=== PATIENT | male | born 1940 | race Caucasian/White ===

== ENCOUNTER 2016-06-01 12:10 | Inpatient (IN) | payer MEDICARE ==
[~2016-06-01] VITALS: Ht 175.3 cm; Wt 70.6 kg
[~2016-06-01 12:10] MED LIST: ALBU0.08 NEB; ASPI81CH CHEW; ATEN1TAB74 PO; BRIM0.2S4 EACH EYE; CHOL4POW4 PO; GLIP5TAB8 PO; IPRA0.02 NEB; LATA.005%O EACH EYE; NITR0.6D T-DERMAL
[2016-06-01 13:51] VITALS: BP 153/70; PULSE 69; RESP 16; TEMP 97.5; O2SAT 100
--- NOTE | 2016-06-01 13:51 | PD ---
HPI Chief Complaint: GI Complaint Time Seen by Provider: 13:51 Travel History International Travel<30 days: No Contact w/Intl Traveler<30days: No Traveled to known affect area: No History of Present Illness HPI 75-year-old male presents to the emergency department by Dr. Becerril for evaluation of elevated WBC. According to family, his white count was 18.3 this morning. He reports some mild left upper quadrant pain and progressive weakness , but denies any other complaints. Family member states he ran a fever a few days ago, but denies any current fever. He also reports diarrhea 3 days ago, but states this resolved with Imodium. He denies any nausea or vomiting. He denies any syncope. Patient states that in March, he was admitted with diverticulitis. He went into renal failure. In April, she had surgery by Dr. Becerril for abscess. 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 Patient has been No history of diabetes mellitus, CKD stage 3, CAD with previous stenting. Patient also reports a trip and fall on Wednesday does report headache. PFSH Past Medical History Asthma: No Blood Disorders: No Heart Rhythm Problems: No Cancer: No Cardiac Catheterization: Yes Cardiovascular Problems: Yes ([place]) High Cholesterol: Yes Chemotherapy: No Chest Pain: No Congestive Heart Failure: No COPD: No Diabetes: Yes Diminished Hearing: No Endocrine: Yes (DIABETES) Glaucoma: No Genitourinary: Yes (ENLARGED PROSTATE) Hepatitis: No Hiatal Hernia: No Hypertension: Yes Immune Disorder: No Musculoskeletal: No Neurologic: No Psychiatric: No Reproductive: No Respiratory: No Radiation Therapy: No Sleep Apnea: No Thyroid Disease: No Past Surgical History Abdominal Surgery: Yes (HERNIA REPAIR) AICD: No Body Medical Devices: STENTS Cardiac Surgery: Yes (CARDIAC STENTS 2000) Coronary Stent: Yes Ear Surgery: No Endocrine Surgery: No Eye Surgery: No Genitourinary Surgery: No Gynecologic Surgery: No Joint Replacement: Yes Oral Surgery: No Pacemaker: No Thoracic Surgery: No Other Surgery: Yes Social History Alcohol Use: No Tobacco Use: No Substance Use: No Allergies-Medications (Allergen,Severity, Reaction): Coded Allergies: *MDRO Multi-Drug Resistant Organism (Verified Adverse Reaction, Unknown, VRE, MRSA, 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 Review of Systems Except as stated in HPI: all other systems reviewed are Neg Physical Exam Narrative GENERAL: Well-developed well-nourished elderly male patient, ambulatory. Afebrile. SKIN: Warm and dry. HEAD: Normocephalic. Atraumatic. EYES: No scleral icterus. No injection or drainage. NECK: Supple, trachea midline. No JVD or lymphadenopathy. CARDIOVASCULAR: Regular rate and rhythm without murmurs, gallops, or rubs. RESPIRATORY: Breath sounds equal bilaterally. No accessory muscle use. Lungs sounds are clear to auscultation. GASTROINTESTINAL: Abdomen soft and nondistended. Mild tenderness over left upper quadrant. MUSCULOSKELETAL: No cyanosis, or edema. BACK: Nontender without obvious deformity. No CVA tenderness. Data Data Last Documented VS Vital Signs Date Time Temp Pulse Resp B/P Pulse Ox O2 Delivery O2 Flow Rate FiO2 06/01/16 17:30 82 16 168/76 98 Room Air 06/01/16 13:51 97.5 Orders Complete Blood Count With Diff (06/01/16 13:39) Comprehensive Metabolic Panel (06/01/16 13:39) Lipase (06/01/16 13:39) Lactic Acid (06/01/16 13:39) Ct Abd/Pel W Iv Contrast(Rout) (06/01/16 13:39) Iv Access Insert/Monitor (06/01/16 13:39) Ecg Monitoring (06/01/16 13:39) Oximetry (06/01/16 13:39) Sodium Chloride 0.9% Flush (Ns Flush) (06/01/16 13:45) Oral Contrast - Adult (06/01/16 13:47) Blood Culture (06/01/16 13:50) Urinalysis - C+S If Indicated (06/01/16 13:57) Diatrizoate Liq ( Gastroview Liq) (06/01/16 14:06) Ct Brain W/O Iv Contrast(Rout) (06/01/16 ) Consult Vascular Access Team (06/01/16 ) Vascular Poc Ultrasound (06/01/16 ) Vancomycin Inj (Vancomycin Inj) (06/01/16 15:02) Piperacil-Tazo 4.5 Gm Premix (Zosyn 4.5 (06/01/16 15:02) Asp: Other Excep Documentation (Asp Crit (06/01/16 15:15) Ertapenem Inj (Invanz Inj) (06/01/16 15:04) Consult Infectious Disease (06/01/16 ) Sodium Chlor 0.9% 1000 Ml Inj (Ns 1000 M (06/01/16 16:46) Sodium Chlor 0.9% 1000 Ml Inj (Ns 1000 M (06/01/16 16:46) Sodium Chlor 0.9% 1000 Ml Inj (Ns 1000 M (06/01/16 16:46) (Hub Use Only)Inp Phy Cons/Ref (06/01/16 ) Iohexol 350 Inj (Omnipaque 350 Inj) (06/01/16 17:48) Labs Laboratory Tests Test 06/01/16 06/01/16 14:00 15:20 White Blood Count 19.7 TH/MM3 Red Blood Count 4.44 MIL/MM3 Hemoglobin 12.2 GM/DL Hematocrit 37.1 % Mean Corpuscular Volume 83.7 FL Mean Corpuscular Hemoglobin 27.6 PG Mean Corpuscular Hemoglobin 33.0 % Concent Red Cell Distribution Width 16.1 % Platelet Count 596 TH/MM3 Mean Platelet Volume 8.5 FL Neutrophils (%) (Auto) 80.7 % Lymphocytes (%) (Auto) 8.4 % Monocytes (%) (Auto) 9.5 % Eosinophils (%) (Auto) 0.4 % Basophils (%) (Auto) 1.0 % Neutrophils # (Auto) 15.9 TH/MM3 Lymphocytes # (Auto) 1.7 TH/MM3 Monocytes # (Auto) 1.9 TH/MM3 Eosinophils # (Auto) 0.1 TH/MM3 Basophils # (Auto) 0.2 TH/MM3 CBC Comment DIFF FINAL Differential Comment Sodium Level 134 MEQ/L Potassium Level 4.3 MEQ/L Chloride Level 99 MEQ/L Carbon Dioxide Level 23.5 MEQ/L Anion Gap 12 MEQ/L Blood Urea Nitrogen 18 MG/DL Creatinine 0.97 MG/DL Estimat Glomerular Filtration 75 ML/MIN Rate Random Glucose 138 MG/DL Lactic Acid Level 2.8 mmol/L Calcium Level 9.4 MG/DL Total Bilirubin 0.3 MG/DL Aspartate Amino Transf 29 U/L (AST/SGOT) Alanine Aminotransferase 14 U/L (ALT/SGPT) Alkaline Phosphatase 147 U/L Total Protein 7.7 GM/DL Albumin 2.3 GM/DL Lipase 104 U/L Urine Color YELLOW Urine Turbidity CLEAR Urine pH 6.5 Urine Specific [place] 1.017 Urine Protein TRACE mg/dL Urine Glucose (UA) NEG mg/dL Urine Ketones NEG mg/dL Urine Occult Blood NEG Urine Nitrite NEG Urine Bilirubin NEG Urine Urobilinogen LESS THAN 2.0 MG/DL Urine Leukocyte Esterase NEG Urine RBC LESS THAN 1 /hpf Urine WBC 1 /hpf Microscopic Urinalysis Comment CULT NOT INDICATED MDM Medical Decision Making Medical Screen Exam Complete: Yes Emergency Medical Condition: Yes Medical Record Reviewed: Yes Interpretation(s) CT brain - CONCLUSION: Negative for an acute process.. CT abdomen/pelvis - CONCLUSION: Large subphrenic abscess, multi-loculated on the left. This tracks along the pericolic gutter to beneath the diaphragm. Spleen appears to be surgically resected. Differential Diagnosis Diverticulitis versus bowel obstruction versus abscess versus UTI versus sepsis Narrative Course 75-year-old male presents to the emergency department sent by Dr. Becerril for evaluation of elevated white count and minor left upper quadrant abdominal pain. CBC, CMP, lipase, lactic acid, UA, blood cultures 2 are ordered and pending. CT abdomen/pelvis and CT of the brain are ordered and pending. CBC shows leukocytosis of 19.7, neutrophilia 80.7. CMP elevated alkaline phosphatase of 147, no acute abnormality. Lipase is 104. Lactic acid is 2.8. UA shows no evidence of acute infection. CT abdomen/pelvis shows large subphrenic abscess, multi-loculated on the left. This tracks along the pericolic gutter to beneath the diaphragm. Spleen appears to be surgically resected. . CT of the brain shows no acute abnormality. Patient is given INVanz 1000 mg IV. [id number] - Dr. Becerril is paged. [id number] - Dr. Becerril returned call and accepted admission. Sepsis Criteria SIRS Criteria (2 or more): WBC > 33359, < 4000 or > 10% bands Sepsis Criteria (SIRS+source): Infect source susp/known Severe Sepsis (+one): Lactate >2 Diagnosis Primary Impression: Subphrenic abscess, postoperative Qualified Code: T81.4XXA - Subphrenic abscess, postoperative, initial encounter Admitting Information Admitting Physician Requests: Admit Nicolette Garland Jun 01, 2016 13:51
[2016-06-01] MEDS ORDERED: LATA0.002 EACH EYE (13:56)
[2016-06-01] MEDS ORDERED: DIATRIZOATE MEGLUM/DIATRIZOATE SOD 9 ML CUP ONE (14:06)
[2016-06-01 14:20] LABS: AUTOMATED NEUTROPHIL # 15.9 TH/MM3 (1.8-7.7); BASOPHIL # 0.2 TH/MM3 (0-0.2); EOSINOPHIL # 0.1 TH/MM3 (0-0.4); EOSINOPHIL % 0.4 % (0.0-4.0); HEMATOCRIT 37.1 % (39.0-51.0); HEMO FLAGS DIFF FINAL; LYMPH % 8.4 % (9.0-44.0); LYMPHOCYTE # 1.7 TH/MM3 (1.0-4.8); MEAN CELL VOLUME 83.7 FL (80.0-100.0); MEAN CORPUSCULAR HEMOGLOBIN 27.6 PG (27.0-34.0); MONO % 9.5 % (0.0-8.0); NEUT % 80.7 % (16.0-70.0); PLATELET COUNT 596 TH/MM3 (150-450); RED BLOOD COUNT 4.44 MIL/MM3 (4.50-5.90); RED CELL DISTRIBUTION WIDTH 16.1 % (11.6-17.2); WHITE BLOOD COUNT 19.7 TH/MM3 (4.0-11.0)
[2016-06-01 14:43] LABS: ALKALINE PHOSPHATASE 147 U/L (45-117); ALT (GPT) 14 U/L (12-78); ANION GAP 12 MEQ/L (5-15); AST (GOT) 29 U/L (15-37); BICARBONATE 23.5 MEQ/L (21.0-32.0); BLOOD UREA NITROGEN 18 MG/DL (7-18); CHLORIDE 99 MEQ/L (98-107); GLOMERULAR FILTRATION RATE 75 ML/MIN (>89); POTASSIUM 4.3 MEQ/L (3.5-5.1); SODIUM (NA) 134 MEQ/L (136-145); TOTAL BILIRUBIN ADULT 0.3 MG/DL (0.2-1.0)
[2016-06-01] MEDS ORDERED: VANCOMYCIN INJ 1,000 MG in SODIUM CHLOR 0.9% 250 ML INJ 250 ML IV STA (15:02)
[2016-06-01] MEDS ORDERED: PIPERACIL-TAZO 4.5 GM PREMIX 100 ML IV STA (15:02)
[2016-06-01] MEDS ORDERED: ERTAPENEM INJ 1,000 MG in SODIUM CHLORIDE 0.9% INJ 100 ML IV STA (15:04)
[2016-06-01] MEDS ORDERED: ASP: Other exception documentation: ( ) XX PRN (15:15)
[2016-06-01 15:56] LABS: BLOOD, URINE NEG (NEG); COMMENT (UR) CULT NOT INDICATED; CULTURE IF INDICATED CULT NOT INDICATED; GLUCOSE,URINE NEG (NEG); KETONE, URINE NEG (NEG); NITRITE,URINE NEG (NEG); PH, URINE 6.5 (5.0-8.5); URINE COLOR YELLOW (YELLW/STRAW)
--- NOTE | 2016-06-01 16:43 | RADRPT ---
EXAM DATE/TIME: 06/01/2016 16:14 [facility] COMPARISON: No previous studies available for comparison. INDICATIONS : Trauma; confusion, fall two weeks ago. RADIATION DOSE: 56.35 CTDIvol (mGy) MEDICAL HISTORY : Hypertension. Cardiovascular disease SURGICAL HISTORY : Bowel resection ENCOUNTER: Initial ACUITY: 2 weeks PAIN SCALE: 3/10 LOCATION: cranial TECHNIQUE: Multiple contiguous axial images were obtained of the head. Using automated exposure control and adj ustment of the mA and/or kV according to patient size, radiation dose was kept as low as reasonably a chievable to obtain optimal diagnostic quality images. FINDINGS: CEREBRUM: The ventricles are normal for age. No evidence of midline shift, mass lesion, hemorrhage or acute in farction. No extra-axial fluid collections are seen. POSTERIOR FOSSA: The cerebellum and brainstem are intact. The 4th ventricle is midline. The cerebellopontine angle i s unremarkable. EXTRACRANIAL: The visualized portion of the orbits is intact. SKULL: The calvaria is intact. No evidence of skull fracture. CONCLUSION: Negative for an acute process.. Dominik Parekh MD FACR on June 01, 2016 at 16:41 Board Certified Radiologist. This report was verified electronically.
[2016-06-01] MEDS ORDERED: SODIUM CHLOR 0.9% 1000 ML INJ 100 ML IV ONE (16:46)
[2016-06-01] MEDS ORDERED: SODIUM CHLOR 0.9% 1000 ML INJ 1,000 ML IV ONE ×2 (16:46)
--- NOTE | 2016-06-01 16:52 | RADRPT ---
EXAM DATE/TIME: 06/01/2016 16:17 [facility] COMPARISON: CT THORAX W/O CONTRAST, March 04, 2016, 16:12. CT ABDOMEN & PELVIS W CONTRAST, September 07, 2014, 13:0 7. INDICATIONS: Left abdominal pain 8 weeks post operative bowel resection. IV CONTRAST: 100 cc Omnipaque 350 (iohexol) IV ORAL CONTRAST: Prescribed oral contrast ingested. RADIATION DOSE: 9.96 CTDIvol (mGy) MEDICAL HISTORY: Diverticulitis. Cardiovascular disease SURGICAL HISTORY: Splenectomy. Appendectomy. Bowel resection. ENCOUNTER: Initial ACUITY: 1 week PAIN SCALE: 3/10 LOCATION: Left abdomen TECHNIQUE: Volumetric scanning of the abdomen and pelvis was performed. Using automated exposure control and ad justment of the mA and/or kV according to patient size, radiation dose was kept as low as reasonably achievable to obtain optimal diagnostic quality images. FINDINGS: There are consolidative changes present in the right base. Very minimal parenchymal changes are seen in the lingula on the left. There is no pericardial effusion. The liver is free of focal defects. There is a subphrenic abscess on the left containing air and debris. This does involve the tail of t he pancreas. This is in intima association with the splenic bed. There is no free air. Large right renal cyst is evident measuring 10 cm. Smaller cysts are seen in the left kidney. Pelvis appears unremarkable though partially obscured by artifact from bilateral total hips. CONCLUSION: Large subphrenic abscess, multi-loculated on the left. This tracks along the pericolic gutter to jason eath the diaphragm. Spleen appears to be surgically resected. Dominik Parekh MD FACR on June 01, 2016 at 16:42 Board Certified Radiologist. This report was verified electronically.
--- NOTE | 2016-06-01 17:01 | PD ---
Data Data Last Documented VS Vital Signs Date Time Temp Pulse Resp B/P Pulse Ox O2 Delivery O2 Flow Rate FiO2 06/01/16 13:51 16 06/01/16 13:51 97.5 69 153/70 100 Room Air Orders Complete Blood Count With Diff (06/01/16 13:39) Comprehensive Metabolic Panel (06/01/16 13:39) Lipase (06/01/16 13:39) Lactic Acid (06/01/16 13:39) Ct Abd/Pel W Iv Contrast(Rout) (06/01/16 13:39) Iv Access Insert/Monitor (06/01/16 13:39) Ecg Monitoring (06/01/16 13:39) Oximetry (06/01/16 13:39) Sodium Chloride 0.9% Flush (Ns Flush) (06/01/16 13:45) Oral Contrast - Adult (06/01/16 13:47) Blood Culture (06/01/16 13:50) Urinalysis - C+S If Indicated (06/01/16 13:57) Diatrizoate Liq ( Gastroview Liq) (06/01/16 14:06) Ct Brain W/O Iv Contrast(Rout) (06/01/16 ) Consult Vascular Access Team (06/01/16 ) Vascular Poc Ultrasound (06/01/16 ) Vancomycin Inj (Vancomycin Inj) (06/01/16 15:02) Piperacil-Tazo 4.5 Gm Premix (Zosyn 4.5 (06/01/16 15:02) Asp: Other Excep Documentation (Asp Crit (06/01/16 15:15) Ertapenem Inj (Invanz Inj) (06/01/16 15:04) Consult Infectious Disease (06/01/16 ) Sodium Chlor 0.9% 1000 Ml Inj (Ns 1000 M (06/01/16 16:46) Sodium Chlor 0.9% 1000 Ml Inj (Ns 1000 M (06/01/16 16:46) Sodium Chlor 0.9% 1000 Ml Inj (Ns 1000 M (06/01/16 16:46) Labs Laboratory Tests Test 06/01/16 06/01/16 14:00 15:20 White Blood Count 19.7 TH/MM3 Red Blood Count 4.44 MIL/MM3 Hemoglobin 12.2 GM/DL Hematocrit 37.1 % Mean Corpuscular Volume 83.7 FL Mean Corpuscular Hemoglobin 27.6 PG Mean Corpuscular Hemoglobin 33.0 % Concent Red Cell Distribution Width 16.1 % Platelet Count 596 TH/MM3 Mean Platelet Volume 8.5 FL Neutrophils (%) (Auto) 80.7 % Lymphocytes (%) (Auto) 8.4 % Monocytes (%) (Auto) 9.5 % Eosinophils (%) (Auto) 0.4 % Basophils (%) (Auto) 1.0 % Neutrophils # (Auto) 15.9 TH/MM3 Lymphocytes # (Auto) 1.7 TH/MM3 Monocytes # (Auto) 1.9 TH/MM3 Eosinophils # (Auto) 0.1 TH/MM3 Basophils # (Auto) 0.2 TH/MM3 CBC Comment DIFF FINAL Differential Comment Sodium Level 134 MEQ/L Potassium Level 4.3 MEQ/L Chloride Level 99 MEQ/L Carbon Dioxide Level 23.5 MEQ/L Anion Gap 12 MEQ/L Blood Urea Nitrogen 18 MG/DL Creatinine 0.97 MG/DL Estimat Glomerular Filtration 75 ML/MIN Rate Random Glucose 138 MG/DL Lactic Acid Level 2.8 mmol/L Calcium Level 9.4 MG/DL Total Bilirubin 0.3 MG/DL Aspartate Amino Transf 29 U/L (AST/SGOT) Alanine Aminotransferase 14 U/L (ALT/SGPT) Alkaline Phosphatase 147 U/L Total Protein 7.7 GM/DL Albumin 2.3 GM/DL Lipase 104 U/L Urine Color YELLOW Urine Turbidity CLEAR Urine pH 6.5 Urine Specific [place] 1.017 Urine Protein TRACE mg/dL Urine Glucose (UA) NEG mg/dL Urine Ketones NEG mg/dL Urine Occult Blood NEG Urine Nitrite NEG Urine Bilirubin NEG Urine Urobilinogen LESS THAN 2.0 MG/DL Urine Leukocyte Esterase NEG Urine RBC LESS THAN 1 /hpf Urine WBC 1 /hpf Microscopic Urinalysis Comment CULT NOT INDICATED MDM Supervised Visit with [place]: Yes Narrative Course I, Dr. Dubose, have reviewed the advance practice practioner's documentation and am in agreement, met with the patient face to face, made the diagnosis, and the medical decision making was done by me. *My assessment and Findings: 75-year-old male status post partial colectomy, splenectomy and appendectomy approximate one month ago here with complaint of elevated white blood cell count, generalized fatigue and a slight amount of left upper quadrant abdominal tenderness. Overall has a benign abdominal examination. Afebrile here. Differential includes abscess, gastritis, pancreatitis, hepatobiliary pathology, bowel obstruction, less likely dehiscence , UTI or pyelonephritis. Patient's laboratory workup notable for white count 19.7, lactate 2.8. He has a history of VRE Enterococcus faecalis and therefore was covered with ertapenem IV, infectious disease was consulted for further recommendations. Patient was covered with 31 g/kg normal saline bolus. Unfortunately CT of the abdomen and pelvis shows a subphrenic abscess in the head of his previous splenectomy. Patient's colorectal surgeon, Dr. Becerril, will be consulted for admission and further management. Critical Care Narrative Aggregate critical care time was 55 minutes. Time to perform other separately billable procedures was not included in the critical care time. My time did not include minutes spent treating any other patients simultaneously or on activities that did not directly contribute to the patient's treatment. The services I provided to this patient were to treat and/or prevent clinically significant deterioration that could result in: Cardiopulmonary decompensation, , disability I provided critical care services requiring my management, as noted below: Chart data review, documentation time, medication orders and management, vital sign assessments/reviewing monitor data, ordering and reviewing lab tests, ordering and interpreting/reviewing x-rays and diagnostic studies, care of the patient and discussion of the patient with the admitting physicians. Sepsis Criteria SIRS Criteria (2 or more): WBC > 93731, < 4000 or > 10% bands Severe Sepsis (+one): Lactate >2 Criteria Outcome: Meets SIRS criteria, Meets sepsis criteria, Meets severe sepsis criteria Diagnosis Primary Impression: Subphrenic abscess, postoperative Qualified Code: T81.4XXA - Subphrenic abscess, postoperative, initial encounter Additional Impression: Severe sepsis Adelaida Dubose MD Jun 01, 2016 17:01
[2016-06-01 17:30] VITALS: BP 168/76; PULSE 82; RESP 16; O2SAT 98
[2016-06-01] MEDS ORDERED: IOHEXOL 350 MG/ML 10 ML VIAL (for RAD DIAG) IV ONE (17:48)
[2016-06-01 19:34] VITALS: BP 165/78; PULSE 85; RESP 16; O2SAT 99
[2016-06-01] MEDS: SODIUM CHLOR 0.9% 1000 ML INJ 1,000 ML IV SCH (21:56)
[2016-06-01] MEDS: PANTOPRAZOLE SODIUM 40 MG VIAL IV PUSH SCH (21:56)
[2016-06-01 22:00] VITALS: BP 178/79; PULSE 75; RESP 20; TEMP 95.6; O2SAT 97
[2016-06-01] MEDS: LATANOPROST 0.005% OPHT SOLN 2.5 ML BTL EACH EYE SCH (23:57)
[2016-06-02] VITALS (9 sets, daily range): BP systolic 147–184; BP diastolic 66–85; PULSE 69–84; RESP 16–20; TEMP 95.3–97.8; O2SAT 93–100
[2016-06-02 05:50] LABS: AUTOMATED NEUTROPHIL # 11.3 TH/MM3 (1.8-7.7); BASOPHIL # 0.1 TH/MM3 (0-0.2); BASOPHIL % 0.7 % (0.0-2.0); EOSINOPHIL # 0.1 TH/MM3 (0-0.4); EOSINOPHIL % 0.5 % (0.0-4.0); HEMATOCRIT 34.1 % (39.0-51.0); HEMO FLAGS DIFF FINAL; LYMPHOCYTE # 2.3 TH/MM3 (1.0-4.8); MEAN CELL VOLUME 82.5 FL (80.0-100.0); MEAN CORPUSCULAR HEMOGLOBIN 26.7 PG (27.0-34.0); MEAN CORPUSCULAR HGB CONC 32.4 % (32.0-36.0); MONO % 9.2 % (0.0-8.0); NEUT % 74.6 % (16.0-70.0); PLATELET COUNT 561 TH/MM3 (150-450); RED BLOOD COUNT 4.13 MIL/MM3 (4.50-5.90); RED CELL DISTRIBUTION WIDTH 15.9 % (11.6-17.2); WHITE BLOOD COUNT 15.2 TH/MM3 (4.0-11.0)
[2016-06-02] MEDS ORDERED: ERTAPENEM SODIUM 1000 MG VIAL IM SCH (09:00)
[2016-06-02] MEDS ORDERED: LIDOCAINE 1%/EPINEPHrine 1:100,000 SOLN 20 ML VIAL ONE (09:49)
[2016-06-02] MEDS ORDERED: fentaNYL CITRATE 250 MCG/5 ML AMP ONE (09:52)
[2016-06-02] MEDS ORDERED: MIDAZOLAM HCL 5 MG/5 ML VIAL ONE (09:52)
[2016-06-02] MEDS: SODIUM CHLORIDE 0.9% 10 ML VIAL IV FLUSH SCH ×2 (12:00→22:43)
--- NOTE | 2016-06-02 13:22 | RADRPT ---
EXAM DATE/TIME: 06/02/2016 10:18 [facility] COMPARISON: No previous studies available for comparison. INDICATIONS : Left side abdominal abscess. SEDATION TIME: 30 minutes MEDICATION(S): 1.) 3 mg midazolam (Versed) IV 2.) 150 mcg fentanyl (Sublimaze) IV DEVICE(S): 1.) 10 Fr Skater FLUID: Total volume of 8 cc of elizabeth fluid was removed. Fluid was sent for laboratory ordered studies. MEDICAL HISTORY : Hernia, hiatal. Diverticulitis. SURGICAL HISTORY : Splenectomy. Hernia repair ENCOUNTER: Initial ACUITY: 1 day PAIN SCORE: 0/10 LOCATION: Left upper quadrant PROCEDURE: 1.) Conscious sedation with continuous EKG and oximetry monitoring. PROCEDURE : 1. CT guided drainage of the left upper abdominal abscess 2. Conscious sedation with continuous EKG and oximetry monitoring. The risks, benefits and alternatives to the procedure were explained and verbal and written consent w as obtained. The site was prepped in sterile fashion. Full sterile technique was used, including ca p, mask, sterile gloves and gown and a large sterile sheet. Hand hygiene and 2% chlorhexidine and/or betadine/alcohol prep was utilized per protocol for cutaneous antisepsis. The skin and subcutaneous tissues were infiltrated with local anesthetic solution. Using CT guidance the prescribed site was localized. Drainage was performed using the prescribed cat heter. A sample of the fluid was sent for laboratory evaluation. The patient tolerated the procedure well and there were no complications. Conscious sedation was per formed with the prescribed dosages and duration as above. The patient tolerated the procedure well an d there were no complications. EKG and oximetry remained stable throughout the procedure. The patient was sent to post anesthesia recovery in stable condition. CONCLUSION: Uncomplicated CT guided drainage. Gavin Barboza MD on June 02, 2016 at 13:20 Board Certified Radiologist. This report was verified electronically.
[2016-06-02] MEDS ORDERED: GLUCAGON 1 MG/ML VIAL OTHER PRN (14:45)
[2016-06-02] MEDS ORDERED: DEXTROSE 50% IN WATER 50 ML VIAL(D50) IV PUSH PRN (14:45)
[2016-06-02] MEDS: ERTAPENEM 1,000 MG/NS 100 ML IV SCH ×2 (15:31)
[2016-06-02] MEDS: SODIUM CHLOR 0.9% 1000 ML INJ 1,000 ML IV SCH (15:33)
[2016-06-02] MEDS: LOW DOSE INSULIN NOVOLIN REGULAR SUPPLEMENTAL SCALE SQ SCH ×2 (16:00→21:00)
--- NOTE | 2016-06-02 17:22 | HHI.PR ---
Subjective Remarks C/R Surg afebrile, VSS UO good no appetite mild abd discomfort Objective - Vital Signs Date Time Temp Pulse Resp B/P Pulse Ox O2 Delivery O2 Flow Rate FiO2 06/02/16 16:00 97.2 77 16 147/69 97 06/01/16 19:34 Room Air Result Diagram: 06/02/16 0512 06/01/16 1400 Objective Remarks PE alert Abd - soft, min tympany, non-tender A/P Assessment and Plan Imp: CT - LUQ fluid - try CT drainage PO as fam IVF ab's Raleigh Becerril MD Jun 02, 2016 17:22
[2016-06-02 17:41] LABS: AMYLASE 25 U/L (25-115)
--- NOTE | 2016-06-02 21:05 | MH ---
cc: ORLANDO TAFOYA MD DATE OF ADMISSION 06/01/2016 ADMISSION DIAGNOSIS Fever, possible abdominal abscess. HISTORY OF PRESENT ILLNESS Mr. 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 He also had a splenectomy at that time. He has been having a slow postop recovery, although recently gain some strength and seemed to get back to some more normal daily activities. He called the morning of admission with two or three day history of low grade fevers, general malaise, lethargy and some abdominal discomfort. Denies any nausea or vomiting, but his appetite has been pretty poor. He has had a little loose stool and has taken Imodium with good results. He was evaluated in the emergency room and was found to have a fluid collection in the left upper quadrant consistent with either postop seroma or possibly postop abscess. He was therefore admitted for antibiotics and probable CT-guided abscess drainage. PAST MEDICAL/SURGICAL HISTORY Well-documented in the chart. PHYSICAL EXAMINATION GENERAL: A very pleasant older male in no acute distress. HEENT: Remarkable for dry but pink membranes, nonicteric sclerae. NECK: Supple without gross adenopathy CHEST: Relatively clear may be diminished in the bases. HEART: Regular rhythm. ABDOMEN: Very soft and flat, very little tympany, tender in the left upper quadrant. No rebound or guarding or masses noted. EXTREMITIES: No cyanosis or clubbing and 1+ pedal edema. LABORATORY FINDINGS All reviewed and noted in the chart. IMPRESSION A 75-year-old male status post diverticular surgery and splenectomy found to have a fluid collection in the left upper quadrant. His white count has risen slightly, although he does not appear very toxic. We will start him on broad-spectrum antibiotics and arrange for CT-guided abscess aspiration and possible catheter drainage first thing in the morning. Risks, benefits, alternatives were discussed and we will keep him on some oral nutrition if he can tolerate it. In the meantime n.p.o. after midnight. MD CHRISTY Melchor/ /8:42 PM /8:51 PM
[2016-06-02] MEDS: PANTOPRAZOLE SODIUM 40 MG VIAL IV PUSH SCH (22:33)
[2016-06-02] MEDS: BRIMONIDINE TARTRATE 0.2% OPHT SOLN 5 ML BTL EACH EYE SCH (22:33)
[2016-06-02] MEDS: LATANOPROST 0.005% OPHT SOLN 2.5 ML BTL EACH EYE SCH (22:33)
[2016-06-03] VITALS (8 sets, daily range): BP systolic 148–187; BP diastolic 65–85; PULSE 58–82; RESP 17–20; TEMP 95.3–98; O2SAT 94–98
[2016-06-03] MEDS: SODIUM CHLOR 0.9% 1000 ML INJ 1,000 ML IV SCH ×2 (01:46→15:23)
[2016-06-03] MEDS: LOW DOSE INSULIN NOVOLIN REGULAR SUPPLEMENTAL SCALE SQ SCH ×4 (07:00→21:00)
[2016-06-03] MEDS: SODIUM CHLORIDE 0.9% FLUSH 5 ML FLUSH IVF PRN (10:13)
[2016-06-03] MEDS: ATENOLOL 25 MG TAB PO SCH (10:13)
[2016-06-03] MEDS: BRIMONIDINE TARTRATE 0.2% OPHT SOLN 5 ML BTL EACH EYE SCH ×2 (10:13→20:19)
[2016-06-03] MEDS: SODIUM CHLORIDE 0.9% 10 ML VIAL IV FLUSH SCH ×2 (12:00→23:24)
[2016-06-03] MEDS: ERTAPENEM 1,000 MG/NS 100 ML IV SCH ×2 (15:29)
[2016-06-03] MEDS: PANTOPRAZOLE SODIUM 40 MG VIAL IV PUSH SCH (20:14)
[2016-06-03] MEDS: LATANOPROST 0.005% OPHT SOLN 2.5 ML BTL EACH EYE SCH (20:19)
--- NOTE | 2016-06-03 22:21 | HHI.PR ---
Subjective Remarks C/R Surg afebrile, VSS UO good Appetite better more strenght Objective - Vital Signs Date Time Temp Pulse Resp B/P Pulse Ox O2 Delivery O2 Flow Rate FiO2 06/03/16 20:21 96.0 58 17 162/80 98 06/01/16 19:34 Room Air Result Diagram: 06/02/16 0512 06/01/16 1400 Objective Remarks PE alert Abd - soft, min tympany, non-tender, drain - min A/P Assessment and Plan Imp: CT - LUQ fluid - culture pending PO as fam IVF ab's Raleigh Becerril MD Jun 03, 2016 22:21
[2016-06-04] MEDS: LOW DOSE INSULIN NOVOLIN REGULAR SUPPLEMENTAL SCALE SQ SCH ×4 (06:40→20:39)
[2016-06-04 08:00] VITALS: BP 165/83; PULSE 62; RESP 19; TEMP 97.6; O2SAT 96
[2016-06-04] MEDS: ATENOLOL 25 MG TAB PO SCH ×2 (09:25→13:04)
[2016-06-04] MEDS: BRIMONIDINE TARTRATE 0.2% OPHT SOLN 5 ML BTL EACH EYE SCH ×2 (09:26→20:39)
[2016-06-04] MEDS ORDERED: IOHEXOL 350 MG/ML 10 ML VIAL (for RAD DIAG) IV ONE (09:47)
--- NOTE | 2016-06-04 11:16 | RADRPT ---
EXAM DATE/TIME: 06/04/2016 09:44 [facility] COMPARISON: CT ABDOMEN & PELVIS W CONTRAST, September 07, 2014, 13:07. CT ABDOMEN & PELVIS W CONTRAST, June 01, 16:17. INDICATIONS : Follow up abscess. IV CONTRAST: 96 cc Omnipaque 350 (iohexol) IV ORAL CONTRAST: No oral contrast ingested. RADIATION DOSE: 9.3 CTDIvol (mGy) MEDICAL HISTORY : Diverticulitis. Cardiovascular disease Hypertension.Diabetes SURGICAL HISTORY : Splenectomy. Appendectomy.Bowel resection. ENCOUNTER: Subsequent ACUITY: 2 weeks PAIN SCALE: 0/10 LOCATION: abdomen TECHNIQUE: Volumetric scanning of the abdomen was performed. Using automated exposure control and adjustment of the mA and/or kV according to patient size, radiation dose was kept as low as reasonably achievable to obtain optimal diagnostic quality images. FINDINGS: LOWER LUNGS: Interstitial opacity / emphysematous findings of the right lung base again seen. LIVER: Subcentimeter hypodensities in the left lobe of the liver unchanged, likely representing cysts. SPLEEN: Absent. PANCREAS: Within normal limits. KIDNEYS: Multiple bilateral renal cysts. 2.1 cm mass in the lower pole of the left kidney with intermediate de nsity is unchanged from 09/07/2014 and likely represents a complex cyst. Kidneys unchanged. No evidence of hydronephrosis. ADRENAL GLANDS: Within normal limits. AORTA/RETROPERITONEAL: There is no aneurysm or lymphadenopathy. BOWEL/MESENTERY: No evidence of bowel dilatation. Left upper quadrant extraluminal elongated peripherally enhancing ga s and fluid collection is again seen. Pigtail drainage catheter is identified at the lateral margin o f the collection. The portion of the collection immediately adjacent to the catheter has decreased in size, now measuring 4.4 x 2.9 cm on image #36 compared to 5.5 x 4.4 cm on the prior study of 06/01/19 17. More superiorly this connects with a crescentic gas and fluid collection immediately lateral to t he stomach that measures 5.9 x 2.9 cm compared to 6.6 x 3.4 cm on the prior study. There is a 4.5 x 2 .4 cm adjacent peripheral enhancing fluid collection abutting the pancreatic tail. This finding is un changed. ABDOMINAL WALL: Within normal limits. MUSCULOSKELETAL: Within normal limits for patient age. CONCLUSION: 1. Extraluminal gas and fluid collection again seen in the left upper quadrant. This finding has decr eased in size. Pigtail drainage catheter is in place. 2. There is a second adjacent peripherally enhancing fluid collection abutting the pancreatic tail ma ss is unchanged. Eddie Wu MD on June 04, 2016 at 10:59 Board Certified Radiologist. This report was verified electronically.
[2016-06-04] MEDS: SODIUM CHLORIDE 0.9% 10 ML VIAL IV FLUSH SCH ×2 (11:33→22:40)
[2016-06-04 12:00] VITALS: BP 170/75; PULSE 58; RESP 20; TEMP 98.2; O2SAT 99
[2016-06-04 16:00] VITALS: BP 151/73; PULSE 69; RESP 20; TEMP 97.5; O2SAT 98
[2016-06-04] MEDS: SODIUM CHLOR 0.9% 1000 ML INJ 1,000 ML IV SCH (16:37)
[2016-06-04] MEDS: ERTAPENEM 1,000 MG/NS 100 ML IV SCH ×2 (17:05)
[2016-06-04 20:00] VITALS: BP 173/82; PULSE 60; RESP 17; TEMP 98; O2SAT 97
[2016-06-04] MEDS: SODIUM CHLORIDE 0.9% FLUSH 5 ML FLUSH IVF PRN (20:35)
[2016-06-04] MEDS: PANTOPRAZOLE SODIUM 40 MG VIAL IV PUSH SCH (20:35)
[2016-06-04] MEDS: LATANOPROST 0.005% OPHT SOLN 2.5 ML BTL EACH EYE SCH (20:39)
--- NOTE | 2016-06-04 22:17 | HHI.PR ---
Subjective Remarks C/R Surg afebrile, VSS UO good Appetite better more strenght little from drain Objective - Vital Signs Date Time Temp Pulse Resp B/P Pulse Ox O2 Delivery O2 Flow Rate FiO2 06/04/16 20:00 98.0 60 17 173/82 97 06/01/16 19:34 Room Air Result Diagram: 06/02/16 0512 06/01/16 1400 Objective Remarks PE alert Abd - soft, min tympany, non-tender, drain - min A/P Assessment and Plan Imp: CT - LUQ fluid - culture pending - mult bacteria PO as fam IVF ab's Raleigh Becerril MD Jun 04, 2016 22:17
[2016-06-05] VITALS: BP 188/81; PULSE 54; RESP 17; TEMP 96; O2SAT 95
[2016-06-05 04:00] VITALS: BP 164/75; PULSE 52; RESP 17; TEMP 95.5; O2SAT 95
[2016-06-05 05:17] LABS: BICARBONATE 22.2 MEQ/L (21.0-32.0)
[2016-06-05 05:21] LABS: POTASSIUM 4.5 MEQ/L (3.5-5.1)
[2016-06-05] MEDS: LOW DOSE INSULIN NOVOLIN REGULAR SUPPLEMENTAL SCALE SQ SCH ×4 (06:21→21:21)
[2016-06-05 07:33] LABS: AUTOMATED NEUTROPHIL # 9.5 TH/MM3 (1.8-7.7); BASOPHIL # 0.1 TH/MM3 (0-0.2); BASOPHIL % 0.9 % (0.0-2.0); EOSINOPHIL # 0.1 TH/MM3 (0-0.4); EOSINOPHIL % 0.8 % (0.0-4.0); HEMATOCRIT 39.2 % (39.0-51.0); HEMO FLAGS DIFF FINAL; LYMPH % 18.1 % (9.0-44.0); LYMPHOCYTE # 2.3 TH/MM3 (1.0-4.8); MEAN CELL VOLUME 82.7 FL (80.0-100.0); MEAN CORPUSCULAR HEMOGLOBIN 26.8 PG (27.0-34.0); MEAN CORPUSCULAR HGB CONC 32.4 % (32.0-36.0); MONO % 6.4 % (0.0-8.0); NEUT % 73.8 % (16.0-70.0); PLATELET COUNT 583 TH/MM3 (150-450); RED BLOOD COUNT 4.74 MIL/MM3 (4.50-5.90); RED CELL DISTRIBUTION WIDTH 16.4 % (11.6-17.2); WHITE BLOOD COUNT 12.9 TH/MM3 (4.0-11.0)
[2016-06-05 08:07] VITALS: BP 132/66; PULSE 55; RESP 18; TEMP 97.4; O2SAT 99
[2016-06-05] MEDS: ATENOLOL 25 MG TAB PO SCH (08:38)
[2016-06-05] MEDS: BRIMONIDINE TARTRATE 0.2% OPHT SOLN 5 ML BTL EACH EYE SCH ×2 (08:38→21:14)
[2016-06-05] MEDS: SODIUM CHLORIDE 0.9% 10 ML VIAL IV FLUSH SCH (11:01)
[2016-06-05] MEDS: SODIUM CHLOR 0.9% 1000 ML INJ 1,000 ML IV SCH (11:01)
[2016-06-05] MEDS ORDERED: fentaNYL CITRATE 250 MCG/5 ML AMP ONE (11:29)
[2016-06-05] MEDS ORDERED: LORazepam 2 MG/ML VIAL ONE (11:30)
[2016-06-05 11:45] VITALS: BP 117/62; PULSE 71; RESP 18; TEMP 97.9; O2SAT 95
[2016-06-05] MEDS ORDERED: IOHEXOL 350 MG/ML 50 ML BTL (for RAD DIAG) ONE (12:29)
--- NOTE | 2016-06-05 13:05 | RADRPT ---
EXAM DATE/TIME: 06/05/2016 11:39 [facility] COMPARISON: No previous studies available for comparison. INDICATIONS : Patient with exsiting drainage tube,left upper quadrant. Needs upsizing. MEDICAL HISTORY : 1. Left abscess S/P proctosigmoidectomy . 2.Diverticular inflammation SURGICAL HISTORY : 1. Splenectomy 2. Proctosigmoidectomy 3. Abscess drainage tube x2 ENCOUNTER: Initial ACUITY: 4 - 6 days PAIN SCORE: 0/10 FLUORO TIME: 4.8 minutes CONTRAST: 10 cc Omnipaque (iohexol) 350 MEDICATION(S): 1.) 1 mg lorazepam (Ativan) IV 2.) 100 mcg fentanyl (Sublimaze) IV DEVICE: 1.) 16 [place] locking pigtail PROCEDURE : 1. Fluoroscopically guided tube exchange. 2. Conscious sedation with continuous EKG and oximetry monitoring. The risks, benefits and alternatives to the procedure were explained and verbal and written consent w as obtained. The site was prepped in sterile fashion. Full sterile technique was used, including ca p, mask, sterile gloves and gown and a large sterile sheet. Hand hygiene and 2% chlorhexidine and/or betadine/alcohol prep was utilized per protocol for cutaneous antisepsis. With fluoroscopic guidance the previously placed tube was exchanged for the prescribed catheter. The new catheter was advanced over a guidewire into the left subdiaphragmatic region. Post procedure fortino ge demonstrates satisfactory position of the tube. The catheter was sutured in place and a Percu-Sta y was applied. Conscious sedation was performed with the prescribed dosages and duration as above. The patient tole rated the procedure well and there were no complications. EKG and oximetry remained stable throughou t the procedure. The patient was sent to post anesthesia recovery in stable condition. CONCLUSION: Uncomplicated tube exchange as above. Leonardo Vaca MD on June 05, 2016 at 13:03 Board Certified Radiologist. This report was verified electronically.
[2016-06-05] MEDS: MORPHINE SULFATE 4 MG/ML INJ IV PUSH PRN ×2 (15:24→21:22)
[2016-06-05] MEDS: SODIUM CHLORIDE 0.9% 10 ML VIAL SCH (15:29)
[2016-06-05 16:00] VITALS: BP 144/74; PULSE 61; RESP 19; TEMP 97.9; O2SAT 100
[2016-06-05] MEDS: ERTAPENEM 1,000 MG/NS 100 ML IV SCH ×2 (16:26)
[2016-06-05 20:00] VITALS: BP 183/79; PULSE 65; RESP 17; TEMP 96; O2SAT 97
[2016-06-05] MEDS: LATANOPROST 0.005% OPHT SOLN 2.5 ML BTL EACH EYE SCH (21:14)
[2016-06-05] MEDS: PANTOPRAZOLE SODIUM 40 MG VIAL IV PUSH SCH (21:21)
--- NOTE | 2016-06-05 23:03 | HHI.PR ---
Subjective Remarks C/R Surg afebrile, VSS UO good Appetite better more strength little from drain -re-positioned Objective - Vital Signs Date Time Temp Pulse Resp B/P Pulse Ox O2 Delivery O2 Flow Rate FiO2 06/05/16 20:00 96.0 65 17 183/79 97 06/01/16 19:34 Room Air Result Diagram: 06/05/16 0720 06/05/16 0409 Objective Remarks PE alert Abd - soft, min tympany, non-tender, drain - min A/P Assessment and Plan Imp: CT - LUQ fluid - culture pending - mult bacteria PO as fam IVF ab's dc plans Raleigh Becerril MD Jun 05, 2016 23:03
[2016-06-06] VITALS: BP 161/70; PULSE 69; RESP 17; TEMP 95.5; O2SAT 95
[2016-06-06] MEDS: MORPHINE SULFATE 4 MG/ML INJ IV PUSH PRN (04:15)
[2016-06-06] MEDS: LOW DOSE INSULIN NOVOLIN REGULAR SUPPLEMENTAL SCALE SQ SCH ×4 (06:22→21:00)
[2016-06-06 08:00] VITALS: BP 138/65; PULSE 68; RESP 18; TEMP 96.9; O2SAT 95
[2016-06-06] MEDS: SODIUM CHLORIDE 0.9% 10 ML VIAL SCH (09:00)
[2016-06-06] MEDS: SODIUM CHLOR 0.9% 1000 ML INJ 1,000 ML IV SCH (09:10)
[2016-06-06] MEDS ORDERED: oxyCODONE/ACETAMINOPHEN 10 MG/325 MG TAB PO PRN (10:00)
--- NOTE | 2016-06-06 10:01 | HHI.PR ---
Subjective Remarks C/O of severe pain at insertion site of drainage cath. Not related to breathing. Worse when moving around. Objective Vital Signs Date Time Temp Pulse Resp B/P Pulse Ox O2 Delivery O2 Flow Rate FiO2 06/06/16 08:00 96.9 68 18 138/65 95 06/06/16 00:00 95.5 69 17 161/70 95 06/05/16 20:00 96.0 65 17 183/79 97 06/05/16 16:00 97.9 61 19 144/74 100 06/05/16 15:29 22 06/05/16 11:45 97.9 71 18 117/62 95 I/O 06/05/16 06/05/16 06/05/16 06/06/16 06/06/16 06/06/16 07:00 15:00 23:00 07:00 15:00 23:00 Intake Total 240 ml 1350 ml 240 ml 240 ml Output Total 20 ml 880 ml 20 ml Balance 220 ml 470 ml 240 ml 220 ml Intake Oral 240 ml 960 ml 240 ml 240 ml IV Total 390 ml 0 ml Output Urine Total 800 ml Drainage Total 20 ml 80 ml 20 ml # Voids 6 1 3 # Bowel Movements 0 Result Diagram: 06/05/16 0720 06/05/16 0409 Objective Remarks Afebrile Pain near insertion site. O/W WNL Assessment and Plan Assessment and Plan Stable-subphrenic abscess drained Change to PO Ampicillin tomorrow PO pain meds for better control. Zion Horvath MD Jun 06, 2016 10:01
[2016-06-06] MEDS: ATENOLOL 25 MG TAB PO SCH (10:03)
[2016-06-06] MEDS: oxyCODONE/ACETAMINOPHEN 7.5 MG/325 MG TAB PO PRN ×2 (10:04→16:01)
[2016-06-06] MEDS: BRIMONIDINE TARTRATE 0.2% OPHT SOLN 5 ML BTL EACH EYE SCH ×2 (10:06→21:52)
[2016-06-06] MEDS: SODIUM CHLORIDE 0.9% 10 ML VIAL IV FLUSH SCH ×2 (10:07)
[2016-06-06 12:00] VITALS: BP 119/59; PULSE 68; RESP 18; TEMP 96.7; O2SAT 98
[2016-06-06 16:00] VITALS: BP 150/68; PULSE 68; RESP 18; TEMP 96.7; O2SAT 97
[2016-06-06] MEDS: ERTAPENEM 1,000 MG/NS 100 ML IV SCH ×2 (16:03)
[2016-06-06 20:00] VITALS: BP 142/60; PULSE 60; RESP 20; TEMP 97.6; O2SAT 95
[2016-06-06] MEDS: SODIUM CHLORIDE 0.9% FLUSH 5 ML FLUSH IVF PRN (21:51)
[2016-06-06] MEDS: PANTOPRAZOLE SODIUM 40 MG VIAL IV PUSH SCH (21:51)
[2016-06-06] MEDS: LATANOPROST 0.005% OPHT SOLN 2.5 ML BTL EACH EYE SCH (21:52)
[2016-06-07] VITALS: BP 142/62; PULSE 62; RESP 20; TEMP 97.8; O2SAT 93
[2016-06-07] MEDS: oxyCODONE/ACETAMINOPHEN 7.5 MG/325 MG TAB PO PRN ×3 (02:39→12:23)
[2016-06-07] MEDS: SODIUM CHLOR 0.9% 1000 ML INJ 1,000 ML IV SCH (05:10)
[2016-06-07] MEDS: LOW DOSE INSULIN NOVOLIN REGULAR SUPPLEMENTAL SCALE SQ SCH ×2 (06:45→11:00)
[2016-06-07 07:25] LABS: AUTOMATED NEUTROPHIL # 8.3 TH/MM3 (1.8-7.7); BASOPHIL # 0.1 TH/MM3 (0-0.2); EOSINOPHIL # 0.4 TH/MM3 (0-0.4); EOSINOPHIL % 3.5 % (0.0-4.0); HEMATOCRIT 33.7 % (39.0-51.0); HEMO FLAGS DIFF FINAL; LYMPH % 21.6 % (9.0-44.0); LYMPHOCYTE # 2.7 TH/MM3 (1.0-4.8); MEAN CELL VOLUME 82.8 FL (80.0-100.0); MEAN CORPUSCULAR HEMOGLOBIN 27.5 PG (27.0-34.0); MEAN CORPUSCULAR HGB CONC 33.2 % (32.0-36.0); MONO % 8.8 % (0.0-8.0); NEUT % 65.1 % (16.0-70.0); PLATELET COUNT 650 TH/MM3 (150-450); RED BLOOD COUNT 4.07 MIL/MM3 (4.50-5.90); RED CELL DISTRIBUTION WIDTH 16.4 % (11.6-17.2); WHITE BLOOD COUNT 12.7 TH/MM3 (4.0-11.0)
[2016-06-07 08:00] VITALS: BP 138/63; PULSE 59; RESP 18; TEMP 96; O2SAT 96
--- NOTE | 2016-06-07 08:48 | HHI.DCPOC ---
Discharge Care Plan Diagnosis: (1) Subphrenic abscess, postoperative Your Health Problems Are: Incision/Drains Appetite Changes Irregular Bowel Function Exercise Tolerance Chronic Pain Goals to Promote Your Health * To prevent worsening of your condition and complications * To maintain your health at the optimal level Directions to Meet Your Goals Take your medications as prescribed Follow your dietary instruction Follow activity as directed Keep your appointments as scheduled Take your immunizations and boosters as scheduled If your symptoms worsen call your PCP, if no PCP go to Urgent Care Center or Emergency Room Smoking is Dangerous to Your Health. Avoid second hand smoke Call the 24-hour hour crisis hotline for domestic abuse at Zion Flor MD Jun 07, 2016 08:48
--- NOTE | 2016-06-07 08:54 | HHI.PR ---
Subjective . Wants to go home Objective . VS-S D/C with drain Assessment/Plan . Stable D/C with drain. F/U DR Becerril 2 days. D/C on Ampicillin Zion Flor MD Jun 07, 2016 08:54
[2016-06-07] MEDS: SODIUM CHLORIDE 0.9% 10 ML VIAL SCH (09:00)
[2016-06-07] MEDS ORDERED: AMPI500C8 PO (09:17)
[2016-06-07] MEDS ORDERED: HYDR-3516 PO (09:17)
[2016-06-07] MEDS: BRIMONIDINE TARTRATE 0.2% OPHT SOLN 5 ML BTL EACH EYE SCH (09:36)
[2016-06-07] MEDS: ATENOLOL 25 MG TAB PO SCH (09:37)
[2016-06-07] MEDS: SODIUM CHLORIDE 0.9% 10 ML VIAL IV FLUSH SCH ×2 (11:29)
[2016-06-07 12:00] VITALS: BP 115/59; PULSE 56; RESP 18; TEMP 96; O2SAT 95
--- NOTE | 2016-07-18 18:15 | MD ---
cc: ORLANDO TAFOYA MD, MD, MARIO ADMISSION DATE: 06/01/2016 DISCHARGE DATE: 06/07/2016 ADMISSION DIAGNOSIS Fever, possible abdominal abscess. PROCEDURE CT-guided drainage of left subphrenic abscess. DISCHARGE DIAGNOSES 1. Left subphrenic abscess. 2. History of diverticulitis HISTORY OF PRESENT ILLNESS Mr. Daugherty is a 75-year-old male underwent a proctosigmoidectomy six weeks prior to admission for chronic diverticular inflammation. The patient also had a splenectomy done at the same operation. He is having a slow postop recovery, although recently gained some strength and seemed to get back to some more daily activities. The patient called the morning of admission went two or three day history of low grade fevers, general malaise, lethargy and some abdominal discomfort. Denies any nausea or vomiting, but said his appetite had decreased. A little loose stool. He has taken Imodium with good results. He was evaluated in the emergency room and was found to have fluid collection in the left upper quadrant with either a postop seroma or possibly a postop abscess. He was therefore admitted for antibiotics and possible CT-guided abscess drainage. Please see his other history and physical for more complete past medical and surgical history. PERTINENT PHYSICAL EXAMINATION GENERAL: A very pleasant older male in no acute distress. ABDOMEN: Abdomen was very soft and flat, not very tympanic, slightly tender in the left upper quadrant but no masses. No hernias. No rebound or guarding. Previous incision was well-healed. RECTAL: Revealed benign tissues. No sign of any induration or thickening. No blood on the finger. HOSPITAL COURSE After admission, the patient did have CT-guided drainage of a fluid collection in the left upper quadrant. The drain was placed by the interventional radiologist. The patient actually did feel better after the fluid was drained. He was continued on broad-spectrum antibiotics. Drainage from the catheter was fairly minimal. He did have one blood culture which grew viridans Streptococcus. This patient continued to improve with catheter drainage. Follow up CT scan showed very little remaining fluid. He was switched to oral antibiotics and was considered for discharge home with the catheter on June 07, 2016. DISCHARGE INSTRUCTIONS The patient was discharged eating a regular diet. He is encouraged to ambulate daily avoiding any heavy lifting or straining. All preop medications were to be continued. The patient will be seen in the office in less than a weeks' time after a CT scan followup to see if the catheter could be discontinued. He did have a catheter change prior to discharge, which revealed very little additional fluid. The patient was instructed to call if any further fever or increased abdominal pain or drainage from the abscess cavity. MD CHRISTY Melchor/ /7:50 PM /4:48 PM
== END 2016-06-07 12:33 | disposition home or self-care (01) | DRG 862 ==
LOC: NEPA 12:10 → NEDA 18:06 → N07B 22:00
PROVIDERS: ADMIT Colon & Rectal Surgery; ATTEND Colon & Rectal Surgery
PROC: 0W9F30Z Drainage of Abdominal Wall with Drainage Device, Percutaneous Approach (ICD-10-PCS; principal; 2016-06-02)
PROC: 0W2FX0Z Change Drainage Device in Abdominal Wall, External Approach (ICD-10-PCS; 2016-06-05)
DX: T81.4XXA Infection following a procedure, initial encounter (principal); K65.1 Peritoneal abscess; E11.22 Type 2 diabetes mellitus with diabetic chronic kidney disease; I12.9 Hypertensive chronic kidney disease with stage 1 through stage 4 chronic kidney disease, or unspecified chronic kidney disease; N18.2 Chronic kidney disease, stage 2 (mild); I25.10 Atherosclerotic heart disease of native coronary artery without angina pectoris; N40.0 Benign prostatic hyperplasia without lower urinary tract symptoms; Z90.81 Acquired absence of spleen; Z90.49 Acquired absence of other specified parts of digestive tract; Z95.5 Presence of coronary angioplasty implant and graft
CPT/HCPCS: 49423; 49424; 70450; 74160; 74177; 75898; 75984; 75989; 76937; 80048; 80053; 81001; 82150; 82948; 83605; 83690; 85025; 87015; 87040; 87070; 87102; 87116; 87186; 87205; 87206; 96365; C1729; C1769; C1887; C9113; J1335; J2060; J2250; J2270; J3010; J7030; Q9963; Q9967

== ENCOUNTER 2016-07-01 15:45 | Inpatient (IN) | payer MEDICARE ==
[~2016-07-01] VITALS: Ht 175.3 cm; Wt 67.3 kg
[~2016-07-01 15:45] MED LIST changes: -ALBU0.08 NEB; +AMPI500C8 PO; -ASPI81CH CHEW; -ATEN1TAB74 PO; -BRIM0.2S4 EACH EYE; -CHOL4POW4 PO; -GLIP5TAB8 PO; +HYDR-3516 PO; -IPRA0.02 NEB; -LATA.005%O EACH EYE; +LATA0.002 EACH EYE; -NITR0.6D T-DERMAL
[2016-07-01 15:46] VITALS: BP 125/65; PULSE 91; RESP 20; TEMP 97.4; O2SAT 97
--- NOTE | 2016-07-01 17:58 | PD ---
HPI Chief Complaint: Abdominal Pain Time Seen by Provider: 17:58 Travel History International Travel<30 days: No Contact w/Intl Traveler<30days: No Traveled to known affect area: No History of Present Illness HPI 75-year-old male with history of CAD, hypertension, CKD, diverticulitis and colon resection followed by Dr. Becerril presents to the emergency department for evaluation of worsening weakness. Patient was hospitalized June 01 through June 07 of this year. At that time he was treated for a subphrenic abscess. He states that last week he began feeling more weak. He has had a decreased appetite since he left. He is uncertain of fever and chills. No nausea or vomiting. No diarrhea. Intermittent abdominal pain that travels across his abdomen he cannot think of any specific exacerbating or alleviating factors of this. Per the patient He was advised to come to the emergency department for evaluation by Dr. Becerril. FORMERLY [facility] Past Medical History Asthma: No Blood Disorders: No Heart Rhythm Problems: No Cancer: No Cardiac Catheterization: Yes Cardiovascular Problems: Yes High Cholesterol: Yes Chemotherapy: No Chest Pain: No Congestive Heart Failure: No COPD: No Diabetes: Yes Diminished Hearing: No Endocrine: Yes (DIABETES) Gastrointestinal Disorders: Yes (DIVERTICULITIS) Glaucoma: No Genitourinary: Yes (ENLARGED PROSTATE) Hepatitis: No Hiatal Hernia: Yes (YEARS AGO) Hypertension: Yes Immune Disorder: No Implanted Vascular Access Dvce: Yes Musculoskeletal: No Neurologic: No Psychiatric: No Reproductive: No Respiratory: No Radiation Therapy: No Sleep Apnea: No Thyroid Disease: No Past Surgical History Abdominal Surgery: Yes (HERNIA REPAIR,COLON SURGERY) AICD: No Body Medical Devices: STENTS Cardiac Surgery: Yes (CARDIAC STENTS 2000) Coronary Stent: Yes Ear Surgery: No Endocrine Surgery: No Eye Surgery: No Genitourinary Surgery: No Gynecologic Surgery: No Joint Replacement: Yes Oral Surgery: No Pacemaker: No Thoracic Surgery: No Other Surgery: Yes Social History Alcohol Use: No Tobacco Use: No Substance Use: No Allergies-Medications (Allergen,Severity, Reaction): Coded Allergies: *MDRO Multi-Drug Resistant Organism (Verified Adverse Reaction, Unknown, VRE, MRSA, 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 Review of Systems Except as stated in HPI: all other systems reviewed are Neg Physical Exam Narrative GENERAL: Well-nourished elderly male patient, ambulatory and in no acute distress SKIN: Warm and dry. HEAD: Atraumatic. Normocephalic. EYES: Pupils equal and round. No scleral icterus. No injection or drainage. ENT: No nasal bleeding or discharge. Mucous membranes pink and moist. NECK: Trachea midline. No JVD. CARDIOVASCULAR: Elevated rate and rhythm. No murmur appreciated. RESPIRATORY: No accessory muscle use. Clear to auscultation. Breath sounds equal bilaterally. GASTROINTESTINAL: Abdomen soft, non-tender, nondistended. No guarding. No rebound tenderness. MUSCULOSKELETAL: No obvious deformities. No clubbing. No cyanosis. No edema. NEUROLOGICAL: Awake and alert. No obvious cranial nerve deficits. Motor grossly within normal limits. Normal speech. PSYCHIATRIC: Appropriate mood and affect; insight and judgment normal. Data Data Last Documented VS Vital Signs Date Time Temp Pulse Resp B/P Pulse Ox O2 Delivery O2 Flow Rate FiO2 07/01/16 19:16 20 07/01/16 15:46 97.4 91 125/65 97 Room Air Orders Electrocardiogram (07/01/16 17:57) Complete Blood Count With Diff (07/01/16 17:57) Comprehensive Metabolic Panel (07/01/16 17:57) Prothrombin Time / Inr (Pt) (07/01/16 17:57) Act Partial Throm Time (Ptt) (07/01/16 17:57) Lactic Acid Sepsis Protocol (07/01/16 17:57) Lipase (07/01/16 17:57) Ckmb (Isoenzyme) Profile (07/01/16 17:57) Troponin I (07/01/16 17:57) Urinalysis - C+S If Indicated (07/01/16 17:57) Blood Culture (07/01/16 17:57) Chest, Single Ap (07/01/16 17:57) Abdomen, Flat & Upright (07/01/16 ) Labs Laboratory Tests Test 07/01/16 18:30 Urine Color YELLOW Urine Turbidity CLEAR Urine pH 5.5 Urine Specific [place] 1.019 Urine Protein TRACE mg/dL Urine Glucose (UA) TRACE mg/dL Urine Ketones NEG mg/dL Urine Occult Blood NEG Urine Nitrite NEG Urine Bilirubin NEG Urine Urobilinogen LESS THAN 2.0 MG/DL Urine Leukocyte Esterase TRACE Urine WBC 1 /hpf Microscopic Urinalysis Comment CATH-CULT NOT IND MDM Medical Decision Making Medical Screen Exam Complete: Yes Emergency Medical Condition: Yes Medical Record Reviewed: Yes Differential Diagnosis Sepsis versus abscess versus musculoskeletal pain versus diverticulitis versus ACS versus CHF Narrative Course 75-year-old male presents to emergency department for evaluation of worsening weakness. Workup is initiated in triage. Once a medical bed becomes available , patient will be transferred and care assumed by that provider. Condition: Stable Kalani Nassar Jul 01, 2016 17:58
[2016-07-01 18:55] LABS: BLOOD, URINE NEG (NEG); GLUCOSE,URINE TRACE mg/dL (NEG); KETONE, URINE NEG (NEG); NITRITE,URINE NEG (NEG); PH, URINE 5.5 (5.0-8.5); URINE COLOR YELLOW (YELLW/STRAW)
[2016-07-01 19:09] LABS: COMMENT (UR) CATH-CULT NOT IND; CULTURE IF INDICATED CATH CULTURE NOT IND
[2016-07-01 19:19] VITALS: BP 171/75; PULSE 76; RESP 18; O2SAT 94
--- NOTE | 2016-07-01 19:19 | RADRPT ---
EXAM DATE/TIME: 07/01/2016 18:37 [facility] COMPARISON: CT THORAX W/O CONTRAST, March 04, 2016, 16:12. CHANGE OF DRAINAGE CATH - LEFT, June 05, 2016, 11:39. CT ABDOMEN W CONTRAST, June 04, 2016, 9:44. CHEST SINGLE AP, April 12, 2016, 11:30. INDICATIONS : Weakness, pain. MEDICAL HISTORY : Diverticulitis. Cardiovascular disease. Hypertension. Diabetes. SURGICAL HISTORY : Appendectomy. Bowel resection. Splenectomy. ENCOUNTER: Initial ACUITY: 2 days PAIN SCORE: 4/10 LOCATION: Chest/Abdomen. FINDINGS: A 4 to 5 cm masslike density has developed in the right perihilar region. Lungs are hyperinflated. There is mild airspace disease identified in the right base. Heart is normal in size. CONCLUSION: Large masslike density in the right perihilar region characteristic of malignancy until proven otherw ise. This may represent a pseudotumor with fluid within the minor fissure. COPD Mild right basilar airspace disease. Leonardo Vaca MD on July 01, 2016 at 19:14 Board Certified Radiologist. This report was verified electronically.
--- NOTE | 2016-07-01 19:27 | RADRPT ---
EXAM DATE/TIME: 07/01/2016 18:43 [facility] COMPARISON: ABDOMEN FLAT & UPRIGHT, February 27, 2016, 15:03. INDICATIONS : Abdominal pain. MEDICAL HISTORY : Diverticulitis. Cardiovascular disease. Hypertension. Diabetes. SURGICAL HISTORY : Splenectomy. Appendectomy. Bowel resection. ENCOUNTER: Initial ACUITY: 2 days PAIN SCORE: 6/10 LOCATION: Abdomen. FINDINGS: Gas pattern is unremarkable without evidence of significant ileus or free air. Drainage catheter prev iously placed in the left upper quadrant is no longer present. There is no evidence of significant mass effect or abnormal gas collections. Right perihilar mass density is identified in the lower lungs. CONCLUSION: Unremarkable gas pattern. No evidence of ileus or abnormal gas collections. Right parahilar mass density. Leonardo Vaca MD on July 01, 2016 at 19:24 Board Certified Radiologist. This report was verified electronically.
[2016-07-01 19:45] LABS: AUTOMATED NEUTROPHIL # 10.1 TH/MM3 (1.8-7.7); BASOPHIL # 0.1 TH/MM3 (0-0.2); BASOPHIL % 0.5 % (0.0-2.0); EOSINOPHIL # 0.1 TH/MM3 (0-0.4); EOSINOPHIL % 0.6 % (0.0-4.0); HEMATOCRIT 36.8 % (39.0-51.0); HEMO FLAGS DIFF FINAL; LYMPH % 12.7 % (9.0-44.0); LYMPHOCYTE # 1.7 TH/MM3 (1.0-4.8); MEAN CELL VOLUME 80.3 FL (80.0-100.0); MEAN CORPUSCULAR HEMOGLOBIN 26.2 PG (27.0-34.0); MEAN CORPUSCULAR HGB CONC 32.7 % (32.0-36.0); MONO % 10.3 % (0.0-8.0); NEUT % 75.9 % (16.0-70.0); PLATELET COUNT 539 TH/MM3 (150-450); RED BLOOD COUNT 4.58 MIL/MM3 (4.50-5.90); RED CELL DISTRIBUTION WIDTH 17.4 % (11.6-17.2); WHITE BLOOD COUNT 13.3 TH/MM3 (4.0-11.0)
--- NOTE | 2016-07-01 19:51 | PD ---
HPI Chief Complaint: Abdominal Pain Time Seen by Provider: 19:34 Travel History International Travel<30 days: No Contact w/Intl Traveler<30days: No Traveled to known affect area: No History of Present Illness HPI For full history and physical examination please see previous provider's note. I assumed care of this patient when he was transferred to a medical bed. Patient reports that he's had dull ache in his abdomen for several weeks, he reports increased weakness and fatigue, as well as decreased appetite. Patient went to his primary care doctor Dr. Chandler yesterday, per the family's report they state that he wanted to do a PET scan and get an ID consult. The family then spoke with Dr. Becerril who advised them to bring patient to the emergency department have a CT scan of his abdomen and pelvis. 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 June 01, 2016 patient was admitted to left upper quadrant pain and a noted fluid collection, possible abscess on the CT scan. Patient underwent CT-guided biopsy with drainage for subphrenic abscess. Today patient denies any nausea, vomiting, change in bowel habits, chest pain, shortness of breath. He does state that he has again a decreased appetite, increased in his weakness, he is not sleeping well at night getting approximately 4 hours. This alone could be contributing to the weakness and feeling of fatigue. Patient's brother recently a week ago, his primary doctor put him on Lexapro 2 days ago. Labs and imaging ordered and pending IV access obtained, patient placed on telemetry monitoring, continuous pulse oximetry. Family at bedside. Patient appears well, nontoxic appearing, his vital signs are stable. PFSH Past Medical History Asthma: No Blood Disorders: No Heart Rhythm Problems: No Cancer: No Cardiac Catheterization: Yes Cardiovascular Problems: Yes High Cholesterol: Yes Chemotherapy: No Chest Pain: No Congestive Heart Failure: No COPD: No Diabetes: Yes Patient Takes Glucophage: Yes Diminished Hearing: No Endocrine: Yes (DIABETES) Gastrointestinal Disorders: Yes (DIVERTICULITIS) Glaucoma: No Genitourinary: Yes (ENLARGED PROSTATE) Hepatitis: No Hiatal Hernia: Yes Hypertension: Yes Immune Disorder: No Implanted Vascular Access Dvce: Yes Medical other: Yes (ARTHRITIS) Musculoskeletal: No Neurologic: No Psychiatric: No Reproductive: No Respiratory: No Radiation Therapy: No Sleep Apnea: No Thyroid Disease: No Tetanus Vaccination: < 5 Years Influenza Vaccination: Yes Past Surgical History Abdominal Surgery: Yes (HERNIA REPAIR,COLON SURGERY) AICD: No Body Medical Devices: STENTS Cardiac Surgery: Yes (CARDIAC STENTS 2000) Coronary Stent: Yes Ear Surgery: No Endocrine Surgery: No Eye Surgery: No Genitourinary Surgery: No Gynecologic Surgery: No Joint Replacement: Yes Oral Surgery: No Pacemaker: No Thoracic Surgery: No Other Surgery: Yes Social History Alcohol Use: No Tobacco Use: No Substance Use: No Allergies-Medications (Allergen,Severity, Reaction): Coded Allergies: *MDRO Multi-Drug Resistant Organism (Verified Adverse Reaction, Unknown, VRE, MRSA, 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 Review of Systems Except as stated in HPI: all other systems reviewed are Neg General / Constitutional: Positive: Chills, Other (fatigue, decreased energy), No: Fever HENT: No: Headaches, Lightheadedness Cardiovascular: No: Chest Pain or Discomfort Respiratory: Positive: Cough, No: Shortness of Breath, Wheezing Gastrointestinal: Positive: Abdominal Pain, Loss of Appetite, No: Nausea, Vomiting, Diarrhea Genitourinary: No: Dysuria Musculoskeletal: No: Myalgias Neurologic: Positive: Weakness, No: Dizziness, Syncope, Change in Mentation Psychiatric: Positive: Depression Physical Exam Narrative GENERAL: Well-developed, well-nourished, alert male. Resting comfortably in no acute distress. SKIN: Warm and dry. HEAD: Atraumatic. Normocephalic. EYES: Pupils equal and round. No scleral icterus. No injection or drainage. ENT: No nasal bleeding or discharge. Mucous membranes pink and moist. NECK: Trachea midline. No JVD. CARDIOVASCULAR: Regular rate and rhythm. No murmur appreciated. RESPIRATORY: No accessory muscle use. Clear to auscultation. Breath sounds equal bilaterally. No wheezes, rhonchi, or rales noted. GASTROINTESTINAL: Abdomen soft, non-tender, nondistended. Hepatic and splenic margins not palpable. The bowel sounds, no rebound, no guarding. MUSCULOSKELETAL: No obvious deformities. No clubbing. No cyanosis. No edema. NEUROLOGICAL: Awake and alert. No obvious cranial nerve deficits. Motor grossly within normal limits. Normal speech. PSYCHIATRIC: Appropriate mood and affect; insight and judgment normal. Data Data Last Documented VS Vital Signs Date Time Temp Pulse Resp B/P Pulse Ox O2 Delivery O2 Flow Rate FiO2 07/01/16 21:47 18 98 Room Air 07/01/16 19:19 76 171/75 07/01/16 15:46 97.4 Orders Complete Blood Count With Diff (07/01/16 17:57) Comprehensive Metabolic Panel (07/01/16 17:57) Prothrombin Time / Inr (Pt) (07/01/16 17:57) Act Partial Throm Time (Ptt) (07/01/16 17:57) Lactic Acid Sepsis Protocol (07/01/16 17:57) Lipase (07/01/16 17:57) Ckmb (Isoenzyme) Profile (07/01/16 17:57) Troponin I (07/01/16 17:57) Urinalysis - C+S If Indicated (07/01/16 17:57) Blood Culture (07/01/16 17:57) Chest, Single Ap (07/01/16 17:57) Abdomen, Flat & Upright (07/01/16 ) Ct Abd/Pel W Iv Contrast(Rout) (07/01/16 ) Iv Access Insert/Monitor (07/01/16 19:23) Oximetry (07/01/16 19:23) Ct Thorax/ Chest W Iv Contrast (07/01/16 ) Iohexol 350 Inj (Omnipaque 350 Inj) (07/01/16 20:53) Thyroid Stimulating Hormone (07/01/16 20:56) Admit Order (Ed Use Only) (07/01/16 22:10) Consult Colorectal Surgery (07/01/16 ) Labs Laboratory Tests Test 07/01/16 07/01/16 18:30 19:30 Urine Color YELLOW Urine Turbidity CLEAR Urine pH 5.5 Urine Specific [place] 1.019 Urine Protein TRACE mg/dL Urine Glucose (UA) TRACE mg/dL Urine Ketones NEG mg/dL Urine Occult Blood NEG Urine Nitrite NEG Urine Bilirubin NEG Urine Urobilinogen LESS THAN 2.0 MG/DL Urine Leukocyte Esterase TRACE Urine WBC 1 /hpf Microscopic Urinalysis Comment CATH-CULT NOT IND White Blood Count 13.3 TH/MM3 Red Blood Count 4.58 MIL/MM3 Hemoglobin 12.0 GM/DL Hematocrit 36.8 % Mean Corpuscular Volume 80.3 FL Mean Corpuscular Hemoglobin 26.2 PG Mean Corpuscular Hemoglobin 32.7 % Concent Red Cell Distribution Width 17.4 % Platelet Count 539 TH/MM3 Mean Platelet Volume 7.7 FL Neutrophils (%) (Auto) 75.9 % Lymphocytes (%) (Auto) 12.7 % Monocytes (%) (Auto) 10.3 % Eosinophils (%) (Auto) 0.6 % Basophils (%) (Auto) 0.5 % Neutrophils # (Auto) 10.1 TH/MM3 Lymphocytes # (Auto) 1.7 TH/MM3 Monocytes # (Auto) 1.4 TH/MM3 Eosinophils # (Auto) 0.1 TH/MM3 Basophils # (Auto) 0.1 TH/MM3 CBC Comment DIFF FINAL Differential Comment Prothrombin Time 10.8 SEC Prothromb Time International 1.0 RATIO Ratio Activated Partial 31.1 SEC Thromboplast Time Sodium Level 133 MEQ/L Potassium Level 5.1 MEQ/L Chloride Level 102 MEQ/L Carbon Dioxide Level 22.7 MEQ/L Anion Gap 8 MEQ/L Blood Urea Nitrogen 20 MG/DL Creatinine 1.01 MG/DL Estimat Glomerular Filtration 72 ML/MIN Rate Random Glucose 111 MG/DL Lactic Acid Level 1.4 mmol/L Calcium Level 9.3 MG/DL Total Bilirubin 0.3 MG/DL Aspartate Amino Transf 18 U/L (AST/SGOT) Alanine Aminotransferase 12 U/L (ALT/SGPT) Alkaline Phosphatase 102 U/L Total Creatine Kinase 27 U/L Troponin I LESS THAN 0.02 NG/ML Total Protein 7.5 GM/DL Albumin 2.6 GM/DL Lipase 116 U/L MDM Medical Decision Making Medical Screen Exam Complete: Yes Emergency Medical Condition: Yes Medical Record Reviewed: Yes Interpretation(s) Vital Signs Date Time Temp Pulse Resp B/P Pulse Ox O2 Delivery O2 Flow Rate FiO2 07/01/16 19:19 76 18 171/75 94 Room Air 07/01/16 19:16 20 3/1/17 15:46 97.4 91 20 125/65 97 Room Air Differential Diagnosis Acute abdomen versus failure to thrive versus depression versus malignancy versus other Narrative Course Patient is a 75-year-old male brought in by his family for evaluation of generalized weakness on the advice of his primary doctor as well as his colorectal surgeon. Labs and imaging ordered and pending. Workup was started in triage. Patient's states for the last 6 months he's had decreased motivation, significant weight loss of approximately 60 pounds, decreased appetite. More recently she is reported noticing some coughing in the morning, however patient denied any cough. Abdomen x-ray was unremarkable Chest x-ray showed a large masslike density in the right perihilar region characteristic to malignancy until proven otherwise, he could represent a pseudotumor with fluid within the minor fissure. Also shows COPD, mild right basilar airspace disease. As prompted a CT scan of the chest with IV contrast. CBC shows a mildly elevated white count at 13.3 with left shift Chemistry is unremarkable, troponin is less than 0.02, lactic acid is 1.4 Coag reviewed and are unremarkable Urinalysis is not negative of urinary tract infection. CT of the chest shows a 9 cm right mid lung mass which appears to have its epicenter in the superior segment of the right lower lobe, there is mediastinal extension with emeterio involvement. Discussed findings of labs and imaging with patient and his family. Unasyn 3 g IV 1 dose ordered. Patient is resting comfortably with family at bedside. He is agreeable with plan of care. Patient was admitted to Dr. He. He requested a pulmonology consult, patient is known to Dr. Davis. Dr. Becerril was also advised on labs and imaging. Consult was placed. Patient will be placed on antibiotics empirically. Physician Communication Physician Communication Dr. Ritter Dr. Beatriz Chandler Diagnosis Primary Impression: Mass of right lung Additional Impressions: Abscess of abdominal cavity Leukocytosis Qualified Code: D72.829 - Leukocytosis, unspecified type Weakness generalized Admitting Information Admitting Physician Requests: Admit Condition: Stable Nhi Gonzalez MATTHEW Jul 01, 2016 19:51
[2016-07-01 19:59] LABS: ANION GAP 8 MEQ/L (5-15); AST (GOT) 18 U/L (15-37); BICARBONATE 22.7 MEQ/L (21.0-32.0); BLOOD UREA NITROGEN 20 MG/DL (7-18); CHLORIDE 102 MEQ/L (98-107); GLOMERULAR FILTRATION RATE 72 ML/MIN (>89); POTASSIUM 5.1 MEQ/L (3.5-5.1); SODIUM (NA) 133 MEQ/L (136-145)
[2016-07-01 20:04] LABS: ALKALINE PHOSPHATASE 102 U/L (45-117); ALT (GPT) 12 U/L (12-78); TOTAL BILIRUBIN ADULT 0.3 MG/DL (0.2-1.0)
[2016-07-01 20:06] LABS: APTT (PATIENT) 31.1 SEC (24.3-30.1); PROTHROMBIN TIME - PATIENT 10.8 SEC (9.8-11.6)
[2016-07-01 20:14] LABS: CREATINE KINASE 27 U/L (39-308)
[2016-07-01] MEDS ORDERED: IOHEXOL 350 MG/ML 10 ML VIAL (for RAD DIAG) IV ONE (20:53)
[2016-07-01] MEDS ORDERED: LEXA10TA PO (21:02)
[2016-07-01] MEDS ORDERED: LACTCAP8 PO (21:02)
--- NOTE | 2016-07-01 21:17 | RADRPT ---
EXAM DATE/TIME: 07/01/2016 20:48 [facility] COMPARISON: No previous studies available for comparison. INDICATIONS : Abnormal chest x-ray today; evaluate for mass. IV CONTRAST: 97 cc Omnipaque 350 (iohexol) IV ; Cumulative dose for multiple exams. RADIATION DOSE: 10.96 CTDIvol (mGy) ; Combined studies - Thorax/Abdomen/Pelvis MEDICAL HISTORY : Cardiovascular disease. Hypertension. Diabetes mellitus type 2.Hiatal hernia. SURGICAL HISTORY : None. ENCOUNTER: Initial ACUITY: 1 day PAIN SCALE: 5/10 LOCATION: chest TECHNIQUE: Volumetric scanning of the chest was performed. Using automated exposure control and adjustment of t he mA and/or kV according to patient size, radiation dose was kept as low as reasonably achievable to obtain optimal diagnostic quality images. FINDINGS: LUNGS: A large irregularly marginated hypodense mass is identified in the superior segment of the right lowe r lobe. The mass measures 8.9 x 8.4 cm in diameter. The mass extends into the mediastinum. Significan t encasement of the bronchi is noted. Peripheral space disease is identified in the right lower lobe. Changes of chronic obstructive pulmonary disease are noted. Left lung is clear. PLEURA: There is no pleural thickening or pleural effusion. MEDIASTINUM: Large prevascular and paratracheal lymphadenopathy is noted. The prevascular node measures 2.8 cm. Th e paratracheal node measures 2.9 cm. Large emeterio masses also noted in the subcarinal region measuring 3.9 cm. AXILLAE: Within normal limits. No lymphadenopathy. SKELETAL: Within normal limits for patient age. MISCELLANEOUS: The visualized upper abdominal organs demonstrate no acute abnormality. CONCLUSION: 9 cm right midlung mass which appears to have its epicenter in the superior segment of the right lowe r lobe. There is mediastinal extension and emeterio involvement. COPD. Leonardo Vaca MD on July 01, 2016 at 21:10 Board Certified Radiologist. This report was verified electronically.
[2016-07-01 21:47] VITALS: RESP 18; O2SAT 98
--- NOTE | 2016-07-01 21:52 | RADRPT ---
EXAM DATE/TIME: 07/01/2016 20:48 [facility] COMPARISON: CT ABDOMEN & PELVIS W CONTRAST, June 01, 2016, 16:17. INDICATIONS : Mass-like density seen on chest x-ray today with generalized abdominal pain; evaluate for mass. IV CONTRAST: 97 cc Omnipaque 350 (iohexol) IV ; Cumulative dose for multiple exams. ORAL CONTRAST: No oral contrast ingested. RADIATION DOSE: 10.96 CTDIvol (mGy) ; Combined studies - Thorax/Abdomen/Pelvis MEDICAL HISTORY : Cardiovascular disease. Hypertension. Diabetes mellitus type 2.Hiatal hernia. SURGICAL HISTORY : None. ENCOUNTER: Initial ACUITY: 1 day PAIN SCALE: 6/10 LOCATION: Abdomen/pelvis TECHNIQUE: Volumetric scanning of the abdomen and pelvis was performed. Using automated exposure control and ad justment of the mA and/or kV according to patient size, radiation dose was kept as low as reasonably achievable to obtain optimal diagnostic quality images. FINDINGS: Large hypodense mass is identified in the right lower lobe. There is mediastinal involvement as descr ibed on CT scan of the thorax. At least 3 persistent fluid collections are identified in the left upper quadrant and mid abdomen. Th renst measure 3.6, 4.0 and 3.1 cm in size. An abscess was previously drained in this area. The liver, adrenal glands and kidneys are stable. Subcentimeter cyst is again noted off the anterior cortex of the right kidney. The pancreas is atrophic. The most medial fluid collection described above is adjacent to the undersu rface of the tail of the pancreas. The intestinal tract is otherwise unremarkable without significant ileus. There is no evidence of teja e air. Pelvic structures are unremarkable. Bilateral hip replacements are noted. CONCLUSION: Persistent extraintestinal fluid collections in the left upper quadrant and left midabdomen character istic of residual small abscesses. Status post splenectomy. Large right lung mass. Otherwise stable normal pelvic structures. Leonardo Vaca MD on July 01, 2016 at 21:34 Board Certified Radiologist. This report was verified electronically.
[2016-07-01] MEDS ORDERED: AMPICILLIN-SULBACTAM INJ 3 GM in SODIUM CHLORIDE 0.9% INJ 100 ML IV ONE (22:30)
[2016-07-01 22:38] VITALS: BP 163/68; PULSE 85; RESP 16; O2SAT 96
[2016-07-01] MEDS ORDERED: SODIUM CHLOR 0.9% 1000 ML INJ 1,000 ML IV SCH (23:30)
[2016-07-01] MEDS ORDERED: oxyCODONE/ACETAMINOPHEN 5 MG/325 MG TAB PO PRN (23:30)
[2016-07-01] MEDS ORDERED: ONDANSETRON HCL 4 MG/2 ML VIAL IV PUSH PRN (23:30)
[2016-07-01 23:45] LABS: BLOOD GAS BASE EXCESS -4.2 mmol/L (-2-2); BLOOD GAS CARBOXYHEMOGLOBIN 2.1 % (0-4); BLOOD GAS HCO3 19 mmol/L (22-26); BLOOD GAS METHEMOGLOBIN 1.7 % (0-2); BLOOD GAS O2 HGB SATURATION 94 % (90-100); BLOOD GAS OXYGEN CONTENT 15.8 Vol % (12.0-20.0); BLOOD GAS PCO2 25 mmHg (38-42); BLOOD GAS PO2 81 mmHG (61-120); BLOOD GAS TOTAL HGB 11.9 G/DL (12.0-16.0); CRITICAL VALUE NO; DRAW SITE RT RADIAL; FIO2 21 %; NUMBER OF ARTERIAL PUNCTURES 1; OXYGEN DEVICE ROOM AIR; STAT YES; TEMP CORR TO 98.6; ULNAR PULSE PRESENT
--- NOTE | 2016-07-01 23:51 | HHI.HP ---
HPI Service [facility] Hospitalists Primary Care Physician Rahul Chandler MD Admission Diagnosis lung mass, abdominal abscess Chief Complaint: increasing weakness loss appetite snet for evaluation Travel History International Travel<30 Days: No Contact w/Intl Traveler <30 Da: No Traveled to Known Affected Are: No History of Present Illness 75-year-old male with history of CAD, hypertension, CKD, diverticulitis and colon resection followed by Dr. Becerril presents to the emergency department for evaluation of worsening weakness. Patient was hospitalized June 01 through June 07 of this year. At that time he was treated for a subphrenic abscess. He states that last week he began feeling more weak. He has had a decreased appetite since he left. He is uncertain of fever and chills. No nausea or vomiting. No diarrhea. Intermittent abdominal pain that travels across his abdomen he cannot think of any specific exacerbating or alleviating factors of this. Per the patient He was advised to come to the emergency department for evaluation by Dr. Becerril. Patient has a history of severe diverticular disease , patient underwent a colon resection with appendectomy and splenectomy in April 2016. June 01, 2016 patient was admitted to left upper quadrant pain and a noted fluid collection, possible abscess on the CT scan. Patient underwent CT-guided biopsy with drainage for subphrenic abscess. Today patient denies any nausea, vomiting, change in bowel habits, chest pain, shortness of breath. He does state that he has again a decreased appetite, increased in his weakness, he is not sleeping well at night getting approximately 4 hours. In er was found to have large mass rt lung which is new as compared to xrays from april ,and still has some remaining fluid in abdomen from recent drainage. Will be admitted for further work up . 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 SKIN: No rashes, ecchymoses or lesions. Cool and dry. HEAD: Atraumatic. Normocephalic. No temporal or scalp tenderness. EYES: Pupils equal round and reactive. Extraocular motions intact. No scleral icterus. No injection or drainage. ENT: Nose without bleeding, purulent drainage or septal hematoma. Throat without erythema, tonsillar hypertrophy or exudate. Uvula midline. Airway patent. NECK: Trachea midline. No JVD or lymphadenopathy. Supple, nontender, no meningeal signs. CARDIOVASCULAR: Regular rate and rhythm without murmurs, gallops, or rubs. RESPIRATORY: Decreased breath sounds rt lower and mid lung with rhonchi GASTROINTESTINAL: Abdomen soft, non-tender, nondistended. No hepato-splenomegaly , or palpable masses. No guarding. MUSCULOSKELETAL: Extremities without clubbing, cyanosis, or edema. No joint tenderness, effusion, or edema noted. No calf tenderness. Negative Homans sign bilaterally. NEUROLOGICAL: Awake and alert. Cranial nerves II through XII intact. Motor and sensory grossly within normal limits. Five out of 5 muscle strength in all muscle groups. Normal speech. Laboratory Laboratory Tests Test 07/01/16 07/01/16 18:30 19:30 Urine Color YELLOW Urine Turbidity CLEAR Urine pH 5.5 Urine Specific [place] 1.019 Urine Protein TRACE Urine Glucose (UA) TRACE Urine Ketones NEG Urine Occult Blood NEG Urine Nitrite NEG Urine Bilirubin NEG Urine Urobilinogen LESS THAN 2.0 Urine Leukocyte Esterase TRACE Urine WBC 1 Microscopic Urinalysis Comment CATH-CULT NOT IND White Blood Count 13.3 Red Blood Count 4.58 Hemoglobin 12.0 Hematocrit 36.8 Mean Corpuscular Volume 80.3 Mean Corpuscular Hemoglobin 26.2 Mean Corpuscular Hemoglobin 32.7 Concent Red Cell Distribution Width 17.4 Platelet Count 539 Mean Platelet Volume 7.7 Neutrophils (%) (Auto) 75.9 Lymphocytes (%) (Auto) 12.7 Monocytes (%) (Auto) 10.3 Eosinophils (%) (Auto) 0.6 Basophils (%) (Auto) 0.5 Neutrophils # (Auto) 10.1 Lymphocytes # (Auto) 1.7 Monocytes # (Auto) 1.4 Eosinophils # (Auto) 0.1 Basophils # (Auto) 0.1 CBC Comment DIFF FINAL Differential Comment Prothrombin Time 10.8 Prothromb Time International 1.0 Ratio Activated Partial 31.1 Thromboplast Time Sodium Level 133 Potassium Level 5.1 Chloride Level 102 Carbon Dioxide Level 22.7 Anion Gap 8 Blood Urea Nitrogen 20 Creatinine 1.01 Estimat Glomerular Filtration 72 Rate Random Glucose 111 Lactic Acid Level 1.4 Calcium Level 9.3 Total Bilirubin 0.3 Aspartate Amino Transf 18 (AST/SGOT) Alanine Aminotransferase 12 (ALT/SGPT) Alkaline Phosphatase 102 Total Creatine Kinase 27 Troponin I LESS THAN 0.02 Total Protein 7.5 Albumin 2.6 Lipase 116 Thyroid Stimulating Hormone 1.070 3rd Gen Date/Time Procedure Status Source Growth 07/01/16 19:30 Aerobic Blood Culture Received Blood Peripheral Pending 07/01/16 19:30 Anaerobic Blood Culture Received Blood Peripheral Pending Result Diagram: 07/01/16 19307/01/16 1930 Imaging Last 24 hours Impressions Chest X-Ray 07/01/16 3587 Signed Impressions: Service Date/Time: Friday, July 01, 2016 18:37 - CONCLUSION: Large masslike density in the right perihilar region characteristic of malignancy until proven otherwise. This may represent a pseudotumor with fluid within the minor fissure. COPD Mild right basilar airspace disease. Leonardo Vaca MD Chest CT 07/01/16 0000 Signed Impressions: Service Date/Time: Friday, July 01, 2016 20:48 - CONCLUSION: 9 cm right midlung mass which appears to have its epicenter in the superior segment of the right lower lobe. There is mediastinal extension and emeterio involvement. COPD. Leonardo Vaca MD Abdomen/Pelvis CT 07/01/16 0000 Signed Impressions: Service Date/Time: Friday, July 01, 2016 20:48 - CONCLUSION: Persistent extraintestinal fluid collections in the left upper quadrant and left midabdomen characteristic of residual small abscesses. Status post splenectomy. Large right lung mass. Otherwise stable normal pelvic structures. Leonardo Vaca MD Abdomen X-Ray 07/01/16 0000 Signed Impressions: Service Date/Time: Wednesday, July 01, 2016 18:43 - CONCLUSION: Unremarkable gas pattern. No evidence of ileus or abnormal gas collections. Right parahilar mass density. Leonardo Vaca MD Course in er started on unsyn antibiotic Assessment and Plan Problem List: (1) Mass of right lung Status: Acute Plan: new mass as compared to xrays from april Dr. Becerril has consulted oncology will also ask pulmonary to see and will get ID evaluation as well , will kept patient NPO for now and give some IV fluid (2) Abscess of abdominal cavity Status: Chronic Plan: CT abdomen shows some residual fulid better then previous will start antibiotics and obtain ID consult (3) Leukocytosis Status: Acute Plan: may be related to abnormal CT abd and chest will get ID evaluation (4) Weakness generalized Status: Chronic Plan: generalized related to history as above Assessment and Plan further plan as case develops Code Status full Discussed Condition With patient and family Physician Certification 2 Midnight Certification Type: Admission for Inpatient Services Order for Inpatient Services The services are ordered in accordance with Medicare regulations or non- Medicare payer requirements, as applicable. In the case of services not specified as inpatient-only, they are appropriately provided as inpatient services in accordance with the 2-midnight benchmark. Estimated LOS (days): 5 5 days is the estimated time the patient will need to remain in the hospital, assuming treatment plan goals are met and no additional complications. Post-Hospital Plan: Not yet determined Problem Qualifiers (1) Leukocytosis: Qualified Code: D72.829 - Leukocytosis, unspecified type Rahul Chandler MD Jul 01, 2016 23:51
[2016-07-02] VITALS (10 sets, daily range): BP systolic 110–171; BP diastolic 50–71; PULSE 72–89; RESP 16–20; TEMP 96.5–98.2; O2SAT 93–97
[2016-07-02] MEDS ORDERED: NALOXONE HCL 0.4 MG/ML AMP IV PRN
[2016-07-02] MEDS ORDERED: SODIUM CHLORIDE 0.9% FLUSH 5 ML FLUSH FLUSH PRN
[2016-07-02] MEDS ORDERED: ONDANSETRON HCL 4 MG/2 ML VIAL IVP PRN
[2016-07-02] MEDS: PANTOPRAZOLE SODIUM 40 MG VIAL IV PUSH SCH ×2 (00:57→22:28)
[2016-07-02] MEDS: TEMAZEPAM 15 MG CAP PO PRN ×2 (01:21→21:31)
[2016-07-02] MEDS: SODIUM CHLOR 0.45% 1000 ML INJ 1,000 ML IV SCH ×2 (01:23→12:15)
[2016-07-02] MEDS: AMPICILLIN-SULBACTAM INJ 1,500 MG in SODIUM CHLORIDE 0.9% INJ 100 ML IV SCH ×4 (05:26→22:27)
[2016-07-02 07:46] LABS: AUTOMATED NEUTROPHIL # 8.4 TH/MM3 (1.8-7.7); BASOPHIL # 0.1 TH/MM3 (0-0.2); BASOPHIL % 0.8 % (0.0-2.0); EOSINOPHIL # 0.2 TH/MM3 (0-0.4); EOSINOPHIL % 1.3 % (0.0-4.0); HEMATOCRIT 33.7 % (39.0-51.0); HEMO FLAGS DIFF FINAL; LYMPH % 15.6 % (9.0-44.0); LYMPHOCYTE # 1.8 TH/MM3 (1.0-4.8); MEAN CELL VOLUME 79.7 FL (80.0-100.0); MEAN CORPUSCULAR HEMOGLOBIN 26.4 PG (27.0-34.0); MEAN CORPUSCULAR HGB CONC 33.1 % (32.0-36.0); MONO % 10.6 % (0.0-8.0); NEUT % 71.7 % (16.0-70.0); PLATELET COUNT 466 TH/MM3 (150-450); RED BLOOD COUNT 4.23 MIL/MM3 (4.50-5.90); RED CELL DISTRIBUTION WIDTH 17.4 % (11.6-17.2); WHITE BLOOD COUNT 11.7 TH/MM3 (4.0-11.0)
[2016-07-02 08:21] LABS: ALKALINE PHOSPHATASE 90 U/L (45-117); ALT (GPT) 9 U/L (12-78); ANION GAP 13 MEQ/L (5-15); AST (GOT) 16 U/L (15-37); BLOOD UREA NITROGEN 17 MG/DL (7-18); CHLORIDE 102 MEQ/L (98-107); GLOMERULAR FILTRATION RATE 84 ML/MIN (>89); POTASSIUM 4.1 MEQ/L (3.5-5.1); SODIUM (NA) 135 MEQ/L (136-145); TOTAL BILIRUBIN ADULT 0.4 MG/DL (0.2-1.0)
[2016-07-02] MEDS: SODIUM CHLORIDE 0.9% FLUSH 5 ML FLUSH FLUSH SCH ×2 (09:17→21:31)
[2016-07-02] MEDS: ESCITALOPRAM OXALATE 10 MG TAB PO SCH (09:17)
[2016-07-02] MEDS: LACTOBACILLUS ACIDOPHILUS TAB PO SCH (09:17)
--- NOTE | 2016-07-02 10:30 | MB ---
cc: RENEE GONZALEZ M.D. DATE OF CONSULTATION 07/02/[address] Chandler REASON FOR CONSULTATION Oncology consult to render opinion regarding patient with newly discovered right lung mass and mediastinal adenopathy. HISTORY OF PRESENT ILLNESS The patient is very pleasant 75-year-old male who presented to the hospital with increased weakness. He was first admitted to the hospital in April with diverticulitis. He underwent resection of the colon, splenectomy and appendectomy at that time. In May, he was admitted with abdominal pain and found to have right-sided a subphrenic abscess which was drained. He was discharged home the first week of June. Since then, he has not been feeling well. He has decreased appetite and increased weakness. He has lost 55 pounds since April. He denies significant abdominal pain. He only have occasional abdominal discomfort. Denies any nausea, vomiting, or diarrhea. He has no fever, but he feels cold all the time. He denies any chest pain. He denies significant shortness of breath or cough. He denies any dysuria or hematuria. Alvarez any bone pain. Denies any headache, focal numbness or weakness. PAST MEDICAL HISTORY 1. Recent diverticulitis 2. Degenerative joint disease 3. Coronary artery disease 4. Chronic kidney disease 5. Recent abdominal abscess. 6. Hyperlipidemia PAST SURGICAL HISTORY 1. Resection of colon 2. Splenectomy and appendectomy in April 3. Hernia repair 4. Coronary stent placement FAMILY HISTORY One brother recently of cancer. He has five children all healthy. SOCIAL HISTORY He smoked one to two packs a day for about 35 years, quit 20-25 years ago. Denies any alcohol use. He worked for the [employer]. He denies any chemical exposure. ALLERGIES HMG-CoA reductase inhibitors MEDICATIONS Current medications: 1. Xalatan eye drops 2. Lexapro 3. Lactinex 4. Ampicillin 5. Sulbactam 6. Protonix REVIEW OF SYSTEMS CONSTITUTIONAL: Has a 55 pounds weight loss, increased weakness, has chill without night sweat. EYES: Denies any blurry vision or double vision. ENT: No mouth sores or voice changes. CARDIOVASCULAR: Denies chest pressure or palpitation. RESPIRATORY: Denies any shortness of breath or cough. GI: As above. : No dysuria or hematuria. MUSCULOSKELETAL: Denies significant pain. HEMATOLOGY: Negative. DERMATOLOGY: Negative. ENDOCRINE: Negative. PSYCHIATRIC: A little depressed. NEUROLOGIC: Negative. PHYSICAL EXAMINATION VITAL SIGNS: Temperature 98.2, blood pressure 130/63, O2 saturation 94% room air. GENERAL: He is alert and oriented x3 in no acute distress. HEENT: Atraumatic, normocephalic. Pupils equal, round and reactive to light. Extraocular muscle intact. No scleral icteruc. Oropharynx, dry mucosa, no lesion. NECK: No thyromegaly. No palpable mass. LYMPHATICS: No palpable cervical, clavicular, axillary or inguinal lymph nodes. CARDIOVASCULAR: Regular S1-S2 normal. LUNGS: Decreased breath sound in the right lung. Diffuse rhonchi. No significant wheezes noted. ABDOMEN: Soft, slightly tender in the mid abdomen. No rebound. No rigidity. Positive bowel sounds. EXTREMITIES: No cyanosis, no clubbing, no significant edema. BACK: No paravertebral tenderness. SKIN: No rash or petechiae. NEUROLOGIC: Exam is nonfocal. LABORATORY DATA Reviewed ASSESSMENT 1. Right lung mass with mediastinal adenopathy. CT of the chest showed an 8.9 x 8.4 cm mass arising from the superior segment of the right lower lobe extending into the mediastinum. There was encasement of the bronchi noted. Right lower lobe airspace disease also noted. There were COPD changes noted. There were enlarged lymph nodes in the mediastinum. There was a 2.8 cm prevascular lymph node, 2.98 cm paratracheal lymph node, and a 3.9 cm subcarinal lymph node. I personally reviewed his CT of the chest, as well as his CT of the abdomen and pelvis from May. This mass was not noted in April. It is rather unusual to have a tumor growing this fast, although it is not impossible. Given his recent right subphrenic abscess, we will also need to rule out infectious etiology. Clinically, he has weight loss and chills, but no fever. He also has no significant pulmonary symptom. Pulmonology and infectious disease have been consulted. I recommend a biopsy of the right lung mass. We will also send a sample for culture, as well as routine pathology. I explained the findings to the patient and he agrees with plan. 2. Recent right subphrenic abscess status post drainage. CT of the abdomen and pelvis showed persistent small amount of fluid in the left upper quadrant and left mid abdomen. He only had mild abdominal discomfort. Dr. Becerril is following. 3. History of diverticulitis status post colon resection, splenectomy, and appendectomy. 4. Leukocytosis due to a leukemoid reaction. He also had mild thrombocytosis consistent with leukemoid reaction. 5. Mild anemia due to recent surgery and infection. 6. Coronary artery disease. He has no symptoms. 7. Chronic kidney disease. 8. Hyperlipidemia 9. Osteoarthritis RECOMMENDATIONS 1. I reviewed the scan and had a discussion with the patient as above. 2. Consult radiology for biopsy of a right lung mass and will also send a sample for culture. 3. Agree with empiric antibiotic and await evaluation by infectious disease. Thank you, Dr. Chandler, for asking me to see this patient. MD ALBANIA Alford/CHERISE /8:07 AM /10:01 AM BERTIN
[2016-07-02] MEDS ORDERED: LIDOCAINE 1%/EPINEPHrine 1:100,000 SOLN 20 ML VIAL ONE (12:56)
[2016-07-02] MEDS ORDERED: MIDAZOLAM HCL 5 MG/5 ML VIAL ONE (13:24)
[2016-07-02] MEDS ORDERED: fentaNYL CITRATE 250 MCG/5 ML AMP ONE (13:24)
--- NOTE | 2016-07-02 14:48 | RADRPT ---
EXAM DATE/TIME: 07/02/2016 14:26 [facility] COMPARISON: CHEST SINGLE AP, July 01, 2016, 18:37. INDICATIONS : Post lung biopsy MEDICAL HISTORY : Diverticulitis. Cardiovascular disease. Hypertension. Diabetes. SURGICAL HISTORY : Appendectomy. Bowel resection. Splenectomy. ENCOUNTER: Subsequent ACUITY: 3 days PAIN SCORE: 0/10 LOCATION: Bilateral chest FINDINGS: A single frontal expiratory view of the chest was performed. Right lower lobe mass. No evidence of p neumothorax. Left hilar adenopathy. The cardio-mediastinal contours and bronchopulmonary markings are unremarkable for an expiratory exam . Osseous structures are intact. CONCLUSION: Right lower lobe mass. No pneumothorax. Bennie Morris MD on July 02, 2016 at 14:43 Board Certified Radiologist. This report was verified electronically.
--- NOTE | 2016-07-02 15:54 | HHI.PR ---
Subjective Remarks No new complaints Pt ambulating in the room without difficulty Afebrile. Objective Vitals Vital Signs Date Time Temp Pulse Resp B/P Pulse Ox O2 Delivery O2 Flow Rate FiO2 07/02/16 15:20 72 16 110/58 94 07/02/16 14:50 79 16 113/54 94 07/02/16 14:35 84 18 115/50 96 07/02/16 14:20 97.6 83 16 123/60 95 07/02/16 11:50 97.9 75 20 131/58 93 07/02/16 07:50 97.9 80 20 150/69 93 07/02/16 04:00 98.2 80 16 138/63 94 07/02/16 01:15 97.8 89 18 171/63 97 07/01/16 22:38 85 16 163/68 96 Room Air 07/01/16 21:47 18 98 Room Air 07/01/16 19:19 76 18 171/75 94 Room Air 07/01/16 19:16 20 07/01/16 15:46 97.4 91 20 125/65 97 Room Air Result Diagram: 07/02/16 0623 07/02/16 0623 Other Results Laboratory Tests Test 07/01/16 07/01/16 07/01/16 07/02/16 18:30 19:30 23:38 06:23 Urine Color YELLOW Urine Turbidity CLEAR Urine pH 5.5 Urine Specific [place] 1.019 Urine Protein TRACE mg/dL Urine Glucose (UA) TRACE mg/dL Urine Ketones NEG mg/dL Urine Occult Blood NEG Urine Nitrite NEG Urine Bilirubin NEG Urine Urobilinogen LESS THAN 2.0 MG/DL Urine Leukocyte Esterase TRACE Urine WBC 1 /hpf Microscopic Urinalysis Comment CATH-CULT NOT IND White Blood Count 13.3 TH/MM3 11.7 TH/MM3 Red Blood Count 4.58 MIL/MM3 4.23 MIL/MM3 Hemoglobin 12.0 GM/DL 11.2 GM/DL Hematocrit 36.8 % 33.7 % Mean Corpuscular Volume 80.3 FL 79.7 FL Mean Corpuscular Hemoglobin 26.2 PG 26.4 PG Mean Corpuscular Hemoglobin 32.7 % 33.1 % Concent Red Cell Distribution Width 17.4 % 17.4 % Platelet Count 539 TH/MM3 466 TH/MM3 Mean Platelet Volume 7.7 FL 8.7 FL Neutrophils (%) (Auto) 75.9 % 71.7 % Lymphocytes (%) (Auto) 12.7 % 15.6 % Monocytes (%) (Auto) 10.3 % 10.6 % Eosinophils (%) (Auto) 0.6 % 1.3 % Basophils (%) (Auto) 0.5 % 0.8 % Neutrophils # (Auto) 10.1 TH/MM3 8.4 TH/MM3 Lymphocytes # (Auto) 1.7 TH/MM3 1.8 TH/MM3 Monocytes # (Auto) 1.4 TH/MM3 1.2 TH/MM3 Eosinophils # (Auto) 0.1 TH/MM3 0.2 TH/MM3 Basophils # (Auto) 0.1 TH/MM3 0.1 TH/MM3 CBC Comment DIFF FINAL DIFF FINAL Differential Comment Prothrombin Time 10.8 SEC Prothromb Time International 1.0 RATIO Ratio Activated Partial 31.1 SEC Thromboplast Time Sodium Level 133 MEQ/L 135 MEQ/L Potassium Level 5.1 MEQ/L 4.1 MEQ/L Chloride Level 102 MEQ/L 102 MEQ/L Carbon Dioxide Level 22.7 MEQ/L 20.0 MEQ/L Anion Gap 8 MEQ/L 13 MEQ/L Blood Urea Nitrogen 20 MG/DL 17 MG/DL Creatinine 1.01 MG/DL 0.88 MG/DL Estimat Glomerular Filtration 72 ML/MIN 84 ML/MIN Rate Random Glucose 111 MG/DL 106 MG/DL Lactic Acid Level 1.4 mmol/L Calcium Level 9.3 MG/DL 9.2 MG/DL Total Bilirubin 0.3 MG/DL 0.4 MG/DL Aspartate Amino Transf 18 U/L 16 U/L (AST/SGOT) Alanine Aminotransferase 12 U/L 9 U/L (ALT/SGPT) Alkaline Phosphatase 102 U/L 90 U/L Total Creatine Kinase 27 U/L Troponin I LESS THAN 0.02 NG/ML Total Protein 7.5 GM/DL 6.8 GM/DL Albumin 2.6 GM/DL 2.3 GM/DL Lipase 116 U/L Thyroid Stimulating Hormone 1.070 uIU/ML 3rd Gen Blood Gas Puncture Site RT RADIAL Blood Gas Patient Temperature 98.6 Blood Gas HCO3 19 mmol/L Blood Gas Base Excess -4.2 mmol/L Blood Gas Oxygen Saturation 94 % Arterial Blood pH 7.48 Arterial Blood Partial 25 mmHg Pressure CO2 Arterial Blood Partial 81 mmHG Pressure O2 Arterial Blood Oxygen Content 15.8 Vol % Arterial Blood 2.1 % Carboxyhemoglobin Arterial Blood Methemoglobin 1.7 % Blood Gas Hemoglobin 11.9 G/DL Oxygen Delivery Device ROOM AIR Blood Gas Inspired Oxygen 21 % Imaging Last 24 hours Impressions Chest X-Ray 07/01/16 1757 Signed Impressions: Service Date/Time: Friday, July 01, 2016 18:37 - CONCLUSION: Large masslike density in the right perihilar region characteristic of malignancy until proven otherwise. This may represent a pseudotumor with fluid within the minor fissure. COPD Mild right basilar airspace disease. Leonardo Vaca MD Chest CT 07/01/16 0000 Signed Impressions: Service Date/Time: Friday, July 01, 2016 20:48 - CONCLUSION: 9 cm right midlung mass which appears to have its epicenter in the superior segment of the right lower lobe. There is mediastinal extension and emeterio involvement. COPD. Leonardo Vaca MD Abdomen/Pelvis CT 07/01/16 0000 Signed Impressions: Service Date/Time: Friday, July 01, 2016 20:48 - CONCLUSION: Persistent extraintestinal fluid collections in the left upper quadrant and left midabdomen characteristic of residual small abscesses. Status post splenectomy. Large right lung mass. Otherwise stable normal pelvic structures. Leonardo Vaca MD Abdomen X-Ray 07/01/16 0000 Signed Impressions: Service Date/Time: Friday, July 01, 2016 18:43 - CONCLUSION: Unremarkable gas pattern. No evidence of ileus or abnormal gas collections. Right parahilar mass density. Leonardo Vaca MD Objective Remarks General: NAD, AAOx3 Chest: Diminished breath sounds at the right base Cardiac: Regular Abd: +BS, soft ND/NT Ext: No edema A/P Problem List: (1) Mass of right lung Status: Acute Plan: - Pt presented to the ED on 07/01/16 for worsening generalized weakness and weight loss. - He was found to have a new right lung mass with mediastinal adenopathy. - CT of the chest showed an 8.9 x 8.4cm mass arising from the superior segment of the right lower lobe extending into the mediastinum with encasement of the bronchi noted. There were enlarged lymph nodes in the mediastinum, a 2.8 cm prevascular lymph node, 2.98 cm paratracheal lymph node and a 3.9 cm subcarinal lymph node. - Oncology was consulted as well as Pulmonology and ID - Given his recent right subphrenic abscess, we will also need to rule out infectious etiology. - Pt underwent CT guided lung biopsy and culture on 07/02/16 with IR. - Pt is on Ampicillin - IVF - Pain control PRN - DVT prophylaxis with SCDs (2) Abscess of abdominal cavity Status: Chronic Plan: - Pt had a recent right subphrenic abscess s/p drainage. - CT of the abd/pelvis (07/01) --> persistent small amount of fluid in the left upper quadrant and left mid abdomen. - Dr. Becerril is following. (3) Leukocytosis Status: Acute Plan: - Blood cultures (07/01) with NGTD - Pt is on Ampicillin - Cultures from the biopsy of the lung mass are pending. - ID is consulted (4) Hx of diverticulitis of colon Status: Resolved Plan: - Pt has history of diverticulitis s/p exploratory laparotomy with proctosigmoidectomy, splenectomy, and appendectomy on 04/08/[address] Becerril. (5) Weakness generalized Status: Chronic Plan: - See above. - PT evaluation (6) COPD (chronic obstructive pulmonary disease) Status: Chronic Plan: - Duonebs PRN (7) Hypertension Status: Chronic Plan: - Pt is off all previous BP meds - BP is low/normal - Monitor Assessment and Plan Patient examined. Assessment and plan formulated with Judy Hernández PA-C. I agree with the above. Problem Qualifiers (1) Leukocytosis: Qualified Code: D72.829 - Leukocytosis, unspecified type Judy Hernández Jul 02, 2016 15:54 Song Camarena DO Jul 03, 2016 16:17
[2016-07-02] MEDS ORDERED: RESP: ALBUTEROL 2.5 MG/IPRATROPIUM 0.5 MG NEB (PRN) NEB (16:00)
--- NOTE | 2016-07-02 16:29 | RADRPT ---
EXAM DATE/TIME: 07/02/2016 13:28 [facility] COMPARISON: No previous studies available for comparison. INDICATIONS : Right lung mass. SEDATION TIME: 30 minutes BIOPSY SITE: Right lung MEDICATION(S): 1.) 1.5 mg midazolam (Versed) IV 2.) 75 mcg fentanyl (Sublimaze) IV DEVICE(S): 1.) 18 gauge [place] blunt needle 2.) 20 gauge Temno core biopsy needle MEDICAL HISTORY : Myocardial infarction. Hypertension. Hernia, hiatal. Diabetes. Renal disease. SURGICAL HISTORY : Coronary stent. Cardiac stent. ENCOUNTER: Initial ACUITY: 1 day PAIN SCORE: 0/10 LOCATION: Right chest A total of three core specimen(s) were obtained and sent to the laboratory for pathologic evaluation. PROCEDURE: 1. CT guided lung biopsy. 2. Conscious sedation with continuous EKG and oximetry monitoring. 3. EKG and oximetry remained stable throughout the procedure. Prior to the procedure informed consent was obtained. Any appropriate prior imaging studies were rev iewed. Using automated exposure control and adjustment of the mA and/or kV according to patient size, radiation dose was kept as low as reasonably achievable to obtain optimal diagnostic quality images. The site was prepped in a sterile fashion. Full sterile technique was used, including cap, mask, mikael rile gloves and gown and a large sterile sheet. Hand hygiene and 2% chlorhexidine and/or betadine/al cohol prep was utilized per protocol for cutaneous antisepsis. The skin and subcutaneous tissues wer e infiltrated with local anesthetic solution. With CT guidance the previously identified target was localized. Biopsy was performed using the presc ribed needle as above. Adequate hemostasis was obtained with compression at the puncture site. Follow-up CT scan reveals tiny pneumothorax. Conscious sedation was performed with the prescribed dosages and duration as above in the presence of an independent trained radiology nurse to assist in the monitoring of the patient. EKG and oximetry remained stable throughout the procedure. The patient tolerated the procedure well and there were no complications. The patient was sent to Radiology Outpatient Unit in stable condition. CONCLUSION: Uncomplicated CT guided biopsy right lung Mass. Tiny pneumothorax will be followed with serial chest x-rays. Bennie Morris MD on July 02, 2016 at 16:26 Board Certified Radiologist. This report was verified electronically.
--- NOTE | 2016-07-02 16:32 | RADRPT ---
EXAM DATE/TIME: 07/02/2016 16:18 [facility] COMPARISON: CHEST EXPIRATION ONLY, July 02, 2016, 14:26. INDICATIONS : Post lung biopsy. MEDICAL HISTORY : None. SURGICAL HISTORY : None. ENCOUNTER: Subsequent ACUITY: 1 day PAIN SCORE: 0/10 LOCATION: Right chest. FINDINGS: A single frontal expiratory view of the chest was performed. Right lung mass. Left hilar adenopathy. No evidence of pneumothorax. Mediastinal structures are in the midline. The cardio-mediastinal contours and bronchopulmonary markings are unremarkable for an expiratory exam . Osseous structures are intact. CONCLUSION: No pneumothorax. Bennie Morris MD on July 02, 2016 at 16:28 Board Certified Radiologist. This report was verified electronically.
[2016-07-02] MEDS ORDERED: LOPERAMIDE HCL 2 MG CAP PO PRN (17:00)
--- NOTE | 2016-07-02 18:52 | MB ---
cc: RA LOPEZ,ORLANDO Romero M.D. DATE OF CONSULTATION: 07/02/[address] Becerril. REASON FOR CONSULTATION Evaluate for lung mass. HISTORY OF PRESENT ILLNESS Mr. Bowers is a pleasant 75-year-old male who is known to me from the office. He was recently evaluated for a preop evaluation and at that time he had a CT scan of the chest done on 03/04/16 which showed that he had chronic interstitial changes. The patient in the meantime had diverticulitis and he underwent colon resection, splenectomy and appendectomy, then he developed a subphrenic abscess which was drained. Now the patient comes with a complaint of loss of appetite, not feeling well, he has lost about 55 pounds of weight. Denied any fever or chills. No night sweats but feeling extremely weak. He had a workup done and he had a repeat CAT scan done which shows now he had a large 8.9 x 8.4 cm mass in the superior segment of the right lower lobe. He also has prevascular and paratracheal mediastinal lymphadenopathy. The patient underwent CT-guided biopsy today. He had a small pneumothorax which has resolved. He feels weak and tired, appetite is poor, no difficulty swallowing. PAST MEDICAL HISTORY Significant for - 1. History of interstitial lung disease. 2. Diverticulitis with a recent colon resection. 3. Splenectomy. 4. Appendectomy. 5. Recent subphrenic abscess which was drained. 6. History of coronary artery status post stent placement. MEDICATIONS He is currently taking - 1. Glaucoma drops. 2. Albuterol/Atrovent nebulizer treatment. 3. Lexapro 10 mg a day. 4. Unasyn 15 mg q.6 hours. 5. Temazepam 15 mg at nighttime. 6. Protonix 40 mg a day. 7. Oxycodone for pain. ALLERGIES HMG-CoA REDUCTASE INHIBITORS. SOCIAL HISTORY He smoked about 35 years or so which he quit 20 years ago. Drinks socially. FAMILY HISTORY He used to work for an [employer] on the [employer]. FAMILY HISTORY He is . He has five children. REVIEW OF SYSTEMS He has lost 50 pounds of weight, feels very weak. No headache or dizziness. No seizure, stroke or epilepsy. No DVT or pulmonary embolism. PHYSICAL EXAMINATION GENERAL: A pleasant elderly male, mild short of breath, not in acute distress. VITAL SIGNS: Blood pressure 135/71, heart rate 81, respirations 16, temperature 97.6. HEENT: Pupils are equal and react to light. He has a right eye cataract surgery done. Oral mucosa and nasal mucosa normal. NECK: JVP not raised. CHEST: Air entry equal bilaterally. He has inspiratory rales. CARDIOVASCULAR: S1, S2 normal. ABDOMEN: Benign. EXTREMITIES: No edema. IMPRESSION 1. A large right lower lobe mass-like density which has developed over the last three months. 2. Weight loss. 3. Diverticulitis status post resection. 4. Recent splenectomy, appendectomy and subphrenic abscess drainage. 5. Interstitial lung disease. PLAN I discussed with the patient and his family. He had a CT-guided biopsy done. We will review the biopsy result and based on that further treatment will be recommended. Continue his present antibiotic, aerosol treatment, supplement oxygen as needed. Further treatment will depend on the course in the hospital. Thank Dr. Becerril for this consult. MD ABHIJEET Cerda/ARVIN /5:30 PM /6:00 PM BERTIN
--- NOTE | 2016-07-02 20:01 | PD.ID.CON ---
History of Present Illness Service ID Consult Requested By Dr Leo Reason for Consult leukocytosis Primary Care Physician Rahul Chandler MD Diagnoses: History of Present Illness 75-year-old male with history of CAD, hypertension, CKD, diverticulitis and colon resection a subphrenic abscess f presented with weakness x 1 week and intermittent abdominal pain He has had a decreased appetite since he left. Denies fever and chills. No nausea or vomiting. No diarrhea. 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 CT chest showed new 9 cm right midlung mass which appears to have its epicenter in the superior segment of the right lower lobe with mediastinal extension and emeterio involvement and on CT abd /pel pt has persistent extraintestinal fluid collections in the left upper quadrant and left midabdomen characteristic of residual small abscesses. 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 Active Ordered Medications Medications where reviewed in EMR Antibiotics Include: Unasyn Family History Non-Contributory. Social History former smoker - quit over 20 years ago no alcohol, no drugs Physical Exam Vital Signs Vital Signs Date Time Temp Pulse Resp B/P Pulse Ox O2 Delivery O2 Flow Rate FiO2 07/02/16 15:50 81 16 135/71 94 07/02/16 15:20 72 16 110/58 94 07/02/16 14:50 79 16 113/54 94 07/02/16 14:35 84 18 115/50 96 07/02/16 14:20 97.6 83 16 123/60 95 07/02/16 11:50 97.9 75 20 131/58 93 07/02/16 07:50 97.9 80 20 150/69 93 07/02/16 04:00 98.2 80 16 138/63 94 07/02/16 01:15 97.8 89 18 171/63 97 07/01/16 22:38 85 16 163/68 96 Room Air 07/01/16 21:47 18 98 Room Air Physical Exam CONSTITUTIONAL/GENERAL: This is an adequately nourished patient, in no apparent distress. TUBES/LINES/DRAINS: SKIN: No jaundice, rashes, or lesions. Ecchymoses on upper extremities. No wounds seen anteriorly. Skin temperature appropriate. Not diaphoretic. HEAD: Atraumatic. Normocephalic. Alopecia EYES: Pupils equal and round and reactive. Extraocular motions intact. No scleral icterus. No injection or drainage. Fundi not examined. ENT: Hearing grossly normal. Nose without bleeding or purulent drainage. Throat without visible erythema, exudates, masses, or lesions. NECK: Trachea midline. Supple, nontender. No palpable thyroid enlargement or nodularity. CARDIOVASCULAR: Regular rate and rhythm without murmurs, gallops, or rubs. No JVD. Peripheral pulses symmetric. RESPIRATORY/CHEST: Symmetric, unlabored respirations. Clear to auscultation. Breath sounds equal bilaterally. No wheezes, rales, or rhonchi. GASTROINTESTINAL: Abdomen soft, non-tender, nondistended. No hepato-splenomegaly , or palpable masses. No guarding. Bowel sounds present. GENITOURINARY: Without palpable bladder distension. MUSCULOSKELETAL: Extremities without clubbing, cyanosis, or edema. No joint tenderness or effusion noted. No calf tenderness. No mottling or clubbing. LYMPHATICS: No palpable cervical or supraclavicular adenopathy. NEUROLOGICAL: Awake and alert. Motor and sensory grossly within normal limits. Follows commands. Cognitively sharp. Moves all extremities. PSYCHIATRIC: No obvious anxiety/depression. no apparent hallucinations or other psychotic thought process. Laboratory Laboratory Tests Test 07/01/16 07/02/16 23:38 06:23 Blood Gas Puncture Site RT RADIAL Blood Gas Patient Temperature 98.6 Blood Gas HCO3 19 Blood Gas Base Excess -4.2 Blood Gas Oxygen Saturation 94 Arterial Blood pH 7.48 Arterial Blood Partial 25 Pressure CO2 Arterial Blood Partial 81 Pressure O2 Arterial Blood Oxygen Content 15.8 Arterial Blood 2.1 Carboxyhemoglobin Arterial Blood Methemoglobin 1.7 Blood Gas Hemoglobin 11.9 Oxygen Delivery Device ROOM AIR Blood Gas Inspired Oxygen 21 White Blood Count 11.7 Red Blood Count 4.23 Hemoglobin 11.2 Hematocrit 33.7 Mean Corpuscular Volume 79.7 Mean Corpuscular Hemoglobin 26.4 Mean Corpuscular Hemoglobin 33.1 Concent Red Cell Distribution Width 17.4 Platelet Count 466 Mean Platelet Volume 8.7 Neutrophils (%) (Auto) 71.7 Lymphocytes (%) (Auto) 15.6 Monocytes (%) (Auto) 10.6 Eosinophils (%) (Auto) 1.3 Basophils (%) (Auto) 0.8 Neutrophils # (Auto) 8.4 Lymphocytes # (Auto) 1.8 Monocytes # (Auto) 1.2 Eosinophils # (Auto) 0.2 Basophils # (Auto) 0.1 CBC Comment DIFF FINAL Differential Comment Sodium Level 135 Potassium Level 4.1 Chloride Level 102 Carbon Dioxide Level 20.0 Anion Gap 13 Blood Urea Nitrogen 17 Creatinine 0.88 Estimat Glomerular Filtration 84 Rate Random Glucose 106 Calcium Level 9.2 Total Bilirubin 0.4 Aspartate Amino Transf 16 (AST/SGOT) Alanine Aminotransferase 9 (ALT/SGPT) Alkaline Phosphatase 90 Total Protein 6.8 Albumin 2.3 Date/Time Procedure Status Source Growth 07/02/16 13:50 Gram Stain Received Fluid Other Pending 07/02/16 13:50 Body Fluid Culture Received Fluid Other Pending 07/02/16 13:50 Fungal Smear Received Fluid Other Pending 07/02/16 13:50 Fungal Culture Received Fluid Other Pending 07/02/16 13:50 Acid Fast Stain Received Fluid Other Pending 07/02/16 13:50 Mycobacterial Culture Received Fluid Other Pending 07/02/16 06:23 Aerobic Blood Culture Received Blood Peripheral Pending 07/02/16 06:23 Anaerobic Blood Culture Received Blood Peripheral Pending 07/01/16 19:30 Aerobic Blood Culture - Preliminary Resulted Blood Peripheral NO GROWTH IN 1 DAY 07/01/16 19:30 Anaerobic Blood Culture - Preliminary Resulted Blood Peripheral NO GROWTH IN 1 DAY Result Diagram: 07/02/16 0623 07/02/16 0623 Imaging Last Impressions Chest X-Ray 07/02/16 1630 Signed Impressions: Service Date/Time: July 16:18 - CONCLUSION: No pneumothorax. Bennie Morris MD Lung Biopsy CT 07/02/16 0000 Signed Impressions: Service Date/Time: July 13:28 - CONCLUSION: Uncomplicated CT guided biopsy right lung Mass. Tiny pneumothorax will be followed with serial chest x-rays. Bennie Morris MD Chest CT 07/01/16 Signed Impressions: Service Date/Time: Friday, July 01, 2016 20:48 - CONCLUSION: 9 cm right midlung mass which appears to have its epicenter in the superior segment of the right lower lobe. There is mediastinal extension and emeterio involvement. COPD. Leonardo Vaca MD Abdomen/Pelvis CT 07/01/16 Signed Impressions: Service Date/Time: Friday, July 01, 2016 20:48 - CONCLUSION: Persistent extraintestinal fluid collections in the left upper quadrant and left midabdomen characteristic of residual small abscesses. Status post splenectomy. Large right lung mass. Otherwise stable normal pelvic structures. Leonardo Vaca MD Abdomen X-Ray 07/01/16 Signed Impressions: Service Date/Time: Friday, July 01, 2016 18:43 - CONCLUSION: Unremarkable gas pattern. No evidence of ileus or abnormal gas collections. Right parahilar mass density. Leonardo Vaca MD Assessment and Plan Assessment and Plan Pulmonary mass , clx , path P H/o subphrenic abscess h/o severe diverticulitis Leukocytosis -cont current abx - will follow up clx, path Jenn Chan MD Jul 02, 2016 20:01
[2016-07-02] MEDS: LATANOPROST 0.005% OPHT SOLN 2.5 ML BTL EACH EYE SCH (21:29)
[2016-07-02] MEDS: BRIMONIDINE TARTRATE 0.2% OPHT SOLN 5 ML BTL EACH EYE SCH (21:31)
--- NOTE | 2016-07-02 23:49 | EKG ---
Date Performed: 07/01/2016 Time Performed: 21:34:49 PTAGE: 75 years EKG: Sinus rhythm MARKED LEFT AXIS DEVIATION ABNORMAL ECG PREVIOUS TRACING : 04/01/2016 08.44 Compared to the previous tracing, sinus bradycardia is no longer present DOCTOR: Raheem Urias Interpretating Date/Time 07/02/2016 23:47:37
[2016-07-03] VITALS: BP 138/62; PULSE 85; RESP 18; TEMP 96.7; O2SAT 95
[2016-07-03 05:00] VITALS: BP 148/65; PULSE 81; RESP 17; TEMP 97.1; O2SAT 94
[2016-07-03] MEDS: SODIUM CHLOR 0.45% 1000 ML INJ 1,000 ML IV SCH (05:11)
[2016-07-03] MEDS: AMPICILLIN-SULBACTAM INJ 1,500 MG in SODIUM CHLORIDE 0.9% INJ 100 ML IV SCH ×4 (05:11→23:20)
[2016-07-03 07:19] LABS: AUTOMATED NEUTROPHIL # 8.3 TH/MM3 (1.8-7.7); BASOPHIL # 0.1 TH/MM3 (0-0.2); BASOPHIL % 0.8 % (0.0-2.0); EOSINOPHIL # 0.2 TH/MM3 (0-0.4); EOSINOPHIL % 1.3 % (0.0-4.0); HEMATOCRIT 32.4 % (39.0-51.0); HEMO FLAGS DIFF FINAL; LYMPH % 13.5 % (9.0-44.0); LYMPHOCYTE # 1.6 TH/MM3 (1.0-4.8); MEAN CELL VOLUME 80.5 FL (80.0-100.0); MEAN CORPUSCULAR HGB CONC 32.3 % (32.0-36.0); MONO % 12.5 % (0.0-8.0); NEUT % 71.9 % (16.0-70.0); PLATELET COUNT 443 TH/MM3 (150-450); RED BLOOD COUNT 4.03 MIL/MM3 (4.50-5.90); RED CELL DISTRIBUTION WIDTH 17.4 % (11.6-17.2); WHITE BLOOD COUNT 11.6 TH/MM3 (4.0-11.0)
[2016-07-03 07:43] LABS: BICARBONATE 21.5 MEQ/L (21.0-32.0); POTASSIUM 3.8 MEQ/L (3.5-5.1)
[2016-07-03 08:00] VITALS: BP 148/67; PULSE 76; RESP 18; TEMP 98.9; O2SAT 96
[2016-07-03] MEDS: ESCITALOPRAM OXALATE 10 MG TAB PO SCH (09:06)
[2016-07-03] MEDS: BRIMONIDINE TARTRATE 0.2% OPHT SOLN 5 ML BTL EACH EYE SCH ×2 (09:06→20:28)
[2016-07-03] MEDS: SODIUM CHLORIDE 0.9% FLUSH 5 ML FLUSH FLUSH SCH ×2 (09:06→20:35)
[2016-07-03] MEDS: LACTOBACILLUS ACIDOPHILUS TAB PO SCH (09:06)
[2016-07-03 12:00] VITALS: BP 146/69; PULSE 73; RESP 18; TEMP 97.6; O2SAT 95
--- NOTE | 2016-07-03 12:25 | PD.ONC.PN ---
Subjective Subjective Remarks Afebrile overnight. Patient resting comfortably without complaint. Objective Data Date Time Temp Pulse Resp B/P Pulse Ox O2 Delivery O2 Flow Rate FiO2 07/03/16 08:00 98.9 76 18 148/67 96 07/03/16 05:00 97.1 81 17 148/65 94 07/03/16 00:00 96.7 85 18 138/62 95 07/02/16 20:00 96.5 86 18 141/62 94 07/02/16 15:50 81 16 135/71 94 07/02/16 15:20 72 16 110/58 94 07/02/16 14:50 79 16 113/54 94 07/02/16 14:35 84 18 115/50 96 07/02/16 14:20 97.6 83 16 123/60 95 07/03/16 07/03/16 07/03/16 07:00 15:00 23:00 Intake Total 700 ml 1367 ml Balance 700 ml 1367 ml Result Diagram: 07/03/16 0636 07/03/16 0636 Laboratory Results Laboratory Tests Test 07/03/16 06:36 White Blood Count 11.6 TH/MM3 Red Blood Count 4.03 MIL/MM3 Hemoglobin 10.5 GM/DL Hematocrit 32.4 % Mean Corpuscular Volume 80.5 FL Mean Corpuscular Hemoglobin 26.0 PG Mean Corpuscular Hemoglobin 32.3 % Concent Red Cell Distribution Width 17.4 % Platelet Count 443 TH/MM3 Mean Platelet Volume 7.9 FL Neutrophils (%) (Auto) 71.9 % Lymphocytes (%) (Auto) 13.5 % Monocytes (%) (Auto) 12.5 % Eosinophils (%) (Auto) 1.3 % Basophils (%) (Auto) 0.8 % Neutrophils # (Auto) 8.3 TH/MM3 Lymphocytes # (Auto) 1.6 TH/MM3 Monocytes # (Auto) 1.4 TH/MM3 Eosinophils # (Auto) 0.2 TH/MM3 Basophils # (Auto) 0.1 TH/MM3 CBC Comment DIFF FINAL Differential Comment Sodium Level 137 MEQ/L Potassium Level 3.8 MEQ/L Chloride Level 106 MEQ/L Carbon Dioxide Level 21.5 MEQ/L Anion Gap 10 MEQ/L Blood Urea Nitrogen 16 MG/DL Creatinine 0.93 MG/DL Estimat Glomerular Filtration 79 ML/MIN Rate Random Glucose 106 MG/DL Calcium Level 8.8 MG/DL Magnesium Level 2.0 MG/DL Culture Results Microbiology Date/Time Procedure Status Source Growth 07/01/16 19:30 Aerobic Blood Culture - Preliminary Resulted Blood Peripheral NO GROWTH IN 2 DAYS 07/01/16 19:30 Anaerobic Blood Culture - Preliminary Resulted Blood Peripheral NO GROWTH IN 2 DAYS 07/02/16 06:23 Aerobic Blood Culture - Preliminary Resulted Blood Peripheral NO GROWTH IN 1 DAY 07/02/16 06:23 Anaerobic Blood Culture - Preliminary Resulted Blood Peripheral NO GROWTH IN 1 DAY 07/02/16 13:50 Gram Stain - Final Resulted Fluid Other 07/02/16 13:50 Body Fluid Culture Resulted Fluid Other Pending 07/02/16 13:50 Acid Fast Stain Received Fluid Other Pending 07/02/16 13:50 Mycobacterial Culture Received Fluid Other Pending 07/02/16 13:50 Fungal Smear - Final Resulted Fluid Other NO FUNGAL ELEMENTS SEEN. 07/02/16 13:50 Fungal Culture Resulted Fluid Other Pending Imaging Studies Last 24 hours Impressions Chest X-Ray 07/02/16 1630 Signed Impressions: Service Date/Time: July 16:18 - CONCLUSION: No pneumothorax. Bennie Morris MD Administered Medications Medications (Trade) Dose Ordered Sig/Ronaldo Route PRN Reason Start Time Stop Time Status Last Admin Dose Admin Pantoprazole Sodium (Protonix Inj) 40 mg Q24H IV PUSH 07/01/16 23:30 07/02/16 22:28 Escitalopram Oxalate (Lexapro) 10 mg DAILY PO 07/02/16 09:00 07/03/16 09:06 Lactobacillus Acidophilus (Lactinex) 1 tab DAILY PO 07/02/16 09:00 07/03/16 09:06 Latanoprost 1 drop 1 drop HS EACH EYE 07/02/16 21:00 07/02/16 21:29 Ampicillin Sodium/ Sulbactam Sodium/ Sodium Chloride (Unasyn Inj/NS Inj) 100 ml @ 200 mls/hr Q6H IV 07/02/16 05:00 07/03/16 11:20 Temazepam 15 mg 15 mg HS PRN PO SLEEP 07/02/16 00:00 07/02/16 21:31 Sodium Chloride (1/2 NS 1000 ml Inj) 1,000 ml @ 75 mls/hr [id number] IV 07/01/16 23:54 07/03/16 05:11 IV Flush (NS Flush) 2 ml BID FLUSH 07/02/16 09:00 07/03/16 09:06 Loperamide HCl (Imodium) 2 mg Q4H PRN PO diarrhea 07/02/16 17:00 07/02/16 21:31 Brimonidine Tartrate (Alphagan 0.2% Opth Soln) 1 drop BID EACH EYE 07/02/16 21:00 07/03/16 09:06 Objective Remarks GENERAL: Elderly male, sitting up in room, surrounded by family. Jovial atmosphere in room. SKIN: Warm and dry. HEAD: Normocephalic. EYES: No injection or drainage. NECK: Supple, trachea midline. CARDIOVASCULAR: Regular rate and rhythm RESPIRATORY: diminished at right base, anterior herman clear. GASTROINTESTINAL: Abdomen soft, non-tender, nondistended. EXTREMITIES: No cyanosis NEUROLOGICAL: awake and alert, normal speech. moving all extremities. Assessment/Plan Problem List: (1) Mass of right lung Status: Acute Plan: --Right lung mass with mediastinal adenopathy. --CT chest showed an 8.9x 8.4 cm mass arising from the superior segment of the right lower lobe extending into the mediastinum. +encasement of the bronchi noted. +Right lower lobe airspace disease also noted. +enlarged lymph nodes in the mediastinum. --mass not seen in 2015 CT-- unusual to have a tumor growing this fast, but not impossible. --need to r/u infectious etiology --s/p biopsy in invasive radiology, pathology and cultures pending. --first admitted to the hospital in April with diverticulitis. underwent resection of the colon, splenectomy and appendectomy at that time. --May, admitted with abdominal pain and found to have right-sided a subphrenic abscess which was drained. discharged home the first week of June. --55 pound weight loss since April. (2) Subphrenic abscess, postoperative Status: Acute Plan: --Recent right subphrenic abscess status post drainage. --CT ab/pelvis showed persistent small amount of fluid in the LUQ and left mid abdomen. --Ritter following. (3) Leukocytosis Status: Acute Plan: --Leukocytosis due to a leukemoid reaction. --also had mild thrombocytosis consistent with leukemoid reaction. Assessment 75y/o with right lung mass and mediastinal adenopathy. h/o Recent diverticulitis Degenerative joint disease Coronary artery disease Chronic kidney disease Recent abdominal abscess. Hyperlipidemia resection of colon Splenectomy and appendectomy in April Hernia repair Coronary stent placement Plan 1. continue empiric antibiotics 2. await pathology from lung mass biopsy 3. await cultures from lung biopsy Attending Statement The exam, history, and the medical decision-making described in the above note were completed with the assistance of the mid-level provider. I reviewed and agree with the findings presented. I attest that I had a [id number] encounter with the patient on the same day, and personally performed and documented my assessment and findings in the medical record. Feeling better. No CP/SOB. 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 The tumor possibly is a poorly diff SCCA. Will need outpt PET. If confined in the lung, likely stage IIIA, can treat with concurrent chemo/XRT. Can be d/c and f/u oncology clinic next week once stable. Discussed with . Problem Qualifiers (1) Leukocytosis: Qualified Code: D72.829 - Leukocytosis, unspecified type Piedad Alexander Jul 03, 2016 12:25 Chandrakant Osorio MD Jul 03, 2016 15:41
--- NOTE | 2016-07-03 15:17 | HHI.PR ---
Subjective Remarks Discussed the case with Pathologist, Dr. Langston, today and preliminary findings of the lung biopsy are indicating malignancy and not infection. These findings were discussed with the pt and his family at the bedside today. Objective Vitals Vital Signs Date Time Temp Pulse Resp B/P Pulse Ox O2 Delivery O2 Flow Rate FiO2 07/03/16 12:00 97.6 73 18 146/69 95 07/03/16 08:00 98.9 76 18 148/67 96 07/03/16 05:00 97.1 81 17 148/65 94 07/03/16 00:00 96.7 85 18 138/62 95 07/02/16 20:00 96.5 86 18 141/62 94 07/02/16 15:50 81 16 135/71 94 07/02/16 15:20 72 16 110/58 94 07/02/16 07/02/16 07/03/16 15:00 23:00 07:00 Intake Total 550 ml 840 ml 700 ml Balance 550 ml 840 ml 700 ml Intake Oral 0 ml 240 ml 120 ml IV Total 550 ml 600 ml 580 ml # Voids 7 1 1 # Bowel Movements 2 1 0 Result Diagram: 07/03/16 0636 07/03/16 0636 Other Results Laboratory Tests Test 07/01/16 07/01/16 07/01/16 07/02/16 18:30 19:30 23:38 06:23 Urine Color YELLOW Urine Turbidity CLEAR Urine pH 5.5 Urine Specific [place] 1.019 Urine Protein TRACE mg/dL Urine Glucose (UA) TRACE mg/dL Urine Ketones NEG mg/dL Urine Occult Blood NEG Urine Nitrite NEG Urine Bilirubin NEG Urine Urobilinogen LESS THAN 2.0 MG/DL Urine Leukocyte Esterase TRACE Urine WBC 1 /hpf Microscopic Urinalysis Comment CATH-CULT NOT IND White Blood Count 13.3 TH/MM3 11.7 TH/MM3 Red Blood Count 4.58 MIL/MM3 4.23 MIL/MM3 Hemoglobin 12.0 GM/DL 11.2 GM/DL Hematocrit 36.8 % 33.7 % Mean Corpuscular Volume 80.3 FL 79.7 FL Mean Corpuscular Hemoglobin 26.2 PG 26.4 PG Mean Corpuscular Hemoglobin 32.7 % 33.1 % Concent Red Cell Distribution Width 17.4 % 17.4 % Platelet Count 539 TH/MM3 466 TH/MM3 Mean Platelet Volume 7.7 FL 8.7 FL Neutrophils (%) (Auto) 75.9 % 71.7 % Lymphocytes (%) (Auto) 12.7 % 15.6 % Monocytes (%) (Auto) 10.3 % 10.6 % Eosinophils (%) (Auto) 0.6 % 1.3 % Basophils (%) (Auto) 0.5 % 0.8 % Neutrophils # (Auto) 10.1 TH/MM3 8.4 TH/MM3 Lymphocytes # (Auto) 1.7 TH/MM3 1.8 TH/MM3 Monocytes # (Auto) 1.4 TH/MM3 1.2 TH/MM3 Eosinophils # (Auto) 0.1 TH/MM3 0.2 TH/MM3 Basophils # (Auto) 0.1 TH/MM3 0.1 TH/MM3 CBC Comment DIFF FINAL DIFF FINAL Differential Comment Prothrombin Time 10.8 SEC Prothromb Time International 1.0 RATIO Ratio Activated Partial 31.1 SEC Thromboplast Time Sodium Level 133 MEQ/L 135 MEQ/L Potassium Level 5.1 MEQ/L 4.1 MEQ/L Chloride Level 102 MEQ/L 102 MEQ/L Carbon Dioxide Level 22.7 MEQ/L 20.0 MEQ/L Anion Gap 8 MEQ/L 13 MEQ/L Blood Urea Nitrogen 20 MG/DL 17 MG/DL Creatinine 1.01 MG/DL 0.88 MG/DL Estimat Glomerular Filtration 72 ML/MIN 84 ML/MIN Rate Random Glucose 111 MG/DL 106 MG/DL Lactic Acid Level 1.4 mmol/L Calcium Level 9.3 MG/DL 9.2 MG/DL Total Bilirubin 0.3 MG/DL 0.4 MG/DL Aspartate Amino Transf 18 U/L 16 U/L (AST/SGOT) Alanine Aminotransferase 12 U/L 9 U/L (ALT/SGPT) Alkaline Phosphatase 102 U/L 90 U/L Total Creatine Kinase 27 U/L Troponin I LESS THAN 0.02 NG/ML Total Protein 7.5 GM/DL 6.8 GM/DL Albumin 2.6 GM/DL 2.3 GM/DL Lipase 116 U/L Thyroid Stimulating Hormone 1.070 uIU/ML 3rd Gen Blood Gas Puncture Site RT RADIAL Blood Gas Patient Temperature 98.6 Blood Gas HCO3 19 mmol/L Blood Gas Base Excess -4.2 mmol/L Blood Gas Oxygen Saturation 94 % Arterial Blood pH 7.48 Arterial Blood Partial 25 mmHg Pressure CO2 Arterial Blood Partial 81 mmHG Pressure O2 Arterial Blood Oxygen Content 15.8 Vol % Arterial Blood 2.1 % Carboxyhemoglobin Arterial Blood Methemoglobin 1.7 % Blood Gas Hemoglobin 11.9 G/DL Oxygen Delivery Device ROOM AIR Blood Gas Inspired Oxygen 21 % Test 07/03/16 06:36 White Blood Count 11.6 TH/MM3 Red Blood Count 4.03 MIL/MM3 Hemoglobin 10.5 GM/DL Hematocrit 32.4 % Mean Corpuscular Volume 80.5 FL Mean Corpuscular Hemoglobin 26.0 PG Mean Corpuscular Hemoglobin 32.3 % Concent Red Cell Distribution Width 17.4 % Platelet Count 443 TH/MM3 Mean Platelet Volume 7.9 FL Neutrophils (%) (Auto) 71.9 % Lymphocytes (%) (Auto) 13.5 % Monocytes (%) (Auto) 12.5 % Eosinophils (%) (Auto) 1.3 % Basophils (%) (Auto) 0.8 % Neutrophils # (Auto) 8.3 TH/MM3 Lymphocytes # (Auto) 1.6 TH/MM3 Monocytes # (Auto) 1.4 TH/MM3 Eosinophils # (Auto) 0.2 TH/MM3 Basophils # (Auto) 0.1 TH/MM3 CBC Comment DIFF FINAL Differential Comment Sodium Level 137 MEQ/L Potassium Level 3.8 MEQ/L Chloride Level 106 MEQ/L Carbon Dioxide Level 21.5 MEQ/L Anion Gap 10 MEQ/L Blood Urea Nitrogen 16 MG/DL Creatinine 0.93 MG/DL Estimat Glomerular Filtration 79 ML/MIN Rate Random Glucose 106 MG/DL Calcium Level 8.8 MG/DL Magnesium Level 2.0 MG/DL Imaging Last 24 hours Impressions Chest X-Ray 07/01/16 1757 Signed Impressions: Service Date/Time: Friday, July 01, 2016 18:37 - CONCLUSION: Large masslike density in the right perihilar region characteristic of malignancy until proven otherwise. This may represent a pseudotumor with fluid within the minor fissure. COPD Mild right basilar airspace disease. Leonardo Vaca MD Chest CT 07/01/16 0000 Signed Impressions: Service Date/Time: Friday, July 01, 2016 20:48 - CONCLUSION: 9 cm right midlung mass which appears to have its epicenter in the superior segment of the right lower lobe. There is mediastinal extension and emeterio involvement. COPD. Leonardo Vaca MD Abdomen/Pelvis CT 07/01/16 0000 Signed Impressions: Service Date/Time: Friday, July 01, 2016 20:48 - CONCLUSION: Persistent extraintestinal fluid collections in the left upper quadrant and left midabdomen characteristic of residual small abscesses. Status post splenectomy. Large right lung mass. Otherwise stable normal pelvic structures. Leonardo Vaca MD Abdomen X-Ray 07/01/16 0000 Signed Impressions: Service Date/Time: Friday, July 01, 2016 18:43 - CONCLUSION: Unremarkable gas pattern. No evidence of ileus or abnormal gas collections. Right parahilar mass density. Leonardo Vaca MD Objective Remarks General: NAD, AAOx3 Chest: Diminished breath sounds at the right base Cardiac: Regular Abd: +BS, soft ND/NT Ext: No edema A/P Problem List: (1) Mass of right lung Status: Acute Plan: - Pt presented to the ED on 07/01/16 for worsening generalized weakness and weight loss. - He was found to have a new right lung mass with mediastinal adenopathy. - CT of the chest showed an 8.9 x 8.4cm mass arising from the superior segment of the right lower lobe extending into the mediastinum with encasement of the bronchi noted. There were enlarged lymph nodes in the mediastinum, a 2.8 cm prevascular lymph node, 2.98 cm paratracheal lymph node and a 3.9 cm subcarinal lymph node. - Oncology was consulted as well as Pulmonology and ID - Given his recent right subphrenic abscess, we will also need to rule out infectious etiology. - Pt underwent CT guided lung biopsy and culture on 07/02/16 with IR. - Pt is on Ampicillin - Per discussion with pathologist, the preliminary pathology findings from the lung biopsy is indicating malignancy - Cultures are pending. - These results were discussed with the pt and his family. - He will need to followup with Dr. Osorio next week. (2) Abscess of abdominal cavity Status: Chronic Plan: - Pt had a recent right subphrenic abscess s/p drainage. - CT of the abd/pelvis (07/01) --> persistent small amount of fluid in the left upper quadrant and left mid abdomen. - Dr. Becerril is following. (3) Leukocytosis Status: Acute Plan: - Blood cultures (07/01) with NGTD - Pt is on Ampicillin - Cultures from the biopsy of the lung mass are pending. - ID is following (4) Hx of diverticulitis of colon Status: Resolved Plan: - Pt has history of diverticulitis s/p exploratory laparotomy with proctosigmoidectomy, splenectomy, and appendectomy on 04/08/[address] Becerril. (5) Weakness generalized Status: Chronic Plan: - See above. - Pt did well with PT (6) COPD (chronic obstructive pulmonary disease) Status: Chronic Plan: - Duonebs PRN (7) Hypertension Status: Chronic Plan: - Pt is off all previous BP meds - BP is fairly stable. - Monitor Assessment and Plan Patient examined. Assessment and plan formulated with Judy Hernández PA-C. I agree with the above. Case d/w Dr. Langston, pathology (07/03/16). Pt has large cell neuroendocrine tumor Case d/w Dr. Osorio (07/03/16). Will need to obtain outpt PET CT and mutation studies to properly stage. Pt will likely need chemotherapy and radiation therapy. Case d/w Dr. Chan (07/03/16) - CT abd (07/01/16) persistent abdominal abscesses - continue antibiotic therapy - Dr. Chan to d/w radiology Problem Qualifiers (1) Leukocytosis: Qualified Code: D72.829 - Leukocytosis, unspecified type Judy Hernández Jul 03, 2016 15:17 Song Camarena DO Jul 03, 2016 16:21
--- NOTE | 2016-07-03 15:43 | HHI.PR ---
Addendum to Inpatient Note Additional Information dw pathologist: path cw malignacy Clx negative at 24 hrs - cont abx for now Jenn Cahn MD Jul 03, 2016 15:43
--- NOTE | 2016-07-03 19:07 | HHI.PR ---
Subjective Remarks 75 YOWM with RLL mass CT guided bx showes Non small cell ca No fever Anxious to have PET scan Objective Vital Signs Vital Signs Date Time Temp Pulse Resp B/P Pulse Ox O2 Delivery O2 Flow Rate FiO2 07/03/16 12:00 97.6 73 18 146/69 95 07/03/16 08:00 98.9 76 18 148/67 96 07/03/16 05:00 97.1 81 17 148/65 94 07/03/16 00:00 96.7 85 18 138/62 95 07/02/16 20:00 96.5 86 18 141/62 94 I/O 07/02/16 07/02/16 07/02/16 07/03/16 07/03/16 07/03/16 07:00 15:00 23:00 07:00 15:00 23:00 Intake Total 550 ml 840 ml 700 ml 1367 ml Balance 550 ml 840 ml 700 ml 1367 ml Intake Oral 0 ml 240 ml 120 ml IV Total 550 ml 600 ml 580 ml 1367 ml # Voids 1 7 1 1 # Bowel Movements 2 1 0 Result Diagram: 07/03/16 0636 07/03/16 0636 Objective Remarks GENERAL: MBMN WM, weak, no distress SKIN: Warm and dry. HEAD: Normocephalic. EYES: No scleral icterus. No injection or drainage. NECK: Supple, trachea midline. No JVD or lymphadenopathy. CARDIOVASCULAR: Regular rate and rhythm without murmurs, gallops, or rubs. RESPIRATORY: Breath sounds equal bilaterally. No accessory muscle use. GASTROINTESTINAL: Abdomen soft, non-tender, nondistended. MUSCULOSKELETAL: No cyanosis, or edema. BACK: Nontender without obvious deformity. No CVA tenderness. A/P Assessment and Plan RLL mass, NSCLC Int lung disease recent splenctomy, PLAN DW Pt and Family Abx per ID PET scan as out pt Dr Osorio following Marshall Davis MD Jul 03, 2016 19:06
[2016-07-03 20:00] VITALS: BP 155/80; PULSE 80; RESP 18; TEMP 96.8; O2SAT 94
[2016-07-03] MEDS: LATANOPROST 0.005% OPHT SOLN 2.5 ML BTL EACH EYE SCH (20:28)
[2016-07-03] MEDS: TEMAZEPAM 15 MG CAP PO PRN (20:29)
--- NOTE | 2016-07-03 22:00 | HHI.PR ---
Subjective Remarks C/R Surg afebrile, VSS no co abd pain No SOB Objective - Vital Signs Date Time Temp Pulse Resp B/P Pulse Ox O2 Delivery O2 Flow Rate FiO2 07/03/16 20:00 96.8 80 18 155/80 94 07/01/16 22:38 Room Air Result Diagram: 07/03/1636 07/03/16 0636 Objective Remarks PE alert Abd - soft, non-tender Path -reviewed, Cancer identified - final path pending stains A/P Discharge Planning Imp: stable OOB cont PO hep lock IVF cultures all neg - pt wants to get Outpt PET scan on Wednesday Raleigh Becerril MD Jul 03, 2016 22:00
--- NOTE | 2016-07-03 22:31 | HHI.IDPN ---
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 Vital Signs Date Time Temp Pulse Resp B/P Pulse Ox O2 Delivery O2 Flow Rate FiO2 07/03/16 20:00 96.8 80 18 155/80 94 07/03/16 12:00 97.6 73 18 146/69 95 07/03/16 08:00 98.9 76 18 148/67 96 07/03/16 05:00 97.1 81 17 148/65 94 07/03/16 00:00 96.7 85 18 138/62 95 07/02/16 07/02/16 07/03/16 15:00 23:00 07:00 Intake Total 550 ml 840 ml 700 ml Balance 550 ml 840 ml 700 ml Intake Oral 0 ml 240 ml 120 ml IV Total 550 ml 600 ml 580 ml # Voids 7 1 1 # Bowel Movements 2 1 0 . Laboratory Tests Test 07/02/16 07/03/16 06:23 06:36 White Blood Count 11.7 TH/MM3 11.6 TH/MM3 Red Blood Count 4.23 MIL/MM3 4.03 MIL/MM3 Hemoglobin 11.2 GM/DL 10.5 GM/DL Hematocrit 33.7 % 32.4 % Mean Corpuscular Volume 79.7 FL 80.5 FL Mean Corpuscular Hemoglobin 26.4 PG 26.0 PG Mean Corpuscular Hemoglobin 33.1 % 32.3 % Concent Red Cell Distribution Width 17.4 % 17.4 % Platelet Count 466 TH/MM3 443 TH/MM3 Mean Platelet Volume 8.7 FL 7.9 FL Neutrophils (%) (Auto) 71.7 % 71.9 % Lymphocytes (%) (Auto) 15.6 % 13.5 % Monocytes (%) (Auto) 10.6 % 12.5 % Eosinophils (%) (Auto) 1.3 % 1.3 % Basophils (%) (Auto) 0.8 % 0.8 % Neutrophils # (Auto) 8.4 TH/MM3 8.3 TH/MM3 Lymphocytes # (Auto) 1.8 TH/MM3 1.6 TH/MM3 Monocytes # (Auto) 1.2 TH/MM3 1.4 TH/MM3 Eosinophils # (Auto) 0.2 TH/MM3 0.2 TH/MM3 Basophils # (Auto) 0.1 TH/MM3 0.1 TH/MM3 CBC Comment DIFF FINAL DIFF FINAL Differential Comment Laboratory Tests Test 07/02/16 07/03/16 06:23 06:36 Sodium Level 135 MEQ/L 137 MEQ/L Potassium Level 4.1 MEQ/L 3.8 MEQ/L Chloride Level 102 MEQ/L 106 MEQ/L Carbon Dioxide Level 20.0 MEQ/L 21.5 MEQ/L Anion Gap 13 MEQ/L 10 MEQ/L Blood Urea Nitrogen 17 MG/DL 16 MG/DL Creatinine 0.88 MG/DL 0.93 MG/DL Estimat Glomerular Filtration 84 ML/MIN 79 ML/MIN Rate Random Glucose 106 MG/DL 106 MG/DL Calcium Level 9.2 MG/DL 8.8 MG/DL Total Bilirubin 0.4 MG/DL Aspartate Amino Transf 16 U/L (AST/SGOT) Alanine Aminotransferase 9 U/L (ALT/SGPT) Alkaline Phosphatase 90 U/L Total Protein 6.8 GM/DL Albumin 2.3 GM/DL Magnesium Level 2.0 MG/DL Microbiology Date/Time Procedure Status Source Growth 07/01/16 19:30 Aerobic Blood Culture - Preliminary Resulted Blood Peripheral NO GROWTH IN 2 DAYS 07/01/16 19:30 Anaerobic Blood Culture - Preliminary Resulted Blood Peripheral NO GROWTH IN 2 DAYS 07/02/16 06:23 Aerobic Blood Culture - Preliminary Resulted Blood Peripheral NO GROWTH IN 1 DAY 07/02/16 06:23 Anaerobic Blood Culture - Preliminary Resulted Blood Peripheral NO GROWTH IN 1 DAY 07/02/16 13:50 Gram Stain - Final Resulted Fluid Other 07/02/16 13:50 Body Fluid Culture - Preliminary Resulted Fluid Other NO GROWTH IN 24 HOURS. 07/02/16 13:50 Acid Fast Stain - Final Resulted Fluid Other NO ACID FAST BACILLI SEEN 07/02/16 13:50 Mycobacterial Culture Resulted Fluid Other Pending 07/02/16 13:50 Fungal Smear - Final Resulted Fluid Other NO FUNGAL ELEMENTS SEEN. 07/02/16 13:50 Fungal Culture Resulted Fluid Other Pending Imaging Last Impressions Chest X-Ray 07/02/16 1630 Signed Impressions: Service Date/Time: July 16:18 - CONCLUSION: No pneumothorax. Bennie Morris MD Lung Biopsy CT 07/02/16 0000 Signed Impressions: Service Date/Time: July 13:28 - CONCLUSION: Uncomplicated CT guided biopsy right lung Mass. Tiny pneumothorax will be followed with serial chest x-rays. Bennie Morris MD Chest CT 07/01/16 0000 Signed Impressions: Service Date/Time: Friday, July 01, 2016 20:48 - CONCLUSION: 9 cm right midlung mass which appears to have its epicenter in the superior segment of the right lower lobe. There is mediastinal extension and emeterio involvement. COPD. Leonardo Vaca MD Abdomen/Pelvis CT 07/01/16 0000 Signed Impressions: Service Date/Time: Friday, July 01, 2016 20:48 - CONCLUSION: Persistent extraintestinal fluid collections in the left upper quadrant and left midabdomen characteristic of residual small abscesses. Status post splenectomy. Large right lung mass. Otherwise stable normal pelvic structures. Leonardo Vaca MD Abdomen X-Ray 07/01/16 0000 Signed Impressions: Service Date/Time: Friday, July 01, 2016 18:43 - CONCLUSION: Unremarkable gas pattern. No evidence of ileus or abnormal gas collections. Right parahilar mass density. Leonardo Vaca MD Physical Exam CONSTITUTIONAL/GENERAL: This is an adequately nourished patient, in no apparent distress. TUBES/LINES/DRAINS: SKIN: No jaundice, rashes, or lesions. Ecchymoses on upper extremities. No wounds seen anteriorly. Skin temperature appropriate. Not diaphoretic. CARDIOVASCULAR: Regular rate and rhythm without murmurs, gallops, or rubs. No JVD. Peripheral pulses symmetric. RESPIRATORY/CHEST: Symmetric, unlabored respirations. Clear to auscultation. Breath sounds equal bilaterally. No wheezes, rales, or rhonchi. GASTROINTESTINAL: Abdomen soft, non-tender, nondistended. No hepato-splenomegaly , or palpable masses. No guarding. Bowel sounds present. GENITOURINARY: Without palpable bladder distension. MUSCULOSKELETAL: Extremities without clubbing, cyanosis, or edema. No joint tenderness or effusion noted. No calf tenderness. No mottling or clubbing. LYMPHATICS: No palpable cervical or supraclavicular adenopathy. NEUROLOGICAL: Awake and alert. Motor and sensory grossly within normal limits. Follows commands. Cognitively sharp. Moves all extremities. Assessment & Plan Remarks Pulmonary mass , non small lung CA H/o subphrenic abscess - improving abscewsse, but still residual abscesses present -ho VRE h/o severe diverticulitis -cont current abx - consider sampling of abscesses if still present on fu CT (can be done as o/ p) dw Erwin Davis, Migue Chan,Jenn Trujillo MD Jul 03, 2016 22:31
[2016-07-03] MEDS: PANTOPRAZOLE SODIUM 40 MG VIAL IV PUSH SCH (23:18)
[2016-07-04] VITALS: BP 154/64; PULSE 87; RESP 17; TEMP 97.5; O2SAT 93
[2016-07-04 04:00] VITALS: BP 134/55; PULSE 90; RESP 18; TEMP 96.9; O2SAT 93
[2016-07-04] MEDS: AMPICILLIN-SULBACTAM INJ 1,500 MG in SODIUM CHLORIDE 0.9% INJ 100 ML IV SCH ×2 (05:00→11:16)
[2016-07-04 09:30] VITALS: BP 121/60; PULSE 72; RESP 16; TEMP 96.4; O2SAT 97
[2016-07-04] MEDS: BRIMONIDINE TARTRATE 0.2% OPHT SOLN 5 ML BTL EACH EYE SCH (09:38)
[2016-07-04] MEDS: SODIUM CHLORIDE 0.9% FLUSH 5 ML FLUSH FLUSH SCH (09:38)
[2016-07-04] MEDS: LACTOBACILLUS ACIDOPHILUS TAB PO SCH (09:38)
[2016-07-04] MEDS: ESCITALOPRAM OXALATE 10 MG TAB PO SCH (09:38)
[2016-07-04 12:00] VITALS: BP 128/69; PULSE 70; RESP 16; TEMP 96.1; O2SAT 97
--- NOTE | 2016-07-04 14:46 | HHI.DS ---
Discharge Summary Admission Date Jul 01, 2016 at 22:13 Discharge Date: Jul 04, 2016 Admitting Diagnosis lung mass, abdominal abscess (1) Non-small cell cancer of right lung Diagnosis: Principal (2) Mass of right lung Diagnosis: Principal (3) Abscess of abdominal cavity Diagnosis: Principal (4) Leukocytosis Diagnosis: Principal (5) Hx of diverticulitis of colon Diagnosis: Secondary (6) Weakness generalized Diagnosis: Secondary (7) COPD (chronic obstructive pulmonary disease) Diagnosis: Secondary (8) Hypertension Diagnosis: Secondary Consultants Dr. Chandrakant Osorio, Oncology Dr. Marshall Davis, Pulmonary Dr. Jenn Chan, Infectious Disease Dr. Raleigh Becerril, Surgery Brief History 75-year-old male with history of CAD, hypertension, CKD, diverticulitis and colon resection followed by Dr. Becerril presents to the emergency department for evaluation of worsening weakness. Patient was hospitalized June 01 through June 07 of this year. At that time he was treated for a subphrenic abscess. He states that last week he began feeling more weak. He has had a decreased appetite since he left. He is uncertain of fever and chills. No nausea or vomiting. No diarrhea. Intermittent abdominal pain that travels across his abdomen he cannot think of any specific exacerbating or alleviating factors of this. Per the patient He was advised to come to the emergency department for evaluation by Dr. Becerril. Patient has a history of severe diverticular disease , patient underwent a colon resection with appendectomy and splenectomy in April 2016. June 01, 2016 patient was admitted to left upper quadrant pain and a noted fluid collection, possible abscess on the CT scan. Patient underwent CT-guided biopsy with drainage for subphrenic abscess. Today patient denies any nausea, vomiting, change in bowel habits, chest pain, shortness of breath. He does state that he has again a decreased appetite, increased in his weakness, he is not sleeping well at night getting approximately 4 hours. In er was found to have large mass rt lung which is new as compared to xrays from april ,and still has some remaining fluid in abdomen from recent drainage. Will be admitted for further work up . CBC/BMP: 07/03/16 0636 07/03/16 0636 Significant Findings Laboratory Tests Test 07/01/16 07/01/16 07/01/16 07/02/16 18:30 19:30 23:38 06:23 Urine Leukocyte Esterase TRACE (NEG) White Blood Count 13.3 TH/MM3 11.7 TH/MM3 (4.0-11.0) (4.0-11.0) Hemoglobin 12.0 GM/DL 11.2 GM/DL (13.0-17.0) (13.0-17.0) Hematocrit 36.8 % 33.7 % (39.0-51.0) (39.0-51.0) Mean Corpuscular Hemoglobin 26.2 PG 26.4 PG (27.0-34.0) (27.0-34.0) Red Cell Distribution Width 17.4 % 17.4 % (11.6-17.2) (11.6-17.2) Platelet Count 539 TH/MM3 466 TH/MM3 (150-450) (150-450) Neutrophils (%) (Auto) 75.9 % 71.7 % (16.0-70.0) (16.0-70.0) Monocytes (%) (Auto) 10.3 % 10.6 % (0.0-8.0) (0.0-8.0) Neutrophils # (Auto) 10.1 TH/MM3 8.4 TH/MM3 (1.8-7.7) (1.8-7.7) Monocytes # (Auto) 1.4 TH/MM3 1.2 TH/MM3 (0-0.9) (0-0.9) Activated Partial 31.1 SEC Thromboplast Time (24.3-30.1) Sodium Level 133 MEQ/L 135 MEQ/L (136-145) (136-145) Blood Urea Nitrogen 20 MG/DL (7-18) Estimat Glomerular Filtration 72 ML/MIN (>89) 84 ML/MIN (>89) Rate Random Glucose 111 MG/DL (74-106) Total Creatine Kinase 27 U/L (39-308) Troponin I LESS THAN 0.02 NG/ML (0.02-0.05) Albumin 2.6 GM/DL 2.3 GM/DL (3.4-5.0) (3.4-5.0) Blood Gas HCO3 19 mmol/L (22-26) Blood Gas Base Excess -4.2 mmol/L (-2-2) Arterial Blood pH 7.48 (7.380-7.420) Arterial Blood Partial 25 mmHg (38-42) Pressure CO2 Blood Gas Hemoglobin 11.9 G/DL (12.0-16.0) Red Blood Count 4.23 MIL/MM3 (4.50-5.90) Mean Corpuscular Volume 79.7 FL (80.0-100.0) Carbon Dioxide Level 20.0 MEQ/L (21.0-32.0) Alanine Aminotransferase 9 U/L (12-78) (ALT/SGPT) Test 07/03/16 06:36 White Blood Count 11.6 TH/MM3 (4.0-11.0) Red Blood Count 4.03 MIL/MM3 (4.50-5.90) Hemoglobin 10.5 GM/DL (13.0-17.0) Hematocrit 32.4 % (39.0-51.0) Mean Corpuscular Hemoglobin 26.0 PG (27.0-34.0) Red Cell Distribution Width 17.4 % (11.6-17.2) Neutrophils (%) (Auto) 71.9 % (16.0-70.0) Monocytes (%) (Auto) 12.5 % (0.0-8.0) Neutrophils # (Auto) 8.3 TH/MM3 (1.8-7.7) Monocytes # (Auto) 1.4 TH/MM3 (0-0.9) Estimat Glomerular Filtration 79 ML/MIN (>89) Rate Imaging Last Impressions Chest X-Ray 07/02/16 1630 Signed Impressions: Service Date/Time: July 16:18 - CONCLUSION: No pneumothorax. Bennie Morris MD Lung Biopsy CT 07/02/16 0000 Signed Impressions: Service Date/Time: July 13:28 - CONCLUSION: Uncomplicated CT guided biopsy right lung Mass. Tiny pneumothorax will be followed with serial chest x-rays. Bennie Morris MD Chest CT 07/01/16 0000 Signed Impressions: Service Date/Time: Friday, July 01, 2016 20:48 - CONCLUSION: 9 cm right midlung mass which appears to have its epicenter in the superior segment of the right lower lobe. There is mediastinal extension and emeterio involvement. COPD. Leonardo Vaca MD Abdomen/Pelvis CT 07/01/16 0000 Signed Impressions: Service Date/Time: Friday, July 01, 2016 20:48 - CONCLUSION: Persistent extraintestinal fluid collections in the left upper quadrant and left midabdomen characteristic of residual small abscesses. Status post splenectomy. Large right lung mass. Otherwise stable normal pelvic structures. Leonardo Vaca MD Abdomen X-Ray 07/01/16 0000 Signed Impressions: Service Date/Time: Friday, July 01, 2016 18:43 - CONCLUSION: Unremarkable gas pattern. No evidence of ileus or abnormal gas collections. Right parahilar mass density. Leonardo Vaca MD PE at Discharge General: NAD, AAOx3 Chest: Diminished breath sounds at the right base Cardiac: Regular Abd: +BS, soft ND/NT Ext: No edema Hospital Course 1) Mass of right lung Status: Acute Plan: - Pt presented to the ED on 07/01/16 for worsening generalized weakness and weight loss. - He was found to have a new right lung mass with mediastinal adenopathy. - CT of the chest showed an 8.9 x 8.4cm mass arising from the superior segment of the right lower lobe extending into the mediastinum with encasement of the bronchi noted. There were enlarged lymph nodes in the mediastinum, a 2.8 cm prevascular lymph node, 2.98 cm paratracheal lymph node and a 3.9 cm subcarinal lymph node. - Oncology was consulted as well as Pulmonology and ID - Pt underwent CT guided lung biopsy and culture on 07/02/16 with IR. 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 Chan (07/04/16) - Case d/w pt's Surgeon, Dr. Raleigh Becerril. Dr. Becerril feels that abdominal findings represent residual fluid NOT abscesses. Do NOT require drainage and do NOT require further antibiotic treatment. - Case d/w covering Oncologist, Dr. Kc. - Pt will undergo PET CT 07/06/16 - Dr. Kc will convey above discussion to Dr. Osorio. (2) Abscess of abdominal cavity Status: Chronic Plan: - Pt had a recent right subphrenic abscess s/p drainage. - CT of the abd/pelvis (07/01) --> persistent small amount of fluid in the left upper quadrant and left mid abdomen. - Dr. Becerril is following. - see above discussion (3) Leukocytosis Status: Acute Plan: - Blood cultures (07/01) with NGTD - Pt is on Ampicillin - Cultures from the biopsy of the lung mass --> NO growth - see above (4) Hx of diverticulitis of colon Status: Resolved Plan: - Pt has history of diverticulitis s/p exploratory laparotomy with proctosigmoidectomy, splenectomy, and appendectomy on 04/08/[address] Becerril. (5) Weakness generalized Status: Chronic Plan: - See above. - Pt did well with PT (6) COPD (chronic obstructive pulmonary disease) Status: Chronic Plan: - Duonebs PRN (7) Hypertension Status: Chronic Plan: - Pt is off all previous BP meds - BP is fairly stable. - Monitor Pt Condition on Discharge: Stable Discharge Instructions Follow up Referrals: Oncology - 2-[address] Chandrakant Osorio PCP Follow-up New Medications: Ondansetron (Zofran) 4 Mg Tab 4 MG PO Q6HR PRN NAUSEA OR VOMITING #15 Ref 0 TAB Oxycodone-Acetaminophen (Oxycodone-Acetaminophen) 5-325 mg Tab 1 TAB PO Q6H PRN PAIN #15 Ref 0 TAB Temazepam (Restoril) 15 Mg Cap 15 MG PO HS PRN SLEEP #30 Ref 0 CAP ([Brimonidine 0.2% Opth Soln]) 100 DROP/5 ML SOLN 1 DROP EACH EYE BID glaucoma Days 30 BOTTLE Continued Medications: Escitalopram (Lexapro) 10 Mg Tab 10 MG PO DAILY #30 Ref 0 TAB Latanoprost Opth Drops (Latanoprost Opth Drops) 0.005% Drops 1 DROP EACH EYE HS Refrigerate until opened. Glaucoma #2.5 Ref 0 ML Discontinued Medications: Lactobacillus Acidophilus (Probiotic) 1 Cap Cap 1 CAP PO DAILY Nutritional Supplement #90 Ref 0 CAP Song Camarena DO Jul 04, 2016 14:46
[2016-07-04] MEDS ORDERED: OXYC1TAB63 PO (14:54)
[2016-07-04] MEDS ORDERED: ZOFR4TAB PO (14:54)
[2016-07-04] MEDS ORDERED: REST15CA PO (14:54)
[2016-07-04] MEDS ORDERED: Brimonidine 0.2% Opth Soln EACH EYE (14:54)
== END 2016-07-04 17:09 | disposition home or self-care (01) | DRG 181 ==
LOC: NETRI 15:45 → NEDA 22:13 → HOCB 07-02 01:07
PROVIDERS: ADMIT Hospitalist; ATTEND Hospitalist
PROC: 0BBF3ZX Excision of Right Lower Lung Lobe, Percutaneous Approach, Diagnostic (ICD-10-PCS; principal; 2016-07-02)
DX: C34.91 Malignant neoplasm of unspecified part of right bronchus or lung (principal); J95.811 Postprocedural pneumothorax; E11.22 Type 2 diabetes mellitus with diabetic chronic kidney disease; J44.9 Chronic obstructive pulmonary disease, unspecified; I12.9 Hypertensive chronic kidney disease with stage 1 through stage 4 chronic kidney disease, or unspecified chronic kidney disease; N18.9 Chronic kidney disease, unspecified; I25.10 Atherosclerotic heart disease of native coronary artery without angina pectoris; Z95.5 Presence of coronary angioplasty implant and graft; M19.90 Unspecified osteoarthritis, unspecified site; E78.5 Hyperlipidemia, unspecified; Z87.891 Personal history of nicotine dependence; H40.9 Unspecified glaucoma; R63.4 Abnormal weight loss; R59.0 Localized enlarged lymph nodes
CPT/HCPCS: 32405; 36600; 71010; 71260; 74020; 74177; 77012; 80048; 80053; 81001; 82550; 82805; 83605; 83690; 83735; 84443; 84484; 85025; 85610; 85730; 87015; 87040; 87070; 87102; 87116; 87176; 87205; 87206; 88305; 88341; 88342; 93005; C9113; J0295; J2250; J3010; Q9967

== ENCOUNTER 2016-07-15 06:06 | Day surgery (SDC) | payer MEDICARE ==
[~2016-07-15] VITALS: Ht 175.3 cm; Wt 68.2 kg
[~2016-07-15 06:06] MED LIST changes: -AMPI500C8 PO; +Brimonidine 0.2% Opth Soln EACH EYE; -HYDR-3516 PO; +LEXA10TA PO; +OXYC1TAB63 PO; +REST15CA PO; +ZOFR4TAB PO
[2016-07-15 06:49] VITALS: BP 145/69; PULSE 95; RESP 20; TEMP 98.2; O2SAT 92
[2016-07-15] MEDS ORDERED: CHLORHEXIDINE GLUCONATE 2 % 1 PACK (2 CLOTHS) TOPICAL SCH (07:00)
[2016-07-15] MEDS ORDERED: ceFAZolin 2 GM PREMIX 50 ML - implanted port/tunneled catheter insertion IV SCH (07:00)
[2016-07-15] MEDS ORDERED: POVIDONE IODINE 5% (ANTISEPSIS KIT) 4 APPLICATIONS EACH NARE SCH (07:00)
[2016-07-15] MEDS ORDERED: SODIUM CHLORIDE 0.9% 1000 ML IV SCH (07:00)
[2016-07-15] MEDS ORDERED: VANCOMYCIN 1000 MG/NS 250 ML - implanted port/tunneled catheter IV SCH ×2 (07:00)
[2016-07-15] MEDS ORDERED: LIDOCAINE 1%/EPINEPHrine 1:100,000 SOLN 20 ML VIAL ONE (07:49)
[2016-07-15] MEDS ORDERED: MIDAZOLAM HCL 2 MG/2 ML VIAL ONE (08:03)
[2016-07-15 09:15] VITALS: BP_SYST 146; BP_SYST 16; BP_DIAS 84; PULSE 88; RESP 16; RESP 20; TEMP 97.5; O2SAT 91; O2SAT 96
[2016-07-15 09:30] VITALS: BP 142/76; PULSE 76; RESP 16; O2SAT 96
[2016-07-15 10:00] VITALS: BP 136/82; PULSE 76; RESP 16; O2SAT 96
[2016-07-15 10:30] VITALS: BP 132/76; PULSE 72; RESP 16; O2SAT 96
[2016-07-15] MEDS ORDERED: SODIUM CHLORIDE 0.9% FLUSH 5 ML FLUSH IVF PRN (10:30)
--- NOTE | 2016-07-15 10:32 | PD.RAD ---
Post Procedure Progress Note Pre Procedure Diagnosis: (1) Non-small cell cancer of right lung Post Procedure Diagnosis: (1) Non-small cell cancer of right lung Procedure Date: Jul 15, 2016 Supervising Radiologist: Luis Gonzalez JR Proceduralist/Assist: Jeanna Delgadillo, RT(R)(), Shireen Dean RT(R)() Anesthesia: Conscious Sedation Plan of Activity Patient to Unit: ROPU Patient Condition: Good See PACS Report for procedural detail/treatment Central Venous Access Device Procedure 1 Left Infusaport Placement single lumen Uzbek: 8 Findings: In good position. Functions well. OK to use. Was left accessed for oncology appointment today Plan F/U in 10-14 days Jr. Carlos,Luis Gamble MD Jul 15, 2016 10:32
[2016-07-15 11:00] VITALS: BP 128/69; PULSE 69; RESP 16; O2SAT 96
--- NOTE | 2016-07-15 13:57 | RADRPT ---
EXAM DATE/TIME: 07/15/2016 07:59 [facility] COMPARISON: No previous studies available for comparison. INDICATIONS : Patient is in need of placement of an Infusaport due to right lung cancer. MEDICAL HISTORY : History of right perihilar mass, migraines, HTN, DM, COPD, CKD, COPD, diverticulitis, hyperlipidemia, subphrenic abscess. SURGICAL HISTORY : History of colon resection, hernia repair, splenectomy, appendectomy, bilateral hip replacement, card iac stents. ENCOUNTER: Initial ACUITY: 3 weeks PAIN SCORE: 0/10 FLUORO TIME: 0.9 minutes IMAGE SERIES: 1 SEDATION TIME: 30 minutes ACCESS: Left internal jugular vein 1.) 2 mg midazolam (Versed) IV 2.) 100 mcg fentanyl (Sublimaze) IV Prophylactic antibiotics were administered with appropriate pre-procedure timing. Vancomycin within 2 hours of procedure, Ancef (or alternative) within 1 hour of procedure. DEVICE: 1. 8 Icelandic Bard Power Port PROCEDURE : 1. Continuous pulse oximetry and EKG monitoring. 2. Intravenous conscious sedation. 3. Ultrasound guidance for venous access. 4. Fluoroscopic guided implantable central venous port placement. The patient was placed supine. The neck was prepped in sterile fashion. Full sterile technique was u sed, including cap, mask, sterile gloves and gown, and a large sterile sheet. Hand hygiene and 2% ch lorhexidine Betadine was utilized per protocol for cutaneous antisepsis with appropriate dry time for site. The skin and subcutaneous tissues were infiltrated with local anesthetic solution. Under direct ultrasound guidance, central venous access was accomplished in the targeted vessel. The ultrasound images depicting access guidance were stored and saved to PACS for permanent record. A s ubcutaneous pocket was created using blunt dissection. The port was introduced to the pocket. The c atheter tubing was fed through a subcutaneous tunnel to the venotomy site. The catheter tubing was c ut to a suitable length and then was introduced through a valved Peel-Away sheath and positioned with catheter tubing tip at the cavo-atrial junction level. The pocket incision was closed with subcutic ular Vicryl suture. Steri-Strips were applied. The port was flushed and locked with heparin solutio n per protocol. Sterile dressing was applied to the site. The patient tolerated the procedure well. Conscious sedation was performed with the prescribed dosages and duration as above in the presence of an independent trained radiology nurse to assist in the monitoring of the patient. EKG and oximetry remained stable throughout the procedure. The patient tolerated the procedure well and there were no complications. The patient was sent to post anesthesia recovery in stable condition. CONCLUSION: Uncomplicated ultrasound and fluoroscopic guided implanted central venous port catheter placement as described in detail above. An 8 Icelandic Power port was placed. Luis Gonzalez Jr., MD on July 15, 2016 at 13:48 Board Certified Radiologist. This report was verified electronically.
== END 2016-07-15 11:30 | disposition home or self-care (01) ==
LOC: HROP 06:06 → HRIP 06:19 → HROP 11:30
PROVIDERS: ATTEND Internal Medicine Hematology & Oncology
DX: Z45.2 Encounter for adjustment and management of vascular access device (principal); C34.91 Malignant neoplasm of unspecified part of right bronchus or lung; J44.9 Chronic obstructive pulmonary disease, unspecified; I12.9 Hypertensive chronic kidney disease with stage 1 through stage 4 chronic kidney disease, or unspecified chronic kidney disease; N18.9 Chronic kidney disease, unspecified; E11.22 Type 2 diabetes mellitus with diabetic chronic kidney disease; E78.5 Hyperlipidemia, unspecified; Z95.5 Presence of coronary angioplasty implant and graft
CPT/HCPCS: 36561; 76937; 77001; C1788; J0690; J1642; J2250; J3010; J3370; J7030; J7050

== ENCOUNTER 2016-09-02 12:38 | Inpatient (IN) | payer MEDICARE ==
[~2016-09-02] VITALS: Ht 177.8 cm; Wt 64.7 kg
[2016-09-02] VITALS (7 sets, daily range): BP systolic 88–134; BP diastolic 56–62; PULSE 66–110; RESP 17–24; TEMP 98.6; O2SAT 96–100
--- NOTE | 2016-09-02 12:44 | PD ---
Physical Exam Time Seen by Provider: 12:40 Narrative 75 y/o male presents for evaluation of a syncope event 2 hours ago. Currently receiving chemotherapy treatments for lung cancer. Endorses sob, slightly worse today. Denies chest pain. Vital signs reviewed. Seen at triage desk. Awaiting bed placement. Data Data Last Documented VS Vital Signs Date Time Temp Pulse Resp B/P Pulse Ox O2 Delivery O2 Flow Rate FiO2 09/02/16 12:40 110 24 115/59 96 MDM Medical Record Reviewed: Yes Supervised Visit with [place]: No Anival Cabrales September 02, 2016 12:44
[2016-09-02] MEDS ORDERED: LIDOCAINE 1%/EPINEPHrine 1:100,000 SOLN 20 ML VIAL INFIL ONE (13:15)
[2016-09-02 13:38] LABS: HEMATOCRIT 28.7 % (39.0-51.0); MEAN CELL VOLUME 81.9 FL (80.0-100.0); MEAN CORPUSCULAR HEMOGLOBIN 26.2 PG (27.0-34.0); PLATELET COUNT 144 TH/MM3 (150-450); WHITE BLOOD COUNT 0.7 TH/MM3 (4.0-11.0)
[2016-09-02 13:43] LABS: HEMO FLAGS AUTO DIFF
--- NOTE | 2016-09-02 13:44 | PD ---
HPI Chief Complaint: Syncope/Near-Syncope Time Seen by Provider: 13:39 Travel History International Travel<30 days: No Contact w/Intl Traveler<30days: No Traveled to known affect area: No History of Present Illness HPI 75-year-old male that presents to the ED for evaluation of syncopal episode. Patient states that this morning will try not to the bathroom he passed out. Per patient he doesn't remember what happened. Per patient he woke up on the floor. Patient apparently hit the back of his head on a bathtub. Patient usually uses a walker. He has a history of lung cancer with chemotherapy therapy. Last treatment per patient was on . He denies taking any blood thinners. Per family his been acting more weak and short of breath than usual but other than this he is being his normal mentally. No chest pain. He denies any arm or leg pain. He does have a laceration to the occipital part of his head. He denies any neck pain or back pain. Fall was not witnessed by any of the family members. Patient has no abdominal pain. No bleeding of any kind. He denies any pain other than the laceration on the back of his head which is 3 out of 10 with touch. He does not know what happened before he passed out. Per family he was complaining of weakness when he first woke up and he had to stop a couple times this morning before he went all the way to the bathroom. PFSH Past Medical History Arthritis: Yes Asthma: No Blood Disorders: No Heart Rhythm Problems: No Cancer: No Cardiac Catheterization: Yes Cardiovascular Problems: Yes High Cholesterol: Yes Chemotherapy: No Chest Pain: No Congestive Heart Failure: No COPD: No Diabetes: Yes Patient Takes Glucophage: Yes Diminished Hearing: No Endocrine: Yes (DIABETES) Gastrointestinal Disorders: Yes (DIVERTICULITIS, colon resection) Glaucoma: No Genitourinary: Yes (ENLARGED PROSTATE) Hepatitis: No Hiatal Hernia: Yes Hypertension: Yes Immune Disorder: No Implanted Vascular Access Dvce: Yes Medical other: Yes (ARTHRITIS) Musculoskeletal: Yes Neurologic: Yes (years and years ago) Psychiatric: No Reproductive: No Respiratory: No Migraines: Yes Radiation Therapy: No Renal Failure: Yes Sleep Apnea: No Thyroid Disease: No Past Surgical History Abdominal Surgery: Yes (HERNIA REPAIR,COLON SURGERY) AICD: No Body Medical Devices: STENTS Cardiac Surgery: Yes (CARDIAC STENTS 2000) Coronary Stent: Yes Ear Surgery: No Endocrine Surgery: No Eye Surgery: No Genitourinary Surgery: No Gynecologic Surgery: No Joint Replacement: Yes Oral Surgery: No Pacemaker: No Thoracic Surgery: No Other Surgery: Yes Social History Alcohol Use: No Tobacco Use: No Substance Use: No Allergies-Medications (Allergen,Severity, Reaction): Coded Allergies: *MDRO Multi-Drug Resistant Organism (Verified Adverse Reaction, Unknown, VRE, MRSA, 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 Review of Systems Except as stated in HPI: all other systems reviewed are Neg Physical Exam Narrative GENERAL: SKIN: Warm and dry. HEAD: Atraumatic. Normocephalic. Patient has a superficial 4 cm laceration on the right occipital head. Some bleeding noted. Very well approximated. Minimal bleeding. Slightly tender to touch. EYES: Pupils equal and round 4 mm reactive to light and accommodation. No scleral icterus. No injection or drainage. ENT: No nasal bleeding or discharge. Mucous membranes pink and moist. Tongue is midline. No uvula deviation. NECK: Trachea midline. No JVD. CARDIOVASCULAR: Regular rate and rhythm. No murmurs, S3, S4. RESPIRATORY: No accessory muscle use. Clear to auscultation. Breath sounds equal bilaterally. GASTROINTESTINAL: Abdomen soft, non-tender, nondistended. Hepatic and splenic margins not palpable. MUSCULOSKELETAL: Extremities without clubbing, cyanosis, or edema. No obvious deformities. Full range of motion of the upper and lower extremities bilaterally. 2+ pulses bilaterally. No cervical, thoracic, lumbar spine tenderness to palpation. NEUROLOGICAL: Awake and alert. No obvious cranial nerve deficits. Motor grossly within normal limits. Five out of 5 muscle strength in the arms and legs. Normal speech. PSYCHIATRIC: Appropriate mood and affect; insight and judgment normal. Data Data Last Documented VS Vital Signs Date Time Temp Pulse Resp B/P Pulse Ox O2 Delivery O2 Flow Rate FiO2 09/02/16 13:14 86 18 118/58 93 18 88/56 103 20 123/58 09/02/16 13:06 97 Nasal Cannula 2 Orders Electrocardiogram (09/02/16 ) Complete Blood Count With Diff (09/02/16 13:02) Comprehensive Metabolic Panel (09/02/16 13:02) Ckmb (Isoenzyme) Profile (09/02/16 13:02) Troponin I (09/02/16 13:02) Prothrombin Time / Inr (Pt) (09/02/16 13:02) Act Partial Throm Time (Ptt) (09/02/16 13:02) Urinalysis - C+S If Indicated (09/02/16 13:02) Magnesium (Mg) (09/02/16 13:02) Thyroid Stimulating Hormone (09/02/16 13:02) Chest, Single Ap (09/02/16 13:02) Ct Brain W/O Iv Contrast(Rout) (09/02/16 13:02) Iv Access Insert/Monitor (09/02/16 13:02) Ecg Monitoring (09/02/16 13:02) Oximetry (09/02/16 13:02) Wound Care (09/02/16 13:02) Lidocai-Epi 1%-1:100,000 Inj (Xylocaine- (09/02/16 13:15) Orthostatic Vital Signs (09/02/16 13:03) Isolation 08,20 (09/02/16 14:23) Admit Order (Ed Use Only) (09/02/16 14:44) Sodium Chlor 0.9% 1000 Ml Inj (Ns 1000 M (09/02/16 14:46) Labs Laboratory Tests Test 09/02/16 13:15 White Blood Count 0.7 TH/MM3 Red Blood Count 3.50 MIL/MM3 Hemoglobin 9.2 GM/DL Hematocrit 28.7 % Mean Corpuscular Volume 81.9 FL Mean Corpuscular Hemoglobin 26.2 PG Mean Corpuscular Hemoglobin 32.0 % Concent Red Cell Distribution Width 22.0 % Platelet Count 144 TH/MM3 Mean Platelet Volume 7.9 FL Neutrophils (%) (Auto) % Lymphocytes (%) (Auto) % Monocytes (%) (Auto) % Eosinophils (%) (Auto) % Basophils (%) (Auto) % Neutrophils # (Auto) TH/MM3 Lymphocytes # (Auto) TH/MM3 Monocytes # (Auto) TH/MM3 Eosinophils # (Auto) TH/MM3 Basophils # (Auto) TH/MM3 CBC Comment AUTO DIFF Differential Total Cells 50 Counted Neutrophils % (Manual) 6 % Band Neutrophils % 2 % Lymphocytes % 88 % Monocytes % 4 % Neutrophils # (Manual) 0.1 TH/MM3 Differential Comment FINAL DIFF MANUAL Toxic Granulation 1+ Dohle Bodies PRESENT Platelet Estimate LOW Platelet Morphology Comment NORMAL Edgar-[place] Bodies PRESENT Acanthocytes OCC Keratocytes OCC Prothrombin Time 11.6 SEC Prothromb Time International 1.0 RATIO Ratio Activated Partial 29.8 SEC Thromboplast Time Sodium Level 136 MEQ/L Potassium Level 5.8 MEQ/L Chloride Level 107 MEQ/L Carbon Dioxide Level 15.5 MEQ/L Anion Gap 14 MEQ/L Blood Urea Nitrogen 62 MG/DL Creatinine 1.44 MG/DL Estimat Glomerular Filtration 48 ML/MIN Rate Random Glucose 276 MG/DL Calcium Level 9.1 MG/DL Magnesium Level 2.3 MG/DL Total Bilirubin 1.2 MG/DL Aspartate Amino Transf 11 U/L (AST/SGOT) Alanine Aminotransferase 12 U/L (ALT/SGPT) Alkaline Phosphatase 84 U/L Total Creatine Kinase 15 U/L Troponin I LESS THAN 0.02 NG/ML Total Protein 6.6 GM/DL Albumin 2.4 GM/DL Thyroid Stimulating Hormone 0.543 uIU/ML [address] [place] [address] Medical Decision Making Medical Screen Exam Complete: Yes Emergency Medical Condition: Yes Medical Record Reviewed: Yes Interpretation(s) CBC & BMP Diagram 09/02/16 13:[address] 09/02/16 1302 Signed Impressions: Service Date/Time: Friday, September 02, 2016 13:27 - CONCLUSION: 1. Mild periventricular and subcortical white matter small vessel ischemic changes bilaterally. 2. Mild cerebral atrophy. 3. No acute infarct, acute hemorrhage, mass effect or extra axial fluid collections. Italo Sanchez MD Chest X-Ray 09/02/16 1302 Signed Impressions: Service Date/Time: Friday, September 02, 2016 13:05 - CONCLUSION: 1. Almost complete resolution of the previously noted mass-like density within the right mid lung field with minimal residual scarring identified. 2. No acute focal pulmonary infiltrate or pulmonary vascular congestion. Italo Sanchez MD EKG shows sinus rhythm with no sign of acute ischemia or arrhythmia. Troponin and CK-MB within normal limits. LFTs within normal limits. Differential Diagnosis Laceration versus head injury versus syncope versus CHF versus acute on chronic kidney failure versus vasovagal injury versus orthostatic hypotension versus bleeding Narrative Course 75-year-old male that presents to the ED for evaluation of syncopal episode with fall. Patient was properly examined and was found to have signs and symptoms consistent appears to be laceration with syncope. Labs and imaging ordered. Patient and family agree with plan. Labs and imaging show hyperkalemia as well as what appears to be acute kidney injury. Likely from the hydration. Patient is also neutropenic. She does not appear to have any signs of infection at this time. I spoke with Dr. Osorio over the phone who agrees to admission to medicine for the weakness and the syncope. He does not want anything to be done for the neutrophenia at this time. I spoke with my attending Dr Washington who was made aware of all findings and agrees with admission plan. I spoke with the mid-level provider for Dr. Cross who agrees to admission to the [facility]. This was discussed with the family and patient were both in agreement with plan. Diagnosis Primary Impression: Syncope Qualified Code: R55 - Syncope, unspecified syncope type Additional Impressions: Laceration of head Qualified Code: S01.81XA - Laceration of other part of head without foreign body, initial encounter Hyperkalemia Acute on chronic kidney failure Admitting Information Admitting Physician Requests: Observation Shelton Martinez September 02, 2016 13:44 Shelton Martinez September 02, 2016 13:44
--- NOTE | 2016-09-02 13:44 | RADRPT ---
EXAM DATE/TIME: 09/02/2016 13:27 [facility] COMPARISON: CT BRAIN W/O CONTRAST, June 01, 2016, 16:14. INDICATIONS : Cephalgia from trauma. RADIATION DOSE: 56.35 CTDIvol (mGy) MEDICAL HISTORY : Hypertension. Hernia, hiatal. Renal failure, chronic.Diabetes 2, Cardiac, enlarged prostate. SURGICAL HISTORY : Colon resection. ENCOUNTER: Subsequent ACUITY: 1 day PAIN SCALE: 6/10 LOCATION: Bilateral cranial TECHNIQUE: Multiple contiguous axial images were obtained of the head. Using automated exposure control and adj ustment of the mA and/or kV according to patient size, radiation dose was kept as low as reasonably a chievable to obtain optimal diagnostic quality images. FINDINGS: CEREBRUM: Mild cerebral atrophy is noted. No evidence of midline shift, mass lesion, hemorrhage or acute infarc tion. No extra-axial fluid collections are seen. Mild periventricular and subcortical white matter s mall vessel ischemic changes are noted bilaterally. POSTERIOR FOSSA: The cerebellum and brainstem are intact. The 4th ventricle is midline. The cerebellopontine angle i s unremarkable. EXTRACRANIAL: The visualized portion of the orbits is intact. SKULL: The calvaria is intact. No evidence of skull fracture. CONCLUSION: 1. Mild periventricular and subcortical white matter small vessel ischemic changes bilaterally. 2. Mild cerebral atrophy. 3. No acute infarct, acute hemorrhage, mass effect or extra axial fluid collections. Italo Sanchez MD on September 02, 2016 at 13:38 Board Certified Radiologist. This report was verified electronically.
[2016-09-02 13:46] LABS: APTT (PATIENT) 29.8 SEC (24.3-30.1); PROTHROMBIN TIME - PATIENT 11.6 SEC (9.8-11.6)
[2016-09-02 13:48] LABS: ANION GAP 14 MEQ/L (5-15); AST (GOT) 11 U/L (15-37); BICARBONATE 15.5 MEQ/L (21.0-32.0); BLOOD UREA NITROGEN 62 MG/DL (7-18); CHLORIDE 107 MEQ/L (98-107); GLOMERULAR FILTRATION RATE 48 ML/MIN (>89); MAGNESIUM 2.3 MG/DL (1.5-2.5); POTASSIUM 5.8 MEQ/L (3.5-5.1); SODIUM (NA) 136 MEQ/L (136-145)
[2016-09-02 13:58] LABS: ALKALINE PHOSPHATASE 84 U/L (45-117); ALT (GPT) 12 U/L (12-78); TOTAL BILIRUBIN ADULT 1.2 MG/DL (0.2-1.0)
--- NOTE | 2016-09-02 13:59 | RADRPT ---
EXAM DATE/TIME: 09/02/2016 13:05 [facility] COMPARISON: CHEST EXPIRATION ONLY, July 02, 2016, 16:18. CHEST SINGLE AP, July 01, 2016, 18:37. INDICATIONS : Evaluate lung status. Patient fell today. MEDICAL HISTORY : Myocardial infarction. Hypertension. Hernia, hiatal. Diabetes. Renal disease. SURGICAL HISTORY : Coronary stent. Cardiac stent. ENCOUNTER: Initial ACUITY: 1 day PAIN SCORE: 0/10 LOCATION: Bilateral chest FINDINGS: There has been interval almost complete resolution of the mass-like density within the right mid lung field. Underlying minimal residual density is identified on today's examination. A left internal j ugular [id number] has its tip in the superior vena cava. Stable bibasilar streakiness is noted. CONCLUSION: 1. Almost complete resolution of the previously noted mass-like density within the right mid lung fi eld with minimal residual scarring identified. 2. No acute focal pulmonary infiltrate or pulmonary vascular congestion. Italo Sanchez MD on September 02, 2016 at 13:49 Board Certified Radiologist. This report was verified electronically.
[2016-09-02 14:01] LABS: CREATINE KINASE 15 U/L (39-308)
[2016-09-02 14:12] LABS: BANDS 2 % (0-6); POLYS (SEG NEUTROPHILS) 6 % (16-70); WBC DIFF SAMPLE 50
[2016-09-02 14:13] LABS: DOHLE BODIES PRESENT (NONE SEEN)
[2016-09-02 14:14] LABS: HOWELL-JOLLY BODIES PRESENT (NONE SEEN); TOXIC GRANULATION 1+ (NORMAL)
[2016-09-02 14:15] LABS: KERATOCYTES OCC (NORMAL); PLATELET ESTIMATE SMEAR LOW (NORMAL); PLATELET MORPHOLOGY NORMAL (NORMAL); SCAN/DIFF FINAL DIFF MANUAL
[2016-09-02 14:17] LABS: ACANTHOCYTES OCC (NORMAL); NEUTROPHIL # MANUAL DIFF 0.1 TH/MM3 (1.8-7.7)
[2016-09-02] MEDS ORDERED: SODIUM CHLOR 0.9% 1000 ML INJ 1,000 ML IV SCH (14:46)
[2016-09-02] MEDS ORDERED: BRIM0.2S4 EACH EYE (15:00)
--- NOTE | 2016-09-02 15:57 | HHI.HP ---
HPI Service [facility] Hospitalists Primary Care Physician Rahul Chandler MD Admission Diagnosis syconpe, neutrophenic, hyperkalemic, acute kidney injury Chief Complaint: Syncope, weakness, NIXON Travel History International Travel<30 Days: No Contact w/Intl Traveler <30 Da: No Traveled to Known Affected Are: No History of Present Illness Mr. 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 Pt reports that he has completed 3 rounds of chemo with the last round being around 5 days ago. Pt was brought to the ED on 09/02/16 after he had passed out on the way to the bathroom this morning which was unwitnessed but the pt woke up in the bathtub with bleeding from his head noted. The pt states that he had just gotten out of bed. He does not recall any symptoms of dizziness prior to this syncope but his family reports that he has been having a lot of dizziness and weakness at home that occurs with position changes. No reported fevers. He has poor appetite and has lost 60lbs over the last 6 months. Pt is on Megace but does not seem to help with his appetite. Pts last chemo treatment was last week on 08/27 and he also received Neulasta. His labs at admission noted evidence of dehydration and hyperkalemia. Pt is not eating or drinking well at home according to the pts family. Pt reportedly did not tolerate Marinol previously for an appetite stimulant. 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 Becerril. Cataract Hip surgery [facility] in 1997 and 2002 Reported Medications Restoril (Temazepam) 15 Mg Cap 15 Mg PO HS PRN Brimonidine Opth Drops (Brimonidine Tartrate) 0.2% Soln 1 Drop EACH EYE BID Lexapro (Escitalopram Oxalate) 10 Mg Tab 10 Mg PO DAILY Latanoprost Opth Drops (Latanoprost) 0.005% Drops 1 Drop EACH EYE HS Refrigerate until opened. 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 HEENT: Atraumatic. Normocephalic. Scalp laceration s/p staple repair, left pupil noted to be 2mm larger than right pupil, bother are reactive. No injection or drainage. Airway patent. NECK: Trachea midline, supple, nontender. CARDIO: Regular. RESP: CTA bilaterally. No wheezes, rales, or rhonchi. ABD: +BS, soft, non-tender, nondistended. EXT: Extremities without clubbing, cyanosis, or edema. NEURO: Awake and alert. Motor and sensory grossly within normal limits. Normal speech. Laboratory Laboratory Tests Test 09/02/16 13:15 White Blood Count 0.7 Red Blood Count 3.50 Hemoglobin 9.2 Hematocrit 28.7 Mean Corpuscular Volume 81.9 Mean Corpuscular Hemoglobin 26.2 Mean Corpuscular Hemoglobin 32.0 Concent Red Cell Distribution Width 22.0 Platelet Count 144 Mean Platelet Volume 7.9 Neutrophils (%) (Auto) Lymphocytes (%) (Auto) Monocytes (%) (Auto) Eosinophils (%) (Auto) Basophils (%) (Auto) Neutrophils # (Auto) Lymphocytes # (Auto) Monocytes # (Auto) Eosinophils # (Auto) Basophils # (Auto) CBC Comment AUTO DIFF Differential Total Cells 50 Counted Neutrophils % (Manual) 6 Band Neutrophils % 2 Lymphocytes % 88 Monocytes % 4 Neutrophils # (Manual) 0.1 Differential Comment FINAL DIFF MANUAL Toxic Granulation 1+ Dohle Bodies PRESENT Platelet Estimate LOW Platelet Morphology Comment NORMAL Edgar-[place] Bodies PRESENT Acanthocytes OCC Keratocytes OCC Prothrombin Time 11.6 Prothromb Time International 1.0 Ratio Activated Partial 29.8 Thromboplast Time Sodium Level 136 Potassium Level 5.8 Chloride Level 107 Carbon Dioxide Level 15.5 Anion Gap 14 Blood Urea Nitrogen 62 Creatinine 1.44 Estimat Glomerular Filtration 48 Rate Random Glucose 276 Calcium Level 9.1 Magnesium Level 2.3 Total Bilirubin 1.2 Aspartate Amino Transf 11 (AST/SGOT) Alanine Aminotransferase 12 (ALT/SGPT) Alkaline Phosphatase 84 Total Creatine Kinase 15 Troponin I LESS THAN 0.02 Total Protein 6.6 Albumin 2.4 Thyroid Stimulating Hormone 0.543 3rd Gen Result Diagram: 09/02/16 1315 09/02/16 1315 Imaging Last Impressions Head CT 09/02/16 1302 Signed Impressions: Service Date/Time: Friday, September 02, 2016 13:27 - CONCLUSION: 1. Mild periventricular and subcortical white matter small vessel ischemic changes bilaterally. 2. Mild cerebral atrophy. 3. No acute infarct, acute hemorrhage, mass effect or extra axial fluid collections. Italo Sanchez MD Chest X-Ray 09/02/16 1302 Signed Impressions: Service Date/Time: Friday, September 02, 2016 13:05 - CONCLUSION: 1. Almost complete resolution of the previously noted mass-like density within the right mid lung field with minimal residual scarring identified. 2. No acute focal pulmonary infiltrate or pulmonary vascular congestion. Italo Sanchez MD Septic Shock Reassessment Heart: Regular rate and rhythm Lungs: Clear Skin: Warm Assessment and Plan Problem List: (1) Syncope Status: Acute Plan: - Pt had a syncopal episode at home this morning after getting up to walk to the bathroom. He has reportedly been getting weaker over the last several months since starting chemotherapy and has been eating less. He has been having some positional dizziness as well. - Pt has notable electrolyte abnormalities at admission likely secondary to dehydration, with acute on chronic kidney disease, hyperkalemia, which is likely contributing to his above symptoms. - IVF resuscitation - Monitor labs closely - Head CT (09/02) --> Mild periventricular and subcortical white matter small vessel ischemic changes bilaterally. Mild cerebral atrophy. No acute infarct, acute hemorrhage, mass effect or extra axial fluid collections. - Pt was noted to have some unequal size pupils in the ED which is reportedly a new finding so we will obtain an MRI Brain to further assess this. - Pt requesting condom cath - 2D echo to reassess status of CHF but pt has not had any SOB or LE edema - PT evaluation in AM - Orthostatic vital signs in AM - Encourage oral intake and nutritional supplements - DVT prophylaxis (2) Laceration of head Status: Acute Plan: - Stapled applied in the ED - Monitor (3) Acute on chronic kidney failure Status: Acute Plan: - Renal function worse than baseline likely secondary to dehydration - IVF - Monitor labs (4) Hyperkalemia Status: Acute Plan: - IVF - Recheck labs in AM (5) Non-small cell cancer of right lung Status: Chronic Plan: - Pt diagnosed in 07/2016 with 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 Osorio - Dr. Osorio aware of pts admission. (6) Neutropenia Status: Acute Plan: - LIkely secondary to chemo - Neutropenic precautions - Pt was given Neulasta at last chemo (7) Weakness generalized Status: Chronic (8) COPD (chronic obstructive pulmonary disease) Status: Chronic (9) CHF (congestive heart failure) Status: Acute Assessment and Plan Patient examined. Assessment and plan formulated with Judy TREJO I agree with the above. lung ca s/p last chemo 08/26. etopaside/carpoplatin. neulasta. very weak. dehydrated with nixon. neutropenia w/out fever. tele/echo. mri brain pending. updated family. Problem Qualifiers (1) Syncope: Qualified Code: R55 - Syncope, unspecified syncope type (2) Laceration of head: Qualified Code: S01.81XA - Laceration of other part of head without foreign body, initial encounter Judy Hernández September 02, 2016 15:57 Stanislaw Samuel MD September 02, 2016 17:41
[2016-09-02] MEDS ORDERED: ONDANSETRON HCL 4 MG/2 ML VIAL IV PRN (16:00)
[2016-09-02] MEDS: SODIUM CHLOR 0.9% 1000 ML INJ 1,000 ML IV SCH (16:40)
[2016-09-02] MEDS ORDERED: TEMAZEPAM 15 MG CAP PO PRN (16:45)
[2016-09-02 18:48] LABS: BLOOD, URINE NEG (NEG); COMMENT (UR) CULT NOT INDICATED; CULTURE IF INDICATED CULT NOT INDICATED; GLUCOSE,URINE 70 mg/dL (NEG); HYALINE CAST, URINE 4 /lpf (RARE); KETONE, URINE NEG (NEG); MUCUS URINE FEW /lpf (OCC); NITRITE,URINE NEG (NEG); URINE COLOR YELLOW (YELLW/STRAW)
[2016-09-02] MEDS ORDERED: GADODIAMIDE PF 287 MG/ML 5 ML VIAL (for RAD MRI) IV ONE (20:22)
--- NOTE | 2016-09-02 20:58 | RADRPT ---
EXAM DATE/TIME: 09/02/2016 20:13 [facility] COMPARISON: CT BRAIN W/O CONTRAST, September 02, 2016, 13:27. INDICATIONS : Syncopal episode. Patient with lung cancer. Evaluate for metastatic disease.>> CONTRAST: 13 cc Omniscan (gadodiamide) IV MEDICAL HISTORY : Carcinoma, lung. Hypertension. Diabetes mellitus type 2. SURGICAL HISTORY : Umbilical hernia repair. Colon resection. Bilateral hip replacement. ENCOUNTER: Subsequent ACUITY: 1 day PAIN SCORE: 0/10 LOCATION: head. TECHNIQUE: Multiplanar, multisequence MRI of the brain was performed both prior to and following the administrat ion of paramagnetic contrast. FINDINGS: CEREBRUM: The ventricles are normal for age. No evidence of midline shift, mass lesion, hemorrhage or acute in farction. No extraaxial fluid collections are seen. The pituitary gland and suprasellar cistern are normal in configuration. WHITE MATTER: On the flair weighted images there are multiple scattered punctate areas of increased signal in the w hieu matter. POSTERIOR FOSSA: The cerebellum and brainstem are intact. The 4th ventricle is midline. The cerebellopontine angle is unremarkable. The cerebellar tonsils are normal in position. DIFFUSION IMAGING: No focal areas of restricted diffusion are seen. No evidence of acute infarction. EXTRACRANIAL: The visualized portions of the orbits and paranasal sinuses are unremarkable. POST-CONTRAST: No abnormal areas of parenchymal or dural enhancement. No evidence of blood-brain barrier breakdown. CONCLUSION: 1. No acute hemorrhage, mass or infarction. 2. Atrophy and chronic small vessel ischemic change 3. No evidence of metastatic disease. Jermaine Palacio MD on September 02, 2016 at 20:51 Board Certified Radiologist. This report was verified electronically.
[2016-09-02] MEDS: BRIMONIDINE TARTRATE 0.2% OPHT SOLN 5 ML BTL EACH EYE SCH (22:12)
[2016-09-02] MEDS: LATANOPROST 0.005% OPHT SOLN 2.5 ML BTL EACH EYE SCH (22:12)
[2016-09-03] VITALS (7 sets, daily range): BP systolic 106–156; BP diastolic 56–67; PULSE 66–109; RESP 17–20; TEMP 96.2–99.7; O2SAT 96–100
[2016-09-03] MEDS: SODIUM CHLOR 0.9% 1000 ML INJ 1,000 ML IV SCH ×2 (04:02→17:00)
[2016-09-03 05:42] LABS: HEMATOCRIT 26.1 % (39.0-51.0); MEAN CELL VOLUME 82.2 FL (80.0-100.0); MEAN CORPUSCULAR HEMOGLOBIN 26.2 PG (27.0-34.0); MEAN CORPUSCULAR HGB CONC 31.9 % (32.0-36.0); PLATELET COUNT 98 TH/MM3 (150-450); RED BLOOD COUNT 3.17 MIL/MM3 (4.50-5.90); RED CELL DISTRIBUTION WIDTH 20.4 % (11.6-17.2)
[2016-09-03 05:55] LABS: BICARBONATE 16.6 MEQ/L (21.0-32.0); MAGNESIUM 2.2 MG/DL (1.5-2.5); POTASSIUM 5.5 MEQ/L (3.5-5.1)
[2016-09-03 06:48] LABS: HEMO FLAGS AUTO DIFF
[2016-09-03 06:55] LABS: BANDS 3 % (0-6); HOWELL-JOLLY BODIES PRESENT (NONE SEEN); PLATELET ESTIMATE SMEAR LOW (NORMAL); POLYS (SEG NEUTROPHILS) 1 % (16-70); WBC DIFF SAMPLE 100
[2016-09-03 06:56] LABS: ACANTHOCYTES OCC (NORMAL); KERATOCYTES OCC (NORMAL); PLATELET MORPHOLOGY NORMAL (NORMAL); SCAN/DIFF FINAL DIFF MANUAL
--- NOTE | 2016-09-03 08:30 | MB ---
cc: RENEE GONZALEZ M.D. DATE OF CONSULTATION: 09/03/[address] Samuel. REASON FOR CONSULTATION Oncology consulted to render opinion regarding patient with lung cancer, receiving chemotherapy, presented with syncope. 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 He is receiving carboplatin and etoposide. He just completed a third cycle on August 27. He stated that he has not been eating well or drinking much fluid. He has had episodes of dizziness and increased weakness, yesterday on the way to the bathroom, he apparently had a syncopal episode. He could not recall the event and it was not witnessed. He stated he woke up in the bathtub and noted bleeding from his head. He was brought to the emergency room. He was found to have acute on chronic renal failure. He also has significant neutropenia. He was admitted for further evaluation. He denies any fever, chills, night sweats. He just stated that he is very weak. He denies any headache, denies visual changes. Denies focal numbness or weakness. He has no chest pressure or palpitation. He still has mild shortness of breath. Denies significant cough. He has no nausea, vomiting, abdominal pain. Denies any diarrhea or constipation. Denies any dysuria, hematuria, but the urine color is dark-yellowish. PAST MEDICAL HISTORY 1. 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 2. Coronary disease with chronic angina. 3. Osteoarthritis. 4. Chronic obstructive pulmonary disease. 5. Degenerative joint disease. 6. Diverticulitis. 7. Glaucoma. 8. History of myocardial infarction. 9. Hemorrhoid. 10. Hyperlipidemia. 11. Chronic kidney disease. PAST SURGICAL HISTORY 1. Appendectomy. 2. Coronary stent placement. 3. Hernia repair. 4. Bilateral hip surgery. 5. Exploratory laparotomy. 6. Rectal sigmoidectomy and low anterior anastomosis. 7. Splenectomy. 8. Colonoscopy. 9. PTCA. ALLERGIES NO KNOWN DRUG ALLERGIES. FAMILY HISTORY Noncontributory. SOCIAL HISTORY Smoked 1-2 pack a day for about 35 years, quit about 25 years ago. Denies any alcohol use. MEDICATIONS 1. Lexapro. 2. Alphagan eyedrops. 3. Xalatan eyedrops. REVIEW OF SYSTEMS CONSTITUTIONAL: He has increased weakness. Denies any fever, chills. Has weight loss. EYES: Denies any blurry vision, double vision. ENT: No mouth sores or voice changes. CARDIOVASCULAR: Denies chest pressure, palpitation. RESPIRATORY: He has baseline shortness of breath. Denies significant cough. GI: Denies nausea, vomiting, diarrhea, abdominal pain. : No dysuria, hematuria. Urine color is dark-yellowish. MUSCULOSKELETAL: As above. HEMATOLOGY: As above. ENDOCRINE: Negative. DERMATOLOGY: Negative. PSYCHIATRIC: Negative. NEUROLOGIC: Negative. PHYSICAL EXAMINATION VITAL SIGNS: Temperature 98.9, pulse 109, blood pressure 106/56, O2 saturation 100% on 2 liters nasal cannula. GENERAL: He is alert, oriented x3. Looks weak. HEENT: Alopecia. The dressing on the back of his scalp is dry. Pupils are equal, round, reactive to light. Extraocular muscles are intact. No scleral icterus. Oropharynx dry mucosa. No lesion. NECK: No thyromegaly. No palpable masses. LYMPHATIC: No palpable cervical, clavicular, axillary, inguinal lymph node. CARDIOVASCULAR: Regular S1-S2. No murmur. LUNGS: Clear to auscultation bilaterally. No wheezing or rhonchi. ABDOMEN: Soft, scaphoid. I could not palpate liver or spleen. EXTREMITIES: No cyanosis, no clubbing. No edema. BACK: No paravertebral tenderness. SKIN: No rash or petechiae. NEUROLOGIC: Exam nonfocal. LABORATORY DATA Laboratory data reviewed. ASSESSMENT 1. Syncope likely due to orthostatic hypotension from dehydration. He has not been drinking much fluid or able to eat since his last chemotherapy a week ago. He presented with acute on chronic renal insufficiency. He appears dehydrated. He feels better this morning with the hydration and further workup is ongoing. A CT of the head and MRI of the brain did not show any metastatic disease. There is no hemorrhage or acute changes. 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 He just completed third cycle of carboplatin, etoposide, last dose was August 27. He received Neulasta injection after that. His CT scan after two cycles of chemotherapy showed dramatic improvement. The right lung mass has significantly decreased in size, the mediastinal adenopathy also had significantly decrease in size. On admission chest x-ray showed almost complete resolution of the right lung soft tissue density when compared to prior chest x-ray, there is no other acute changes noted. 3. Pancytopenia due to chemotherapy. He has severe neutropenia with ANC of 0.1. He had Neulasta injection last week, he does not need Neupogen at this time. I anticipate his blood count to gradually improve. He is afebrile. His hemoglobin is 9.2. He does not need transfusion at this time. Continue to monitor the CBC while he is in the hospital. Will start antibiotic per neutropenic fever protocol, if he has febrile episode. 4. Anorexia. Continue Megace. 5. Dehydration. Continue IV fluid. 6. Coronary disease. He has no symptom at this time. 7. History of diverticulitis status post colon resection. 8. Osteoarthritis. PLAN 1. Continue hydration and workup for syncope is ongoing. 2. No need for Neupogen because the patient has received Neulasta. 3. Monitor CBC and will give him transfusion if his hemoglobin trends below 8 or if he becomes more symptomatic. Thank you Dr. Samuel for asking me to see this patient. I will follow with you. MD ALBANIA Alford/SRUTHI /7:37 AM /7:58 AM MTDLatasha
[2016-09-03] MEDS: ESCITALOPRAM OXALATE 10 MG TAB PO SCH (08:48)
[2016-09-03] MEDS: BRIMONIDINE TARTRATE 0.2% OPHT SOLN 5 ML BTL EACH EYE SCH ×2 (08:49→20:46)
[2016-09-03] MEDS: MEGESTROL ACETATE SUSP 400 MG/10 ML CUP PO SCH (08:52)
--- NOTE | 2016-09-03 09:56 | HHI.PR ---
Subjective Remarks still weak but less dizzy. Objective Vitals heart reg lung cta abd s/nt ext no edema Vital Signs Date Time Temp Pulse Resp B/P Pulse Ox O2 Delivery O2 Flow Rate FiO2 09/03/16 04:00 98.9 109 18 106/56 100 09/03/16 00:00 98.2 66 17 119/67 98 09/02/16 21:05 75 09/02/16 21:00 98.6 66 17 126/60 99 09/02/16 18:00 74 18 134/62 100 Room Air 09/02/16 15:06 74 18 124/59 100 Room Air 09/02/16 13:14 86 18 118/58 93 18 88/56 103 20 123/58 09/02/16 13:06 97 Nasal Cannula 2 09/02/16 12:40 110 24 115/59 96 09/02/16 09/02/16 09/03/16 15:00 23:00 07:00 Intake Total 1090 ml Output Total 400 ml Balance 690 ml Intake Oral 240 ml IV Total 850 ml Output Urine Total 400 ml # Voids 1 1 # Bowel Movements 1 Result Diagram: 09/03/16 0405 09/03/16 0405 Imaging Last Impressions Head CT 09/02/16 1302 Signed Impressions: Service Date/Time: Friday, September 02, 2016 13:27 - CONCLUSION: 1. Mild periventricular and subcortical white matter small vessel ischemic changes bilaterally. 2. Mild cerebral atrophy. 3. No acute infarct, acute hemorrhage, mass effect or extra axial fluid collections. Italo Sanchez MD Chest X-Ray 09/02/16 1302 Signed Impressions: Service Date/Time: Friday, September 02, 2016 13:05 - CONCLUSION: 1. Almost complete resolution of the previously noted mass-like density within the right mid lung field with minimal residual scarring identified. 2. No acute focal pulmonary infiltrate or pulmonary vascular congestion. Italo Sanchez MD A/P Problem List: (1) Syncope Status: Acute Plan: - Pt had a syncopal episode at home after getting up to walk to the bathroom. He has reportedly been getting weaker over the last several months since starting chemotherapy and has been eating less. He has been having some positional dizziness as well. - Pt has notable electrolyte abnormalities at admission likely secondary to dehydration, with acute on chronic kidney disease, hyperkalemia, which is likely contributing to his above symptoms. - Head CT (09/02) --> Mild periventricular and subcortical white matter small vessel ischemic changes bilaterally. Mild cerebral atrophy. No acute infarct, acute hemorrhage, mass effect or extra axial fluid collections. - MRI brain 09/02. no metastatic dz or cva. -pancytopenia and neutropenia related to chemo. no fever. cont ivf hydration for dehydration/leonid..improving. He is less dizzy with standing PT eval. If hgb drops then prbc discussed restarted alpha johnathon for bph and nocturia..will wait until pt more stable to try no fever. abx if he does. Onc following. telemetry. dvt prophylaxis. (2) Laceration of head Status: Acute Plan: - Stapled applied in the ED - Monitor (3) Acute on chronic kidney failure Status: Acute Plan: dehydration related see above (4) Hyperkalemia Status: Acute Plan: - IVF - Recheck labs in AM (5) Non-small cell cancer of right lung Status: Chronic Plan: - Pt diagnosed in 07/2016 with 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 Osorio - Dr. Osorio aware of pts admission. (6) Neutropenia Status: Acute Plan: - LIkely secondary to chemo - Neutropenic precautions - Pt was given Neulasta at last chemo (7) Weakness generalized Status: Chronic (8) COPD (chronic obstructive pulmonary disease) Status: Chronic (9) CHF (congestive heart failure) Status: Chronic Problem Qualifiers (1) Syncope: Qualified Code: R55 - Syncope, unspecified syncope type (2) Laceration of head: Qualified Code: S01.81XA - Laceration of other part of head without foreign body, initial encounter Stanislaw Samuel MD September 03, 2016 09:56
--- NOTE | 2016-09-03 12:09 | EC ---
Study Study Date:09/03/2016 STUDY CONCLUSIONS SUMMARY - Left ventricle: The cavity size was normal. Wall thickness was increased in a pattern of mild LVH. Systolic function was normal. The estimated ejection fraction was in the range of 55% to 60%. Doppler parameters are consistent with abnormal left ventricular relaxation (grade 1 diastolic dysfunction). - Pulmonary arteries: PA peak pressure: 39mm Hg (S). If LV function is below 40, please consider prescribing an ACEI or ARB or document rationale for non-use. PROCEDURE DATA STUDY STATUS: Elective. Procedure: Transthoracic echocardiography. Image quality was suboptimal. Scanning was performed from the parasternal, apical, and subcostal acoustic windows. Study completion: The patient tolerated the procedure well. Transthoracic echocardiography. M-mode, complete 2D, complete spectral Doppler, and color Doppler. Patient status: Inpatient. CARDIAC ANATOMY LEFT VENTRICLE: The cavity size was normal. Wall thickness was increased in a pattern of mild LVH. Systolic function was normal. The estimated ejection fraction was in the range of 55% to 60%. Images were inadequate for LV wall motion assessment. Doppler parameters are consistent with abnormal left ventricular relaxation (grade 1 diastolic dysfunction). AORTIC VALVE: Trileaflet; normal thickness leaflets. Doppler: Transvalvular velocity was within the normal range. There was no stenosis. No regurgitation. AORTA: Aortic root: The aortic root was normal in size. MITRAL VALVE: Structurally normal valve. Doppler: Transvalvular velocity was within the normal range. There was no evidence for stenosis. Trace regurgitation. LEFT ATRIUM: The atrium was normal in size. RIGHT VENTRICLE: The cavity size was normal. Wall thickness was normal. PULMONIC VALVE: Doppler: Transvalvular velocity was within the normal range. There was no evidence for stenosis. No regurgitation. TRICUSPID VALVE: Structurally normal valve. Doppler: Transvalvular velocity was within the normal range. Trace regurgitation. PULMONARY ARTERY: Systolic pressure was at the upper limits of normal. RIGHT ATRIUM: The atrium was normal in size. PERICARDIUM: There was no pericardial effusion. SYSTEMIC VEINS: Inferior vena cava: The vessel was normal in size. BASIC MEASUREMENTS ADULT Normal Left ventricle LV internal dimension, ED, chordal level, *40.3 mm 43-52 PLAX LV internal dimension, ES, chordal level, 32 mm 23-38 PLAX Fractional shortening, chordal level, PLAX *21 % >29 LV posterior wall thickness, ED 11.8 mm IVS/LVPW ratio, ED 1.01 <1.3 Ventricular septum Septal thickness, ED 11.9 mm Aortic valve Leaflet separation 26 mm 15-26 Right ventricle RV internal dimension, ED, PLAX 29.8 mm 19-38 BASIC MEASUREMENTS ADULT Normal Aortic valve Leaflet separation 26 mm 15-26 Aorta Root diameter, ED *40 mm 20-37 Left atrium Anterior-posterior dimension, ES 34 mm 19-40 LA/aortic root ratio 0.85 DOPPLER MEASUREMENTS ADULT Normal Main pulmonary artery Pressure, S *39 mm Hg =30 Tricuspid valve Regurgitant peak velocity 269 cm/s Peak RV-RA gradient, S 29 mm Hg Maximal regurgitant velocity 269 cm/s Systemic veins Estimated CVP 10 mm Hg Right ventricle RV pressure, S *39 mm Hg <30 LEGEND: Mean values are shown as u=mean value. Asterisk (*) elias values outside specified normal range. Prepared and signed by Wild Mejia [id number]
--- NOTE | 2016-09-03 18:27 | EKG ---
Date Performed: 09/02/2016 Time Performed: 13:06:05 PTAGE: 75 years EKG: Sinus rhythm MARKED LEFT AXIS DEVIATION ABNORMAL ECG Compared to prior tracing no significant change PREVIOUS TRACING : 07/01/2016 21.34 DOCTOR: Deondre Barajas Interpretating Date/Time 09/03/2016 18:24:38
[2016-09-03] MEDS: LOPERAMIDE HCL 2 MG CAP PO PRN (20:44)
[2016-09-03] MEDS: CEFEPIME INJ 2,000 MG in SODIUM CHLORIDE 0.9% INJ 100 ML IV SCH (20:45)
[2016-09-03] MEDS: LATANOPROST 0.005% OPHT SOLN 2.5 ML BTL EACH EYE SCH (20:46)
[2016-09-04] VITALS (14 sets, daily range): BP systolic 118–169; BP diastolic 56–88; PULSE 71–106; RESP 16–22; TEMP 96–98.5; O2SAT 95–99
[2016-09-04] MEDS: CEFEPIME INJ 2,000 MG in SODIUM CHLORIDE 0.9% INJ 100 ML IV SCH ×3 (01:35→17:44)
[2016-09-04] MEDS: LOPERAMIDE HCL 2 MG CAP PO PRN ×2 (02:50→17:55)
[2016-09-04] MEDS: SODIUM CHLOR 0.9% 1000 ML INJ 1,000 ML IV SCH ×2 (05:30→17:49)
[2016-09-04 06:23] LABS: MEAN CELL VOLUME 81.9 FL (80.0-100.0); MEAN CORPUSCULAR HEMOGLOBIN 26.3 PG (27.0-34.0); MEAN CORPUSCULAR HGB CONC 32.1 % (32.0-36.0); PLATELET COUNT 46 TH/MM3 (150-450); RED BLOOD COUNT 2.56 MIL/MM3 (4.50-5.90); RED CELL DISTRIBUTION WIDTH 21.2 % (11.6-17.2); WHITE BLOOD COUNT 0.9 TH/MM3 (4.0-11.0)
[2016-09-04 06:25] LABS: HEMO FLAGS AUTO DIFF
[2016-09-04 06:27] LABS: HEMATOCRIT 20.9 % (39.0-51.0)
[2016-09-04 07:21] LABS: BICARBONATE 18.7 MEQ/L (21.0-32.0); POTASSIUM 5.1 MEQ/L (3.5-5.1)
[2016-09-04] MEDS ORDERED: ACETAMINOPHEN 325 MG TAB PO ONE (07:30)
[2016-09-04 07:44] LABS: BANDS 10 % (0-6); NEUTROPHIL # MANUAL DIFF 0.1 TH/MM3 (1.8-7.7); PLATELET ESTIMATE SMEAR LOW (NORMAL); TOXIC GRANULATION 3+ (NORMAL); WBC DIFF SAMPLE 50
[2016-09-04 07:45] LABS: ACANTHOCYTES OCC (NORMAL); PLATELET MORPHOLOGY NORMAL (NORMAL); SCAN/DIFF FINAL DIFF MANUAL
[2016-09-04] MEDS: ESCITALOPRAM OXALATE 10 MG TAB PO SCH (08:07)
[2016-09-04] MEDS: MEGESTROL ACETATE SUSP 400 MG/10 ML CUP PO SCH (08:07)
[2016-09-04] MEDS: BRIMONIDINE TARTRATE 0.2% OPHT SOLN 5 ML BTL EACH EYE SCH ×2 (08:17→19:32)
--- NOTE | 2016-09-04 08:22 | PD.ONC.PN ---
Subjective Subjective Remarks Feels weak. No CP/ SOB the same. No MCKEON/dizziness. Objective Data Date Time Temp Pulse Resp B/P Pulse Ox O2 Delivery O2 Flow Rate FiO2 09/04/16 04:00 97.5 95 18 127/64 95 09/04/16 00:00 96.3 106 20 164/69 99 09/03/16 21:00 87 09/03/16 20:00 97.7 89 18 131/62 96 09/03/16 16:46 99.7 95 18 143/63 96 09/03/16 11:50 98.1 89 20 156/67 100 09/04/16 09/04/16 09/04/16 07:00 15:00 23:00 Intake Total 1634 ml Balance 1634 ml Result Diagram: 09/04/16 0501 09/04/16 0501 Laboratory Results Laboratory Tests Test 09/04/16 05:01 White Blood Count 0.9 TH/MM3 Red Blood Count 2.56 MIL/MM3 Hemoglobin 6.7 GM/DL Hematocrit 20.9 % Mean Corpuscular Volume 81.9 FL Mean Corpuscular Hemoglobin 26.3 PG Mean Corpuscular Hemoglobin 32.1 % Concent Red Cell Distribution Width 21.2 % Platelet Count 46 TH/MM3 Mean Platelet Volume 8.0 FL Neutrophils (%) (Auto) % Lymphocytes (%) (Auto) % Monocytes (%) (Auto) % Eosinophils (%) (Auto) % Basophils (%) (Auto) % Neutrophils # (Auto) TH/MM3 Lymphocytes # (Auto) TH/MM3 Monocytes # (Auto) TH/MM3 Eosinophils # (Auto) TH/MM3 Basophils # (Auto) TH/MM3 CBC Comment AUTO DIFF Differential Total Cells 50 Counted Band Neutrophils % 10 % Lymphocytes % 86 % Monocytes % 4 % Neutrophils # (Manual) 0.1 TH/MM3 Differential Comment FINAL DIFF MANUAL Toxic Granulation 3+ Platelet Estimate LOW Platelet Morphology Comment NORMAL Acanthocytes OCC Sodium Level 141 MEQ/L Potassium Level 5.1 MEQ/L Chloride Level 113 MEQ/L Carbon Dioxide Level 18.7 MEQ/L Anion Gap 9 MEQ/L Blood Urea Nitrogen 29 MG/DL Creatinine 0.70 MG/DL Estimat Glomerular Filtration 110 ML/MIN Rate Random Glucose 116 MG/DL Calcium Level 8.7 MG/DL Culture Results Microbiology Date/Time Procedure Status Source Growth 09/03/16 19:40 Aerobic Blood Culture Received Blood Other Pending 09/03/16 19:40 Anaerobic Blood Culture Received Blood Other Pending 09/03/16 19:56 Aerobic Blood Culture Received Blood Other Pending 09/03/16 19:56 Anaerobic Blood Culture Received Blood Other Pending Administered Medications Medications (Trade) Dose Ordered Sig/Ronadlo Route PRN Reason Start Time Stop Time Status Last Admin Dose Admin Sodium Chloride (NS 1000 ml Inj) 1,000 ml @ 80 mls/hr [id number] IV 09/02/16 16:00 09/03/16 17:00 Brimonidine Tartrate (Alphagan 0.2% Opth Soln) 1 drop BID EACH EYE 09/02/16 21:00 09/04/16 08:17 Escitalopram Oxalate (Lexapro) 10 mg DAILY PO 09/03/16 09:00 09/04/16 08:07 Latanoprost (Xalatan 0.005% Opth Soln) 1 drop HS EACH EYE 09/02/16 21:00 09/03/16 20:46 Megestrol Acetate 400 mg 400 mg DAILY PO 09/03/16 09:00 09/04/16 08:07 Cefepime HCl/ Sodium Chloride (Maxipime Inj/NS Inj) 100 ml @ 200 mls/hr Q8H IV 09/03/16 18:00 09/04/16 01:35 Loperamide HCl (Imodium) 2 mg Q6H PRN PO DIARRHEA 09/03/16 20:00 09/03/16 20:44 Objective Remarks GENERAL: Well-nourished, well-developed patient. Weak. Pale. SKIN: Warm and dry. HEAD: Normocephalic. EYES: No scleral icterus. No injection or drainage. NECK: Supple, trachea midline. No JVD or lymphadenopathy. LYMPHATIC: No adenopathy. CARDIOVASCULAR: Regular rate and rhythm without murmurs. RESPIRATORY: Breath sounds equal bilaterally. No accessory muscle use. GASTROINTESTINAL: Abdomen soft, non-tender, nondistended. EXTREMITIES: No cyanosis, or edema. MUSCULOSKELETAL: Adequate muscle tone. NEUROLOGICAL: No obvious focal deficit. Awake, alert, and oriented x3. PSYCHIATRIC: Appropriate mood and affect; insight and judgment normal. Assessment/Plan Assessment 1. Syncope likely due to orthostatic hypotension from dehydration. He has not been drinking much fluid or able to eat since his last chemotherapy a week ago. He presented with acute on chronic renal insufficiency. He appears dehydrated. A CT of the head and MRI of the brain did not show any metastatic disease. There is no hemorrhage or acute changes. 5/ No more dizziness. 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 He just completed third cycle of carboplatin, etoposide, last dose was August 27. He received Neulasta injection after that. His CT scan after two cycles of chemotherapy showed dramatic improvement. The right lung mass has significantly decreased in size, the mediastinal adenopathy also had significantly decrease in size. On admission chest x-ray showed almost complete resolution of the right lung soft tissue density when compared to prior chest x-ray, there is no other acute changes noted. 3. Pancytopenia due to chemotherapy. He has severe neutropenia with ANC of 0.1. He had Neulasta injection last week, he does not need Neupogen at this time. I anticipate his blood count to gradually improve. He is afebrile. His hemoglobin is 9.2. He does not need transfusion at this time. Continue to monitor the CBC while he is in the hospital. Will start antibiotic per neutropenic fever protocol, if he has febrile episode. 09/04 Started cefepime for low grade temp. Still neutropenic. BCX pending. Hgb and platelet trended lower. Will transfuse 2U PRBC today. 4. Anorexia. Continue Megace. 5. Dehydration. Continue IV fluid. Plan PLAN 1. Continue hydration and workup for syncope is ongoing. 2. No need for Neupogen because the patient has received Neulasta. 3. Continue abx pending blood culture. 4. Transfuse 2U PRBC. Chandrakant Osorio MD September 04, 2016 08:22
--- NOTE | 2016-09-04 08:47 | HHI.PR ---
Subjective Remarks still weak. very orthostatic yesterday. says he has chronic intermittent diarrhea Objective Vitals heart reg lung cta abd snt ext no edema Vital Signs Date Time Temp Pulse Resp B/P Pulse Ox O2 Delivery O2 Flow Rate FiO2 09/04/16 04:00 97.5 95 18 127/64 95 09/04/16 00:00 96.3 106 20 164/69 99 09/03/16 21:00 87 09/03/16 20:00 97.7 89 18 131/62 96 09/03/16 16:46 99.7 95 18 143/63 96 09/03/16 11:50 98.1 89 20 156/67 100 09/03/16 09/03/16 09/04/16 15:00 23:00 07:00 Intake Total 597 ml 240 ml 1634 ml Output Total 150 ml Balance 447 ml 240 ml 1634 ml Intake Oral 597 ml 240 ml 240 ml IV Total 1394 ml Output Urine Total 150 ml # Voids 1 2 4 # Bowel Movements 1 2 Result Diagram: 09/04/16 0501 09/04/16 0501 Imaging Last Impressions Head CT 09/02/16 1302 Signed Impressions: Service Date/Time: Friday, September 02, 2016 13:27 - CONCLUSION: 1. Mild periventricular and subcortical white matter small vessel ischemic changes bilaterally. 2. Mild cerebral atrophy. 3. No acute infarct, acute hemorrhage, mass effect or extra axial fluid collections. Italo Sanchez MD Chest X-Ray 09/02/16 1302 Signed Impressions: Service Date/Time: Friday, September 02, 2016 13:05 - CONCLUSION: 1. Almost complete resolution of the previously noted mass-like density within the right mid lung field with minimal residual scarring identified. 2. No acute focal pulmonary infiltrate or pulmonary vascular congestion. Italo Sanchez MD A/P Problem List: (1) Syncope Status: Acute Plan: - Pt had a syncopal episode at home after getting up to walk to the bathroom. He has reportedly been getting weaker over the last several months since starting chemotherapy and has been eating less. He has been having some positional dizziness as well. - Pt has notable electrolyte abnormalities at admission likely secondary to dehydration, with acute on chronic kidney disease, hyperkalemia, which is likely contributing to his above symptoms. - Head CT (09/02) --> Mild periventricular and subcortical white matter small vessel ischemic changes bilaterally. Mild cerebral atrophy. No acute infarct, acute hemorrhage, mass effect or extra axial fluid collections. - MRI brain 09/02. no metastatic dz or cva. -pancytopenia and neutropenia related to chemo. -minimal fever 09/03 -continue to be orthostatic with sbp 80s upon standing blood cx's and abx initiated ivf blood transfusion PT Onc following. telemetry. dvt prophylaxis. (2) Laceration of head Status: Acute Plan: - Stapled applied in the ED - Monitor (3) Acute on chronic kidney failure Status: Acute Plan: dehydration related see above (4) Hyperkalemia Status: Acute Plan: - IVF - Recheck labs in AM (5) Non-small cell cancer of right lung Status: Chronic Plan: - Pt diagnosed in 07/2016 with 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 Osorio - Dr. Osorio aware of pts admission. (6) Neutropenia Status: Acute Plan: - LIkely secondary to chemo - Neutropenic precautions - Pt was given Neulasta at last chemo (7) Weakness generalized Status: Chronic (8) COPD (chronic obstructive pulmonary disease) Status: Chronic (9) CHF (congestive heart failure) Status: Chronic Problem Qualifiers (1) Syncope: Qualified Code: R55 - Syncope, unspecified syncope type (2) Laceration of head: Qualified Code: S01.81XA - Laceration of other part of head without foreign body, initial encounter Stanislaw Samuel MD September 04, 2016 08:47 (1) Syncope: Qualified Code: R55 - Syncope, unspecified syncope type (2) Laceration of head: Qualified Code: S01.81XA - Laceration of other part of head without foreign body, initial encounter Stanislaw Samuel MD September 04, 2016 08:47
[2016-09-04] MEDS: diphenhydrAMINE HCL 25 MG CAP PO PRN ×2 (10:03→14:19)
[2016-09-04] MEDS: ACETAMINOPHEN 325 MG TAB PO PRN (14:19)
[2016-09-04] MEDS: LATANOPROST 0.005% OPHT SOLN 2.5 ML BTL EACH EYE SCH (19:32)
[2016-09-05] VITALS (10 sets, daily range): BP systolic 141–172; BP diastolic 65–86; PULSE 69–83; RESP 16–28; TEMP 96.4–98; O2SAT 95–98
[2016-09-05] MEDS: LOPERAMIDE HCL 2 MG CAP PO PRN ×3 (00:38→20:18)
[2016-09-05] MEDS: CEFEPIME INJ 2,000 MG in SODIUM CHLORIDE 0.9% INJ 100 ML IV SCH ×3 (01:51→16:59)
[2016-09-05] MEDS: SODIUM CHLOR 0.9% 1000 ML INJ 1,000 ML IV SCH (05:50)
[2016-09-05 06:33] LABS: HEMATOCRIT 27.3 % (39.0-51.0); MEAN CELL VOLUME 81.4 FL (80.0-100.0); MEAN CORPUSCULAR HEMOGLOBIN 27.5 PG (27.0-34.0); MEAN CORPUSCULAR HGB CONC 33.8 % (32.0-36.0); PLATELET COUNT 22 TH/MM3 (150-450); RED BLOOD COUNT 3.35 MIL/MM3 (4.50-5.90); RED CELL DISTRIBUTION WIDTH 19.5 % (11.6-17.2); WHITE BLOOD COUNT 2.2 TH/MM3 (4.0-11.0)
[2016-09-05 06:51] LABS: BICARBONATE 16.9 MEQ/L (21.0-32.0); POTASSIUM 4.5 MEQ/L (3.5-5.1)
[2016-09-05 07:04] LABS: HEMO FLAGS AUTO DIFF
[2016-09-05] MEDS ORDERED: SODIUM CHLOR 0.9% 250 ML INJ 250 ML IV ONE (09:45)
[2016-09-05] MEDS: MEGESTROL ACETATE SUSP 400 MG/10 ML CUP PO SCH (09:47)
[2016-09-05] MEDS: ESCITALOPRAM OXALATE 10 MG TAB PO SCH (09:47)
[2016-09-05] MEDS: BRIMONIDINE TARTRATE 0.2% OPHT SOLN 5 ML BTL EACH EYE SCH ×2 (09:48→20:21)
[2016-09-05 09:53] LABS: BANDS 36 % (0-6); DOHLE BODIES PRESENT (NONE SEEN); METAMYELOCYTES 3 % (0-1); MYELOCYTES 2 % (0-0); PLATELET ESTIMATE SMEAR LOW (NORMAL); PLATELET MORPHOLOGY NORMAL (NORMAL); POLYS (SEG NEUTROPHILS) 4 % (16-70); PROMYELOCYTES 1 % (0-0); SCAN/DIFF FINAL DIFF MANUAL; TOXIC GRANULATION 2+ (NORMAL); WBC DIFF SAMPLE 100
[2016-09-05 09:54] LABS: ACANTHOCYTES OCC (NORMAL); HOWELL-JOLLY BODIES PRESENT (NONE SEEN)
--- NOTE | 2016-09-05 10:14 | PD.ONC.PN ---
Subjective Subjective Remarks Afebrile overnight. Pt resting in bed in no distress. Daughter at bedside. He states he has less SOB, feels stronger. Objective Data Date Time Temp Pulse Resp B/P Pulse Ox O2 Delivery O2 Flow Rate FiO2 09/05/16 08:06 97.7 73 16 164/86 98 159/80 154/79 09/05/16 04:00 96.4 75 20 165/72 98 09/05/16 00:00 97.7 83 21 171/79 97 09/04/16 21:00 71 09/04/16 19:15 169/79 137/69 135/56 09/04/16 17:37 96.7 88 22 142/88 99 09/04/16 17:36 88 09/04/16 16:10 96.2 71 16 165/68 97 09/04/16 14:40 98.0 82 18 148/70 99 09/04/16 14:38 78 09/04/16 14:30 98.5 82 18 152/79 99 09/04/16 12:00 97.1 75 20 136/65 99 09/04/16 11:10 98.3 78 18 133/82 98 09/04/16 10:50 97.5 78 18 137/65 99 09/05/16 09/05/16 09/05/16 07:00 15:00 23:00 Intake Total 1239 ml Output Total 280 ml Balance 959 ml Result Diagram: 09/05/16 0505 09/05/16 0505 Laboratory Results Laboratory Tests Test 09/05/16 09/05/16 05:05 09:41 White Blood Count 2.2 TH/MM3 Red Blood Count 3.35 MIL/MM3 Hemoglobin 9.2 GM/DL Hematocrit 27.3 % Mean Corpuscular Volume 81.4 FL Mean Corpuscular Hemoglobin 27.5 PG Mean Corpuscular Hemoglobin 33.8 % Concent Red Cell Distribution Width 19.5 % Platelet Count 22 TH/MM3 Mean Platelet Volume 9.0 FL Neutrophils (%) (Auto) % Lymphocytes (%) (Auto) % Monocytes (%) (Auto) % Eosinophils (%) (Auto) % Basophils (%) (Auto) % Neutrophils # (Auto) TH/MM3 Lymphocytes # (Auto) TH/MM3 Monocytes # (Auto) TH/MM3 Eosinophils # (Auto) TH/MM3 Basophils # (Auto) TH/MM3 CBC Comment AUTO DIFF Differential Total Cells 100 Counted Neutrophils % (Manual) 4 % Band Neutrophils % 36 % Lymphocytes % 45 % Monocytes % 9 % Neutrophils # (Manual) 1.0 TH/MM3 Metamyelocytes 3 % Myelocytes 2 % Promyelocytes 1 % Differential Comment FINAL DIFF MANUAL Toxic Granulation 2+ Dohle Bodies PRESENT Platelet Estimate LOW Platelet Morphology Comment NORMAL Edgar-Rapids Bodies PRESENT Acanthocytes OCC Sodium Level 139 MEQ/L Potassium Level 4.5 MEQ/L Chloride Level 112 MEQ/L Carbon Dioxide Level 16.9 MEQ/L Anion Gap 10 MEQ/L Blood Urea Nitrogen 24 MG/DL Creatinine 0.60 MG/DL Estimat Glomerular Filtration 131 ML/MIN Rate Random Glucose 112 MG/DL Calcium Level 8.8 MG/DL Blood Bank Comment Culture Results Microbiology Date/Time Procedure Status Source Growth 09/03/16 19:40 Aerobic Blood Culture - Preliminary Resulted Blood Other NO GROWTH IN 1 DAY 09/03/16 19:40 Anaerobic Blood Culture - Preliminary Resulted Blood Other NO GROWTH IN 1 DAY 09/03/16 19:56 Aerobic Blood Culture - Preliminary Resulted Blood Other NO GROWTH IN 1 DAY 09/03/16 19:56 Anaerobic Blood Culture - Final Resulted Blood Other QNS - SEE AEROBE REPORT Administered Medications Medications (Trade) Dose Ordered Sig/Ronaldo Route PRN Reason Start Time Stop Time Status Last Admin Dose Admin Sodium Chloride (NS 1000 ml Inj) 1,000 ml @ 80 mls/hr [id number] IV 09/02/16 16:00 09/05/16 05:50 Acetaminophen (Tylenol) 650 mg Q4H PRN PO fever or pain 09/02/16 16:00 09/04/16 14:19 Brimonidine Tartrate (Alphagan 0.2% Opth Soln) 1 drop BID EACH EYE 09/02/16 21:00 09/05/16 09:48 Escitalopram Oxalate (Lexapro) 10 mg DAILY PO 09/03/16 09:00 09/05/16 09:47 Latanoprost (Xalatan 0.005% Opth Soln) 1 drop HS EACH EYE 09/02/16 21:00 09/04/16 19:32 Megestrol Acetate 400 mg 400 mg DAILY PO 09/03/16 09:00 09/05/16 09:47 Cefepime HCl/ Sodium Chloride (Maxipime Inj/NS Inj) 100 ml @ 200 mls/hr Q8H IV 09/03/16 18:00 09/05/16 09:48 Loperamide HCl (Imodium) 2 mg Q6H PRN PO DIARRHEA 09/03/16 20:00 09/04/16 02:50 Diphenhydramine HCl (Benadryl) 25 mg Q4H PRN PO ITCHING 09/04/16 07:30 09/04/16 14:19 Objective Remarks GENERAL: Older male resting in bed in no acute distress. SKIN: Warm and dry. HEAD: Normocephalic. EYES: No injection or drainage. NECK: Supple, trachea midline. CARDIOVASCULAR: Regular rate and rhythm without murmurs. RESPIRATORY: Decreased lung sounds bilaterally. GASTROINTESTINAL: Abdomen soft, non-tender, nondistended. EXTREMITIES: No edema. Mild fungal rash to feet. MUSCULOSKELETAL: Generalized weakness. NEUROLOGICAL: No obvious focal deficit. Awake, alert, and oriented x3. Assessment/Plan Assessment 1. Syncope likely due to orthostatic hypotension from dehydration. He has not been drinking much fluid or able to eat since his last chemotherapy a week ago. He presented with acute on chronic renal insufficiency. He appears dehydrated. A CT of the head and MRI of the brain did not show any metastatic disease. There is no hemorrhage or acute changes. 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 He just completed third cycle of carboplatin, etoposide, last dose was August 27. He received Neulasta injection after that. His CT scan after two cycles of chemotherapy showed dramatic improvement. The right lung mass has significantly decreased in size, the mediastinal adenopathy also had significantly decrease in size. On admission chest x-ray showed almost complete resolution of the right lung soft tissue density when compared to prior chest x-ray, there is no other acute changes noted. 3. Pancytopenia due to chemotherapy. He has severe neutropenia with ANC of 0.1. He had Neulasta injection last week, he does not need Neupogen at this time. I anticipate his blood count to gradually improve. He is afebrile. His hemoglobin is 9.2. He does not need transfusion at this time. Continue to monitor the CBC while he is in the hospital. Will start antibiotic per neutropenic fever protocol, if he has febrile episode. 4. Anorexia. Continue Megace. 5. Dehydration. Continue IV fluid. Plan 1. Responded to PRBC transfusion yesterday. 2. Platelets 22K today; will transfuse 1 unit d/t trend. 3. Continue Abx, monitor for fever 4. CBC in am. Attending Statement The exam, history, and the medical decision-making described in the above note were completed with the assistance of the mid-level provider. I reviewed and agree with the findings presented. I attest that I had a [id number] encounter with the patient on the same day, and personally performed and documented my assessment and findings in the medical record. Feeling stronger after PRBC transfusion. Working with PT. No bleeding. Transfuse platelet today. Ecchymosis bilateral feet but no rash. Discussed with pt and his family. Marie Godfrey September 05, 2016 10:14 Chandrakant Osorio MD September 05, 2016 11:57
--- NOTE | 2016-09-05 10:25 | HHI.PR ---
Subjective Remarks feels better. Objective Vitals heart reg lungcta abd s/nt ext no edema Vital Signs Date Time Temp Pulse Resp B/P Pulse Ox O2 Delivery O2 Flow Rate FiO2 09/05/16 08:06 97.7 73 16 164/86 98 159/80 154/79 09/05/16 04:00 96.4 75 20 165/72 98 09/05/16 00:00 97.7 83 21 171/79 97 09/04/16 21:00 71 09/04/16 19:15 169/79 137/69 135/56 09/04/16 17:37 96.7 88 22 142/88 99 09/04/16 17:36 88 09/04/16 16:10 96.2 71 16 165/68 97 09/04/16 14:40 98.0 82 18 148/70 99 09/04/16 14:38 78 09/04/16 14:30 98.5 82 18 152/79 99 09/04/16 12:00 97.1 75 20 136/65 99 09/04/16 11:10 98.3 78 18 133/82 98 09/04/16 10:50 97.5 78 18 137/65 99 09/04/16 09/04/16 09/05/16 15:00 23:00 07:00 Intake Total 960 ml 240 ml 1239 ml Output Total 280 ml Balance 960 ml 240 ml 959 ml Intake Oral 960 ml 240 ml 240 ml IV Total 999 ml Output Urine Total 280 ml # Voids 4 3 3 # Bowel Movements 1 3 Result Diagram: 09/05/16 0505 09/05/16 0505 Imaging Last Impressions Head CT 09/02/16 1302 Signed Impressions: Service Date/Time: Friday, September 02, 2016 13:27 - CONCLUSION: 1. Mild periventricular and subcortical white matter small vessel ischemic changes bilaterally. 2. Mild cerebral atrophy. 3. No acute infarct, acute hemorrhage, mass effect or extra axial fluid collections. Italo Sanchez MD Chest X-Ray 09/02/16 1302 Signed Impressions: Service Date/Time: Friday, September 02, 2016 13:05 - CONCLUSION: 1. Almost complete resolution of the previously noted mass-like density within the right mid lung field with minimal residual scarring identified. 2. No acute focal pulmonary infiltrate or pulmonary vascular congestion. Italo Sanchez MD A/P Problem List: (1) Syncope Status: Acute Plan: - Pt had a syncopal episode at home after getting up to walk to the bathroom. He has reportedly been getting weaker over the last several months since starting chemotherapy and has been eating less. He has been having some positional dizziness as well. - Pt has notable electrolyte abnormalities at admission likely secondary to dehydration, with acute on chronic kidney disease, hyperkalemia, which is likely contributing to his above symptoms. - Head CT (09/02) --> Mild periventricular and subcortical white matter small vessel ischemic changes bilaterally. Mild cerebral atrophy. No acute infarct, acute hemorrhage, mass effect or extra axial fluid collections. - MRI brain 09/02. no metastatic dz or cva. -pancytopenia and neutropenia related to chemo. -minimal fever 09/03 -continued to be orthostatic with sbp 80s upon standing today pt orthostasis better. hgb and wbc trending up. plt trending down but no bleed. no fever. blood cx neg. convert emperic abx soon to po plt's per hem/onc dc ivf prn bp control. ?scheduled if needed. get oob/ambulate PT telemetry. dvt prophylaxis. will need staple removal at appropriate time (2) Laceration of head Status: Acute Plan: - Stapled applied in the ED - Monitor (3) Acute on chronic kidney failure Status: Acute Plan: dehydration related see above (4) Hyperkalemia Status: Acute Plan: - IVF - Recheck labs in AM (5) Non-small cell cancer of right lung Status: Chronic Plan: - Pt diagnosed in 07/2016 with 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 Osorio - Dr. Osorio aware of pts admission. (6) Neutropenia Status: Acute Plan: - LIkely secondary to chemo - Neutropenic precautions - Pt was given Neulasta at last chemo (7) Weakness generalized Status: Chronic (8) COPD (chronic obstructive pulmonary disease) Status: Chronic (9) CHF (congestive heart failure) Status: Chronic Problem Qualifiers (1) Syncope: Qualified Code: R55 - Syncope, unspecified syncope type (2) Laceration of head: Qualified Code: S01.81XA - Laceration of other part of head without foreign body, initial encounter Stanislaw Samuel MD September 05, 2016 10:25
[2016-09-05] MEDS: diphenhydrAMINE HCL 25 MG CAP PO PRN (10:50)
[2016-09-05] MEDS: ACETAMINOPHEN 325 MG TAB PO PRN (16:58)
[2016-09-05] MEDS ORDERED: ACETAMINOPHEN/HYDROcodone 325 MG/7.5 MG TAB PO PRN (17:30)
[2016-09-05] MEDS: cloNIDine HCL 0.1 MG TAB PO PRN (20:21)
[2016-09-05] MEDS: LATANOPROST 0.005% OPHT SOLN 2.5 ML BTL EACH EYE SCH (20:21)
[2016-09-06] VITALS (8 sets, daily range): BP systolic 104–172; BP diastolic 55–84; PULSE 68–115; RESP 17–24; TEMP 96–96.8; O2SAT 94–97
[2016-09-06] MEDS: CEFEPIME INJ 2,000 MG in SODIUM CHLORIDE 0.9% INJ 100 ML IV SCH (01:28)
[2016-09-06 05:55] LABS: HEMATOCRIT 26.9 % (39.0-51.0); MEAN CELL VOLUME 81.6 FL (80.0-100.0); MEAN CORPUSCULAR HEMOGLOBIN 27.7 PG (27.0-34.0); MEAN CORPUSCULAR HGB CONC 33.9 % (32.0-36.0); PLATELET COUNT 40 TH/MM3 (150-450); RED CELL DISTRIBUTION WIDTH 19.9 % (11.6-17.2); WHITE BLOOD COUNT 9.4 TH/MM3 (4.0-11.0)
[2016-09-06 06:20] LABS: BICARBONATE 18.4 MEQ/L (21.0-32.0); POTASSIUM 4.4 MEQ/L (3.5-5.1)
[2016-09-06 06:28] LABS: HEMO FLAGS AUTO DIFF
[2016-09-06] MEDS: cloNIDine HCL 0.1 MG TAB PO PRN (06:58)
[2016-09-06] MEDS: MEGESTROL ACETATE SUSP 400 MG/10 ML CUP PO SCH (08:54)
[2016-09-06] MEDS: BRIMONIDINE TARTRATE 0.2% OPHT SOLN 5 ML BTL EACH EYE SCH ×2 (08:54→21:04)
[2016-09-06] MEDS: ESCITALOPRAM OXALATE 10 MG TAB PO SCH (08:54)
[2016-09-06 09:09] LABS: BANDS 55 % (0-6); METAMYELOCYTES 4 % (0-1); MYELOCYTES 5 % (0-0); NEUTROPHIL # MANUAL DIFF 7.4 TH/MM3 (1.8-7.7); POLYS (SEG NEUTROPHILS) 15 % (16-70); WBC DIFF SAMPLE 100
[2016-09-06 09:10] LABS: DOHLE BODIES PRESENT (NONE SEEN)
[2016-09-06 09:11] LABS: TOXIC GRANULATION 1+ (NORMAL)
[2016-09-06 09:12] LABS: ACANTHOCYTES OCC (NORMAL); PLATELET ESTIMATE SMEAR LOW (NORMAL); PLATELET MORPHOLOGY NORMAL (NORMAL)
[2016-09-06 09:13] LABS: HOWELL-JOLLY BODIES PRESENT (NONE SEEN); SCAN/DIFF FINAL DIFF MANUAL
--- NOTE | 2016-09-06 10:29 | PD.ONC.PN ---
Subjective Subjective Remarks Afebrile overnight. Patient sitting up in chair at bedside with multiple family members present. His SOB is improved. Objective Data Date Time Temp Pulse Resp B/P Pulse Ox O2 Delivery O2 Flow Rate FiO2 09/06/16 08:00 115 24 104/57 94 127/60 167/74 09/06/16 04:00 96.5 77 18 172/84 97 09/06/16 00:00 96.0 80 17 156/73 94 149/78 137/69 09/05/16 21:00 76 09/05/16 20:00 96.5 78 17 172/83 95 09/05/16 16:04 97.8 82 17 172/79 96 09/05/16 12:10 98.0 76 16 145/68 98 09/05/16 11:01 98.0 72 28 141/65 97 09/06/16 09/06/16 09/06/16 07:00 15:00 23:00 Intake Total 733 ml Output Total 300 ml Balance 433 ml Result Diagram: 09/06/16 0408 09/06/16 0408 Laboratory Results Laboratory Tests Test 09/06/16 04:08 White Blood Count 9.4 TH/MM3 Red Blood Count 3.30 MIL/MM3 Hemoglobin 9.1 GM/DL Hematocrit 26.9 % Mean Corpuscular Volume 81.6 FL Mean Corpuscular Hemoglobin 27.7 PG Mean Corpuscular Hemoglobin 33.9 % Concent Red Cell Distribution Width 19.9 % Platelet Count 40 TH/MM3 Mean Platelet Volume 8.1 FL Neutrophils (%) (Auto) % Lymphocytes (%) (Auto) % Monocytes (%) (Auto) % Eosinophils (%) (Auto) % Basophils (%) (Auto) % Neutrophils # (Auto) TH/MM3 Lymphocytes # (Auto) TH/MM3 Monocytes # (Auto) TH/MM3 Eosinophils # (Auto) TH/MM3 Basophils # (Auto) TH/MM3 CBC Comment AUTO DIFF Differential Total Cells 100 Counted Neutrophils % (Manual) 15 % Band Neutrophils % 55 % Lymphocytes % 13 % Monocytes % 8 % Neutrophils # (Manual) 7.4 TH/MM3 Metamyelocytes 4 % Myelocytes 5 % Differential Comment FINAL DIFF MANUAL Toxic Granulation 1+ Dohle Bodies PRESENT Platelet Estimate LOW Platelet Morphology Comment NORMAL Edgar-Ko Olina Bodies PRESENT Acanthocytes OCC Sodium Level 137 MEQ/L Potassium Level 4.4 MEQ/L Chloride Level 109 MEQ/L Carbon Dioxide Level 18.4 MEQ/L Anion Gap 10 MEQ/L Blood Urea Nitrogen 20 MG/DL Creatinine 0.60 MG/DL Estimat Glomerular Filtration 131 ML/MIN Rate Random Glucose 104 MG/DL Calcium Level 8.5 MG/DL Culture Results Microbiology Date/Time Procedure Status Source Growth 09/03/16 19:40 Aerobic Blood Culture - Preliminary Resulted Blood Other NO GROWTH IN 2 DAYS 09/03/16 19:40 Anaerobic Blood Culture - Preliminary Resulted Blood Other NO GROWTH IN 2 DAYS 09/03/16 19:56 Aerobic Blood Culture - Preliminary Resulted Blood Other NO GROWTH IN 2 DAYS 09/03/16 19:56 Anaerobic Blood Culture - Final Resulted Blood Other QNS - SEE AEROBE REPORT Administered Medications Medications (Trade) Dose Ordered Sig/Ronaldo Route PRN Reason Start Time Stop Time Status Last Admin Dose Admin Acetaminophen (Tylenol) 650 mg Q4H PRN PO fever 09/02/16 16:00 09/05/16 16:58 Brimonidine Tartrate (Alphagan 0.2% Opt Soln) 1 drop BID EACH EYE 09/02/16 21:00 09/06/16 08:54 Escitalopram Oxalate (Lexapro) 10 mg DAILY PO 09/03/16 09:00 09/06/16 08:54 Latanoprost (Xalatan 0.005% Opth Soln) 1 drop HS EACH EYE 09/02/16 21:00 09/05/16 20:21 Megestrol Acetate (Megace Liq) 400 mg DAILY PO 09/03/16 09:00 09/06/16 08:54 Loperamide HCl (Imodium) 2 mg Q6H PRN PO DIARRHEA 09/03/16 20:00 09/05/16 20:18 Diphenhydramine HCl (Benadryl) 25 mg Q4H PRN PO ITCHING 09/04/16 07:30 09/05/16 10:50 Clonidine (Catapres) 0.1 mg Q4H PRN PO sbp > 170 09/05/16 10:30 09/06/16 06:58 Acetaminophen/ Hydrocodone Bitart ([place] 7.5-325 Mg) 1 tab Q4H PRN PO pain 4 or greater. 09/05/16 17:30 09/05/16 18:13 Objective Remarks GENERAL: Older male sitting up in bed in no distress. SKIN: Warm and dry. HEAD: Normocephalic. EYES: No injection or drainage. NECK: Supple, trachea midline. CARDIOVASCULAR: Regular rate and rhythm without murmurs. RESPIRATORY: Decreased lung sounds bilaterally. Mild rhonchi to the R. GASTROINTESTINAL: Abdomen soft, non-tender, nondistended. EXTREMITIES: No edema. BLE warm and well perfused. MUSCULOSKELETAL: Generalized weakness. NEUROLOGICAL: No obvious focal deficit. Awake, alert, and oriented x3. Assessment/Plan Assessment 1. Syncope likely due to orthostatic hypotension from dehydration. He has not been drinking much fluid or able to eat since his last chemotherapy a week ago. He presented with acute on chronic renal insufficiency. He appears dehydrated. A CT of the head and MRI of the brain did not show any metastatic disease. There is no hemorrhage or acute changes. 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 He just completed third cycle of carboplatin, etoposide, last dose was August 27. He received Neulasta injection after that. His CT scan after two cycles of chemotherapy showed dramatic improvement. The right lung mass has significantly decreased in size, the mediastinal adenopathy also had significantly decrease in size. On admission chest x-ray showed almost complete resolution of the right lung soft tissue density when compared to prior chest x-ray, there is no other acute changes noted. 3. Pancytopenia due to chemotherapy. He had Neulasta injection last week, he does not need Neupogen at this time. I anticipate his blood count to gradually improve. He is afebrile. His hemoglobin is 9.2. He does not need transfusion at this time. Continue to monitor the CBC while he is in the hospital. 4. Anorexia. Continue Megace. 5. Dehydration. Continue IV fluid. Plan 1. Blood counts improved today; pt no longer neutropenic. 2. Pt started on po Levaquin 3. Continue Abx, monitor for fever 4. CBC in am with diff. If counts trending up, he will be cleared for D/C from oncology standpoint. Attending Statement The exam, history, and the medical decision-making described in the above note were completed with the assistance of the mid-level provider. I reviewed and agree with the findings presented. I attest that I had a [id number]-htak encounter with the patient on the same day, and personally performed and documented my assessment and findings in the medical record. Feeling better. Able to ambulate to the hallway. Neutropenia resolved. Platelet trended up with transfusion. Had 1 episode of back pain but has not recur. Monitor CBC. Hopefully can be d/c tomorrow if he continue to improve. Discussed with pt and his family. Marie Godfrey September 06, 2016 10:29 Chandrakant Osorio MD September 06, 2016 11:22
[2016-09-06] MEDS: LEVOFLOXACIN 500 MG TAB PO SCH (11:59)
--- NOTE | 2016-09-06 12:05 | HHI.PR ---
Subjective Remarks eager for d/c. no f/c Objective Vitals heart reg lung cta abd s/nt ext no edema Vital Signs Date Time Temp Pulse Resp B/P Pulse Ox O2 Delivery O2 Flow Rate FiO2 09/06/16 10:20 68 09/06/16 08:00 115 24 104/57 94 127/60 167/74 09/06/16 04:00 96.5 77 18 172/84 97 09/06/16 00:00 96.0 80 17 156/73 94 149/78 137/69 09/05/16 21:00 76 09/05/16 20:00 96.5 78 17 172/83 95 09/05/16 16:04 97.8 82 17 172/79 96 09/05/16 12:10 98.0 76 16 145/68 98 09/05/16 09/05/16 09/06/16 15:00 23:00 07:00 Intake Total 1579 ml 932 ml 733 ml Output Total 720 ml 300 ml Balance 859 ml 932 ml 433 ml Intake Oral 840 ml 240 ml 120 ml IV Total 739 ml 692 ml 613 ml Output Urine Total 720 ml 300 ml # Voids 5 1 # Bowel Movements 1 1 Result Diagram: 09/06/16 0408 09/06/16 0408 Imaging Last Impressions Head CT 09/02/16 1302 Signed Impressions: Service Date/Time: Friday, September 02, 2016 13:27 - CONCLUSION: 1. Mild periventricular and subcortical white matter small vessel ischemic changes bilaterally. 2. Mild cerebral atrophy. 3. No acute infarct, acute hemorrhage, mass effect or extra axial fluid collections. Italo Sanchez MD Chest X-Ray 09/02/16 1302 Signed Impressions: Service Date/Time: Friday, September 02, 2016 13:05 - CONCLUSION: 1. Almost complete resolution of the previously noted mass-like density within the right mid lung field with minimal residual scarring identified. 2. No acute focal pulmonary infiltrate or pulmonary vascular congestion. Italo Sanchez MD A/P Problem List: (1) Syncope Status: Acute Plan: - Pt had a syncopal episode at home after getting up to walk to the bathroom. He has reportedly been getting weaker over the last several months since starting chemotherapy and has been eating less. He has been having some positional dizziness as well. - Pt has notable electrolyte abnormalities at admission likely secondary to dehydration, with acute on chronic kidney disease, hyperkalemia, which is likely contributing to his above symptoms. - Head CT (09/02) --> Mild periventricular and subcortical white matter small vessel ischemic changes bilaterally. Mild cerebral atrophy. No acute infarct, acute hemorrhage, mass effect or extra axial fluid collections. - MRI brain 09/02. no metastatic dz or cva. -pancytopenia and neutropenia related to chemo. -minimal fever 09/03 -continued to be orthostatic but sx's better - plt transfusion on 09/05 -blood transfusion x 2 units on admission. -wbc recovering. wbc 9 today convert iv to po abx and complete 5 days dc ivf monitor plt discussed with dr Osorio. plan for d/c home tomorrow try geena hose. slow position change. don't treat supine htn at present given drop upon standing. will need staple removal at appropriate time. placed on 09/02 post scalp (2) Laceration of head Status: Acute Plan: - Stapled applied in the ED - Monitor (3) Acute on chronic kidney failure Status: Acute Plan: dehydration related see above (4) Hyperkalemia Status: Acute Plan: - IVF - Recheck labs in AM (5) Non-small cell cancer of right lung Status: Chronic Plan: - Pt diagnosed in 07/2016 with 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 Osorio - Dr. Osorio aware of pts admission. (6) Neutropenia Status: Acute Plan: - LIkely secondary to chemo - Neutropenic precautions - Pt was given Neulasta at last chemo (7) Weakness generalized Status: Chronic (8) COPD (chronic obstructive pulmonary disease) Status: Chronic (9) CHF (congestive heart failure) Status: Chronic Problem Qualifiers (1) Syncope: Qualified Code: R55 - Syncope, unspecified syncope type (2) Laceration of head: Qualified Code: S01.81XA - Laceration of other part of head without foreign body, initial encounter Stanislaw Samuel MD September 06, 2016 12:05
[2016-09-06] MEDS: LOPERAMIDE HCL 2 MG CAP PO PRN ×2 (18:27→23:07)
[2016-09-06] MEDS: LATANOPROST 0.005% OPHT SOLN 2.5 ML BTL EACH EYE SCH (21:09)
[2016-09-07] VITALS: BP 128/60; PULSE 75; RESP 18; TEMP 96.3; O2SAT 93
[2016-09-07] MEDS: SODIUM CHLORIDE 0.9% FLUSH 10 ML FLUSH IV FLUSH PRN ×2 (03:30→09:49)
[2016-09-07 04:00] VITALS: BP 176/84; PULSE 77; RESP 18; TEMP 97.2; O2SAT 93
[2016-09-07 04:40] LABS: AUTOMATED NEUTROPHIL # 22.1 TH/MM3 (1.8-7.7); BASOPHIL # 0.1 TH/MM3 (0-0.2); BASOPHIL % 0.3 % (0.0-2.0); EOSINOPHIL % 0.1 % (0.0-4.0); HEMATOCRIT 27.7 % (39.0-51.0); LYMPH % 6.8 % (9.0-44.0); LYMPHOCYTE # 1.7 TH/MM3 (1.0-4.8); MEAN CELL VOLUME 81.6 FL (80.0-100.0); MEAN CORPUSCULAR HEMOGLOBIN 26.7 PG (27.0-34.0); MEAN CORPUSCULAR HGB CONC 32.7 % (32.0-36.0); MONO % 3.7 % (0.0-8.0); NEUT % 89.1 % (16.0-70.0); PLATELET COUNT 24 TH/MM3 (150-450); RED CELL DISTRIBUTION WIDTH 20.3 % (11.6-17.2); WHITE BLOOD COUNT 24.8 TH/MM3 (4.0-11.0)
[2016-09-07 04:47] LABS: HEMO FLAGS AUTO DIFF
[2016-09-07 07:57] LABS: BANDS 54 % (0-6); CORRECTED NUCLEATED RBC 3 /100 WBC (0-0); METAMYELOCYTES 9 % (0-1); POLYS (SEG NEUTROPHILS) 12 % (16-70); WBC DIFF SAMPLE 100
[2016-09-07 08:00] VITALS: BP_SYST 106; BP_SYST 108; BP_SYST 173; BP_DIAS 65; BP_DIAS 69; BP_DIAS 79; PULSE 83; PULSE 86; PULSE 95; RESP 22; TEMP 96.7; O2SAT 96
[2016-09-07 08:02] LABS: MYELOCYTES 3 % (0-0); NEUTROPHIL # MANUAL DIFF 19.6 TH/MM3 (1.8-7.7); PROMYELOCYTES 1 % (0-0)
[2016-09-07 08:04] LABS: HOWELL-JOLLY BODIES PRESENT (NONE SEEN); TOXIC GRANULATION 1+ (NORMAL)
[2016-09-07 08:05] LABS: ACANTHOCYTES OCC (NORMAL)
[2016-09-07 08:09] LABS: SCAN/DIFF FINAL DIFF MANUAL
--- NOTE | 2016-09-07 08:13 | PD.ONC.PN ---
Subjective Subjective Remarks Feeling stronger, wants to go home, No bleeding. Objective Data Date Time Temp Pulse Resp B/P Pulse Ox O2 Delivery O2 Flow Rate FiO2 09/07/16 08:00 96.7 83 22 173/79 96 09/07/16 08:00 86 108/65 09/07/16 08:00 95 106/69 09/07/16 04:00 97.2 77 18 176/84 93 09/07/16 00:00 96.3 75 18 128/60 93 09/06/16 20:38 75 09/06/16 20:00 96.4 81 19 157/69 94 106/55 105/55 09/06/16 16:00 96.8 102 18 126/67 96 09/06/16 12:00 96.8 76 18 134/64 95 09/06/16 10:20 68 09/07/16 09/07/16 09/07/16 07:00 15:00 23:00 Intake Total 240 ml Output Total 150 ml Balance 90 ml Result Diagram: 09/07/16 0330 09/06/16 0408 Laboratory Results Laboratory Tests Test 09/07/16 03:30 White Blood Count 24.8 TH/MM3 Red Blood Count 3.40 MIL/MM3 Hemoglobin 9.1 GM/DL Hematocrit 27.7 % Mean Corpuscular Volume 81.6 FL Mean Corpuscular Hemoglobin 26.7 PG Mean Corpuscular Hemoglobin 32.7 % Concent Red Cell Distribution Width 20.3 % Platelet Count 24 TH/MM3 Mean Platelet Volume 8.4 FL Neutrophils (%) (Auto) 89.1 % Lymphocytes (%) (Auto) 6.8 % Monocytes (%) (Auto) 3.7 % Eosinophils (%) (Auto) 0.1 % Basophils (%) (Auto) 0.3 % Neutrophils # (Auto) 22.1 TH/MM3 Lymphocytes # (Auto) 1.7 TH/MM3 Monocytes # (Auto) 0.9 TH/MM3 Eosinophils # (Auto) 0.0 TH/MM3 Basophils # (Auto) 0.1 TH/MM3 CBC Comment AUTO DIFF Differential Total Cells 100 Counted Neutrophils % (Manual) 12 % Band Neutrophils % 54 % Lymphocytes % 17 % Monocytes % 4 % Neutrophils # (Manual) 19.6 TH/MM3 Metamyelocytes 9 % Myelocytes 3 % Promyelocytes 1 % Nucleated Red Blood Cells 3 /100 WBC Differential Comment FINAL DIFF MANUAL Atypical Lymphocytes % Toxic Granulation 1+ [place] Bodies PRESENT Acanthocytes OCC Administered Medications Medications (Trade) Dose Ordered Sig/Ronaldo Route PRN Reason Start Time Stop Time Status Last Admin Dose Admin Acetaminophen (Tylenol) 650 mg Q4H PRN PO fever 09/02/16 16:00 09/05/16 16:58 Brimonidine Tartrate (Alphagan 0.2% Opth Soln) 1 drop BID EACH EYE 09/02/16 21:00 09/06/16 21:04 Escitalopram Oxalate (Lexapro) 10 mg DAILY PO 09/03/16 09:00 09/06/16 08:54 Latanoprost (Xalatan 0.005% Opth Soln) 1 drop HS EACH EYE 09/02/16 21:00 09/06/16 21:09 Megestrol Acetate (Megace Liq) 400 mg DAILY PO 09/03/16 09:00 09/06/16 08:54 Loperamide HCl (Imodium) 2 mg Q6H PRN PO DIARRHEA 09/03/16 20:00 09/06/16 23:07 Diphenhydramine HCl (Benadryl) 25 mg Q4H PRN PO ITCHING 09/04/16 07:30 09/05/16 10:50 Acetaminophen/ Hydrocodone Bitart ([place] 7.5-325 Mg) 1 tab Q4H PRN PO pain 4 or greater. 09/05/16 17:30 09/05/16 18:13 Levofloxacin (Levaquin) 500 mg DAILY@11 PO 09/06/16 11:00 09/06/16 11:59 Heparin Sodium (Porcine) (Heparin Central Flush) 250 units UNSCH PRN IV FLUSH SEE PROTOCOL TABLE 09/07/16 03:45 09/07/16 03:30 Sodium Chloride (NS Flush) 5 ml UNSCH PRN IV FLUSH FLUSH PORT 09/07/16 03:45 09/07/16 03:30 Objective Remarks GENERAL: Well-nourished, well-developed patient. Stronger. SKIN: Warm and dry. HEAD: Normocephalic. Alopecia EYES: No scleral icterus. No injection or drainage. NECK: Supple, trachea midline. No JVD or lymphadenopathy. LYMPHATIC: No adenopathy. CARDIOVASCULAR: Regular rate and rhythm without murmurs. RESPIRATORY: Breath sounds equal bilaterally. No accessory muscle use. GASTROINTESTINAL: Abdomen soft, non-tender, nondistended. EXTREMITIES: No cyanosis, or edema. MUSCULOSKELETAL: Adequate muscle tone. NEUROLOGICAL: No obvious focal deficit. Awake, alert, and oriented x3. PSYCHIATRIC: Appropriate mood and affect; insight and judgment normal. Assessment/Plan Assessment 1. Syncope likely due to orthostatic hypotension from dehydration. He has not been drinking much fluid or able to eat since his last chemotherapy a week ago. He presented with acute on chronic renal insufficiency. He appears dehydrated. A CT of the head and MRI of the brain did not show any metastatic disease. There is no hemorrhage or acute changes. No recurring episode. 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 He just completed third cycle of carboplatin, etoposide, last dose was August 27. He received Neulasta injection after that. His CT scan after two cycles of chemotherapy showed dramatic improvement. The right lung mass has significantly decreased in size, the mediastinal adenopathy also had significantly decrease in size. On admission chest x-ray showed almost complete resolution of the right lung soft tissue density when compared to prior chest x-ray, there is no other acute changes noted. 3. Pancytopenia due to chemotherapy. He had Neulasta injection last week, he does not need Neupogen at this time. I anticipate his blood count to gradually improve. He is afebrile. His hemoglobin is 9.2. He does not need transfusion at this time. Continue to monitor the CBC while he is in the hospital. 5/8 Plt down to 24K, transfuse 1 unit 4. Anorexia. Continue Megace. 5. Dehydration. Improved. Plan 1. Transfuse 1U platelet. 2. Can be d/c home after transfusion if stable. 3. F/u Oncology clinic. TOld pt to go get labs 09/09. He has a standing order. Chandrakant Osorio MD September 07, 2016 08:13
[2016-09-07] MEDS ORDERED: SODIUM CHLOR 0.9% 250 ML INJ 250 ML IV ONE (08:30)
[2016-09-07] MEDS: MEGESTROL ACETATE SUSP 400 MG/10 ML CUP PO SCH (09:00)
[2016-09-07] MEDS: BRIMONIDINE TARTRATE 0.2% OPHT SOLN 5 ML BTL EACH EYE SCH (09:48)
[2016-09-07] MEDS: ESCITALOPRAM OXALATE 10 MG TAB PO SCH (09:48)
[2016-09-07] MEDS: LEVOFLOXACIN 500 MG TAB PO SCH (11:35)
[2016-09-07] MEDS: ACETAMINOPHEN 325 MG TAB PO PRN (11:35)
[2016-09-07] MEDS: diphenhydrAMINE HCL 25 MG CAP PO PRN (11:35)
[2016-09-07] MEDS: LOPERAMIDE HCL 2 MG CAP PO PRN (11:37)
[2016-09-07 12:00] VITALS: BP 136/67; PULSE 78; RESP 22; TEMP 98.1; O2SAT 97
[2016-09-07] MEDS ORDERED: MEGE40SU PO (12:56)
[2016-09-07] MEDS ORDERED: MISC-163 (12:58)
[2016-09-07] MEDS ORDERED: WHEEMIS3 (12:58)
--- NOTE | 2016-09-07 13:15 | HHI.DS ---
Discharge Summary Admission Date September 02, 2016 at 15:52 Discharge Date: September 07, 2016 Admitting Diagnosis syconpe, neutrophenic, hyperkalemic, acute kidney injury (1) Syncope Diagnosis: Principal (2) Laceration of head Diagnosis: Principal (3) Acute on chronic kidney failure Diagnosis: Principal (4) Hyperkalemia Diagnosis: Principal (5) Non-small cell cancer of right lung Diagnosis: Secondary (6) Neutropenia Diagnosis: Secondary (7) Weakness generalized Diagnosis: Secondary (8) COPD (chronic obstructive pulmonary disease) Diagnosis: Secondary (9) CHF (congestive heart failure) Diagnosis: Secondary Consultants Dr. Chandrakant Osorio, Oncology Brief History Mr. 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 Pt reports that he has completed 3 rounds of chemo with the last round being around 5 days ago. Pt was brought to the ED on 09/02/16 after he had passed out on the way to the bathroom this morning which was unwitnessed but the pt woke up in the bathtub with bleeding from his head noted. The pt states that he had just gotten out of bed. He does not recall any symptoms of dizziness prior to this syncope but his family reports that he has been having a lot of dizziness and weakness at home that occurs with position changes. No reported fevers. He has poor appetite and has lost 60lbs over the last 6 months. Pt is on Megace but does not seem to help with his appetite. Pts last chemo treatment was last week on 08/27 and he also received Neulasta. His labs at admission noted evidence of dehydration and hyperkalemia. Pt is not eating or drinking well at home according to the pts family. Pt reportedly did not tolerate Marinol previously for an appetite stimulant. CBC/BMP: 09/07/16 0330 09/06/16 0408 Significant Findings Laboratory Tests Test 09/05/16 09/06/16 09/07/16 05:05 04:08 03:30 White Blood Count 2.2 TH/MM3 24.8 TH/MM3 (4.0-11.0) (4.0-11.0) Red Blood Count 3.35 MIL/MM3 3.30 MIL/MM3 3.40 MIL/MM3 (4.50-5.90) (4.50-5.90) (4.50-5.90) Hemoglobin 9.2 GM/DL 9.1 GM/DL 9.1 GM/DL (13.0-17.0) (13.0-17.0) (13.0-17.0) Hematocrit 27.3 % 26.9 % 27.7 % (39.0-51.0) (39.0-51.0) (39.0-51.0) Red Cell Distribution Width 19.5 % 19.9 % 20.3 % (11.6-17.2) (11.6-17.2) (11.6-17.2) Platelet Count 22 TH/MM3 40 TH/MM3 24 TH/MM3 (150-450) (150-450) (150-450) Neutrophils % (Manual) 4 % (16-70) 15 % (16-70) 12 % (16-70) Band Neutrophils % 36 % (0-6) 55 % (0-6) 54 % (0-6) Lymphocytes % 45 % (9-44) Monocytes % 9 % (0-8) Neutrophils # (Manual) 1.0 TH/MM3 19.6 TH/MM3 (1.8-7.7) (1.8-7.7) Metamyelocytes 3 % (0-1) 4 % (0-1) 9 % (0-1) Myelocytes 2 % (0-0) 5 % (0-0) 3 % (0-0) Promyelocytes 1 % (0-0) 1 % (0-0) Toxic Granulation 2+ (NORMAL) 1+ (NORMAL) 1+ (NORMAL) [place] Bodies PRESENT (NONE PRESENT (NONE SEEN) SEEN) Platelet Estimate LOW (NORMAL) LOW (NORMAL) Chloride Level 112 MEQ/L 109 MEQ/L (98-107) (98-107) Carbon Dioxide Level 16.9 MEQ/L 18.4 MEQ/L (21.0-32.0) (21.0-32.0) Blood Urea Nitrogen 24 MG/DL (7-18) 20 MG/DL (7-18) Random Glucose 112 MG/DL (74-106) Mean Corpuscular Hemoglobin 26.7 PG (27.0-34.0) Neutrophils (%) (Auto) 89.1 % (16.0-70.0) Lymphocytes (%) (Auto) 6.8 % (9.0-44.0) Neutrophils # (Auto) 22.1 TH/MM3 (1.8-7.7) Nucleated Red Blood Cells 3 /100 WBC (0-0) Imaging Last Impressions Head CT 09/02/16 1302 Signed Impressions: Service Date/Time: Friday, September 02, 2016 13:27 - CONCLUSION: 1. Mild periventricular and subcortical white matter small vessel ischemic changes bilaterally. 2. Mild cerebral atrophy. 3. No acute infarct, acute hemorrhage, mass effect or extra axial fluid collections. Italo Sanchez MD Chest X-Ray 09/02/16 1302 Signed Impressions: Service Date/Time: Friday, September 02, 2016 13:05 - CONCLUSION: 1. Almost complete resolution of the previously noted mass-like density within the right mid lung field with minimal residual scarring identified. 2. No acute focal pulmonary infiltrate or pulmonary vascular congestion. Italo Sanchez MD Brain MRI 09/02/16 0000 Signed Impressions: Service Date/Time: Friday, September 02, 2016 20:13 - CONCLUSION: 1. No acute hemorrhage, mass or infarction. 2. Atrophy and chronic small vessel ischemic change 3. No evidence of metastatic disease. Jermaine Palacio MD Hospital Course (1) Syncope Status: Acute Plan: - Pt had a syncopal episode at home after getting up to walk to the bathroom. He has reportedly been getting weaker over the last several months since starting chemotherapy and has been eating less. He has been having some positional dizziness as well. - Pt has notable electrolyte abnormalities at admission likely secondary to dehydration, with acute on chronic kidney disease, hyperkalemia, which is likely contributing to his above symptoms. - Head CT (09/02) --> Mild periventricular and subcortical white matter small vessel ischemic changes bilaterally. Mild cerebral atrophy. No acute infarct, acute hemorrhage, mass effect or extra axial fluid collections. - MRI brain 09/02. no metastatic dz or cva. -pancytopenia and neutropenia related to chemo. -minimal fever 09/03 -continued to be orthostatic but sx's better - plt transfusion on 09/05 -blood transfusion x 2 units on admission. -wbc recovering. wbc 9 (09/06/16) - WBC 24.8 (09/07/16) - D/w Oncology, Dr. Stallings. Rise in pt's WBC likely d/t receiving neulasta. - No clinical evidence of new infection. - Cefipime give for 5d, and then converted to PO levaquin x 2d, no further antibiotics upon discharge. - Pt to receive platelet transfusion prior for discharge - f/u with Dr. Osorio on 09/10/16 - f/u with Dr. Chandler 09/11/16, re: staple removal - Case d/w pt, son, and daughter at bedside at length. All questions addressed. try geena hose. slow position change. don't treat supine htn at present given drop upon standing. (2) Laceration of head Status: Acute Plan: - Stapled applied in the ED - see above (3) Acute on chronic kidney failure Status: Acute Plan: dehydration related - resolved (4) Hyperkalemia Status: Acute Plan: - IVF given - resolved (5) Non-small cell cancer of right lung Status: Chronic Plan: - Pt diagnosed in 07/2016 with non-small cell carcinoma with neuroendocrine features stage IIIA currently undergoing treatment with chemotherapy (Carboplatin, Etoposide) - see above (6) Neutropenia Status: Acute Plan: - LIkely secondary to chemo - Neutropenic precautions - Pt was given Neulasta at last chemo (7) Weakness generalized Status: Chronic (8) COPD (chronic obstructive pulmonary disease) Status: Chronic (9) CHF (congestive heart failure) Status: Chronic Pt Condition on Discharge: Stable Discharge Disposition: Discharge Home Discharge Instructions DIET: Follow Instructions for: Heart Healthy Diet Activities you can perform: Regular-No Restrictions Follow up Referrals: Oncology - 2-[address] Chandrakant Osorio PCP Follow-up - 3-[address] Rahul Chandler New Medications: 3-in-1 Bedside Toilet (3-in-1 Bedside Toilet) 1 Mis Mis 1 EA .ROUTE DIRECTED #1 EA Wheelchair (Wheelchair) 1 Mis Mis 1 EA .ROUTE DIRECTED #1 Ref 0 EA Megestrol Liq (Megestrol Liq) 40 Mg/Ml Susp 400 MG PO BID anorexia #60 Ref 0 ML Continued Medications: Brimonidine Opth Drops (Brimonidine Opth Drops) 0.2% Soln 1 DROP EACH EYE BID Glaucoma #1 Ref 0 BOTTLE Escitalopram (Lexapro) 10 Mg Tab 10 MG PO DAILY #30 Ref 0 TAB Latanoprost Opth Drops (Latanoprost Opth Drops) 0.005% Drops 1 DROP EACH EYE HS Refrigerate until opened. Glaucoma #2.5 Ref 0 ML Temazepam (Restoril) 15 Mg Cap 15 MG PO HS PRN SLEEP #30 Ref 0 CAP Song Camarena DO September 07, 2016 13:15
== END 2016-09-07 16:03 | disposition home or self-care (01) | DRG 682 ==
LOC: NEPE 12:38 → NEDA 14:46 → OBSVTOIN 15:52 → HOCA 20:50
PROVIDERS: ADMIT Hospitalist; ATTEND Hospitalist
PROC: 30243N1 Transfusion of Nonautologous Red Blood Cells into Central Vein, Percutaneous Approach (ICD-10-PCS; 2016-09-04)
PROC: 30243R1 Transfusion of Nonautologous Platelets into Central Vein, Percutaneous Approach (ICD-10-PCS; principal; 2016-09-05)
DX: N17.9 Acute kidney failure, unspecified (principal); D61.810 Antineoplastic chemotherapy induced pancytopenia; E11.21 Type 2 diabetes mellitus with diabetic nephropathy; C34.91 Malignant neoplasm of unspecified part of right bronchus or lung; J44.9 Chronic obstructive pulmonary disease, unspecified; I50.9 Heart failure, unspecified; E87.5 Hyperkalemia; I13.0 Hypertensive heart and chronic kidney disease with heart failure and stage 1 through stage 4 chronic kidney disease, or unspecified chronic kidney disease; R63.0 Anorexia; E86.0 Dehydration; I95.1 Orthostatic hypotension; S01.01XA Laceration without foreign body of scalp, initial encounter; N18.3 Chronic kidney disease, stage 3 (moderate); E11.22 Type 2 diabetes mellitus with diabetic chronic kidney disease; I25.2 Old myocardial infarction; H35.30 Unspecified macular degeneration; H40.9 Unspecified glaucoma; I25.119 Atherosclerotic heart disease of native coronary artery with unspecified angina pectoris; E78.5 Hyperlipidemia, unspecified; N40.0 Benign prostatic hyperplasia without lower urinary tract symptoms; M19.90 Unspecified osteoarthritis, unspecified site; R63.4 Abnormal weight loss; T45.1X5A Adverse effect of antineoplastic and immunosuppressive drugs, initial encounter; Z68.20 Body mass index [BMI] 20.0-20.9, adult; Z86.14 Personal history of Methicillin resistant Staphylococcus aureus infection; Z87.891 Personal history of nicotine dependence; Z90.49 Acquired absence of other specified parts of digestive tract; Z95.5 Presence of coronary angioplasty implant and graft; Z90.81 Acquired absence of spleen
CPT/HCPCS: 12002; 36430; 36591; 70450; 70553; 71010; 80048; 80053; 81001; 82550; 82948; 83735; 84132; 84443; 84484; 85007; 85027; 85610; 85730; 86850; 86900; 86901; 86920; 86965; 87040; 87641; 93005; 93306; A9579; J0692; J1642; J7030; J7050; P9016; P9035

== ENCOUNTER 2017-04-05 10:43 | Inpatient (IN) | payer MEDICARE ==
[~2017-04-05] VITALS: Ht 177.8 cm; Wt 81.2 kg
[2017-04-05] VITALS (10 sets, daily range): BP systolic 132–154; BP diastolic 54–72; PULSE 92–114; RESP 18–22; TEMP 97.5–98; O2SAT 92–96
[~2017-04-05 10:43] MED LIST changes: +BRIM0.2S4 EACH EYE; -Brimonidine 0.2% Opth Soln EACH EYE; +MEGE40SU PO; +MISC-163; -OXYC1TAB63 PO; +WHEEMIS3; -ZOFR4TAB PO
[2017-04-05] MEDS ORDERED: SODIUM CHLORIDE 0.9% FLUSH 10 ML FLUSH IVF PRN (11:30)
[2017-04-05 11:43] LABS: AUTOMATED NEUTROPHIL # 10.1 TH/MM3 (1.8-7.7); BASOPHIL # 0.1 TH/MM3 (0-0.2); BASOPHIL % 0.8 % (0.0-2.0); EOSINOPHIL # 0.2 TH/MM3 (0-0.4); EOSINOPHIL % 1.3 % (0.0-4.0); HEMATOCRIT 32.4 % (39.0-51.0); LYMPH % 7.4 % (9.0-44.0); LYMPHOCYTE # 0.9 TH/MM3 (1.0-4.8); MEAN CELL VOLUME 104.4 FL (80.0-100.0); MEAN CORPUSCULAR HEMOGLOBIN 34.6 PG (27.0-34.0); MEAN CORPUSCULAR HGB CONC 33.1 % (32.0-36.0); MONO % 7.2 % (0.0-8.0); NEUT % 83.3 % (16.0-70.0); PLATELET COUNT 210 TH/MM3 (150-450); RED BLOOD COUNT 3.11 MIL/MM3 (4.50-5.90); RED CELL DISTRIBUTION WIDTH 18.1 % (11.6-17.2); WHITE BLOOD COUNT 12.2 TH/MM3 (4.0-11.0)
[2017-04-05 11:46] LABS: HEMO FLAGS AUTO DIFF
--- NOTE | 2017-04-05 11:51 | PD ---
HPI Chief Complaint: Respiratory Symptoms Time Seen by Provider: 11:08 Travel History International Travel<30 days: No Contact w/Intl Traveler<30days: No Traveled to known affect area: No History of Present Illness HPI 76-year-old male presenting to the emergency department for evaluation of weakness, dizziness, shortness of breath, hemoptysis and epistaxis. Patient reports that the symptoms started 4-5 days ago, shortness of breath is worse with exertion. Epistaxis occurs when he blows his nose, and has been occurring one to 2 times a day. Patient is currently on Pradaxa and reports compliance. He denies any dark or tarry-like stools. Patient further denies any fever, chills, nausea, vomiting, headache or abdominal pain. 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 He states that he was just told that he was in remission. He is followed by Dr. Osorio and Dr. Davis. [facility] Past Medical History Hx Anticoagulant Therapy: Yes (pradaxa) Arthritis: Yes Asthma: No Blood Disorders: No Anxiety: No Depression: No Heart Rhythm Problems: No Cancer: Yes (non-small cell lung CA, large cell neuroendocrine carcinoma) Cardiac Catheterization: Yes Cardiovascular Problems: Yes High Cholesterol: Yes Chemotherapy: No Chest Pain: No Congestive Heart Failure: No COPD: Yes (on O2) Coronary Artery Disease: Yes Diabetes: Yes Patient Takes Glucophage: Yes Diminished Hearing: No Gastrointestinal Disorders: Yes (DIVERTICULITIS) Glaucoma: No Genitourinary: Yes (ENLARGED PROSTATE) Hepatitis: No Hiatal Hernia: Yes Hypertension: Yes Immune Disorder: No Implanted Vascular Access Dvce: Yes Psychiatric: No Reproductive: No Respiratory: No Migraines: Yes Radiation Therapy: No Renal Failure: Yes Sleep Apnea: No Thyroid Disease: No ?: Not Past Surgical History Abdominal Surgery: Yes (HERNIA REPAIR,COLON resection 04/2016) AICD: No Coronary Stent: Yes Ear Surgery: No Endocrine Surgery: No Eye Surgery: No Genitourinary Surgery: No Gynecologic Surgery: No Joint Replacement: Yes Neurologic Surgery: No Oral Surgery: No Pacemaker: No Thoracic Surgery: No Other Surgery: Yes Social History Alcohol Use: No Tobacco Use: No Substance Use: No Allergies-Medications (Allergen,Severity, Reaction): Coded Allergies: *MDRO Multi-Drug Resistant Organism (Verified Adverse Reaction, Unknown, VRE, MRSA, 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 amlodipine (Unverified Adverse Reaction, Unknown, MUSCLE PAIN, 12/15/16) atorvastatin (Unverified Adverse Reaction, Unknown, MUSCLE PAIN, 12/15/16) pravastatin (Unverified Adverse Reaction, Unknown, MUSCLE PAIN, 12/15/16) simvastatin (Unverified Adverse Reaction, Unknown, MUSCLE PAIN, 12/15/16) Reported Meds & Prescriptions Reported Meds & Active Scripts Active Wheelchair (Device) 1 Mis Mis 1 Ea .ROUTE DIRECTED 3-in-1 Bedside Toilet (Device) 1 Mis Mis 1 Ea .ROUTE DIRECTED Megestrol Liq (Megestrol Acetate) 40 Mg/Ml Susp 400 Mg PO BID Restoril (Temazepam) 15 Mg Cap 15 Mg PO HS PRN Reported Brimonidine Opth Drops (Brimonidine Tartrate) 0.2% Soln 1 Drop EACH EYE BID Lexapro (Escitalopram Oxalate) 10 Mg Tab 10 Mg PO DAILY Latanoprost Opth Drops (Latanoprost) 0.005% Drops 1 Drop EACH EYE HS Refrigerate until opened. Review of Systems Except as stated in HPI: all other systems reviewed are Neg General / Constitutional: No: Fever, Chills HENT: Positive: Nosebleed, No: Headaches Cardiovascular: Positive: Dyspnea on exertion, No: Chest Pain or Discomfort, Edema Respiratory: Positive: Cough, Shortness of Breath, Orthopnea, Hemoptysis, No: Wheezing Gastrointestinal: No: Nausea, Vomiting, Abdominal Pain Genitourinary: No: Dysuria, Hematuria Musculoskeletal: Positive: Weakness, No: Myalgias Neurologic: Positive: Weakness, Dizziness, No: Focal Abnormalities, Change in Mentation, Sensory Disturbance Physical Exam Narrative GENERAL: Overweight, well-developed, alert elderly gentleman. Resting comfortably in no acute distress. SKIN: Warm and dry. HEAD: Atraumatic. Normocephalic. EYES: Pupils equal and round. No scleral icterus. No injection or drainage. ENT: No nasal bleeding or discharge. Mucous membranes pink and moist. NECK: Trachea midline. No JVD. CARDIOVASCULAR: Tachycardic RESPIRATORY: No accessory muscle use. Clear, diminished in bases. Tachypneic GASTROINTESTINAL: Abdomen soft, non-tender, nondistended. Hepatic and splenic margins not palpable. Positive bowel sounds, no rebound, no guarding. MUSCULOSKELETAL: Extremities without clubbing, cyanosis, or edema. No obvious deformities. NEUROLOGICAL: Awake and alert. No obvious cranial nerve deficits. Motor grossly within normal limits. Five out of 5 muscle strength in the arms and legs. Normal speech. PSYCHIATRIC: Appropriate mood and affect; insight and judgment normal. Data Data Last Documented VS Vital Signs Date Time Temp Pulse Resp B/P (MAP) Pulse Ox O2 Delivery O2 Flow Rate FiO2 04/05/17 13:37 94 Nasal Cannula 3.00 04/05/17 11:10 04/05/17 10:57 98.0 110 18 Orders Orders Complete Blood Count With Diff (04/05/17 11:19) Comprehensive Metabolic Panel (04/05/17 11:19) B-Type Natriuretic Peptide (04/05/17 11:19) Act Partial Throm Time (Ptt) (04/05/17 11:19) Prothrombin Time / Inr (Pt) (04/05/17 11:19) Magnesium (Mg) (04/05/17 11:19) Ckmb (Isoenzyme) Profile (04/05/17 11:19) Troponin I (04/05/17 11:19) Urinalysis - C+S If Indicated (04/05/17 11:19) Iv Access Insert/Monitor (04/05/17 11:19) Electrocardiogram (04/05/17 11:19) Ecg Monitoring (04/05/17 11:19) Oximetry (04/05/17 11:19) Oxygen Administration (04/05/17 11:19) Chest, Single Ap (04/05/17 11:19) Sodium Chloride 0.9% Flush (Ns Flush) (04/05/17 11:30) Type And Screen (04/05/17 11:19) Methylprednisolone So Succ Inj (Solumedr (04/05/17 12:15) Albuterol-Ipratropium Neb (Duoneb Neb) (04/05/17 12:15) Ceftriaxone Inj (Rocephin Inj) (04/05/17 13:30) Azithromycin Inj (Zithromax Inj) (04/05/17 13:30) Budesonide Neb (Pulmicort Respule Neb) (04/05/17 13:30) Blood Culture (04/05/17 13:36) Admit Order (Ed Use Only) (04/05/17 13:58) Labs Laboratory Tests Test 04/05/17 11:00 04/05/17 12:05 White Blood Count 12.2 TH/MM3 Red Blood Count 3.11 MIL/MM3 Hemoglobin 10.7 GM/DL Hematocrit 32.4 % Mean Corpuscular Volume 104.4 FL Mean Corpuscular Hemoglobin 34.6 PG Mean Corpuscular Hemoglobin Concent 33.1 % Red Cell Distribution Width 18.1 % Platelet Count 210 TH/MM3 Mean Platelet Volume 8.7 FL Neutrophils (%) (Auto) 83.3 % Lymphocytes (%) (Auto) 7.4 % Monocytes (%) (Auto) 7.2 % Eosinophils (%) (Auto) 1.3 % Basophils (%) (Auto) 0.8 % Neutrophils # (Auto) 10.1 TH/MM3 Lymphocytes # (Auto) 0.9 TH/MM3 Monocytes # (Auto) 0.9 TH/MM3 Eosinophils # (Auto) 0.2 TH/MM3 Basophils # (Auto) 0.1 TH/MM3 CBC Comment AUTO DIFF Differential Total Cells Counted 100 Neutrophils % (Manual) 70 % Band Neutrophils % 18 % Lymphocytes % 5 % Monocytes % 6 % Neutrophils # (Manual) 10.9 TH/MM3 Myelocytes 1 % Nucleated Red Blood Cells 1 /100 WBC Differential Comment FINAL DIFF MANUAL Platelet Estimate NORMAL Platelet Morphology Comment NORMAL Prothrombin Time 13.9 SEC Prothromb Time International Ratio 1.4 RATIO Activated Partial Thromboplast Time 54.8 SEC Blood Urea Nitrogen 24 MG/DL Creatinine 1.04 MG/DL Random Glucose 163 MG/DL Total Protein 7.0 GM/DL Albumin 2.3 GM/DL Calcium Level 9.2 MG/DL Magnesium Level 1.7 MG/DL Alkaline Phosphatase 76 U/L Aspartate Amino Transf (AST/SGOT) 14 U/L Alanine Aminotransferase (ALT/SGPT) 10 U/L Total Bilirubin 0.6 MG/DL Sodium Level 142 MEQ/L Potassium Level 4.1 MEQ/L Chloride Level 111 MEQ/L Carbon Dioxide Level 19.3 MEQ/L Anion Gap 12 MEQ/L Estimat Glomerular Filtration Rate 69 ML/MIN Total Creatine Kinase 60 U/L Troponin I 0.02 NG/ML B-Type Natriuretic Peptide 36 PG/ML Urine Color YELLOW Urine Turbidity CLEAR Urine pH 5.5 Urine Specific [place] 1.019 Urine Protein 30 mg/dL Urine Glucose (UA) NEG mg/dL Urine Ketones NEG mg/dL Urine Occult Blood TRACE Urine Nitrite NEG Urine Bilirubin NEG Urine Urobilinogen LESS THAN 2.0 MG/DL Urine Leukocyte Esterase NEG Urine RBC 2 /hpf Urine WBC 1 /hpf Urine Transitional Epithelial Cells <1 /hpf Urine Hyaline Casts 4 /lpf Urine Mucus FEW /lpf Microscopic Urinalysis Comment CULT NOT INDICATED MDM Medical Decision Making Medical Screen Exam Complete: Yes Emergency Medical Condition: Yes Medical Record Reviewed: Yes Interpretation(s) Vital Signs Date Time Temp Pulse Resp B/P (MAP) Pulse Ox O2 Delivery O2 Flow Rate FiO2 04/05/17 11:20 95 Nasal Cannula 4.00 04/05/17 10:57 98.0 110 18 143/54 (83) 94 Nasal Cannula 3.00 04/05/17 10:48 98.0 114 22 143/54 (83) Last Impressions Chest X-Ray 04/05/17 1119 Signed Impressions: Service Date/Time: Wednesday, April 05, 2017 11:37 - CONCLUSION: Background emphysema with new bilateral lower lung zone interstitial opacities bilaterally. Zion Owusu MD Laboratory Tests Test 04/05/17 11:00 04/05/17 12:05 White Blood Count 12.2 TH/MM3 Red Blood Count 3.11 MIL/MM3 Hemoglobin 10.7 GM/DL Hematocrit 32.4 % Mean Corpuscular Volume 104.4 FL Mean Corpuscular Hemoglobin 34.6 PG Mean Corpuscular Hemoglobin Concent 33.1 % Red Cell Distribution Width 18.1 % Platelet Count 210 TH/MM3 Mean Platelet Volume 8.7 FL Neutrophils (%) (Auto) 83.3 % Lymphocytes (%) (Auto) 7.4 % Monocytes (%) (Auto) 7.2 % Eosinophils (%) (Auto) 1.3 % Basophils (%) (Auto) 0.8 % Neutrophils # (Auto) 10.1 TH/MM3 Lymphocytes # (Auto) 0.9 TH/MM3 Monocytes # (Auto) 0.9 TH/MM3 Eosinophils # (Auto) 0.2 TH/MM3 Basophils # (Auto) 0.1 TH/MM3 CBC Comment AUTO DIFF Differential Total Cells Counted 100 Neutrophils % (Manual) 70 % Band Neutrophils % 18 % Lymphocytes % 5 % Monocytes % 6 % Neutrophils # (Manual) 10.9 TH/MM3 Myelocytes 1 % Nucleated Red Blood Cells 1 /100 WBC Differential Comment FINAL DIFF MANUAL Platelet Estimate NORMAL Platelet Morphology Comment NORMAL Prothrombin Time 13.9 SEC Prothromb Time International Ratio 1.4 RATIO Activated Partial Thromboplast Time 54.8 SEC Blood Urea Nitrogen 24 MG/DL Creatinine 1.04 MG/DL Random Glucose 163 MG/DL Total Protein 7.0 GM/DL Albumin 2.3 GM/DL Calcium Level 9.2 MG/DL Magnesium Level 1.7 MG/DL Alkaline Phosphatase 76 U/L Aspartate Amino Transf (AST/SGOT) 14 U/L Alanine Aminotransferase (ALT/SGPT) 10 U/L Total Bilirubin 0.6 MG/DL Sodium Level 142 MEQ/L Potassium Level 4.1 MEQ/L Chloride Level 111 MEQ/L Carbon Dioxide Level 19.3 MEQ/L Anion Gap 12 MEQ/L Estimat Glomerular Filtration Rate 69 ML/MIN Total Creatine Kinase 60 U/L Troponin I 0.02 NG/ML B-Type Natriuretic Peptide 36 PG/ML Urine Color YELLOW Urine Turbidity CLEAR Urine pH 5.5 Urine Specific [place] 1.019 Urine Protein 30 mg/dL Urine Glucose (UA) NEG mg/dL Urine Ketones NEG mg/dL Urine Occult Blood TRACE Urine Nitrite NEG Urine Bilirubin NEG Urine Urobilinogen LESS THAN 2.0 MG/DL Urine Leukocyte Esterase NEG Urine RBC 2 /hpf Urine WBC 1 /hpf Urine Transitional Epithelial Cells <1 /hpf Urine Hyaline Casts 4 /lpf Urine Mucus FEW /lpf Microscopic Urinalysis Comment CULT NOT INDICATED Differential Diagnosis Anemia versus CHF versus pulmonary embolism versus electrolyte abnormality versus deconditioning versus mass versus other Narrative Course Patient presented for evaluation of weakness, dizziness, shortness of breath, epistaxis and hemoptysis. Patient's family at bedside. Patient is tachycardic on arrival. His oxygen saturation is 94% on 4 L. Labs and imaging ordered and pending. IV access established, patient placed on telemetry monitoring continuous pulse oximetry. Paged Dr. Davis to discuss presentation and to discern if repeated CT of the chest is warranted, pt had an OP CT last week per family report. Dr. Davis stated he had a CT of the chest 2 weeks ago, no need to repeat imaging at this time. Chest x-ray shows emphysema with new bilateral lower lung zone interstitial opacity's bilaterally. Duoneb and budesonide nebs ordered. CBC with a white blood cell count of 12.2, hemoglobin 10.7/32.4. Hemoglobin has trended down since prior results. Chemistry stable when compared to prior Urinalysis is unremarkable Patient's heart rate is currently in the 90s. He states that he does feel somewhat better. Due to the bleeding, downward trend of the hemoglobin, and respiratory status patient will be admitted to the hospital. Pt meets sepsis protocol. Rocephin and azithromycin ordered for pneumonia. Dr. Camarena accepted admit, orders placed Sepsis Criteria SIRS Criteria (2 or more): Heart rate over 90, RR > 20 or PaCO2 < 32, WBC > 00686, < 4000 or > 10% bands Sepsis Criteria (SIRS+source): Infect source susp/known Diagnosis Primary Impression: Pneumonia Qualified Codes: J18.9 - Pneumonia, unspecified organism Additional Impressions: Epistaxis Hemoptysis Physical deconditioning Sepsis Qualified Codes: A41.9 - Sepsis, unspecified organism Admitting Information Admitting Physician Requests: Admit Condition: Stable Nhi Gonzalez Apr 05, 2017 11:51
[2017-04-05 11:52] LABS: APTT (PATIENT) 54.8 SEC (24.3-30.1); INTERNATIONAL NORMALIZED RATIO 1.4 RATIO; PROTHROMBIN TIME - PATIENT 13.9 SEC (9.8-11.6)
--- NOTE | 2017-04-05 12:03 | RADRPT ---
EXAM DATE/TIME: 04/05/2017 11:37 [place] COMPARISON: CT THORAX W CONTRAST, July 01, 2016, 20:48. CT SIMULATION, December 01, 2016, 9:18. CHEST SINGLE AP, September 02, 2016, 13:05. INDICATIONS : Shortness of breath and coughing up blood. MEDICAL HISTORY : Myocardial infarction. Hypertension. Hernia, hiatal. Diabetes. Renal disease. SURGICAL HISTORY : Infusaport. Coronary stent. Cardiac stent. ENCOUNTER: Initial ACUITY: 2 days PAIN SCORE: 0/10 LOCATION: Bilateral chest FINDINGS: Portable AP view of the chest demonstrates a normal-sized cardiac silhouette. Left chest wall Infuse- a-Port is present with distal tip at the cavoatrial junction. There are normal interstitial opacities in the lower lung zones bilaterally. No pneumothorax or pleural effusion is identified. Bones and so ft tissues demonstrate no acute finding. EKG lines overlie the patient. CONCLUSION: Background emphysema with new bilateral lower lung zone interstitial opacities bilaterally. Zion Owusu MD on April 05, 2017 at 11:58 Board Certified Radiologist. This report was verified electronically.
[2017-04-05 12:11] LABS: ALT (GPT) 10 U/L (12-78); ANION GAP 12 MEQ/L (5-15); AST (GOT) 14 U/L (15-37); BICARBONATE 19.3 MEQ/L (21.0-32.0); BLOOD UREA NITROGEN 24 MG/DL (7-18); CHLORIDE 111 MEQ/L (98-107); GLOMERULAR FILTRATION RATE 69 ML/MIN (>89); MAGNESIUM 1.7 MG/DL (1.5-2.5); POTASSIUM 4.1 MEQ/L (3.5-5.1); SODIUM (NA) 142 MEQ/L (136-145)
[2017-04-05] MEDS ORDERED: RESP: ALBUTEROL 2.5 MG/IPRATROPIUM 0.5 MG NEB (SCH) INH ONE (12:15)
[2017-04-05] MEDS ORDERED: methylPREDNISolone SOD SUCC 125 MG/2 ML VIAL IV PUSH ONE (12:15)
[2017-04-05 12:16] LABS: ALKALINE PHOSPHATASE 76 U/L (45-117); TOTAL BILIRUBIN ADULT 0.6 MG/DL (0.2-1.0)
[2017-04-05 12:17] LABS: CREATINE KINASE 60 U/L (39-308)
[2017-04-05 12:20] LABS: BANDS 18 % (0-6); CORRECTED NUCLEATED RBC 1 /100 WBC (0-0); MYELOCYTES 1 % (0-0); NEUTROPHIL # MANUAL DIFF 10.9 TH/MM3 (1.8-7.7); PLATELET ESTIMATE SMEAR NORMAL (NORMAL); PLATELET MORPHOLOGY NORMAL (NORMAL); POLYS (SEG NEUTROPHILS) 70 % (16-70); SCAN/DIFF FINAL DIFF MANUAL; WBC DIFF SAMPLE 100
[2017-04-05 12:57] LABS: BLOOD, URINE TRACE (NEG); GLUCOSE,URINE NEG (NEG); HYALINE CAST, URINE 4 /lpf (RARE); KETONE, URINE NEG (NEG); MUCUS URINE FEW /lpf (OCC); NITRITE,URINE NEG (NEG); PH, URINE 5.5 (5.0-8.5); TRANSITIONAL EPI CELLS, URINE <1 /hpf; URINE COLOR YELLOW (YELLW/STRAW)
[2017-04-05 12:58] LABS: COMMENT (UR) CULT NOT INDICATED; CULTURE IF INDICATED CULT NOT INDICATED
[2017-04-05] MEDS ORDERED: AZITHROMYCIN INJ 500 MG in SODIUM CHLOR 0.9% 250 ML INJ 250 ML IV ONE (13:30)
[2017-04-05] MEDS ORDERED: cefTRIAXone INJ 1,000 MG in SODIUM CHLORIDE 0.9% INJ 100 ML IV ONE (13:30)
[2017-04-05] MEDS ORDERED: RESP: BUDESONIDE 0.5 MG/2 ML NEB NEB ONE (13:30)
--- NOTE | 2017-04-05 13:59 | PD ---
Data Data Last Documented VS Vital Signs Date Time Temp Pulse Resp B/P (MAP) Pulse Ox O2 Delivery O2 Flow Rate FiO2 04/05/17 13:37 94 Nasal Cannula 3.00 04/05/17 11:10 04/05/17 10:57 98.0 110 18 Orders Orders Complete Blood Count With Diff (04/05/17 11:19) Comprehensive Metabolic Panel (04/05/17 11:19) B-Type Natriuretic Peptide (04/05/17 11:19) Act Partial Throm Time (Ptt) (04/05/17 11:19) Prothrombin Time / Inr (Pt) (04/05/17 11:19) Magnesium (Mg) (04/05/17 11:19) Ckmb (Isoenzyme) Profile (04/05/17 11:19) Troponin I (04/05/17 11:19) Urinalysis - C+S If Indicated (04/05/17 11:19) Iv Access Insert/Monitor (04/05/17 11:19) Electrocardiogram (04/05/17 11:19) Ecg Monitoring (04/05/17 11:19) Oximetry (04/05/17 11:19) Oxygen Administration (04/05/17 11:19) Chest, Single Ap (04/05/17 11:19) Sodium Chloride 0.9% Flush (Ns Flush) (04/05/17 11:30) Type And Screen (04/05/17 11:19) Methylprednisolone So Succ Inj (Solumedr (04/05/17 12:15) Albuterol-Ipratropium Neb (Duoneb Neb) (04/05/17 12:15) Ceftriaxone Inj (Rocephin Inj) (04/05/17 13:30) Azithromycin Inj (Zithromax Inj) (04/05/17 13:30) Budesonide Neb (Pulmicort Respule Neb) (04/05/17 13:30) Blood Culture (04/05/17 13:36) Labs Laboratory Tests Test 04/05/17 11:00 04/05/17 12:05 White Blood Count 12.2 TH/MM3 Red Blood Count 3.11 MIL/MM3 Hemoglobin 10.7 GM/DL Hematocrit 32.4 % Mean Corpuscular Volume 104.4 FL Mean Corpuscular Hemoglobin 34.6 PG Mean Corpuscular Hemoglobin Concent 33.1 % Red Cell Distribution Width 18.1 % Platelet Count 210 TH/MM3 Mean Platelet Volume 8.7 FL Neutrophils (%) (Auto) 83.3 % Lymphocytes (%) (Auto) 7.4 % Monocytes (%) (Auto) 7.2 % Eosinophils (%) (Auto) 1.3 % Basophils (%) (Auto) 0.8 % Neutrophils # (Auto) 10.1 TH/MM3 Lymphocytes # (Auto) 0.9 TH/MM3 Monocytes # (Auto) 0.9 TH/MM3 Eosinophils # (Auto) 0.2 TH/MM3 Basophils # (Auto) 0.1 TH/MM3 CBC Comment AUTO DIFF Differential Total Cells Counted 100 Neutrophils % (Manual) 70 % Band Neutrophils % 18 % Lymphocytes % 5 % Monocytes % 6 % Neutrophils # (Manual) 10.9 TH/MM3 Myelocytes 1 % Nucleated Red Blood Cells 1 /100 WBC Differential Comment FINAL DIFF MANUAL Platelet Estimate NORMAL Platelet Morphology Comment NORMAL Prothrombin Time 13.9 SEC Prothromb Time International Ratio 1.4 RATIO Activated Partial Thromboplast Time 54.8 SEC Blood Urea Nitrogen 24 MG/DL Creatinine 1.04 MG/DL Random Glucose 163 MG/DL Total Protein 7.0 GM/DL Albumin 2.3 GM/DL Calcium Level 9.2 MG/DL Magnesium Level 1.7 MG/DL Alkaline Phosphatase 76 U/L Aspartate Amino Transf (AST/SGOT) 14 U/L Alanine Aminotransferase (ALT/SGPT) 10 U/L Total Bilirubin 0.6 MG/DL Sodium Level 142 MEQ/L Potassium Level 4.1 MEQ/L Chloride Level 111 MEQ/L Carbon Dioxide Level 19.3 MEQ/L Anion Gap 12 MEQ/L Estimat Glomerular Filtration Rate 69 ML/MIN Total Creatine Kinase 60 U/L Troponin I 0.02 NG/ML B-Type Natriuretic Peptide 36 PG/ML Urine Color YELLOW Urine Turbidity CLEAR Urine pH 5.5 Urine Specific [place] 1.019 Urine Protein 30 mg/dL Urine Glucose (UA) NEG mg/dL Urine Ketones NEG mg/dL Urine Occult Blood TRACE Urine Nitrite NEG Urine Bilirubin NEG Urine Urobilinogen LESS THAN 2.0 MG/DL Urine Leukocyte Esterase NEG Urine RBC 2 /hpf Urine WBC 1 /hpf Urine Transitional Epithelial Cells <1 /hpf Urine Hyaline Casts 4 /lpf Urine Mucus FEW /lpf Microscopic Urinalysis Comment CULT NOT INDICATED [facility] Medical Record Reviewed: Yes Supervised Visit with [place]: Yes Narrative Course I, Dr. Lechuga, have reviewed the advance practice practitioner's documentation and am in agreement, met with the patient face to face, made the diagnosis, and the medical decision making was done by me. *My assessment and Findings: CBC & BMP Diagram 04/05/17 11:00 Total Protein 7.0, Albumin 2.3 L, Calcium Level 9.2, Magnesium Level 1.7, Alkaline Phosphatase 76, Aspartate Amino Transf (AST/SGOT) 14 L, Alanine Aminotransferase (ALT/SGPT) 10 L, Total Bilirubin 0.6 Band neutrophils 18% UA: UA Last 24 hours Impressions Chest X-Ray 04/05/17 1119 Signed Impressions: Service Date/Time: Wednesday, April 05, 2017 11:37 - CONCLUSION: Background emphysema with new bilateral lower lung zone interstitial opacities bilaterally. Zion Owusu MD Pt with PNA meeting sepsis criteria. Rocephin/Azithromycin started Diagnosis Primary Impression: Pneumonia Qualified Codes: J18.9 - Pneumonia, unspecified organism Additional Impressions: Epistaxis Hemoptysis Physical deconditioning Jefry Lechuga MD Apr 05, 2017 13:59
[2017-04-05] MEDS ORDERED: RESP: ALBUTEROL 2.5 MG/IPRATROPIUM 0.5 MG NEB (PRN) NEB ×2 (14:00→17:45)
[2017-04-05] MEDS ORDERED: MAGNESIUM HYDROXIDE SUSP 30 ML CUP PO PRN (14:00)
[2017-04-05] MEDS ORDERED: ONDANSETRON HCL 4 MG/2 ML VIAL IVP PRN (14:00)
[2017-04-05] MEDS ORDERED: ENOXAPARIN SODIUM 30 MG/0.3 ML SYRINGE SQ SCH (14:00)
[2017-04-05] MEDS ORDERED: ACETAMINOPHEN 325 MG TAB PO PRN (14:00)
[2017-04-05] MEDS ORDERED: NALOXONE HCL 0.4 MG/ML AMP IV PUSH PRN (14:00)
[2017-04-05] MEDS ORDERED: TEMAZEPAM 15 MG CAP PO PRN (14:15)
--- NOTE | 2017-04-05 15:37 | HHI.HP ---
HPI Service [facility] Hospitalists Primary Care Physician Rahul Chandler MD Admission Diagnosis PNA Chief Complaint: SOB, weakness, epistaxis Travel History International Travel<30 Days: No Contact w/Intl Traveler <30 Da: No Traveled to Known Affected Are: No History of Present Illness Mr. 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 Pt then received XRT which he completed in January 2017. Pt follows with Dr. Osorio. He was last seen by Dr. Osorio in 03/2017 and he had a CT Thorax prior to that visit which noted post treatment changes int he right lung with significant emphysematous changes, however, there is no mass or adenopathy noted. Pt presented to the ED at [facility] on 04[place]05[place]17 with complaints of weakness, dizziness, shortness of breath with exertion, hemoptysis and epistaxis. Patient reports that the symptoms started 4 -5 days ago. He denies any fevers or chills at home. He had been eating and drinking well up until a few days ago. His dyspnea on exertion seemed to worsen over the last day or so and this prompted his evaluation in the ED. Family reports that he is on 2L of supplemental O2 at home. In the ED his O2 sats were 94% on 4L of supplemental O2. CXR in the ED noted emphysema with new bilateral lower lung zone interstitial opacities bilaterally. Pt was given Duoneb treatments and Budesonide nebs in the ED. Pts labs noted WBC count 12.2 and Hgb 10.7/Hct 32.4. Review of Systems Constitutional: DENIES: Fever, Chills Eyes: DENIES: Vision loss Ears, nose, mouth, throat: COMPLAINS OF: Epistaxis Respiratory: COMPLAINS OF: Cough, Hemoptysis, Sputum production, Shortness of breath Cardiovascular: COMPLAINS OF: Dyspnea on Exertion, DENIES: Palpitations, Lower Extremity Edema Gastrointestinal: DENIES: Abdominal pain, Constipation, Diarrhea, Nausea, Vomiting Genitourinary: DENIES: Hematuria, Dysuria Musculoskeletal: DENIES: Back pain, Neck pain Integumentary: DENIES: Rash Neurologic: DENIES: Headache Psychiatric: DENIES: Confusion Past Family Social History Past Medical History Non-small cell carcinoma with neuroendocrine features stage IIIA s/p treatment with chemotherapy (Carboplatin, Etoposide) x 5 cycles, stopped due to declining performance status, then received XRT, diagnosed in 2016, follows with Dr. Osorio Diabetes with nephropathy CKD stage 3 Diastolic dysfunction Hypertension Sinus bradycardia CAD with hx of VT Diverticulosis/Diverticulitis Macular degeneration Glaucoma 2D echo (09/03/16) - Mild LVH - Estimated EF 55-60% - Grade 1 diastolic dysfunction - PA pressure 39mmHg Past Surgical History Exploratory laparotomy with proctosigmoidectomy and low pelvic anastomosis, appendectomy, splenectomy on 04/08/[address] Becerril. 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 amlodipine (Unverified Adverse Reaction, Unknown, MUSCLE PAIN, 12/15/16) atorvastatin (Unverified Adverse Reaction, Unknown, MUSCLE PAIN, 12/15/16) pravastatin (Unverified Adverse Reaction, Unknown, MUSCLE PAIN, 12/15/16) simvastatin (Unverified Adverse Reaction, Unknown, MUSCLE PAIN, 12/15/16) Family History Noncontributory Social History Denies any alcohol, tobacco or illicit drug use Physical Exam Vital Signs Vital Signs Date Time Temp Pulse Resp B/P (MAP) Pulse Ox O2 Delivery O2 Flow Rate FiO2 04/05/17 13:37 94 Nasal Cannula 3.00 04/05/17 13:30 92 18 153/67 (95) 96 Nasal Cannula 2.00 04/05/17 11:20 95 Nasal Cannula 4.00 04/05/17 11:10 96 Nasal Cannula 2.00 04/05/17 11:10 95 Nasal Cannula 2.00 04/05/17 10:57 98.0 110 18 143/54 (83) 94 Nasal Cannula 3.00 04/05/17 10:48 98.0 114 22 143/54 (83) Physical Exam GENERAL: This is a well-nourished, well-developed patient, in no apparent distress. HEENT: Atraumatic. Normocephalic. No temporal or scalp tenderness. No scleral icterus. Airway patent. NECK: Trachea midline, supple, nontender. CARDIO: Regular. RESP: Decreased breath sounds at the bases, mild crackles at the bases bilaterally. ABD: +BS, soft, non-tender, nondistended. EXT: Extremities without clubbing, cyanosis, or edema. NEURO: Awake and alert. Motor and sensory grossly within normal limits. Normal speech. Laboratory Laboratory Tests Test 04/05/17 11:00 04/05/17 12:05 White Blood Count 12.2 Red Blood Count 3.11 Hemoglobin 10.7 Hematocrit 32.4 Mean Corpuscular Volume 104.4 Mean Corpuscular Hemoglobin 34.6 Mean Corpuscular Hemoglobin Concent 33.1 Red Cell Distribution Width 18.1 Platelet Count 210 Mean Platelet Volume 8.7 Neutrophils (%) (Auto) 83.3 Lymphocytes (%) (Auto) 7.4 Monocytes (%) (Auto) 7.2 Eosinophils (%) (Auto) 1.3 Basophils (%) (Auto) 0.8 Neutrophils # (Auto) 10.1 Lymphocytes # (Auto) 0.9 Monocytes # (Auto) 0.9 Eosinophils # (Auto) 0.2 Basophils # (Auto) 0.1 CBC Comment AUTO DIFF Differential Total Cells Counted 100 Neutrophils % (Manual) 70 Band Neutrophils % 18 Lymphocytes % 5 Monocytes % 6 Neutrophils # (Manual) 10.9 Myelocytes 1 Nucleated Red Blood Cells 1 Differential Comment FINAL DIFF MANUAL Platelet Estimate NORMAL Platelet Morphology Comment NORMAL Prothrombin Time 13.9 Prothromb Time International Ratio 1.4 Activated Partial Thromboplast Time 54.8 Blood Urea Nitrogen 24 Creatinine 1.04 Random Glucose 163 Total Protein 7.0 Albumin 2.3 Calcium Level 9.2 Magnesium Level 1.7 Alkaline Phosphatase 76 Aspartate Amino Transf (AST/SGOT) 14 Alanine Aminotransferase (ALT/SGPT) 10 Total Bilirubin 0.6 Sodium Level 142 Potassium Level 4.1 Chloride Level 111 Carbon Dioxide Level 19.3 Anion Gap 12 Estimat Glomerular Filtration Rate 69 Total Creatine Kinase 60 Troponin I 0.02 B-Type Natriuretic Peptide 36 Urine Color YELLOW Urine Turbidity CLEAR Urine pH 5.5 Urine Specific [place] 1.019 Urine Protein 30 Urine Glucose (UA) NEG Urine Ketones NEG Urine Occult Blood TRACE Urine Nitrite NEG Urine Bilirubin NEG Urine Urobilinogen LESS THAN 2.0 Urine Leukocyte Esterase NEG Urine RBC 2 Urine WBC 1 Urine Transitional Epithelial Cells <1 Urine Hyaline Casts 4 Urine Mucus FEW Microscopic Urinalysis Comment CULT NOT INDICATED Date/Time Source Procedure Growth Status 04/05/17 13:40 Blood Peripheral Aerobic Blood Culture Pending Received 04/05/17 13:40 Blood Peripheral Anaerobic Blood Culture Pending Received Result Diagram: 04/05/17 1100 04/05/17 1100 Imaging Last Impressions Chest X-Ray 04/05/17 1119 Signed Impressions: Service Date/Time: Wednesday, April 05, 2017 11:37 - CONCLUSION: Background emphysema with new bilateral lower lung zone interstitial opacities bilaterally. Zion Owusu MD CT Thorax with contrast (03/22/17) - Stable CT appearance of the chest. No definite evidence of local recurrence or metastatic disease. - Lungs with emphysema and patchy fibrotic parenchymal changes stable with mild consolidative fibrotic change in the right retrohilar region at site of previous mass. No evidence of significant residual mass density. Septic Shock Reassessment Heart: Regular rate and rhythm Lungs: Crackles Skin: Warm Caprini VTE Risk Assessment Caprini VTE Risk Assessment: Mod/High Risk (score >= 2) Caprini Risk Assessment Model Point Value = 1 Point Value = 2 Point Value = 3 Point Value = 5 Age 41-60 Minor surgery BMI > 25 kg/m2 Swollen legs Varicose veins or History of unexplained or recurrent spontaneous Oral contraceptives or hormone replacement Sepsis (< 1 month) Serious lung disease, including pneumonia (< 1 month) Abnormal pulmonary function Acute myocardial infarction Congestive heart failure (< 1 month) History of inflammatory bowel disease Medical patient at bed rest Age 61-74 Arthroscopic surgery Major open surgery (> 45 min) Laparoscopic surgery (> 45 min) Malignancy Confined to bed (> 72 hours) Immobilizing plaster cast Central venous access Age >= 75 History of VTE Family history of VTE Factor V Leiden Prothrombin [id number] Lupus anticoagulant Anticardiolipin antibodies Elevated serum homocysteine Heparin-induced thrombocytopenia Other congenital or acquired thrombophilia Stroke (< 1 month) Elective arthroplasty Hip, pelvis, or leg fracture Acute spinal cord injury (< 1 month) Prophylaxis Regimen Total Risk Factor Score Risk Level Prophylaxis Regimen 0-1 Low Early ambulation 2 Moderate Order ONE of the following: *Sequential Compression Device (SCD) *Heparin 5000 units SQ BID 3-4 Higher Order ONE of the following medications: *Heparin 5000 units SQ TID *Enoxaparin/Lovenox 40 mg SQ daily (WT < 150 kg, CrCl > 30 mL/min) *Enoxaparin/Lovenox 30 mg SQ daily (WT < 150 kg, CrCl > 10-29 mL/min) *Enoxaparin/Lovenox 30 mg SQ BID (WT < 150 kg, CrCl > 30 mL/min) AND/OR *Sequential Compression Device (SCD) 5 or more Highest Order ONE of the following medications: *Heparin 5000 units SQ TID (Preferred with Epidurals) *Enoxaparin/Lovenox 40 mg SQ daily (WT < 150 kg, CrCl > 30 mL/min) *Enoxaparin/Lovenox 30 mg SQ daily (WT < 150 kg, CrCl > 10-29 mL/min) *Enoxaparin/Lovenox 30 mg SQ BID (WT < 150 kg, CrCl > 30 mL/min) AND *Sequential Compression Device (SCD) Assessment and Plan Problem List: (1) Pneumonia ICD Codes: J18.9 - Pneumonia, unspecified organism Status: Acute Plan: - Pt is a 76 y/o WM with CAD, hypertension, CKD, diverticulitis and 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 Pt then received XRT which he completed in January 2017. Pt follows with Dr. Osorio. - He was last seen by Dr. Osorio in 03/2017 and he had a CT Thorax prior to that visit which noted post treatment changes in the right lung with significant emphysematous changes, however, there is no mass or adenopathy noted. - Pt presented to the ED at [facility] on 04/05/17 with complaints of weakness, dizziness, shortness of breath with exertion, hemoptysis and epistaxis that began around 4-5 days ago. He denies any fevers or chills at home. His dyspnea on exertion seemed to worsen over the last day or so and this prompted his evaluation in the ED. - Family reports that he is on 2L of supplemental O2 at home. - In the ED his O2 sats were 94% on 4L of supplemental O2. - CXR in the ED noted emphysema with new bilateral lower lung zone interstitial opacities bilaterally. - Pt was given Duoneb treatments and Budesonide nebs in the ED. - He was given a dose of Solu-Medrol 125mg x one dose in the ED as well as Azithromycin and Rocephin - We will continued the Abx. - Cont. Duonebs Q4H WA - Blood cultures drawn in the ED - Repeat CXR in AM - Repeat labs in AM - Supplemental O2 - Supportive care - Pt is on Pradaxa, H/H is slightly lower than previous labs, Repeat in AM and monitor closely (2) Hemoptysis ICD Codes: R04.2 - Hemoptysis Status: Acute Plan: - See above (3) CHF (congestive heart failure) ICD Codes: I50.9 - Heart failure, unspecified Status: Chronic Plan: - 2D echo (09/03/16) - Mild LVH - Estimated EF 55-60% - Grade 1 diastolic dysfunction - PA pressure 39mmHg - Monitor for any evidence of volume overload (4) Non-small cell cancer of right lung ICD Codes: C34.91 - Malignant neoplasm of unspecified part of right bronchus or lung Status: Chronic Plan: - See above (5) Weakness generalized ICD Codes: R53.1 - Weakness Status: Chronic Plan: - See above (6) COPD (chronic obstructive pulmonary disease) ICD Codes: J44.9 - Chronic obstructive pulmonary disease, unspecified Status: Chronic Plan: - Cont. Duonebs Q4H WA and Q2H PRN - Pt does not have any wheezing on examination - With pneumonia he may have a flare of his COPD so will watch closely as he may need steroids added to his regimen (7) Hypertension ICD Codes: I10 - Essential (primary) hypertension Status: Chronic Plan: - Clonidine PRN - Vasotec PRN (8) CKD (chronic kidney disease) stage 3, GFR 30-59 ml/min ICD Codes: N18.3 - Chronic kidney disease, stage 3 (moderate) Status: Chronic Plan: - Labs are stable Assessment and Plan Patient examined. Assessment and plan formulated with Judy Hernández PA-C. I agree with the above. Physician Certification 2 Midnight Certification Type: Admission for Inpatient Services Order for Inpatient Services The services are ordered in accordance with Medicare regulations or non- Medicare payer requirements, as applicable. In the case of services not specified as inpatient-only, they are appropriately provided as inpatient services in accordance with the 2-midnight benchmark. Estimated LOS (days): 3 3 days is the estimated time the patient will need to remain in the hospital, assuming treatment plan goals are met and no additional complications. Post-Hospital Plan: Not yet determined Problem Qualifiers (1) Pneumonia: Qualified Codes: J18.9 - Pneumonia, unspecified organism (2) CHF (congestive heart failure): Qualified Codes: I50.30 - Unspecified diastolic (congestive) heart failure Judy Hernández Apr 05, 2017 15:37 Song Camarena DO Apr 07, 2017 22:52
--- NOTE | 2017-04-05 15:42 | RADRPT ---
EXAM DATE/TIME: 04/05/2017 14:24 [facility] COMPARISON: CT SIMULATION, December 01, 2016, 9:18. CHEST SINGLE AP, April 05, 2017, 11:37. INDICATIONS : Short of breath. Hemoptysis. MEDICAL HISTORY : Carcinoma, lung. Myocardial infarction. Hypertension. Hernia, hiatal. Diabetes. Renal disease. SURGICAL HISTORY : Infusaport. Coronary stent. Cardiac stent. ENCOUNTER: Initial ACUITY: 2 days PAIN SCORE: 0/10 LOCATION: Bilateral chest FINDINGS: There is a left subclavian [id number] in stable position. Redemonstration of biapical emphysema wi th bilateral lower lobe interstitial and patchy airspace opacities. Cardiomediastinal contours are st able. Bony thorax is intact. CONCLUSION: 1. Changes of obstructive pulmonary disease with stable bilateral lower lobe interstitial and patchy air space opacities. Parviz Keys MD on April 05, 2017 at 15:37 Board Certified Radiologist. This report was verified electronically.
--- NOTE | 2017-04-05 19:28 | EKG ---
Date Performed: 04/05/2017 Time Performed: 11:11:49 PTAGE: 76 years EKG: SINUS TACHYCARDIA WITH OCCASIONAL VENTRICULAR PREMATURE COMPLEXES MARKED LEFT AXIS DEVIATIO N MODERATE INTRAVENTRICULAR CONDUCTION DELAY VOLTAGE CRITERIA FOR LVH NONSPECIFIC T-WAVE ABNORMALITY Since previous tracing, no significant change noted ABNORMAL ECG PREVIOUS TRACING : 09/02/2016 13.06.05 DOCTOR: Naheed Benitez Interpretating Date/Time 04/05/2017 19:27:34
[2017-04-05] MEDS: RESP: ALBUTEROL 2.5 MG/IPRATROPIUM 0.5 MG NEB (SCH) NEB (19:37)
[2017-04-05] MEDS: BRIMONIDINE TARTRATE 0.2% OPHT SOLN 5 ML BTL EACH EYE SCH (21:00)
[2017-04-05] MEDS: SODIUM CHLORIDE 0.9% FLUSH 10 ML FLUSH IV FLUSH SCH (21:00)
[2017-04-05] MEDS: MEGESTROL ACETATE SUSP 400 MG/10 ML CUP PO SCH (21:00)
[2017-04-05] MEDS: LATANOPROST 0.005% OPHT SOLN 2.5 ML BTL EACH EYE SCH (23:41)
[2017-04-05] MEDS: DABIGATRAN ETEXILATE 150 MG CAP PO SCH (23:41)
[2017-04-06] VITALS (10 sets, daily range): BP systolic 124–167; BP diastolic 58–74; PULSE 97–116; RESP 18–19; TEMP 97.3–98.2; O2SAT 90–95
[2017-04-06 05:48] LABS: AUTOMATED NEUTROPHIL # 9.9 TH/MM3 (1.8-7.7); BASOPHIL # 0.1 TH/MM3 (0-0.2); BASOPHIL % 0.6 % (0.0-2.0); HEMATOCRIT 28.6 % (39.0-51.0); LYMPH % 5.5 % (9.0-44.0); LYMPHOCYTE # 0.6 TH/MM3 (1.0-4.8); MEAN CELL VOLUME 103.4 FL (80.0-100.0); MEAN CORPUSCULAR HEMOGLOBIN 34.9 PG (27.0-34.0); MEAN CORPUSCULAR HGB CONC 33.8 % (32.0-36.0); MONO % 1.9 % (0.0-8.0); PLATELET COUNT 203 TH/MM3 (150-450); RED BLOOD COUNT 2.77 MIL/MM3 (4.50-5.90); RED CELL DISTRIBUTION WIDTH 17.5 % (11.6-17.2); WHITE BLOOD COUNT 10.8 TH/MM3 (4.0-11.0)
[2017-04-06 06:02] LABS: HEMO FLAGS AUTO DIFF
[2017-04-06 06:18] LABS: BICARBONATE 19.2 MEQ/L (21.0-32.0); POTASSIUM 4.9 MEQ/L (3.5-5.1)
--- NOTE | 2017-04-06 07:39 | RADRPT ---
EXAM DATE/TIME: 04/06/2017 05:39 [facility] COMPARISON: CHEST SINGLE AP, April 05, 2017, 11:37. INDICATIONS : Short of breath MEDICAL HISTORY : Carcinoma, lung. Myocardial infarction. Chronic obstructive pulmonary disease. CHF, hypertension, hiatal hernia, diabetes SURGICAL HISTORY : Coronary artery stent. infusaport ENCOUNTER: Subsequent ACUITY: 3 days PAIN SCORE: 0/10 LOCATION: Bilateral chest FINDINGS: Stable left IJ [id number]. Stable bilateral lower lung zone interstitial opacities. Cardiac silhou ette is enlarged. Remainder of exam is unchanged. CONCLUSION: 1. Stable bilateral lower lung zone interstitial opacities. Differential considerations include inter stitial edema versus interstitial pneumonia. 2. No significant interval change. Parviz Keys MD on April 06, 2017 at 7:35 Board Certified Radiologist. This report was verified electronically.
[2017-04-06] MEDS: RESP: ALBUTEROL 2.5 MG/IPRATROPIUM 0.5 MG NEB (SCH) NEB ×4 (08:08→20:12)
[2017-04-06 08:27] LABS: BANDS 19 % (0-6); NEUTROPHIL # MANUAL DIFF 9.3 TH/MM3 (1.8-7.7); POLYS (SEG NEUTROPHILS) 67 % (16-70); WBC DIFF SAMPLE 100
[2017-04-06 08:28] LABS: CORRECTED NUCLEATED RBC 1 /100 WBC (0-0); OVALOCYTES 1+ (NORMAL); PLATELET ESTIMATE SMEAR NORMAL (NORMAL); PLATELET MORPHOLOGY NORMAL (NORMAL); POLYCHROMASIA 2.2 % (0.0-1.9); SCAN/DIFF FINAL DIFF MANUAL
[2017-04-06] MEDS: MEGESTROL ACETATE SUSP 400 MG/10 ML CUP PO SCH ×2 (08:35→21:00)
[2017-04-06] MEDS: DABIGATRAN ETEXILATE 150 MG CAP PO SCH ×2 (08:35→21:18)
[2017-04-06] MEDS: AZITHROMYCIN 250 MG TAB PO SCH (08:35)
[2017-04-06] MEDS: ESCITALOPRAM OXALATE 10 MG TAB PO SCH (08:36)
[2017-04-06] MEDS: BRIMONIDINE TARTRATE 0.2% OPHT SOLN 5 ML BTL EACH EYE SCH ×2 (08:37→21:00)
[2017-04-06] MEDS: SODIUM CHLORIDE 0.9% FLUSH 10 ML FLUSH IV FLUSH SCH ×2 (08:40→21:20)
--- NOTE | 2017-04-06 11:26 | RADRPT ---
EXAM DATE/TIME: 04/06/2017 09:25 [facility] COMPARISON: CT THORAX W/O CONTRAST, March 04, 2016, 16:12. INDICATIONS : Shortness of breath. RADIATION DOSE: 6.32 CTDIvol (mGy) MEDICAL HISTORY : Cardiovascular disease. Hypertension. Carcinoma, lung. SURGICAL HISTORY : None. ENCOUNTER: Initial ACUITY: 1 day PAIN SCALE: 0/10 LOCATION: chest TECHNIQUE: Volumetric scanning of the chest was performed. Using automated exposure control and adjustment of t he mA and/or kV according to patient size, radiation dose was kept as low as reasonably achievable to obtain optimal diagnostic quality images. DICOM format image data is available electronically for r eview and comparison. Follow-up recommendations for detected pulmonary nodules are based at a minimum on nodule size and pa tient risk factors according to Fleischner Society Guidelines. FINDINGS: LUNGS: Chronic fibrotic lung disease is again noted. There is diffuse honeycombing through both lungs with s cattered emphysematous change and generalized hyperinflation. Increased opacity has developed in both lower lobes. Peribronchial consolidating air space disease has developed in the superior segment of the right lower lobe. PLEURAE: Posterior pleural thickening is identified in both lower lobes. MEDIASTINUM: Coronaries are heavily calcified. Heart is at the upper limits of normal in size. AXILLAE: Within normal limits. No lymphadenopathy. MUSCULOSKELETAL: Within normal limits for patient age. MISCELLANEOUS: The visualized upper abdominal organs demonstrate no acute abnormality. CONCLUSION: 1. Advanced pulmonary fibrosis. 2. Overlying interstitial prominence and peribronchial consolidation representing either pulmonary ed meeta or acute pneumonitis. 3. No other significant change. Leonardo Vaca MD on April 06, 2017 at 11:06 Board Certified Radiologist. This report was verified electronically.
--- NOTE | 2017-04-06 12:28 | HHI.PR ---
Subjective Remarks Pts supplemental O2 requirements increased last night to 6L Pt felt more SOB today Objective Vitals Vital Signs Date Time Temp Pulse Resp B/P (MAP) Pulse Ox O2 Delivery O2 Flow Rate FiO2 04/06/17 08:41 97.9 105 18 152/73 (99) 92 04/06/17 08:10 92 Nasal Cannula 6.00 04/06/17 05:03 93 Nasal Cannula 5.00 04/06/17 04:30 97.5 106 18 133/67 (89) 90 04/06/17 00:42 98.2 97 19 151/74 (99) 93 04/06/17 00:18 97.6 116 18 167/73 (104) 91 04/05/17 20:30 97.6 106 18 132/60 (84) 92 04/05/17 19:40 95 Nasal Cannula 3.00 04/05/17 16:34 88 18 154/72 (99) 95 Nasal Cannula 2.00 04/05/17 16:00 97.5 104 20 140/67 (91) 93 04/05/17 13:37 94 Nasal Cannula 3.00 04/05/17 13:30 92 18 153/67 (95) 96 Nasal Cannula 2.00 Result Diagram: 04/06/1728 04/06/17527 Other Results Laboratory Tests Test 04/05/17 11:00 04/05/17 12:05 04/06/17 05:28 White Blood Count 12.2 TH/MM3 10.8 TH/MM3 Red Blood Count 3.11 MIL/MM3 2.77 MIL/MM3 Hemoglobin 10.7 GM/DL 9.7 GM/DL Hematocrit 32.4 % 28.6 % Mean Corpuscular Volume 104.4 FL 103.4 FL Mean Corpuscular Hemoglobin 34.6 PG 34.9 PG Mean Corpuscular Hemoglobin Concent 33.1 % 33.8 % Red Cell Distribution Width 18.1 % 17.5 % Platelet Count 210 TH/MM3 203 TH/MM3 Mean Platelet Volume 8.7 FL 8.6 FL Neutrophils (%) (Auto) 83.3 % 92.0 % Lymphocytes (%) (Auto) 7.4 % 5.5 % Monocytes (%) (Auto) 7.2 % 1.9 % Eosinophils (%) (Auto) 1.3 % 0.0 % Basophils (%) (Auto) 0.8 % 0.6 % Neutrophils # (Auto) 10.1 TH/MM3 9.9 TH/MM3 Lymphocytes # (Auto) 0.9 TH/MM3 0.6 TH/MM3 Monocytes # (Auto) 0.9 TH/MM3 0.2 TH/MM3 Eosinophils # (Auto) 0.2 TH/MM3 0.0 TH/MM3 Basophils # (Auto) 0.1 TH/MM3 0.1 TH/MM3 CBC Comment AUTO DIFF AUTO DIFF Differential Total Cells Counted 100 100 Neutrophils % (Manual) 70 % 67 % Band Neutrophils % 18 % 19 % Lymphocytes % 5 % 9 % Monocytes % 6 % 5 % Neutrophils # (Manual) 10.9 TH/MM3 9.3 TH/MM3 Myelocytes 1 % Nucleated Red Blood Cells 1 /100 WBC 1 /100 WBC Differential Comment FINAL DIFF MANUAL FINAL DIFF MANUAL Platelet Estimate NORMAL NORMAL Platelet Morphology Comment NORMAL NORMAL Prothrombin Time 13.9 SEC Prothromb Time International Ratio 1.4 RATIO Activated Partial Thromboplast Time 54.8 SEC Blood Urea Nitrogen 24 MG/DL 30 MG/DL Creatinine 1.04 MG/DL 1.31 MG/DL Random Glucose 163 MG/DL 350 MG/DL Total Protein 7.0 GM/DL Albumin 2.3 GM/DL Calcium Level 9.2 MG/DL 8.6 MG/DL Magnesium Level 1.7 MG/DL Alkaline Phosphatase 76 U/L Aspartate Amino Transf (AST/SGOT) 14 U/L Alanine Aminotransferase (ALT/SGPT) 10 U/L Total Bilirubin 0.6 MG/DL Sodium Level 142 MEQ/L 139 MEQ/L Potassium Level 4.1 MEQ/L 4.9 MEQ/L Chloride Level 111 MEQ/L 108 MEQ/L Carbon Dioxide Level 19.3 MEQ/L 19.2 MEQ/L Anion Gap 12 MEQ/L 12 MEQ/L Estimat Glomerular Filtration Rate 69 ML/MIN 53 ML/MIN Total Creatine Kinase 60 U/L Troponin I 0.02 NG/ML B-Type Natriuretic Peptide 36 PG/ML Urine Color YELLOW Urine Turbidity CLEAR Urine pH 5.5 Urine Specific [place] 1.019 Urine Protein 30 mg/dL Urine Glucose (UA) NEG mg/dL Urine Ketones NEG mg/dL Urine Occult Blood TRACE Urine Nitrite NEG Urine Bilirubin NEG Urine Urobilinogen LESS THAN 2.0 MG/DL Urine Leukocyte Esterase NEG Urine RBC 2 /hpf Urine WBC 1 /hpf Urine Transitional Epithelial Cells <1 /hpf Urine Hyaline Casts 4 /lpf Urine Mucus FEW /lpf Microscopic Urinalysis Comment CULT NOT INDICATED Polychromasia 2.2 % Basophilic Stippling FAINT Ovalocytes 1+ Imaging Last Impressions Chest X-Ray 04/06/17 0600 Signed Impressions: Service Date/Time: Thursday, April 06, 2017 05:39 - CONCLUSION: 1. Stable bilateral lower lung zone interstitial opacities. Differential considerations include interstitial edema versus interstitial pneumonia. 2. No significant interval change. Parviz Keys MD Chest CT 04/06/17 0000 Signed Impressions: Service Date/Time: Thursday, April 06, 2017 09:25 - CONCLUSION: 1. Advanced pulmonary fibrosis. 2. Overlying interstitial prominence and peribronchial consolidation representing either pulmonary edema or acute pneumonitis. 3. No other significant change. Leonardo Vaca MD Last Impressions Chest X-Ray 04/05/17 1119 Signed Impressions: Service Date/Time: Wednesday, April 05, 2017 11:37 - CONCLUSION: Background emphysema with new bilateral lower lung zone interstitial opacities bilaterally. Zion Owusu MD CT Thorax with contrast (03/22/17) - Stable CT appearance of the chest. No definite evidence of local recurrence or metastatic disease. - Lungs with emphysema and patchy fibrotic parenchymal changes stable with mild consolidative fibrotic change in the right retrohilar region at site of previous mass. No evidence of significant residual mass density. 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 Pt then received XRT which he completed in January 2017. Pt follows with Dr. Osorio. - He was last seen by Dr. Osorio in 03/2017 and he had a CT Thorax prior to that visit which noted post treatment changes in the right lung with significant emphysematous changes, however, there is no mass or adenopathy noted. - Pt presented to the ED at [facility] [place] on 04/05/17 with complaints of weakness, dizziness, shortness of breath with exertion, hemoptysis and epistaxis that began around 4-5 days ago. He denies any fevers or chills at home. His dyspnea on exertion seemed to worsen over the last day or so and this prompted his evaluation in the ED. - Family reports that he is on 2L of supplemental O2 at home. - In the ED his O2 sats were 94% on 4L of supplemental O2. - CXR in the ED noted emphysema with new bilateral lower lung zone interstitial opacities bilaterally. - Pt was given Duoneb treatments and Budesonide nebs in the ED. - He was given a dose of Solu-Medrol 125mg x one dose in the ED as well as Azithromycin and Rocephin - We will continued the Abx. - Cont. Duonebs Q4H WA - Blood cultures drawn with NGTD - CXR (04/06) --> Stable bilateral lower lung zone interstitial opacities. Differential considerations include interstitial edema versus interstitial pneumonia. No significant interval change. - Pts O2 requirements increased to 6L overnight and this morning - Chest CT (04/06/17) --> Advanced pulmonary fibrosis. Overlying interstitial prominence and peribronchial consolidation representing either pulmonary edema or acute pneumonitis. No other significant change. - It unclear if this is a true pneumonia/pneumonitis vs pulmonary edema vs. other, as he has not had any improvement with treatment for pneumonia and in fact is requiring more supplemental O2 - We will give one dose of Lasix 40mg IV and monitor closely for changes in clinical status. - Supplemental O2 - Supportive care - Pt is on Pradaxa, H/H is decreased to 9.7/28.6, Repeat in AM and monitor closely (2) Hemoptysis ICD Codes: R04.2 - Hemoptysis Status: Acute Plan: - See above (3) CHF (congestive heart failure) ICD Codes: I50.9 - Heart failure, unspecified Status: Chronic Plan: - 2D echo (09/03/16) - Mild LVH - Estimated EF 55-60% - Grade 1 diastolic dysfunction - PA pressure 39mmHg - Suspect the pt has some degree of volume overload - Will give Lasix 40mg IV x one dose and monitor for clinical improvement. (4) Non-small cell cancer of right lung ICD Codes: C34.91 - Malignant neoplasm of unspecified part of right bronchus or lung Status: Chronic Plan: - See above (5) Weakness generalized ICD Codes: R53.1 - Weakness Status: Chronic Plan: - See above (6) COPD (chronic obstructive pulmonary disease) ICD Codes: J44.9 - Chronic obstructive pulmonary disease, unspecified Status: Chronic Plan: - Cont. Duonebs Q4H WA and Q2H PRN - Pt does not have any wheezing on examination - With pneumonia he may have a flare of his COPD so will watch closely as he may need steroids added to his regimen (7) Hypertension ICD Codes: I10 - Essential (primary) hypertension Status: Chronic Plan: - Clonidine PRN - Vasotec PRN (8) CKD (chronic kidney disease) stage 3, GFR 30-59 ml/min ICD Codes: N18.3 - Chronic kidney disease, stage 3 (moderate) Status: Chronic Plan: - Labs are stable (9) Diabetes mellitus type 2, noninsulin dependent ICD Codes: E11.9 - Type 2 diabetes mellitus without complications Status: Chronic Plan: - OHA on hold - NovoLog SSI - Pts BS elevated today likely related to receiving Solu-Medrol in the ED last night - Give one time NovoLog 20 units now and monitor closely Assessment and Plan Patient examined. Assessment and plan formulated with Judy Hernández PA-C. I agree with the above. Problem Qualifiers (1) Pneumonia: Qualified Codes: J18.9 - Pneumonia, unspecified organism (2) CHF (congestive heart failure): Qualified Codes: I50.30 - Unspecified diastolic (congestive) heart failure Judy Hernández Apr 06, 2017 12:28 Song Camarena DO Apr 07, 2017 22:56
[2017-04-06] MEDS ORDERED: GLUCAGON 1 MG/ML VIAL OTHER PRN (13:30)
[2017-04-06] MEDS ORDERED: DEXTROSE 50% IN WATER 50 ML VIAL(D50) IV PUSH PRN (13:30)
[2017-04-06] MEDS ORDERED: INSULIN ASPART 1,000 UNITS/10 ML VIAL SQ ONE (14:00)
[2017-04-06] MEDS ORDERED: cefTRIAXone INJ 1,000 MG in SODIUM CHLORIDE 0.9% INJ 100 ML IV SCH (14:00)
[2017-04-06] MEDS ORDERED: FUROSEMIDE 40 MG/4 ML VIAL IV PUSH ONE (14:15)
[2017-04-06] MEDS: PANTOPRAZOLE SODIUM 40 MG VIAL IV PUSH SCH (14:30)
[2017-04-06 15:58] LABS: CREATINE KINASE 156 U/L (39-308)
[2017-04-06 16:26] LABS: CKMB 5.7 NG/ML (0.5-3.6)
[2017-04-06] MEDS: INSULIN ASPART SUPPLEMENTAL SCALE SQ SCH ×2 (17:00→21:21)
[2017-04-06] MEDS ORDERED: INSULIN ASPART SUPPLEMENTAL SCALE SQ SCH (17:00)
--- NOTE | 2017-04-06 20:41 | MB ---
cc: RA LOPEZ DATE OF CONSULTATION 04/06/[address] Song Camarena REASON FOR CONSULTATION Evaluation for lung infiltrate HISTORY OF PRESENT ILLNESS Mr. Bowers is a pleasant 76-year-old male with history of non-small cell carcinoma of the lung with neuroendocrine features stage III-A. The patient is being treated with chemotherapy and then he received radiation therapy. He has not been feeling well over the last four days of so. He was feeling extremely weak and did not have any fever or chills. No night sweats. He did cough up some blood, also had some nosebleed. He is on Pradaxa. He did not have any fever, no chest pain. No nausea or vomiting. The patient was evaluated in the emergency room. He had a CT scan of the chest done which shows he has advanced pulmonary fibrosis, overlying interstitial prominence and peribronchial consolidation, possible acute pulmonary edema. His CBC showed WBC count 10.8, hemoglobin 9.7, hematocrit 28.6, MCV 103, platelet count 203, sodium 139, potassium 4.9, chloride 108, CO2 19, BUN 30, creatinine 1.31, BNP 36. Blood cultures so far are negative. PAST MEDICAL HISTORY 1. History of non-small cell carcinoma of the lung with endocrine feature. He could not tolerate chemotherapy. He has received radiation treatment. 2. History of CA of the lung 3. History of interstitial lung disease. 4. History of diverticulitis, 5. Colon resection, 6. Splenectomy, 7. Appendectomy 8. Subphrenic abscess. MEDICATIONS Currently 1. Rocephin 1 gram a day. 2. Zithromax 250 mg a day. 3. Lexapro 10 mg a day. 4. Megace 400 mg twice a day 5. Pradaxa 150 mg twice a day 6. Albuterol/Atrovent nebulizer treatment. 7. Clonidine 0.1 mg p.r.n. ALLERGIES AMLODIPINE ATORVASTATIN PRAVASTATIN SIMVASTATIN SOCIAL HISTORY He has history of smoking for 35 years or so, quit 20 years ago. Drinks socially. FAMILY HISTORY He worked for [employer] . FAMILY HISTORY . He has five children. REVIEW OF SYSTEMS Feels very weak and tired, has lost weight. No fevers. No nausea, no vomiting. PHYSICAL EXAMINATION GENERAL: An elderly male not in acute distress. VITAL SIGNS: Blood pressure 124/58, heart rate 115, respiration 18, temperature 98.4. HEENT: Pupils are equal and react to light. Oral mucosa and nasal mucosa normal. NECK: Supple. JVD is not raised. CHEST: Equal bilateral. He has inspiratory rales. CARDIOVASCULAR: S1, S2 normal. ABDOMEN: Soft, nondistended. Bowel sounds are present. EXTREMITIES: No edema. IMPRESSION 1. Extreme shortness of breath and weakness Which is significantly improved. 2. interstitial infiltrate likely from the patient's fibrosis with worsening. Doubt acute infiltrate. He has no fever. No leukocytosis. 3. Chronic obstructive pulmonary disease 4. History of CA of the lung. 5. History of subphrenic abscess. 6. History of splenectomy. PLAN I discussed with the patient and his we will empirically treat him with antibiotic, doubt he has any congestive heart failure. His BNP is only 36, supplement his oxygen. Continue aerosol treatment. Monitor his blood pressure. Further treatment will depend on the course in the hospital. Thank you, Dr. Camarena, for this consultation. MD ABHIJEET Cerda/ /7:56 PM /8:12 PM BERTIN
--- NOTE | 2017-04-06 21:47 | EKG ---
Date Performed: 04/06/2017 Time Performed: 15:44:47 PTAGE: 76 years EKG: SINUS TACHYCARDIA MARKED LEFT AXIS DEVIATION MODERATE VOLTAGE CRITERIA FOR LVH, CONSIDER NO RMAL VARIANT NONSPECIFIC ST & T-WAVE ABNORMALITY ABNORMAL ECG PREVIOUS TRACING : 04/05/2017 11.11 Compared to prior tracing no significant change DOCTOR: Jeannine Olmedo Interpretating Date/Time 04/06/2017 21:46:31
[2017-04-06] MEDS: LATANOPROST 0.005% OPHT SOLN 2.5 ML BTL EACH EYE SCH (23:14)
[2017-04-07] VITALS (10 sets, daily range): BP systolic 120–154; BP diastolic 56–74; PULSE 105–132; RESP 17–24; TEMP 97.7–98.2; O2SAT 89–96
--- NOTE | 2017-04-07 05:39 | RADRPT ---
EXAM DATE/TIME: 04/07/2017 04:40 [facility] COMPARISON: CHEST SINGLE AP, April 06, 2017, 5:39. INDICATIONS : Shortness of breath. Abnormal chest CT demonstrating pulmonary fibrosis as well as interstitial promi nence. MEDICAL HISTORY : Myocardial infarction. Chronic obstructive pulmonary disease. Cardiovascular disease. Hypertensi on. Carcinoma, lung. CHF, Diabetes SURGICAL HISTORY : Coronary artery stent. infusaport ENCOUNTER: Subsequent ACUITY: 4 - 6 days PAIN SCORE: 0/10 LOCATION: Bilateral chest FINDINGS: A single AP erect portable view of the chest demonstrates the lungs to be symmetrically aerated witho ut evidence of mass or effusion. The left sided central venous line remains in place. Coarse intersti tial opacities are present in the perihilar regions and both lung bases. The heart size appears mildl y prominent.. Osseous structures are intact. CONCLUSION: 1. Coarse interstitial opacities again noted in the perihilar regions and both lung bases with an eric earance most consistent with fibrosis and scarring. This not appear significant change. 2. Apparent mild immediately. Jermaine Palacio MD on April 07, 2017 at 5:36 Board Certified Radiologist. This report was verified electronically.
[2017-04-07] MEDS: ESCITALOPRAM OXALATE 10 MG TAB PO SCH (08:31)
[2017-04-07] MEDS: DABIGATRAN ETEXILATE 150 MG CAP PO SCH ×2 (08:31→21:00)
[2017-04-07] MEDS: MEGESTROL ACETATE SUSP 400 MG/10 ML CUP PO SCH ×2 (08:31→21:09)
[2017-04-07] MEDS: AZITHROMYCIN 250 MG TAB PO SCH (08:31)
[2017-04-07] MEDS: PANTOPRAZOLE SODIUM 40 MG VIAL IV PUSH SCH (08:32)
[2017-04-07] MEDS: INSULIN ASPART SUPPLEMENTAL SCALE SQ SCH ×4 (08:33→20:24)
[2017-04-07] MEDS: BRIMONIDINE TARTRATE 0.2% OPHT SOLN 5 ML BTL EACH EYE SCH ×2 (08:34→21:00)
[2017-04-07] MEDS: RESP: ALBUTEROL 2.5 MG/IPRATROPIUM 0.5 MG NEB (SCH) NEB ×4 (08:41→20:01)
[2017-04-07] MEDS: SODIUM CHLORIDE 0.9% FLUSH 10 ML FLUSH IV FLUSH SCH ×2 (09:00→21:08)
[2017-04-07 09:19] LABS: AUTOMATED NEUTROPHIL # 15.1 TH/MM3 (1.8-7.7); BASOPHIL # 0.1 TH/MM3 (0-0.2); BASOPHIL % 0.3 % (0.0-2.0); HEMATOCRIT 28.2 % (39.0-51.0); LYMPH % 5.6 % (9.0-44.0); MEAN CELL VOLUME 104.2 FL (80.0-100.0); MEAN CORPUSCULAR HEMOGLOBIN 34.3 PG (27.0-34.0); MEAN CORPUSCULAR HGB CONC 32.9 % (32.0-36.0); MONO % 6.8 % (0.0-8.0); NEUT % 87.3 % (16.0-70.0); PLATELET COUNT 191 TH/MM3 (150-450); RED CELL DISTRIBUTION WIDTH 17.8 % (11.6-17.2); WHITE BLOOD COUNT 17.3 TH/MM3 (4.0-11.0)
[2017-04-07 09:21] LABS: HEMO FLAGS AUTO DIFF
[2017-04-07 10:11] LABS: BANDS 13 % (0-6); CORRECTED NUCLEATED RBC 1 /100 WBC (0-0); NEUTROPHIL # MANUAL DIFF 16.3 TH/MM3 (1.8-7.7); POLYS (SEG NEUTROPHILS) 81 % (16-70); WBC DIFF SAMPLE 100
[2017-04-07 10:13] LABS: ACANTHOCYTES OCC (NORMAL); HOWELL-JOLLY BODIES PRESENT (NONE SEEN); OVALOCYTES 1+ (NORMAL)
[2017-04-07 10:14] LABS: TOXIC GRANULATION 1+ (NORMAL); TOXIC VACUOLATION PRESENT (NONE SEEN)
[2017-04-07 10:15] LABS: PLATELET ESTIMATE SMEAR NORMAL (NORMAL); PLATELET MORPHOLOGY NORMAL (NORMAL); SCAN/DIFF FINAL DIFF MANUAL
--- NOTE | 2017-04-07 10:44 | HHI.PR ---
Subjective Remarks Patient feels more SOB today requiring simple mask Continues to be afebrile with minimal cough Objective Vitals Vital Signs Date Time Temp Pulse Resp B/P (MAP) Pulse Ox O2 Delivery O2 Flow Rate FiO2 04/07/17 09:34 98.2 132 24 132/69 (90) 89 04/07/17 09:03 90 Simple Mask 12.00 04/07/17 04:00 98.0 105 18 154/72 (99) 92 04/07/17 00:00 98.0 110 18 129/74 (92) 96 04/06/17 20:13 90 Nasal Cannula 6.00 04/06/17 20:00 98.0 107 18 127/60 (82) 90 04/06/17 16:00 98.1 115 18 124/58 (80) 91 04/06/17 12:00 97.3 107 18 133/64 (87) 95 04/07/17 04/07/17 04/08/17 15:00 23:00 07:00 # Voids 3 Result Diagram: 04/07/17 0859 04/06/17 0528 Other Results Laboratory Tests Test 04/05/17 11:00 04/05/17 12:05 04/06/17 05:28 04/06/17 15:12 White Blood Count 12.2 TH/MM3 10.8 TH/MM3 Red Blood Count 3.11 MIL/MM3 2.77 MIL/MM3 Hemoglobin 10.7 GM/DL 9.7 GM/DL Hematocrit 32.4 % 28.6 % Mean Corpuscular Volume 104.4 FL 103.4 FL Mean Corpuscular Hemoglobin 34.6 PG 34.9 PG Mean Corpuscular Hemoglobin Concent 33.1 % 33.8 % Red Cell Distribution Width 18.1 % 17.5 % Platelet Count 210 TH/MM3 203 TH/MM3 Mean Platelet Volume 8.7 FL 8.6 FL Neutrophils (%) (Auto) 83.3 % 92.0 % Lymphocytes (%) (Auto) 7.4 % 5.5 % Monocytes (%) (Auto) 7.2 % 1.9 % Eosinophils (%) (Auto) 1.3 % 0.0 % Basophils (%) (Auto) 0.8 % 0.6 % Neutrophils # (Auto) 10.1 TH/MM3 9.9 TH/MM3 Lymphocytes # (Auto) 0.9 TH/MM3 0.6 TH/MM3 Monocytes # (Auto) 0.9 TH/MM3 0.2 TH/MM3 Eosinophils # (Auto) 0.2 TH/MM3 0.0 TH/MM3 Basophils # (Auto) 0.1 TH/MM3 0.1 TH/MM3 CBC Comment AUTO DIFF AUTO DIFF Differential Total Cells Counted 100 100 Neutrophils % (Manual) 70 % 67 % Band Neutrophils % 18 % 19 % Lymphocytes % 5 % 9 % Monocytes % 6 % 5 % Neutrophils # (Manual) 10.9 TH/MM3 9.3 TH/MM3 Myelocytes 1 % Nucleated Red Blood Cells 1 /100 WBC 1 /100 WBC Differential Comment FINAL DIFF MANUAL FINAL DIFF MANUAL Platelet Estimate NORMAL NORMAL Platelet Morphology Comment NORMAL NORMAL Prothrombin Time 13.9 SEC Prothromb Time International Ratio 1.4 RATIO Activated Partial Thromboplast Time 54.8 SEC Blood Urea Nitrogen 24 MG/DL 30 MG/DL Creatinine 1.04 MG/DL 1.31 MG/DL Random Glucose 163 MG/DL 350 MG/DL Total Protein 7.0 GM/DL Albumin 2.3 GM/DL Calcium Level 9.2 MG/DL 8.6 MG/DL Magnesium Level 1.7 MG/DL Alkaline Phosphatase 76 U/L Aspartate Amino Transf (AST/SGOT) 14 U/L Alanine Aminotransferase (ALT/SGPT) 10 U/L Total Bilirubin 0.6 MG/DL Sodium Level 142 MEQ/L 139 MEQ/L Potassium Level 4.1 MEQ/L 4.9 MEQ/L Chloride Level 111 MEQ/L 108 MEQ/L Carbon Dioxide Level 19.3 MEQ/L 19.2 MEQ/L Anion Gap 12 MEQ/L 12 MEQ/L Estimat Glomerular Filtration Rate 69 ML/MIN 53 ML/MIN Total Creatine Kinase 60 U/L 156 U/L Troponin I 0.02 NG/ML 0.55 NG/ML B-Type Natriuretic Peptide 36 PG/ML Urine Color YELLOW Urine Turbidity CLEAR Urine pH 5.5 Urine Specific Becker 1.019 Urine Protein 30 mg/dL Urine Glucose (UA) NEG mg/dL Urine Ketones NEG mg/dL Urine Occult Blood TRACE Urine Nitrite NEG Urine Bilirubin NEG Urine Urobilinogen LESS THAN 2.0 MG/DL Urine Leukocyte Esterase NEG Urine RBC 2 /hpf Urine WBC 1 /hpf Urine Transitional Epithelial Cells <1 /hpf Urine Hyaline Casts 4 /lpf Urine Mucus FEW /lpf Microscopic Urinalysis Comment CULT NOT INDICATED Polychromasia 2.2 % Basophilic Stippling FAINT Ovalocytes 1+ Creatine Kinase MB 5.7 NG/ML Test 04/07/17 08:59 White Blood Count 17.3 TH/MM3 Red Blood Count 2.70 MIL/MM3 Hemoglobin 9.3 GM/DL Hematocrit 28.2 % Mean Corpuscular Volume 104.2 FL Mean Corpuscular Hemoglobin 34.3 PG Mean Corpuscular Hemoglobin Concent 32.9 % Red Cell Distribution Width 17.8 % Platelet Count 191 TH/MM3 Mean Platelet Volume 8.8 FL Neutrophils (%) (Auto) 87.3 % Lymphocytes (%) (Auto) 5.6 % Monocytes (%) (Auto) 6.8 % Eosinophils (%) (Auto) 0.0 % Basophils (%) (Auto) 0.3 % Neutrophils # (Auto) 15.1 TH/MM3 Lymphocytes # (Auto) 1.0 TH/MM3 Monocytes # (Auto) 1.2 TH/MM3 Eosinophils # (Auto) 0.0 TH/MM3 Basophils # (Auto) 0.1 TH/MM3 CBC Comment AUTO DIFF Differential Total Cells Counted 100 Neutrophils % (Manual) 81 % Band Neutrophils % 13 % Lymphocytes % 3 % Monocytes % 3 % Neutrophils # (Manual) 16.3 TH/MM3 Nucleated Red Blood Cells 1 /100 WBC Differential Comment FINAL DIFF MANUAL Toxic Granulation 1+ Toxic Vacuolation PRESENT Platelet Estimate NORMAL Platelet Morphology Comment NORMAL Ovalocytes 1+ [place] Bodies PRESENT Acanthocytes OCC Imaging Last Impressions Chest X-Ray 04/06/17 0600 Signed Impressions: Service Date/Time: Thursday, April 06, 2017 05:39 - CONCLUSION: 1. Stable bilateral lower lung zone interstitial opacities. Differential considerations include interstitial edema versus interstitial pneumonia. 2. No significant interval change. Parviz Keys MD Chest CT 04/06/17 0000 Signed Impressions: Service Date/Time: Thursday, April 06, 2017 09:25 - CONCLUSION: 1. Advanced pulmonary fibrosis. 2. Overlying interstitial prominence and peribronchial consolidation representing either pulmonary edema or acute pneumonitis. 3. No other significant change. Leonardo Vaca MD Last Impressions Chest X-Ray 04/05/17 1119 Signed Impressions: Service Date/Time: Wednesday, April 05, 2017 11:37 - CONCLUSION: Background emphysema with new bilateral lower lung zone interstitial opacities bilaterally. Zion Owusu MD CT Thorax with contrast (03/22/17) - Stable CT appearance of the chest. No definite evidence of local recurrence or metastatic disease. - Lungs with emphysema and patchy fibrotic parenchymal changes stable with mild consolidative fibrotic change in the right retrohilar region at site of previous mass. No evidence of significant residual mass density. 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 Pt then received XRT which he completed in January 2017. Pt follows with Dr. Osorio. - He was last seen by Dr. Osorio in 03/2017 and he had a CT Thorax prior to that visit which noted post treatment changes in the right lung with significant emphysematous changes, however, there is no mass or adenopathy noted. - Pt presented [facility] the ED at [facility] [place] with complaints of weakness, dizziness, shortness of breath with exertion, hemoptysis and epistaxis that began around 4-5 days ago. He denies any fevers or chills at home. His dyspnea on exertion seemed to worsen over the last day or so and this prompted his evaluation in the ED. - Family reports that he is on 2L of supplemental O2 at home. - In the ED his O2 sats were 94% on 4L of supplemental O2. - CXR in the ED noted emphysema with new bilateral lower lung zone interstitial opacities bilaterally. - Pt was given Duoneb treatments and Budesonide nebs in the ED. - He was given a dose of Solu-Medrol 125mg x one dose in the ED as well as Azithromycin and Rocephin - We will continued the Abx. - Cont. Duonebs Q4H WA - Blood cultures drawn with NGTD - CXR (04/06) --> Stable bilateral lower lung zone interstitial opacities. Differential considerations include interstitial edema versus interstitial pneumonia. No significant interval change. - Pts O2 requirements increased to 6L overnight and this morning - Chest CT (04/06/17) --> Advanced pulmonary fibrosis. Overlying interstitial prominence and peribronchial consolidation representing either pulmonary edema or acute pneumonitis. No other significant change. - It unclear if this is a true pneumonia/pneumonitis vs pulmonary edema vs. other, as he has not had any improvement with treatment for pneumonia and in fact is requiring more supplemental O2 - We will give one dose of Lasix 40mg IV and monitor closely for changes in clinical status. - Supplemental O2 - Supportive care - Pt is on Pradaxa, H/H is decreased to 9.7/28.6, Repeat (04/07) 9.3 - respiratory status not improving with current regiment, will DC azithromycin and Rocephin start Zosyn - concern that patient's advance pulmonary fibrosis is contributing will start solumedrol 125 mg now then 60 mg Q6H - discussed with Dr. Davis (2) Hemoptysis ICD Codes: R04.2 - Hemoptysis Status: Acute Plan: - See above (3) CHF (congestive heart failure) ICD Codes: I50.9 - Heart failure, unspecified Status: Chronic Plan: - 2D echo (09/03/16) - Mild LVH - Estimated EF 55-60% - Grade 1 diastolic dysfunction - PA pressure 39mmHg - Suspect the pt has some degree of volume overload - 04/06 Lasix 40mg IV x one with no clinical improvement - BNP 36 (4) Non-small cell cancer of right lung ICD Codes: C34.91 - Malignant neoplasm of unspecified part of right bronchus or lung Status: Chronic Plan: - See above (5) Weakness generalized ICD Codes: R53.1 - Weakness Status: Chronic Plan: - See above (6) COPD (chronic obstructive pulmonary disease) ICD Codes: J44.9 - Chronic obstructive pulmonary disease, unspecified Status: Chronic Plan: - Cont. Duonebs Q4H WA and Q2H PRN - Pt does not have any wheezing on examination - With pneumonia he may have a flare of his COPD and advanced Pulmonary fibrosis - will start solumedrol - see above (7) Hypertension ICD Codes: I10 - Essential (primary) hypertension Status: Chronic Plan: - Clonidine PRN - Vasotec PRN (8) CKD (chronic kidney disease) stage 3, GFR 30-59 ml/min ICD Codes: N18.3 - Chronic kidney disease, stage 3 (moderate) Status: Chronic Plan: - Labs are stable (9) Diabetes mellitus type 2, noninsulin dependent ICD Codes: E11.9 - Type 2 diabetes mellitus without complications Status: Chronic Plan: - OHA on hold - NovoLog SSI - Pts BS elevated today likely related to receiving Solu-Medrol in the ED last night - Give one time NovoLog 20 units now and monitor closely (10) Elevated troponin ICD Codes: R74.8 - Abnormal levels of other serum enzymes Plan: Patient reports 45 mins of burn type midsternal chest pain 04/06. Patient denies associated radiation, diaphoresis, nausea or vomiting. Patient does have a history of CAD with AL in the past troponin 0.55 patient no longer having chest pain elevated troponin maybe demand related will trend serial troponin and repeat EKG EKG 04/07/17 reviewed and reveals: SR rate 111 with left axis deviation, no acute ST changes noted repeat troponin (04/07) 10.5- consult placed to Dr. Mejia also Dr. Camarena discussed the case with Dr. Mejia, who will come to see the patient Assessment and Plan Patient examined. Assessment and plan formulated with Sumaya Barber PA-C. I agree with the above. Case d/w Pulm Med, Dr. Davis. Pt started on IV solumedrol Abx changed to zosyn. Troponin elevated. Case d/w Dr. Mejia. Pradaxa stopped. Pt started on imdur await echocardiogram [facility] on 04/09/17 Problem Qualifiers (1) Pneumonia: Qualified Codes: J18.9 - Pneumonia, unspecified organism (2) CHF (congestive heart failure): Qualified Codes: I50.30 - Unspecified diastolic (congestive) heart failure Sumaya Barber Apr 07, 2017 10:44 Song Camarena DO Apr 07, 2017 22:58
[2017-04-07] MEDS ORDERED: methylPREDNISolone SOD SUCC 125 MG/2 ML VIAL IV PUSH ONE (11:15)
[2017-04-07] MEDS: PIPERACIL-TAZO 3.375 GM PREMIX 50 ML IV SCH ×3 (12:04→22:54)
[2017-04-07 13:23] LABS: BICARBONATE 21.7 MEQ/L (21.0-32.0); MAGNESIUM 1.9 MG/DL (1.5-2.5); POTASSIUM 4.2 MEQ/L (3.5-5.1)
--- NOTE | 2017-04-07 15:06 | MB ---
cc: JENNIFER MILLS DATE OF CONSULTATION: 04/07/2017 INDICATION [id number] TN. HISTORY OF PRESENT ILLNESS This is a 76-year-old gentleman who has a history of non-small cell carcinoma of the lung with neuroendocrine features which is stage IIIA. The patient is currently on chemotherapy and radiation therapy. He has a history of advanced pulmonary fibrosis, progressive shortness of breath. Over the course of the past month or so he has had progressive weakness and shortness of breath which is worse than baseline. Yesterday he states he had an episode of some chest burning which lasted about an hour shortly after his albuterol treatment. He does not recall what his prior anginal symptoms were but does state that this was uncharacteristic for him to have that pain. His initial troponin was borderline elevated but followup troponin today came back at greater than 10. He states he has a history of coronary disease with prior percutaneous intervention but that was many years ago. He is currently on Pradaxa and he is in mild distress with shortness of breath. PAST MEDICAL HISTORY 1. Non-small cell lung cancer. 2. Interstitial lung disease. 3. Diverticulitis. 4. Colon resection. 5. Splenectomy. 6. Appendectomy. 7. Subphrenic abscess. 8. Coronary disease. 9. Prior percutaneous intervention. ALLERGIES AMLODIPINE, ATORVASTATIN, PRAVASTATIN, SIMVASTATIN. MEDICATION See med reconciliation. SOCIAL HISTORY Smoked 35-years but quit about 20 years ago. Occasional alcohol use. FAMILY HISTORY Denies any family history of early coronary artery disease, sudden cardiac . REVIEW OF SYSTEMS A 12-point review of systems was performed and negative unless otherwise noted in the history of present illness. PHYSICAL EXAMINATION VITAL SIGNS: Temperature 98, pulse is 105-132 beats per minute, blood pressure 132/69 mmHg. GENERAL: He is alert, mild distress with just shortness of breath, slightly worse than baseline. There is no significant elevation in jugular venous distension, although he is lying supine. HEENT: Pupils are reactive to light and accommodation. Extraocular movements are intact. NECK: No carotid bruits. LUNGS: Clear to auscultation bilaterally with decreased breath sounds throughout. End-expiratory wheeze. CARDIOVASCULAR: Tachycardic. Distant heart sounds. ABDOMEN: Nontender, nondistended. Good bowel sounds. No hepatosplenomegaly. EXTREMITIES: No clubbing, cyanosis or edema. Good peripheral pulses. Cranial nerves intact. Motor, sensory grossly intact. EKG From 04/07 at 12:05 p.m. shows sinus tachycardia, left axis deviation, no significant ST-T wave changes. LABORATORY DATA WBC 17.3, hemoglobin is 9.3, platelet count 191, INR 1.4. Sodium 142, potassium 4.2, BUN 35, creatinine is 1.21, troponin 0.55, up now to 10.50. ASSESSMENT 1. Elc-EN-dmhtroopc TN. 2. Lung cancer. 3. Pulmonary fibrosis. PLAN I had a lengthy discussion with the patient his symptoms yesterday with substernal chest tightness and burning for about an hour, is likely his angina. His troponin is quite elevated compared to his presentation. Electrocardiogram though is unremarkable. He has prior history of known coronary artery disease, prior percutaneous intervention. We had discussion about consideration of conservative management approach given his comorbidities versus an invasive strategy with heart catheterization. He is inclined actually to proceed forward with a heart cath due to his progressive weakness and worsening shortness of breath at baseline. He does have some chronic kidney disease and addition to he is receiving Pradaxa and he is actively short of breath and unlikely he would tolerate a heart catheterization in the immediate near future. At this point we will see if we can try to optimize his breathing and hold his Pradaxa and then on the next 48 hours if he is symptomatically improved where he would be able to tolerate an invasive procedure, then we would consider doing a heart cath maybe on Wednesday. If after family discussions he feels it is more appropriate for conservative management approach, we can try adding a long-acting nitrate and he is statin intolerant and would not tolerate beta johnathon given his wheezing. We will order 2-D echocardiogram to determine ejection fraction and/or any regional wall motion abnormalities. MD JUAN JOSE Queen/SRUTHI /2:10 PM /2:35 PM
[2017-04-07] MEDS: methylPREDNISolone SOD SUCC 125 MG/2 ML VIAL IV PUSH SCH ×2 (17:51→22:54)
--- NOTE | 2017-04-07 19:05 | HHI.PR ---
Subjective Remarks 76 YOWM with PF,COPD, worsening sob Had worsening hypoxia, was on VM, weaned to NC Has increased Troponin Cardiology planning cath [facility] Objective Vital Signs Vital Signs Date Time Temp Pulse Resp B/P (MAP) Pulse Ox O2 Delivery O2 Flow Rate FiO2 04/07/17 16:27 90 Nasal Cannula 6.00 04/07/17 16:00 97.7 106 17 139/71 (93) 89 04/07/17 12:45 97.7 113 17 120/56 (77) 90 04/07/17 09:34 98.2 132 24 132/69 (90) 89 04/07/17 09:03 90 Simple Mask 12.00 04/07/17 04:00 98.0 105 18 154/72 (99) 92 04/07/17 00:00 98.0 110 18 129/74 (92) 96 04/06/17 20:13 90 Nasal Cannula 6.00 04/06/17 20:00 98.0 107 18 127/60 (82) 90 I/O 04/06/17 04/06/17 04/06/17 04/07/17 04/07/17 04/07/17 07:00 15:00 23:00 07:00 15:00 23:00 Intake Total 240 ml 480 ml 720 ml Output Total 200 ml 600 ml Balance 40 ml 480 ml 120 ml Intake Oral 240 ml 480 ml 720 ml Output Urine Total 200 ml 600 ml # Voids 3 5 3 Result Diagram: 04/07/17 0859 04/07/17 1211 Objective Remarks GENERAL: WBWN WM, mild sob SKIN: Warm and dry. HEAD: Normocephalic. EYES: No scleral icterus. No injection or drainage. NECK: Supple, trachea midline. No JVD or lymphadenopathy. CARDIOVASCULAR: Regular rate and rhythm without murmurs, gallops, or rubs. RESPIRATORY: Breath sounds equal bilaterally. No accessory muscle use. Insp rales GASTROINTESTINAL: Abdomen soft, non-tender, nondistended. MUSCULOSKELETAL: No cyanosis, or edema. BACK: Nontender without obvious deformity. No CVA tenderness. A/P Assessment and Plan Worsening dysnoea and infilt prob exac of PF NST-AL hypoxia COPD CAD JOHN: IV Solumedrol Cont Abx Supplement 02 Aerosol nebs Plans for cardiac cath AMBROSE pt and his Marshall Davis MD Apr 07, 2017 19:05
[2017-04-07] MEDS: LATANOPROST 0.005% OPHT SOLN 2.5 ML BTL EACH EYE SCH (21:08)
[2017-04-07] MEDS ORDERED: GLUCAGON 1 MG/ML VIAL OTHER PRN (21:45)
[2017-04-07] MEDS ORDERED: PLEASE DISCONTINUE PREVIOUS SUPPLEMENTAL SCALE INSULIN ORDERS ONE (21:45)
[2017-04-07] MEDS ORDERED: DEXTROSE 50% IN WATER 50 ML VIAL(D50) IV PUSH PRN (21:45)
[2017-04-07] MEDS: HIGH DOSE INSULIN NOVOLOG SUPPLEMENTAL SCALE SQ SCH (21:55)
[2017-04-08] VITALS (9 sets, daily range): BP systolic 101–163; BP diastolic 51–83; PULSE 92–108; RESP 16–20; TEMP 97.2–99; O2SAT 85–98
[2017-04-08] MEDS: SODIUM CHLORIDE 0.9% FLUSH 10 ML FLUSH IV FLUSH SCH ×2 (00:36→08:50)
[2017-04-08] MEDS: PIPERACIL-TAZO 3.375 GM PREMIX 50 ML IV SCH ×3 (04:46→17:22)
[2017-04-08] MEDS: methylPREDNISolone SOD SUCC 125 MG/2 ML VIAL IV PUSH SCH ×3 (04:47→17:21)
[2017-04-08] MEDS: SODIUM CHLORIDE 0.9% FLUSH 10 ML FLUSH IV FLUSH PRN (04:47)
[2017-04-08] MEDS: ISOSORBIDE MONONITRATE 60 MG TAB PO SCH (06:26)
--- NOTE | 2017-04-08 07:52 | PD.CARD.PN ---
Subjective Subjective Remarks No chest pain. Breathing normally at rest. Still interested in cath. Pradaxa held last night. Objective Medications Current Medications Medications (Trade) Dose Ordered Sig/Ronaldo Route Start Time Stop Time Status Last Admin (NS Flush) 2 ml UNSCH PRN IV FLUSH 04/05/17 14:00 04/08/17 04:47 (NS Flush) 2 ml BID IV FLUSH 04/05/17 21:00 04/07/17 21:08 (Tylenol) 650 mg Q4H PRN PO 04/05/17 14:00 (Zofran Inj) 4 mg Q6H PRN IVP 04/05/17 14:00 (Narcan Inj) 0.4 mg UNSCH PRN IV PUSH 04/05/17 14:00 (Milk Of Magnesia Liq) 30 ml Q12H PRN PO 04/05/17 14:00 (Alphagan 0.2% Opth Soln) 1 drop BID EACH EYE 04/05/17 21:00 (Lexapro) 10 mg DAILY PO 04/06/17 09:00 04/07/17 08:31 (Xalatan 0.005% Opth Soln) 1 drop HS EACH EYE 04/05/17 21:00 04/07/17 21:08 (Megace Liq) 400 mg BID PO 04/05/17 21:00 04/07/17 21:09 (Restoril) 15 mg HS PRN PO 04/05/17 14:15 (Pradaxa) 150 mg BID PO 04/05/17 21:00 04/07/17 08:31 (Duoneb Neb) 1 ampule Q4HR WHILE AWAKE NEB NEB 04/05/17 20:00 04/07/17 20:01 (Duoneb Neb) 1 ampule Q2HR NEB PRN NEB 04/05/17 17:45 04/06/17 04:57 (Catapres) 0.1 mg Q6H PRN PO 04/05/17 17:45 (Vasotec Inj) 1.25 mg Q6H PRN IV PUSH 04/05/17 17:45 (Protonix Inj) 40 mg DAILY IV PUSH 04/06/17 14:30 04/07/17 08:32 Piperacillin Sod/ Tazobactam Sod 50 ml @ 100 mls/hr Q6H IV 04/07/17 12:00 04/08/17 04:46 (SoluMEDROL INJ) 60 mg Q6HR IV PUSH 04/07/17 18:00 04/08/17 04:47 (Imdur) 60 mg DAILY@07 PO 04/08/17 07:00 04/08/17 06:26 (D50w (Vial) Inj) 50 ml UNSCH PRN IV PUSH 04/07/17 21:45 (Glucagon Inj) 1 mg UNSCH PRN OTHER 04/07/17 21:45 (NovoLOG SUPPLEMENTAL SCALE) 1 ACHS SLIDING SCALE SQ 04/07/17 21:44 04/07/17 21:55 Vital Signs / I&O Vital Signs Date Time Temp Pulse Resp B/P (MAP) Pulse Ox O2 Delivery O2 Flow Rate FiO2 04/08/17 05:29 97.6 101 18 163/72 (102) 98 04/08/17 01:24 99.0 100 18 150/65 (93) 92 04/07/17 21:01 98.0 105 18 142/65 (90) 89 04/07/17 20:19 91 Nasal Cannula 6.00 04/07/17 16:27 90 Nasal Cannula 6.00 04/07/17 16:00 97.7 106 17 139/71 (93) 89 04/07/17 14:00 108 04/07/17 12:45 97.7 113 17 120/56 (77) 90 04/07/17 09:34 98.2 132 24 132/69 (90) 89 04/07/17 09:03 90 Simple Mask 12.00 I/O 04/07/17 04/07/17 04/07/17 04/08/17 04/08/17 04/08/17 07:00 15:00 23:00 07:00 15:00 23:00 Intake Total 720 ml Output Total 600 ml 800 ml Balance 120 ml -800 ml Intake Oral 720 ml Output Urine Total 600 ml 800 ml # Voids 3 Physical Exam Lungs clear RRR Laboratory Laboratory Tests Test 04/07/17 08:59 04/07/17 12:11 04/07/17 17:46 04/08/17 06:30 White Blood Count 17.3 TH/MM3 Red Blood Count 2.70 MIL/MM3 Hemoglobin 9.3 GM/DL Hematocrit 28.2 % Mean Corpuscular Volume 104.2 FL Mean Corpuscular Hemoglobin 34.3 PG Mean Corpuscular Hemoglobin Concent 32.9 % Red Cell Distribution Width 17.8 % Platelet Count 191 TH/MM3 Mean Platelet Volume 8.8 FL Neutrophils (%) (Auto) 87.3 % Lymphocytes (%) (Auto) 5.6 % Monocytes (%) (Auto) 6.8 % Eosinophils (%) (Auto) 0.0 % Basophils (%) (Auto) 0.3 % Neutrophils # (Auto) 15.1 TH/MM3 Lymphocytes # (Auto) 1.0 TH/MM3 Monocytes # (Auto) 1.2 TH/MM3 Eosinophils # (Auto) 0.0 TH/MM3 Basophils # (Auto) 0.1 TH/MM3 CBC Comment AUTO DIFF Differential Total Cells Counted 100 Neutrophils % (Manual) 81 % Band Neutrophils % 13 % Lymphocytes % 3 % Monocytes % 3 % Neutrophils # (Manual) 16.3 TH/MM3 Nucleated Red Blood Cells 1 /100 WBC Differential Comment FINAL DIFF MANUAL Toxic Granulation 1+ Toxic Vacuolation PRESENT Platelet Estimate NORMAL Platelet Morphology Comment NORMAL Ovalocytes 1+ [place] Bodies PRESENT Acanthocytes OCC Blood Urea Nitrogen 35 MG/DL Creatinine 1.21 MG/DL Random Glucose 219 MG/DL Calcium Level 8.8 MG/DL Magnesium Level 1.9 MG/DL Sodium Level 142 MEQ/L Potassium Level 4.2 MEQ/L Chloride Level 110 MEQ/L Carbon Dioxide Level 21.7 MEQ/L Anion Gap 10 MEQ/L Estimat Glomerular Filtration Rate 58 ML/MIN Troponin I 10.50 NG/ML 7.20 NG/ML Assessment and Plan Assessment and Plan Will add metoprolol. Will allow pradaxa to wane and plan cath Wednesday or Wednesday Deondre Barajas MD Apr 08, 2017 07:52
[2017-04-08] MEDS: HIGH DOSE INSULIN NOVOLOG SUPPLEMENTAL SCALE SQ SCH ×2 (08:00→12:00)
[2017-04-08] MEDS: MEGESTROL ACETATE SUSP 400 MG/10 ML CUP PO SCH ×2 (08:43→20:53)
[2017-04-08] MEDS: ESCITALOPRAM OXALATE 10 MG TAB PO SCH (08:45)
[2017-04-08] MEDS: METOPROLOL TARTRATE 25 MG TAB PO SCH ×2 (09:00→20:53)
[2017-04-08] MEDS: BRIMONIDINE TARTRATE 0.2% OPHT SOLN 5 ML BTL EACH EYE SCH (09:00)
[2017-04-08] MEDS: PANTOPRAZOLE SODIUM 40 MG VIAL IV PUSH SCH (09:02)
[2017-04-08] MEDS: RESP: ALBUTEROL 2.5 MG/IPRATROPIUM 0.5 MG NEB (SCH) NEB ×4 (09:21→20:28)
--- NOTE | 2017-04-08 15:02 | HHI.PR ---
Subjective Remarks No new complaints. Somewhat less SOB today. Objective Vitals Vital Signs Date Time Temp Pulse Resp B/P (MAP) Pulse Ox O2 Delivery O2 Flow Rate FiO2 04/08/17 12:00 97.2 96 18 113/56 (75) 90 04/08/17 09:22 88 Nasal Cannula 6.00 04/08/17 08:05 97.9 108 16 148/83 (104) 85 04/08/17 05:29 97.6 101 18 163/72 (102) 98 04/08/17 01:24 99.0 100 18 150/65 (93) 92 04/07/17 21:01 98.0 105 18 142/65 (90) 89 04/07/17 20:19 91 Nasal Cannula 6.00 04/07/17 16:27 90 Nasal Cannula 6.00 04/07/17 16:00 97.7 106 17 139/71 (93) 89 Result Diagram: 04/07/17 0859 04/07/17 1211 Imaging Last Impressions Chest X-Ray 04/06/17 0600 Signed Impressions: Service Date/Time: Thursday, April 06, 2017 05:39 - CONCLUSION: 1. Stable bilateral lower lung zone interstitial opacities. Differential considerations include interstitial edema versus interstitial pneumonia. 2. No significant interval change. Parviz Keys MD Chest CT 04/06/17 0000 Signed Impressions: Service Date/Time: Thursday, April 06, 2017 09:25 - CONCLUSION: 1. Advanced pulmonary fibrosis. 2. Overlying interstitial prominence and peribronchial consolidation representing either pulmonary edema or acute pneumonitis. 3. No other significant change. Leonardo Vaca MD Last Impressions Chest X-Ray 04/05/17 1119 Signed Impressions: Service Date/Time: Wednesday, April 05, 2017 11:37 - CONCLUSION: Background emphysema with new bilateral lower lung zone interstitial opacities bilaterally. Zion Owusu MD CT Thorax with contrast (03/22/17) - Stable CT appearance of the chest. No definite evidence of local recurrence or metastatic disease. - Lungs with emphysema and patchy fibrotic parenchymal changes stable with mild consolidative fibrotic change in the right retrohilar region at site of previous mass. No evidence of significant residual mass density. 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 Pt then received XRT which he completed in January 2017. Pt follows with Dr. Osorio. - He was last seen by Dr. Osorio in 03/2017 and he had a CT Thorax prior to that visit which noted post treatment changes in the right lung with significant emphysematous changes, however, there is no mass or adenopathy noted. - [place] [facility] [place] with complaints of weakness, dizziness, shortness of breath with exertion, hemoptysis and epistaxis that began around 4-5 days ago. He denies any fevers or chills at home. His dyspnea on exertion seemed to worsen over the last day or so and this prompted his evaluation in the ED. - comgmt with Pulm Med and Cardiology - Family reports that he is on 2L of supplemental O2 at home. - In the ED his O2 sats were 94% on 4L of supplemental O2. - CXR in the ED noted emphysema with new bilateral lower lung zone interstitial opacities bilaterally. - Pt was given Duoneb treatments and Budesonide nebs in the ED. - He was given a dose of Solu-Medrol 125mg x one dose in the ED as well as Azithromycin and Rocephin - We will continued the Abx. - Cont. Duonebs Q4H WA - Blood cultures drawn with NGTD - CXR (04/06) --> Stable bilateral lower lung zone interstitial opacities. Differential considerations include interstitial edema versus interstitial pneumonia. No significant interval change. - O2 6L - Chest CT (04/06/17) --> Advanced pulmonary fibrosis. Overlying interstitial prominence and peribronchial consolidation representing either pulmonary edema or acute pneumonitis. No other significant change. - pneumonia now seems less likely, but will continue IV zosyn for now - continue IV solumedrol for pt's Pulm Fibrosis - Pt's troponin was elevated - Cardiology also following [facility] for 04/12/17 - pradaxa on hold - supportive care (2) Hemoptysis ICD Codes: R04.2 - Hemoptysis Status: Acute Plan: - See above (3) CHF (congestive heart failure) ICD Codes: I50.9 - Heart failure, unspecified Status: Chronic Plan: - 2D echo (09/03/16) - Mild LVH - Estimated EF 55-60% - Grade 1 diastolic dysfunction - PA pressure 39mmHg - Suspect the pt has some degree of volume overload - 04/06 Lasix 40mg IV x one with no clinical improvement - BNP 36 (4) Non-small cell cancer of right lung ICD Codes: C34.91 - Malignant neoplasm of unspecified part of right bronchus or lung Status: Chronic Plan: - See above (5) Weakness generalized ICD Codes: R53.1 - Weakness Status: Chronic Plan: - See above (6) COPD (chronic obstructive pulmonary disease) ICD Codes: J44.9 - Chronic obstructive pulmonary disease, unspecified Status: Chronic Plan: - Cont. Duonebs Q4H WA and Q2H PRN - Pt does not have any wheezing on examination - With pneumonia he may have a flare of his COPD and advanced Pulmonary fibrosis - will start solumedrol - see above (7) Hypertension ICD Codes: I10 - Essential (primary) hypertension Status: Chronic Plan: - Clonidine PRN - Vasotec PRN (8) CKD (chronic kidney disease) stage 3, GFR 30-59 ml/min ICD Codes: N18.3 - Chronic kidney disease, stage 3 (moderate) Status: Chronic Plan: - Labs are stable (9) Diabetes mellitus type 2, noninsulin dependent ICD Codes: E11.9 - Type 2 diabetes mellitus without complications Status: Chronic Plan: - OHA on hold - NovoLog SSI - Pts BS elevated today likely related to receiving Solu-Medrol in the ED last night - Give one time NovoLog 20 units now and monitor closely (10) Elevated troponin ICD Codes: R74.8 - Abnormal levels of other serum enzymes Plan: Patient reports 45 mins of burn type midsternal chest pain 04/06. Patient denies associated radiation, diaphoresis, nausea or vomiting. Patient does have a history of CAD with [place] in the past - elevated troponin - BB added, PO NTG - [facility] 04/12/17 - see above Problem Qualifiers (1) Pneumonia: Qualified Codes: J18.9 - Pneumonia, unspecified organism (2) CHF (congestive heart failure): Qualified Codes: I50.30 - Unspecified diastolic (congestive) heart failure Song Camarena DO Apr 08, 2017 15:02
[2017-04-08] MEDS ORDERED: DEXTROSE 50% IN WATER 50 ML VIAL(D50) IV PUSH PRN (15:45)
[2017-04-08] MEDS ORDERED: GLUCAGON 1 MG/ML VIAL OTHER PRN (15:45)
[2017-04-08] MEDS: ENOXAPARIN SODIUM 80 MG/0.8 ML SYRINGE SQ SCH (16:00)
--- NOTE | 2017-04-08 16:24 | EKG ---
Date Performed: 04/07/2017 Time Performed: 12:02:15 PTAGE: 76 years EKG: SINUS TACHYCARDIA MARKED LEFT AXIS DEVIATION VOLTAGE CRITERIA FOR LVH ABNORMAL ECG Since PREVIOUS TRACING , no significant change noted PREVIOUS TRACIN04/06/2017 15.44 DOCTOR: Ian Chan Interpretating Date/Time 04/08/2017 16:23:37
--- NOTE | 2017-04-08 16:24 | EKG ---
Date Performed: 04/08/2017 Time Performed: 04:12:26 PTAGE: 76 years EKG: Sinus rhythm Leftward axis Borderline ECG Since PREVIOUS TRACING , no significant change noted PREVIOUS TRACIN04/07/2017 12.02 DOCTOR: Ian Chan Interpretating Date/Time 04/08/2017 16:23:56
--- NOTE | 2017-04-08 16:36 | ECHRPT ---
Indication: Chest pain, unspecified CONCLUSIONS The left ventricular systolic function is normal with an estimated ejection fraction in the range of 60-65%. Wall thickness is measured at the upper limits of normal. Normal left ventricular size. Mild mitral valve regurgitation. There is a small pericardial effusion present.The left ventricle is not well visualized. BP: 168 / 72 HR: 101 Rhythm: Sinus MEASUREMENTS (Male / Female) Normal Values Technical Quality:Technically difficult study 2D ECHO LV Diastolic Diameter PLAX 5.1 cm 4.2 - 5.9 / 3.9 - 5.3 cm LV Systolic Diameter PLAX 3.8 cm IVS Diastolic Thickness 1.2 cm 0.6 - 1.0 / 0.6 - 0.9 cm LVPW Diastolic Thickness 1.2 cm 0.6 - 1.0 / 0.6 - 0.9 cm LV Relative Wall Thickness 0.5 LVOT Diameter 2.3 cm M-MODE Aortic Root Diameter MM 3.1 cm LA Systolic Diameter MM 3.4 cm LA Ao Ratio MM 1.1 AV Cusp Separation MM 2.4 cm DOPPLER AV Peak Velocity 96.4 cm/s AV Peak Gradient 3.7 mmHg LVOT Peak Velocity 64.2 cm/s LVOT Peak Gradient 1.6 mmHg AV Area Cont Eq pk 2.8 cm MR Peak Velocity 343.0 cm/s MR Peak Gradient 47.1 mmHg Mitral E Point Velocity 45.9 cm/s Mitral A Point Velocity 62.7 cm/s Mitral E to A Ratio 0.7 LV E' Lateral Velocity 5.4 cm/s Mitral E to LV E' Lateral Ratio 8.6 LV E' Septal Velocity 6.6 cm/s Mitral E to LV E' Septal Ratio 6.9 PV Peak Velocity 106.0 cm/s PV Peak Gradient 4.5 mmHg FINDINGS LEFT VENTRICLE The left ventricular systolic function is normal with an estimated ejection fraction in the range of 60-65%. The left ventricle is not well visualized. Wall thickness is measured at the upper limits of normal. Normal left ventricular size. RIGHT VENTRICLE Normal right ventricular size and systolic function. LEFT ATRIUM The left atrial size is normal. RIGHT ATRIUM The right atrial size is normal. ATRIAL SEPTUM Normal atrial septal thickness without atrial level shunting by limited color doppler interrogation. AORTA The aortic root and proximal ascending aorta are normal in size on limited imaging. MITRAL VALVE Mild mitral valve regurgitation. AORTIC VALVE Trileaflet aortic valve. No aortic valve stenosis or regurgitation. TRICUSPID VALVE Structurally normal tricuspid valve. No tricuspid valve stenosis or regurgitation. PULMONARY VALVE The pulmonary valve is not well visualized. VESSELS The inferior vena cava is normal in size. PERICARDIUM There is a small pericardial effusion present. Wild Mejia MD, FACC (Electronically Signed) Final Date:08 April 2017 16:35
[2017-04-08] MEDS: INSULIN ASPART SUPPLEMENTAL SCALE SQ SCH ×2 (17:00→21:02)
--- NOTE | 2017-04-08 17:52 | HHI.PR ---
Subjective Remarks 76 YOWM with PF,COPD, worsening sob Had worsening hypoxia, was on VM, weaned to NC Has increased Troponin Cardiology planning cath Off Pradaxa up in chair, eating his Pizza family at BS Objective Vital Signs Vital Signs Date Time Temp Pulse Resp B/P (MAP) Pulse Ox O2 Delivery O2 Flow Rate FiO2 04/08/17 16:00 97.8 92 18 126/62 (83) 94 04/08/17 12:00 97.2 96 18 113/56 (75) 90 04/08/17 09:22 88 Nasal Cannula 6.00 04/08/17 08:05 97.9 108 16 148/83 (104) 85 04/08/17 05:29 97.6 101 18 163/72 (102) 98 04/08/17 01:24 99.0 100 18 150/65 (93) 92 04/07/17 21:01 98.0 105 18 142/65 (90) 89 04/07/17 20:19 91 Nasal Cannula 6.00 I/O 04/07/17 04/07/17 04/07/17 04/08/17 04/08/17 04/08/17 07:00 15:00 23:00 07:00 15:00 23:00 Intake Total 720 ml Output Total 600 ml 800 ml Balance 120 ml -800 ml Intake Oral 720 ml Output Urine Total 600 ml 800 ml # Voids 3 Result Diagram: 04/07/17 0859 04/07/17 1211 Objective Remarks GENERAL: WBWN WM, mild sob SKIN: Warm and dry. HEAD: Normocephalic. EYES: No scleral icterus. No injection or drainage. NECK: Supple, trachea midline. No JVD or lymphadenopathy. CARDIOVASCULAR: Regular rate and rhythm without murmurs, gallops, or rubs. RESPIRATORY: Breath sounds equal bilaterally. No accessory muscle use. Insp rales GASTROINTESTINAL: Abdomen soft, non-tender, nondistended. MUSCULOSKELETAL: No cyanosis, or edema. BACK: Nontender without obvious deformity. No CVA tenderness. A/P Assessment and Plan Worsening dysnoea and infilt prob exac of PF NST-UT hypoxia COPD CAD JOHN: IV Solumedrol Cont Abx Supplement 02 Aerosol nebs Plans for cardiac cath DW pt and his and daughter SusanMarshall MD Apr 08, 2017 17:52
[2017-04-08] MEDS: LATANOPROST 0.005% OPHT SOLN 2.5 ML BTL EACH EYE SCH (20:54)
[2017-04-09] VITALS (10 sets, daily range): BP systolic 126–151; BP diastolic 68–86; PULSE 84–133; RESP 12–20; TEMP 97.4–98.8; O2SAT 88–98
[2017-04-09] MEDS: PIPERACIL-TAZO 3.375 GM PREMIX 50 ML IV SCH ×4 (00:36→17:22)
[2017-04-09] MEDS: methylPREDNISolone SOD SUCC 125 MG/2 ML VIAL IV PUSH SCH ×5 (00:36→23:33)
[2017-04-09] MEDS: ENOXAPARIN SODIUM 80 MG/0.8 ML SYRINGE SQ SCH ×2 (04:23→16:41)
[2017-04-09] MEDS: ISOSORBIDE MONONITRATE 60 MG TAB PO SCH (06:11)
[2017-04-09 06:34] LABS: AUTOMATED NEUTROPHIL # 15.1 TH/MM3 (1.8-7.7); BASOPHIL % 0.3 % (0.0-2.0); HEMO FLAGS AUTO DIFF; LYMPH % 2.3 % (9.0-44.0); LYMPHOCYTE # 0.4 TH/MM3 (1.0-4.8); MEAN CELL VOLUME 104.5 FL (80.0-100.0); MEAN CORPUSCULAR HEMOGLOBIN 33.6 PG (27.0-34.0); MEAN CORPUSCULAR HGB CONC 32.1 % (32.0-36.0); MONO % 4.7 % (0.0-8.0); NEUT % 92.7 % (16.0-70.0); PLATELET COUNT 213 TH/MM3 (150-450); RED BLOOD COUNT 2.58 MIL/MM3 (4.50-5.90); WHITE BLOOD COUNT 16.3 TH/MM3 (4.0-11.0)
[2017-04-09] MEDS: MEGESTROL ACETATE SUSP 400 MG/10 ML CUP PO SCH ×3 (07:11→21:43)
[2017-04-09 07:15] LABS: MAGNESIUM 2.2 MG/DL (1.5-2.5); POTASSIUM 4.3 MEQ/L (3.5-5.1)
--- NOTE | 2017-04-09 07:51 | PD.CARD.PN ---
Subjective Subjective Remarks No chest pain. Breathing normally at rest. Still interested in cath. Objective Medications Current Medications Medications (Trade) Dose Ordered Sig/Ronaldo Route Start Time Stop Time Status Last Admin (NS Flush) 2 ml UNSCH PRN IV FLUSH 04/05/17 14:00 04/08/17 04:47 (NS Flush) 2 ml BID IV FLUSH 04/05/17 21:00 04/08/17 00:36 (Tylenol) 650 mg Q4H PRN PO 04/05/17 14:00 (Zofran Inj) 4 mg Q6H PRN IVP 04/05/17 14:00 (Narcan Inj) 0.4 mg UNSCH PRN IV PUSH 04/05/17 14:00 (Milk Of Magnesia Liq) 30 ml Q12H PRN PO 04/05/17 14:00 (Alphagan 0.2% Opth Soln) 1 drop BID EACH EYE 04/05/17 21:00 (Lexapro) 10 mg DAILY PO 04/06/17 09:00 04/08/17 08:45 (Xalatan 0.005% Opth Soln) 1 drop HS EACH EYE 04/05/17 21:00 04/08/17 20:54 (Megace Liq) 400 mg BID PO 04/05/17 21:00 04/08/17 20:53 (Restoril) 15 mg HS PRN PO 04/05/17 14:15 (Duoneb Neb) 1 ampule Q4HR WHILE AWAKE NEB NEB 04/05/17 20:00 04/08/17 20:28 (Duoneb Neb) 1 ampule Q2HR NEB PRN NEB 04/05/17 17:45 04/06/17 04:57 (Catapres) 0.1 mg Q6H PRN PO 04/05/17 17:45 (Vasotec Inj) 1.25 mg Q6H PRN IV PUSH 04/05/17 17:45 (Protonix Inj) 40 mg DAILY IV PUSH 04/06/17 14:30 04/08/17 09:02 Piperacillin Sod/ Tazobactam Sod 50 ml @ 100 mls/hr Q6H IV 04/07/17 12:00 04/09/17 06:11 (SoluMEDROL INJ) 60 mg Q6HR IV PUSH 04/07/17 18:00 04/09/17 06:11 (Imdur) 60 mg DAILY@07 PO 04/08/17 07:00 04/09/17 06:11 (Lopressor) 25 mg Q12HR PO 04/08/17 09:00 04/08/17 20:53 (D50w (Vial) Inj) 50 ml UNSCH PRN IV PUSH 04/08/17 15:45 (Glucagon Inj) 1 mg UNSCH PRN OTHER 04/08/17 15:45 (NovoLOG SUPPLEMENTAL SCALE) 1 ACHS SLIDING SCALE SQ 04/08/17 17:00 04/08/17 21:02 (Lovenox Inj) 80 mg Q12H SQ 04/08/17 16:00 04/11/17 09:00 04/08/17 16:00 Vital Signs / I&O Vital Signs Date Time Temp Pulse Resp B/P (MAP) Pulse Ox O2 Delivery O2 Flow Rate FiO2 04/09/17 07:39 97.5 125 12 126/86 (99) 90 04/09/17 04:00 98.8 133 20 128/77 (94) 95 04/09/17 02:10 90 04/09/17 01:00 97.4 95 20 143/72 (95) 90 04/08/17 22:20 97 04/08/17 20:29 92 Nasal Cannula 7.00 04/08/17 20:00 98.9 99 20 101/51 (68) 92 04/08/17 16:00 97.8 92 18 126/62 (83) 94 04/08/17 12:00 97.2 96 18 113/56 (75) 90 04/08/17 09:22 88 Nasal Cannula 6.00 04/08/17 08:05 97.9 108 16 148/83 (104) 85 I/O 04/08/17 04/08/17 04/08/17 04/09/17 04/09/17 04/09/17 07:00 15:00 23:00 07:00 15:00 23:00 Intake Total 480 ml Output Total 800 ml 340 ml Balance -800 ml 480 ml -340 ml Intake Oral 480 ml Output Urine Total 800 ml 340 ml # Voids 3 # Bowel Movements 1 Physical Exam Lungs clear RRR Laboratory Laboratory Tests Test 04/09/17 06:10 White Blood Count 16.3 TH/MM3 Red Blood Count 2.58 MIL/MM3 Hemoglobin 8.7 GM/DL Hematocrit 27.0 % Mean Corpuscular Volume 104.5 FL Mean Corpuscular Hemoglobin 33.6 PG Mean Corpuscular Hemoglobin Concent 32.1 % Red Cell Distribution Width 18.0 % Platelet Count 213 TH/MM3 Mean Platelet Volume 8.7 FL Neutrophils (%) (Auto) 92.7 % Lymphocytes (%) (Auto) 2.3 % Monocytes (%) (Auto) 4.7 % Eosinophils (%) (Auto) 0.0 % Basophils (%) (Auto) 0.3 % Neutrophils # (Auto) 15.1 TH/MM3 Lymphocytes # (Auto) 0.4 TH/MM3 Monocytes # (Auto) 0.8 TH/MM3 Eosinophils # (Auto) 0.0 TH/MM3 Basophils # (Auto) 0.0 TH/MM3 CBC Comment AUTO DIFF Blood Urea Nitrogen 53 MG/DL Creatinine 1.58 MG/DL Random Glucose 327 MG/DL Calcium Level 8.8 MG/DL Magnesium Level 2.2 MG/DL Sodium Level 139 MEQ/L Potassium Level 4.3 MEQ/L Chloride Level 108 MEQ/L Carbon Dioxide Level 20.0 MEQ/L Anion Gap 11 MEQ/L Estimat Glomerular Filtration Rate 43 ML/MIN Assessment and Plan Assessment and Plan Will add metoprolol. Will allow pradaxa to wane and plan cath Wednesday Deondre Barajas MD Apr 09, 2017 07:51
[2017-04-09] MEDS: INSULIN ASPART SUPPLEMENTAL SCALE SQ SCH ×4 (08:00→21:00)
[2017-04-09] MEDS: RESP: ALBUTEROL 2.5 MG/IPRATROPIUM 0.5 MG NEB (SCH) NEB ×4 (08:11→19:59)
[2017-04-09 08:16] LABS: BANDS 1 % (0-6); CORRECTED NUCLEATED RBC 6 /100 WBC (0-0); HOWELL-JOLLY BODIES PRESENT (NONE SEEN); PLATELET ESTIMATE SMEAR NORMAL (NORMAL); PLATELET MORPHOLOGY NORMAL (NORMAL); POLYS (SEG NEUTROPHILS) 91 % (16-70); SCAN/DIFF FINAL DIFF MANUAL; WBC DIFF SAMPLE 100
[2017-04-09 08:18] LABS: KERATOCYTES OCC (NORMAL)
[2017-04-09] MEDS: SODIUM CHLORIDE 0.9% FLUSH 10 ML FLUSH IV FLUSH SCH ×2 (08:30→21:44)
[2017-04-09] MEDS: PANTOPRAZOLE SODIUM 40 MG VIAL IV PUSH SCH (08:30)
[2017-04-09] MEDS: METOPROLOL TARTRATE 25 MG TAB PO SCH ×2 (08:33→21:44)
[2017-04-09] MEDS: ESCITALOPRAM OXALATE 10 MG TAB PO SCH (08:33)
[2017-04-09] MEDS: BRIMONIDINE TARTRATE 0.2% OPHT SOLN 5 ML BTL EACH EYE SCH ×2 (09:00→21:00)
[2017-04-09] MEDS: INSULIN DETEMIR 100 UNITS/ML VIAL SQ SCH ×2 (09:42→21:27)
--- NOTE | 2017-04-09 10:05 | HHI.PR ---
Subjective Remarks 76 YOWM with PF,COPD, worsening sob Had worsening hypoxia, was on VM, weaned to NC Has increased Troponin Cardiology planning cath Off Pradaxa family at Objective Vital Signs Vital Signs Date Time Temp Pulse Resp B/P (MAP) Pulse Ox O2 Delivery O2 Flow Rate FiO2 04/09/17 08:13 96 Nasal Cannula 4.00 04/09/17 07:39 97.5 125 12 126/86 (99) 90 04/09/17 04:00 98.8 133 20 128/77 (94) 95 04/09/17 02:10 90 04/09/17 01:00 97.4 95 20 143/72 (95) 90 04/08/17 22:20 97 04/08/17 20:29 92 Nasal Cannula 7.00 04/08/17 20:00 98.9 99 20 101/51 (68) 92 04/08/17 16:00 97.8 92 18 126/62 (83) 94 04/08/17 12:00 97.2 96 18 113/56 (75) 90 I/O 04/08/17 04/08/17 04/08/17 04/09/17 04/09/17 04/09/17 07:00 15:00 23:00 07:00 15:00 23:00 Intake Total 480 ml Output Total 800 ml 340 ml Balance -800 ml 480 ml -340 ml Intake Oral 480 ml Output Urine Total 800 ml 340 ml # Voids 3 # Bowel Movements 1 Result Diagram: 04/09/17 0610 04/09/17 0610 Objective Remarks GENERAL: WBWN WM, mild sob SKIN: Warm and dry. HEAD: Normocephalic. EYES: No scleral icterus. No injection or drainage. NECK: Supple, trachea midline. No JVD or lymphadenopathy. CARDIOVASCULAR: Regular rate and rhythm without murmurs, gallops, or rubs. RESPIRATORY: Breath sounds equal bilaterally. No accessory muscle use. Insp rales GASTROINTESTINAL: Abdomen soft, non-tender, nondistended. MUSCULOSKELETAL: No cyanosis, or edema. BACK: Nontender without obvious deformity. No CVA tenderness. A/P Assessment and Plan Worsening dysnoea and infilt prob exac of PF NST-AL hypoxia COPD CAD JOHN: IV Solumedrol Cont Abx Supplement 02 Aerosol nebs DW pt and his and daughter cardiac cath plans for Wednesday Marshall Davis MD Apr 09, 2017 10:05
[2017-04-09] MEDS ORDERED: SODIUM CHLORIDE 0.9% FLUSH 10 ML FLUSH IVF PRN (14:15)
[2017-04-09] MEDS ORDERED: INSULIN ASPART 1,000 UNITS/10 ML VIAL SQ ONE (15:00)
[2017-04-09] MEDS ORDERED: ALTEPLASE RECOMBINANT 2 MG VIAL INTRACATH ONE (15:30)
--- NOTE | 2017-04-09 17:55 | HHI.PR ---
Subjective Remarks Pt remains SOB. Objective Vitals Vital Signs Date Time Temp Pulse Resp B/P (MAP) Pulse Ox O2 Delivery O2 Flow Rate FiO2 04/09/17 16:22 92 Nasal Cannula 6.00 04/09/17 16:00 97.8 89 18 151/78 (102) 88 04/09/17 12:14 97.5 84 18 133/68 (89) 92 04/09/17 08:13 96 Nasal Cannula 4.00 04/09/17 07:39 97.5 125 12 126/86 (99) 90 04/09/17 04:00 98.8 133 20 128/77 (94) 95 04/09/17 02:10 90 04/09/17 01:00 97.4 95 20 143/72 (95) 90 04/08/17 22:20 97 04/08/17 20:29 92 Nasal Cannula 7.00 04/08/17 20:00 98.9 99 20 101/51 (68) 92 04/09/17 04/09/17 04/10/17 15:00 23:00 07:00 Intake Total 1010 ml Output Total 1400 ml Balance -390 ml Intake Oral 960 ml IV Total 50 ml Output Urine Total 1400 ml Result Diagram: 04/09/17 0610 04/09/17 1330 Imaging Last Impressions Chest X-Ray 04/06/17 0600 Signed Impressions: Service Date/Time: Thursday, April 06, 2017 05:39 - CONCLUSION: 1. Stable bilateral lower lung zone interstitial opacities. Differential considerations include interstitial edema versus interstitial pneumonia. 2. No significant interval change. Parviz Keys MD Chest CT 04/06/17 0000 Signed Impressions: Service Date/Time: Thursday, April 06, 2017 09:25 - CONCLUSION: 1. Advanced pulmonary fibrosis. 2. Overlying interstitial prominence and peribronchial consolidation representing either pulmonary edema or acute pneumonitis. 3. No other significant change. Leonardo Vaca MD Last Impressions Chest X-Ray 04/05/17 1119 Signed Impressions: Service Date/Time: Wednesday, April 05, 2017 11:37 - CONCLUSION: Background emphysema with new bilateral lower lung zone interstitial opacities bilaterally. Zion Owusu MD CT Thorax with contrast (03/22/17) - Stable CT appearance of the chest. No definite evidence of local recurrence or metastatic disease. - Lungs with emphysema and patchy fibrotic parenchymal changes stable with mild consolidative fibrotic change in the right retrohilar region at site of previous mass. No evidence of significant residual mass density. 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 Pt then received XRT which he completed in January 2017. Pt follows with Dr. Osorio. - He was last seen by Dr. Osorio in 03/2017 and he had a CT Thorax prior to that visit which noted post treatment changes in the right lung with significant emphysematous changes, however, there is no mass or adenopathy noted. - [place] [facility] [place] with complaints of weakness, dizziness, shortness of breath with exertion, hemoptysis and epistaxis that began around 4-5 days ago. He denies any fevers or chills at home. His dyspnea on exertion seemed to worsen over the last day or so and this prompted his evaluation in the ED. - comgmt with Pulm Med and Cardiology - Family reports that he is on 2L of supplemental O2 at home. - In the ED his O2 sats were 94% on 4L of supplemental O2. - CXR in the ED noted emphysema with new bilateral lower lung zone interstitial opacities bilaterally. - Pt was given Duoneb treatments and Budesonide nebs in the ED. - He was given a dose of Solu-Medrol 125mg x one dose in the ED as well as Azithromycin and Rocephin - We will continued the Abx. - Cont. Duonebs Q4H WA - Blood cultures drawn with NGTD - CXR (04/06) --> Stable bilateral lower lung zone interstitial opacities. Differential considerations include interstitial edema versus interstitial pneumonia. No significant interval change. - O2 6L - Chest CT (04/06/17) --> Advanced pulmonary fibrosis. Overlying interstitial prominence and peribronchial consolidation representing either pulmonary edema or acute pneumonitis. No other significant change. - pneumonia now seems less likely, but will continue IV zosyn for now - continue IV solumedrol for pt's Pulm Fibrosis - Pt's troponin was elevated - Cardiology also following [facility] for 04/12/17 - pradaxa on hold - supportive care - Pt on lovenox, will stop after Wednesday AM dose in preparation for [facility] 04/09/17 - pt interviewed and examined - continue current treatment plan - [facility] 04/12/17 (2) Hemoptysis ICD Codes: R04.2 - Hemoptysis Status: Acute Plan: - See above (3) CHF (congestive heart failure) ICD Codes: I50.9 - Heart failure, unspecified Status: Chronic Plan: - 2D echo (09/03/16) - Mild LVH - Estimated EF 55-60% - Grade 1 diastolic dysfunction - PA pressure 39mmHg - Suspect the pt has some degree of volume overload - 04/06 Lasix 40mg IV x one with no clinical improvement - BNP 36 (4) Non-small cell cancer of right lung ICD Codes: C34.91 - Malignant neoplasm of unspecified part of right bronchus or lung Status: Chronic Plan: - See above (5) Weakness generalized ICD Codes: R53.1 - Weakness Status: Chronic Plan: - See above (6) COPD (chronic obstructive pulmonary disease) ICD Codes: J44.9 - Chronic obstructive pulmonary disease, unspecified Status: Chronic Plan: - Cont. Duonebs Q4H WA and Q2H PRN - Pt does not have any wheezing on examination - With pneumonia he may have a flare of his COPD and advanced Pulmonary fibrosis - will start solumedrol - see above (7) Hypertension ICD Codes: I10 - Essential (primary) hypertension Status: Chronic Plan: - Clonidine PRN - Vasotec PRN (8) CKD (chronic kidney disease) stage 3, GFR 30-59 ml/min ICD Codes: N18.3 - Chronic kidney disease, stage 3 (moderate) Status: Chronic Plan: - Labs are stable (9) Diabetes mellitus type 2, noninsulin dependent ICD Codes: E11.9 - Type 2 diabetes mellitus without complications Status: Chronic Plan: - OHA on hold - NovoLog SSI - Pts BS elevated today likely related to receiving Solu-Medrol in the ED last night - Give one time NovoLog 20 units now and monitor closely (10) Elevated troponin ICD Codes: R74.8 - Abnormal levels of other serum enzymes Plan: Patient reports 45 mins of burn type midsternal chest pain 04/06. Patient denies associated radiation, diaphoresis, nausea or vomiting. Patient does have a history of CAD with [place] in the past - elevated troponin - BB added, PO NTG - [facility] 04/12/17 - see above Problem Qualifiers (1) Pneumonia: Qualified Codes: J18.9 - Pneumonia, unspecified organism (2) CHF (congestive heart failure): Qualified Codes: I50.30 - Unspecified diastolic (congestive) heart failure Song Camarena DO Apr 09, 2017 17:55
[2017-04-09] MEDS ORDERED: SODIUM CHLORID 0.9% 500 ML INJ 500 ML IV SCH (18:15)
[2017-04-09] MEDS ORDERED: cloNIDine HCL 0.1 MG TAB PO PRN (18:15)
[2017-04-09] MEDS: LATANOPROST 0.005% OPHT SOLN 2.5 ML BTL EACH EYE SCH (21:43)
[2017-04-09] MEDS: SODIUM CHLORIDE 0.9% FLUSH 10 ML FLUSH IV FLUSH PRN (23:33)
[2017-04-10] VITALS (8 sets, daily range): BP systolic 136–189; BP diastolic 66–98; PULSE 76–99; RESP 18–20; TEMP 97.1–98.1; O2SAT 91–99
[2017-04-10] MEDS: methylPREDNISolone SOD SUCC 125 MG/2 ML VIAL IV PUSH SCH ×3 (05:28→21:53)
[2017-04-10] MEDS: SODIUM CHLORIDE 0.9% FLUSH 10 ML FLUSH IV FLUSH PRN (05:28)
[2017-04-10] MEDS: ISOSORBIDE MONONITRATE 60 MG TAB PO SCH (06:27)
[2017-04-10] MEDS: ENOXAPARIN SODIUM 80 MG/0.8 ML SYRINGE SQ SCH ×2 (06:27→17:31)
[2017-04-10 06:50] LABS: AUTOMATED NEUTROPHIL # 17.3 TH/MM3 (1.8-7.7); BASOPHIL % 0.2 % (0.0-2.0); HEMATOCRIT 26.7 % (39.0-51.0); LYMPH % 2.5 % (9.0-44.0); LYMPHOCYTE # 0.5 TH/MM3 (1.0-4.8); MEAN CELL VOLUME 102.9 FL (80.0-100.0); MEAN CORPUSCULAR HEMOGLOBIN 33.7 PG (27.0-34.0); MEAN CORPUSCULAR HGB CONC 32.8 % (32.0-36.0); MONO % 4.8 % (0.0-8.0); NEUT % 92.5 % (16.0-70.0); PLATELET COUNT 220 TH/MM3 (150-450); RED BLOOD COUNT 2.59 MIL/MM3 (4.50-5.90); RED CELL DISTRIBUTION WIDTH 17.2 % (11.6-17.2); WHITE BLOOD COUNT 18.7 TH/MM3 (4.0-11.0)
[2017-04-10 06:53] LABS: HEMO FLAGS AUTO DIFF
[2017-04-10 07:14] LABS: BICARBONATE 22.3 MEQ/L (21.0-32.0); POTASSIUM 3.9 MEQ/L (3.5-5.1)
[2017-04-10] MEDS: INSULIN ASPART SUPPLEMENTAL SCALE SQ SCH ×4 (08:00→21:00)
[2017-04-10] MEDS: INSULIN DETEMIR 100 UNITS/ML VIAL SQ SCH ×2 (08:11→21:00)
[2017-04-10] MEDS: METOPROLOL TARTRATE 25 MG TAB PO SCH ×2 (08:14→21:53)
[2017-04-10] MEDS: ESCITALOPRAM OXALATE 10 MG TAB PO SCH (08:14)
[2017-04-10] MEDS: MEGESTROL ACETATE SUSP 400 MG/10 ML CUP PO SCH ×2 (08:14→21:53)
[2017-04-10] MEDS: PANTOPRAZOLE SODIUM 40 MG VIAL IV PUSH SCH (08:15)
[2017-04-10] MEDS: SODIUM CHLORIDE 0.9% FLUSH 10 ML FLUSH IV FLUSH SCH ×2 (08:15→21:53)
[2017-04-10] MEDS: BRIMONIDINE TARTRATE 0.2% OPHT SOLN 5 ML BTL EACH EYE SCH ×2 (08:20→21:00)
[2017-04-10 08:50] LABS: BANDS 2 % (0-6); CORRECTED NUCLEATED RBC 24 /100 WBC (0-0); MYELOCYTES 3 % (0-0); NEUTROPHIL # MANUAL DIFF 17.8 TH/MM3 (1.8-7.7); POLYS (SEG NEUTROPHILS) 90 % (16-70); WBC DIFF SAMPLE 100
[2017-04-10 08:51] LABS: HOWELL-JOLLY BODIES PRESENT (NONE SEEN); KERATOCYTES OCC (NORMAL); PLATELET ESTIMATE SMEAR NORMAL (NORMAL); PLATELET MORPHOLOGY NORMAL (NORMAL); POLYCHROMASIA 2.5 % (0.0-1.9); SCAN/DIFF FINAL DIFF MANUAL
[2017-04-10 08:52] LABS: ACANTHOCYTES 1+ (NORMAL)
[2017-04-10] MEDS: SODIUM CHLOR 0.45% 1000 ML INJ 1,000 ML IV SCH ×2 (10:20→21:58)
--- NOTE | 2017-04-10 14:01 | HHI.PR ---
Subjective Remarks Patient reports breathing a little better today urine in [place] noted to be dark in color with sediment present Objective Vitals Vital Signs Date Time Temp Pulse Resp B/P (MAP) Pulse Ox O2 Delivery O2 Flow Rate FiO2 04/10/17 12:47 97.5 84 20 189/90 (123) 94 04/10/17 08:44 97.1 87 20 188/98 (128) 93 04/10/17 08:00 81 04/09/17 21:00 91 04/09/17 20:00 98.8 89 18 145/70 (95) 98 04/09/17 16:22 92 Nasal Cannula 6.00 04/09/17 16:00 97.8 89 18 151/78 (102) 88 04/10/17 04/10/17 04/11/17 15:00 23:00 07:00 Output Total 420 ml Balance -420 ml Output Urine Total 420 ml # Bowel Movements 1 Result Diagram: 04/10/17 0520 04/10/17 0520 Other Results Laboratory Tests Test 04/07/17 17:46 04/08/17 06:30 04/09/17 06:10 04/09/17 13:30 Troponin I 7.20 NG/ML 5.22 NG/ML White Blood Count 16.3 TH/MM3 Red Blood Count 2.58 MIL/MM3 Hemoglobin 8.7 GM/DL Hematocrit 27.0 % Mean Corpuscular Volume 104.5 FL Mean Corpuscular Hemoglobin 33.6 PG Mean Corpuscular Hemoglobin Concent 32.1 % Red Cell Distribution Width 18.0 % Platelet Count 213 TH/MM3 Mean Platelet Volume 8.7 FL Neutrophils (%) (Auto) 92.7 % Lymphocytes (%) (Auto) 2.3 % Monocytes (%) (Auto) 4.7 % Eosinophils (%) (Auto) 0.0 % Basophils (%) (Auto) 0.3 % Neutrophils # (Auto) 15.1 TH/MM3 Lymphocytes # (Auto) 0.4 TH/MM3 Monocytes # (Auto) 0.8 TH/MM3 Eosinophils # (Auto) 0.0 TH/MM3 Basophils # (Auto) 0.0 TH/MM3 CBC Comment AUTO DIFF Differential Total Cells Counted 100 Neutrophils % (Manual) 91 % Band Neutrophils % 1 % Lymphocytes % 4 % Monocytes % 4 % Neutrophils # (Manual) 15.0 TH/MM3 Nucleated Red Blood Cells 6 /100 WBC Differential Comment FINAL DIFF MANUAL Platelet Estimate NORMAL Platelet Morphology Comment NORMAL Edgar-Craig Bodies PRESENT Keratocytes OCC Blood Urea Nitrogen 53 MG/DL Creatinine 1.58 MG/DL Random Glucose 327 MG/DL 310 MG/DL Calcium Level 8.8 MG/DL Magnesium Level 2.2 MG/DL Sodium Level 139 MEQ/L Potassium Level 4.3 MEQ/L Chloride Level 108 MEQ/L Carbon Dioxide Level 20.0 MEQ/L Anion Gap 11 MEQ/L Estimat Glomerular Filtration Rate 43 ML/MIN Test 04/10/17 05:20 White Blood Count 18.7 TH/MM3 Red Blood Count 2.59 MIL/MM3 Hemoglobin 8.7 GM/DL Hematocrit 26.7 % Mean Corpuscular Volume 102.9 FL Mean Corpuscular Hemoglobin 33.7 PG Mean Corpuscular Hemoglobin Concent 32.8 % Red Cell Distribution Width 17.2 % Platelet Count 220 TH/MM3 Mean Platelet Volume 8.9 FL Neutrophils (%) (Auto) 92.5 % Lymphocytes (%) (Auto) 2.5 % Monocytes (%) (Auto) 4.8 % Eosinophils (%) (Auto) 0.0 % Basophils (%) (Auto) 0.2 % Neutrophils # (Auto) 17.3 TH/MM3 Lymphocytes # (Auto) 0.5 TH/MM3 Monocytes # (Auto) 0.9 TH/MM3 Eosinophils # (Auto) 0.0 TH/MM3 Basophils # (Auto) 0.0 TH/MM3 CBC Comment AUTO DIFF Differential Total Cells Counted 100 Neutrophils % (Manual) 90 % Band Neutrophils % 2 % Lymphocytes % 2 % Monocytes % 3 % Neutrophils # (Manual) 17.8 TH/MM3 Myelocytes 3 % Nucleated Red Blood Cells 24 /100 WBC Differential Comment FINAL DIFF MANUAL Platelet Estimate NORMAL Platelet Morphology Comment NORMAL Polychromasia 2.5 % Edgar-Craig Bodies PRESENT Acanthocytes 1+ Keratocytes OCC Blood Urea Nitrogen 57 MG/DL Creatinine 1.78 MG/DL Random Glucose 214 MG/DL Calcium Level 8.3 MG/DL Sodium Level 141 MEQ/L Potassium Level 3.9 MEQ/L Chloride Level 106 MEQ/L Carbon Dioxide Level 22.3 MEQ/L Anion Gap 13 MEQ/L Estimat Glomerular Filtration Rate 37 ML/MIN Imaging Last Impressions Chest X-Ray 04/06/17 0600 Signed Impressions: Service Date/Time: Thursday, April 06, 2017 05:39 - CONCLUSION: 1. Stable bilateral lower lung zone interstitial opacities. Differential considerations include interstitial edema versus interstitial pneumonia. 2. No significant interval change. Parivz Keys MD Chest CT 04/06/17 0000 Signed Impressions: Service Date/Time: Thursday, April 06, 2017 09:25 - CONCLUSION: 1. Advanced pulmonary fibrosis. 2. Overlying interstitial prominence and peribronchial consolidation representing either pulmonary edema or acute pneumonitis. 3. No other significant change. Leonardo Vaca MD Last Impressions Chest X-Ray 04/05/17 1119 Signed Impressions: Service Date/Time: Wednesday, April 05, 2017 11:37 - CONCLUSION: Background emphysema with new bilateral lower lung zone interstitial opacities bilaterally. Zion Owusu MD CT Thorax with contrast (03/22/17) - Stable CT appearance of the chest. No definite evidence of local recurrence or metastatic disease. - Lungs with emphysema and patchy fibrotic parenchymal changes stable with mild consolidative fibrotic change in the right retrohilar region at site of previous mass. No evidence of significant residual mass density. 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 Pt then received XRT which he completed in January 2017. Pt follows with Dr. Osorio. - He was last seen by Dr. Osorio in 03/2017 and he had a CT Thorax prior to that visit which noted post treatment changes in the right lung with significant emphysematous changes, however, there is no mass or adenopathy noted. - Pt presented to the ED at [facility] on 04/05/17 with complaints of weakness, dizziness, shortness of breath with exertion, hemoptysis and epistaxis that began around 4-5 days ago. He denies any fevers or chills at home. His dyspnea on exertion seemed to worsen over the last day or so and this prompted his evaluation in the ED. - comgmt with Pulm Med and Cardiology - Family reports that he is on 2L of supplemental O2 at home. - In the ED his O2 sats were 94% on 4L of supplemental O2. - CXR in the ED noted emphysema with new bilateral lower lung zone interstitial opacities bilaterally. - Pt was given Duoneb treatments and Budesonide nebs in the ED. - He was given a dose of Solu-Medrol 125mg x one dose in the ED as well as Azithromycin and Rocephin 04/05 & 04/06 - Zosyn 04/07 stopped 04/09/17 - Cont. Duonebs Q4H [place] - Blood cultures drawn with NGTD - CXR (04/06) --> Stable bilateral lower lung zone interstitial opacities. Differential considerations include interstitial edema versus interstitial pneumonia. No significant interval change. - O2 6L - Chest CT (04/06/17) --> Advanced pulmonary fibrosis. Overlying interstitial prominence and peribronchial consolidation representing either pulmonary edema or acute pneumonitis. No other significant change. - pneumonia now seems less likely, but will continue IV zosyn for now - continue IV solumedrol for pt's Pulm Fibrosis - (04/10) Pulmonology decreased steroids to solumedrol 60 mg IV Q12H - Pt's troponin was elevated - Cardiology also following [facility] for 04/12/17 - pradaxa on hold - supportive care - Pt on lovenox, will stop after Wednesday AM dose in preparation for [facility] Wednesday - [facility] 04/12/17 (2) Hemoptysis ICD Codes: R04.2 - Hemoptysis Status: Acute Plan: - resolved - See above (3) CHF (congestive heart failure) ICD Codes: I50.9 - Heart failure, unspecified Status: Chronic Plan: - 2D echo (09/03/16) - Mild LVH - Estimated EF 55-60% - Grade 1 diastolic dysfunction - PA pressure 39mmHg - Suspect the pt has some degree of volume overload - 04/06 Lasix 40mg IV x one with no clinical improvement - BNP 36 (4) Non-small cell cancer of right lung ICD Codes: C34.91 - Malignant neoplasm of unspecified part of right bronchus or lung Status: Chronic Plan: - See above (5) Weakness generalized ICD Codes: R53.1 - Weakness Status: Chronic Plan: - See above (6) COPD (chronic obstructive pulmonary disease) ICD Codes: J44.9 - Chronic obstructive pulmonary disease, unspecified Status: Chronic Plan: - Cont. Duonebs Q4H [place] and Q2H PRN - Pt does not have any wheezing on examination - With pneumonia he may have a flare of his COPD and advanced Pulmonary fibrosis - solumedrol 60 mg Q12H per pulmonology - see above (7) Hypertension ICD Codes: I10 - Essential (primary) hypertension Status: Chronic Plan: - Clonidine PRN - Vasotec PRN (8) Diabetes mellitus type 2, noninsulin dependent ICD Codes: E11.9 - Type 2 diabetes mellitus without complications Status: Chronic Plan: - OHA on hold - NovoLog SSI - Pts BS elevated today likely related to receiving Solu-Medrol in the ED last night - Give one time NovoLog 20 units now and monitor closely (9) Elevated troponin ICD Codes: R74.8 - Abnormal levels of other serum enzymes Plan: Patient reports 45 mins of burn type midsternal chest pain 04/06. Patient denies associated radiation, diaphoresis, nausea or vomiting. Patient does have a history of CAD with [place] in the past - elevated troponin - BB added, PO NTG - [facility] 04/12/17 - see above (10) Acute kidney injury superimposed on chronic kidney disease ICD Codes: N17.9 - Acute kidney failure, unspecified; N18.9 - Chronic kidney disease, unspecified Status: Acute Plan: renal function worsening 04/10 BUN 57, creatine 1.78 and estimated GFR 37 patient' base line creatinine around 1.0, GFR baseline around 60 will start IF fluid 1/2 NS at 75ml/H check UA recheck BMP in AM monitor for signs of fluid overload CXR in AM Assessment and Plan Patient examined. Assessment and plan formulated with Sumaya Barber PA-C. I agree with the above. Problem Qualifiers (1) Pneumonia: Qualified Codes: J18.9 - Pneumonia, unspecified organism (2) CHF (congestive heart failure): Qualified Codes: I50.30 - Unspecified diastolic (congestive) heart failure Sumaya Barber Apr 10, 2017 14:01 Song Camarena DO Apr 16, 2017 11:27
[2017-04-10 16:35] LABS: BLOOD, URINE LARGE (NEG); GLUCOSE,URINE NEG (NEG); KETONE, URINE NEG (NEG); MUCUS URINE FEW /lpf (OCC); NITRITE,URINE NEG (NEG); PH, URINE 5.5 (5.0-8.5); SQUAMOUS EPITHELIAL CELL URINE <1 /hpf (0-5); URINE COLOR YELLOW (YELLW/STRAW)
[2017-04-10 16:39] LABS: BACTERIA, URINE MANY /hpf; HYALINE CAST, URINE 6 /lpf (RARE)
[2017-04-10 16:40] LABS: COMMENT (UR) CATH-CULTURE IND; CULTURE IF INDICATED CATH CULTURE IND
[2017-04-10] MEDS ORDERED: LOPERAMIDE HCL 2 MG CAP PO ONE (18:15)
[2017-04-10] MEDS: RESP: ALBUTEROL 2.5 MG/IPRATROPIUM 0.5 MG NEB (SCH) INH (19:24)
[2017-04-10] MEDS: LATANOPROST 0.005% OPHT SOLN 2.5 ML BTL EACH EYE SCH (21:53)
[2017-04-11] VITALS (11 sets, daily range): BP systolic 127–182; BP diastolic 61–89; PULSE 65–87; RESP 18–20; TEMP 97.5–98.9; O2SAT 87–94
[2017-04-11] MEDS: cloNIDine HCL 0.1 MG TAB PO PRN ×2 (00:03→05:49)
[2017-04-11] MEDS: ENALAPRILAT 1.25 MG/ML VIAL IV PUSH PRN (03:36)
[2017-04-11] MEDS: ISOSORBIDE MONONITRATE 60 MG TAB PO SCH (05:49)
[2017-04-11] MEDS: ENOXAPARIN SODIUM 80 MG/0.8 ML SYRINGE SQ SCH (05:49)
[2017-04-11 06:01] LABS: HEMATOCRIT 27.5 % (39.0-51.0); MEAN CELL VOLUME 102.8 FL (80.0-100.0); MEAN CORPUSCULAR HEMOGLOBIN 34.3 PG (27.0-34.0); MEAN CORPUSCULAR HGB CONC 33.4 % (32.0-36.0); PLATELET COUNT 212 TH/MM3 (150-450); RED BLOOD COUNT 2.67 MIL/MM3 (4.50-5.90); RED CELL DISTRIBUTION WIDTH 17.6 % (11.6-17.2); WHITE BLOOD COUNT 19.6 TH/MM3 (4.0-11.0)
[2017-04-11 06:07] LABS: REVIEW FLAG FINAL
--- NOTE | 2017-04-11 06:17 | RADRPT ---
EXAM DATE/TIME: 04/11/2017 05:41 [place] COMPARISON: No previous studies available for comparison. INDICATIONS : Shortness of breath MEDICAL HISTORY : Myocardial infarction. Hypertension Carcinoma, lung. COPD, CHF, Diabetes SURGICAL HISTORY : Coronary artery stent. Infusaport ENCOUNTER: Subsequent ACUITY: 1 week PAIN SCORE: 8/10 LOCATION: Bilateral chest FINDINGS: There is cardiomegaly and interstitial infiltrates or again noted bilaterally and unchanged. There is patchy alveolar infiltrate also seen. No effusions. A left sided approach port catheter is noted and the tip overlies the SVC. CONCLUSION: Stable appearance of the chest. Colin Mcginnis MD on April 11, 2017 at 6:15 Board Certified Radiologist. This report was verified electronically.
[2017-04-11 06:31] LABS: BICARBONATE 21.6 MEQ/L (21.0-32.0); POTASSIUM 3.7 MEQ/L (3.5-5.1)
[2017-04-11] MEDS: INSULIN ASPART SUPPLEMENTAL SCALE SQ SCH ×4 (08:00→20:24)
[2017-04-11] MEDS: INSULIN DETEMIR 100 UNITS/ML VIAL SQ SCH ×2 (08:01→20:24)
[2017-04-11] MEDS: ESCITALOPRAM OXALATE 10 MG TAB PO SCH (08:03)
[2017-04-11] MEDS: MEGESTROL ACETATE SUSP 400 MG/10 ML CUP PO SCH ×2 (08:03→20:25)
[2017-04-11] MEDS: METOPROLOL TARTRATE 25 MG TAB PO SCH ×2 (08:03→20:25)
[2017-04-11] MEDS: methylPREDNISolone SOD SUCC 125 MG/2 ML VIAL IV PUSH SCH (08:04)
[2017-04-11] MEDS: PANTOPRAZOLE SODIUM 40 MG VIAL IV PUSH SCH (08:04)
[2017-04-11] MEDS: SODIUM CHLORIDE 0.9% FLUSH 10 ML FLUSH IV FLUSH SCH ×2 (08:05→20:24)
[2017-04-11] MEDS: BRIMONIDINE TARTRATE 0.2% OPHT SOLN 5 ML BTL EACH EYE SCH ×2 (08:05→20:24)
[2017-04-11] MEDS: RESP: ALBUTEROL 2.5 MG/IPRATROPIUM 0.5 MG NEB (SCH) INH ×3 (09:14→20:21)
[2017-04-11] MEDS: SODIUM CHLOR 0.45% 1000 ML INJ 1,000 ML IV SCH (12:23)
--- NOTE | 2017-04-11 12:34 | HHI.PR ---
Subjective Remarks renal function improving oxygen requirement down to 2L via NC Objective Vitals Vital Signs Date Time Temp Pulse Resp B/P (MAP) Pulse Ox O2 Delivery O2 Flow Rate FiO2 04/11/17 09:21 94 Nasal Cannula 2.00 04/11/17 08:25 98.7 80 20 127/64 (85) 91 04/11/17 07:11 Nasal Cannula 5.00 Humidified 04/11/17 05:10 Nasal Cannula 5.00 Humidified 04/11/17 05:03 78 182/88 (119) 04/11/17 03:34 97.7 68 18 179/80 (113) 92 04/11/17 00:00 98.9 76 18 180/89 (119) 93 04/10/17 20:00 98.1 87 18 165/82 (109) 95 04/10/17 20:00 Nasal Cannula 4.00 Humidified 04/10/17 20:00 88 04/10/17 19:25 93 Nasal Cannula 4.00 04/10/17 18:00 81 04/10/17 16:15 97.2 76 18 152/67 (95) 91 04/10/17 14:48 81 04/10/17 12:47 97.5 84 20 189/90 (123) 94 Result Diagram: 04/11/1758 04/11/17 0558 Other Results Laboratory Tests Test 04/09/17 06:10 04/09/17 13:30 04/10/17 05:20 04/10/17 16:13 White Blood Count 16.3 TH/MM3 18.7 TH/MM3 Red Blood Count 2.58 MIL/MM3 2.59 MIL/MM3 Hemoglobin 8.7 GM/DL 8.7 GM/DL Hematocrit 27.0 % 26.7 % Mean Corpuscular Volume 104.5 FL 102.9 FL Mean Corpuscular Hemoglobin 33.6 PG 33.7 PG Mean Corpuscular Hemoglobin Concent 32.1 % 32.8 % Red Cell Distribution Width 18.0 % 17.2 % Platelet Count 213 TH/MM3 220 TH/MM3 Mean Platelet Volume 8.7 FL 8.9 FL Neutrophils (%) (Auto) 92.7 % 92.5 % Lymphocytes (%) (Auto) 2.3 % 2.5 % Monocytes (%) (Auto) 4.7 % 4.8 % Eosinophils (%) (Auto) 0.0 % 0.0 % Basophils (%) (Auto) 0.3 % 0.2 % Neutrophils # (Auto) 15.1 TH/MM3 17.3 TH/MM3 Lymphocytes # (Auto) 0.4 TH/MM3 0.5 TH/MM3 Monocytes # (Auto) 0.8 TH/MM3 0.9 TH/MM3 Eosinophils # (Auto) 0.0 TH/MM3 0.0 TH/MM3 Basophils # (Auto) 0.0 TH/MM3 0.0 TH/MM3 CBC Comment AUTO DIFF AUTO DIFF Differential Total Cells Counted 100 100 Neutrophils % (Manual) 91 % 90 % Band Neutrophils % 1 % 2 % Lymphocytes % 4 % 2 % Monocytes % 4 % 3 % Neutrophils # (Manual) 15.0 TH/MM3 17.8 TH/MM3 Nucleated Red Blood Cells 6 /100 WBC 24 /100 WBC Differential Comment FINAL DIFF MANUAL FINAL DIFF MANUAL Platelet Estimate NORMAL NORMAL Platelet Morphology Comment NORMAL NORMAL Edgar-Meckling Bodies PRESENT PRESENT Keratocytes OCC OCC Blood Urea Nitrogen 53 MG/DL 57 MG/DL Creatinine 1.58 MG/DL 1.78 MG/DL Random Glucose 327 MG/DL 310 MG/DL 214 MG/DL Calcium Level 8.8 MG/DL 8.3 MG/DL Magnesium Level 2.2 MG/DL Sodium Level 139 MEQ/L 141 MEQ/L Potassium Level 4.3 MEQ/L 3.9 MEQ/L Chloride Level 108 MEQ/L 106 MEQ/L Carbon Dioxide Level 20.0 MEQ/L 22.3 MEQ/L Anion Gap 11 MEQ/L 13 MEQ/L Estimat Glomerular Filtration Rate 43 ML/MIN 37 ML/MIN Myelocytes 3 % Polychromasia 2.5 % Acanthocytes 1+ Urine Color YELLOW Urine Turbidity HAZY Urine pH 5.5 Urine Specific [place] 1.019 Urine Protein 30 mg/dL Urine Glucose (UA) NEG mg/dL Urine Ketones NEG mg/dL Urine Occult Blood LARGE Urine Nitrite NEG Urine Bilirubin NEG Urine Urobilinogen LESS THAN 2.0 MG/DL Urine Leukocyte Esterase SMALL Urine RBC /hpf Urine WBC 19 /hpf Urine Squamous Epithelial Cells <1 /hpf Urine Bacteria MANY /hpf Urine Hyaline Casts 6 /lpf Urine Mucus FEW /lpf Urine Yeast (Budding) OCC Microscopic Urinalysis Comment CATH-CULTURE IND Test 04/11/17 05:58 White Blood Count 19.6 TH/MM3 Red Blood Count 2.67 MIL/MM3 Hemoglobin 9.2 GM/DL Hematocrit 27.5 % Mean Corpuscular Volume 102.8 FL Mean Corpuscular Hemoglobin 34.3 PG Mean Corpuscular Hemoglobin Concent 33.4 % Red Cell Distribution Width 17.6 % Platelet Count 212 TH/MM3 Mean Platelet Volume 8.4 FL Blood Urea Nitrogen 49 MG/DL Creatinine 1.25 MG/DL Random Glucose 182 MG/DL Calcium Level 8.0 MG/DL Sodium Level 142 MEQ/L Potassium Level 3.7 MEQ/L Chloride Level 108 MEQ/L Carbon Dioxide Level 21.6 MEQ/L Anion Gap 12 MEQ/L Estimat Glomerular Filtration Rate 56 ML/MIN Imaging Last Impressions Chest X-Ray 04/06/17 0600 Signed Impressions: Service Date/Time: Thursday, April 06, 2017 05:39 - CONCLUSION: 1. Stable bilateral lower lung zone interstitial opacities. Differential considerations include interstitial edema versus interstitial pneumonia. 2. No significant interval change. Parviz Keys MD Chest CT 04/06/17 0000 Signed Impressions: Service Date/Time: Thursday, April 06, 2017 09:25 - CONCLUSION: 1. Advanced pulmonary fibrosis. 2. Overlying interstitial prominence and peribronchial consolidation representing either pulmonary edema or acute pneumonitis. 3. No other significant change. Leonardo Vaca MD Last Impressions Chest X-Ray 04/05/17 1119 Signed Impressions: Service Date/Time: Wednesday, April 05, 2017 11:37 - CONCLUSION: Background emphysema with new bilateral lower lung zone interstitial opacities bilaterally. Zion Owusu MD CT Thorax with contrast (03/22/17) - Stable CT appearance of the chest. No definite evidence of local recurrence or metastatic disease. - Lungs with emphysema and patchy fibrotic parenchymal changes stable with mild consolidative fibrotic change in the right retrohilar region at site of previous mass. No evidence of significant residual mass density. 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 Pt then received XRT which he completed in January 2017. Pt follows with Dr. Osorio. - He was last seen by Dr. Osorio in 03/2017 and he had a CT Thorax prior to that visit which noted post treatment changes in the right lung with significant emphysematous changes, however, there is no mass or adenopathy noted. - Pt presented to the ED at [facility] on 04/05/17 with complaints of weakness, dizziness, shortness of breath with exertion, hemoptysis and epistaxis that began around 4-5 days ago. He denies any fevers or chills at home. His dyspnea on exertion seemed to worsen over the last day or so and this prompted his evaluation in the ED. - comgmt with Pulm Med and Cardiology - Family reports that he is on 2L of supplemental O2 at home. - In the ED his O2 sats were 94% on 4L of supplemental O2. - CXR in the ED noted emphysema with new bilateral lower lung zone interstitial opacities bilaterally. - Pt was given Duoneb treatments and Budesonide nebs in the ED. - He was given a dose of Solu-Medrol 125mg x one dose in the ED as well as Azithromycin and Rocephin 04/05 & 04/06 - Zosyn 04/07 stopped 04/09/17 - Cont. Duonebs Q4H WA - Blood cultures drawn with NGTD - CXR (04/06) --> Stable bilateral lower lung zone interstitial opacities. Differential considerations include interstitial edema versus interstitial pneumonia. No significant interval change. - Chest CT (04/06/17) --> Advanced pulmonary fibrosis. Overlying interstitial prominence and peribronchial consolidation representing either pulmonary edema or acute pneumonitis. No other significant change. - pneumonia now seems less likely, but will continue IV zosyn for now - continue IV solumedrol for pt's Pulm Fibrosis - (04/10) Pulmonology decreased steroids to solumedrol 60 mg IV Q12H - 04/11 oxygen requirement decreasing down to 2L via NC - Pt's troponin was elevated - Cardiology also following [facility] for 04/12/17 - pradaxa on hold - supportive care - Pt was on lovenox, which has been stopped in preparation for [facility] Wednesday - [facility] 04/12/17 (2) Hemoptysis ICD Codes: R04.2 - Hemoptysis Status: Acute Plan: - resolved - See above (3) CHF (congestive heart failure) ICD Codes: I50.9 - Heart failure, unspecified Status: Chronic Plan: - 2D echo (09/03/16) - Mild LVH - Estimated EF 55-60% - Grade 1 diastolic dysfunction - PA pressure 39mmHg - Suspect the pt has some degree of volume overload initially - 04/06 Lasix 40mg IV x one with no clinical improvement - BNP 36 (4) Non-small cell cancer of right lung ICD Codes: C34.91 - Malignant neoplasm of unspecified part of right bronchus or lung Status: Chronic Plan: - See above (5) Weakness generalized ICD Codes: R53.1 - Weakness Status: Chronic Plan: - See above (6) COPD (chronic obstructive pulmonary disease) ICD Codes: J44.9 - Chronic obstructive pulmonary disease, unspecified Status: Chronic Plan: - Cont. Duonebs Q4H WA and Q2H PRN - Pt does not have any wheezing on examination - With pneumonia he may have a flare of his COPD and advanced Pulmonary fibrosis - solumedrol 60 mg Q12H per pulmonology - see above (7) Hypertension ICD Codes: I10 - Essential (primary) hypertension Status: Chronic Plan: - Clonidine PRN - Vasotec PRN (8) Diabetes mellitus type 2, noninsulin dependent ICD Codes: E11.9 - Type 2 diabetes mellitus without complications Status: Chronic Plan: - OHA on hold - NovoLog SSI - Pts BS elevated today likely related to receiving Solu-Medrol in the ED last night - Give one time NovoLog 20 units now and monitor closely (9) Elevated troponin ICD Codes: R74.8 - Abnormal levels of other serum enzymes Plan: Patient reports 45 mins of burn type midsternal chest pain 04/06. Patient denies associated radiation, diaphoresis, nausea or vomiting. Patient does have a history of CAD with [place] in the past - elevated troponin - BB added, PO NTG - [facility] 04/12/17 - see above (10) Acute kidney injury superimposed on chronic kidney disease ICD Codes: N17.9 - Acute kidney failure, unspecified; N18.9 - Chronic kidney disease, unspecified Status: Acute Plan: renal function worsening 04/10 BUN 57, creatine 1.78 and estimated GFR 37 patient' base line creatinine around 1.0, GFR baseline around 60 will start IF fluid 1/2 NS at 75ml/H UA reveals large occult blood, Lovenox has been stopped renal function improving creatinine 1.25, decrease IV fluids to 42ml/H to avoid fluid overload CXR (04/11) reviewed and stable Assessment and Plan Patient examined. Assessment and plan formulated with Sumaya Barber PA-C. I agree with the above. Problem Qualifiers (1) Pneumonia: Qualified Codes: J18.9 - Pneumonia, unspecified organism (2) CHF (congestive heart failure): Qualified Codes: I50.30 - Unspecified diastolic (congestive) heart failure Sumaya Barber Apr 11, 2017 12:34 Song Camarena DO Apr 16, 2017 11:28
[2017-04-11] MEDS: LATANOPROST 0.005% OPHT SOLN 2.5 ML BTL EACH EYE SCH (20:24)
[2017-04-11] MEDS: methylPREDNISolone SOD SUCC 40 MG/1 ML VIAL IV PUSH SCH (20:26)
[2017-04-12] VITALS (12 sets, daily range): BP systolic 151–202; BP diastolic 77–93; PULSE 64–91; RESP 16–19; TEMP 97.4–99.7; O2SAT 69–94
[2017-04-12] MEDS: cloNIDine HCL 0.1 MG TAB PO PRN ×2 (00:38→06:03)
[2017-04-12] MEDS: ISOSORBIDE MONONITRATE 60 MG TAB PO SCH (06:03)
[2017-04-12] MEDS: METOPROLOL TARTRATE 25 MG TAB PO SCH ×2 (07:35→21:32)
[2017-04-12] MEDS: ESCITALOPRAM OXALATE 10 MG TAB PO SCH (07:39)
[2017-04-12] MEDS: SODIUM CHLORIDE 0.9% FLUSH 10 ML FLUSH IV FLUSH SCH ×2 (07:40→21:00)
[2017-04-12] MEDS: INSULIN ASPART SUPPLEMENTAL SCALE SQ SCH ×3 (07:40→21:35)
[2017-04-12] MEDS: BRIMONIDINE TARTRATE 0.2% OPHT SOLN 5 ML BTL EACH EYE SCH ×2 (07:40→21:00)
[2017-04-12] MEDS: INSULIN DETEMIR 100 UNITS/ML VIAL SQ SCH ×2 (07:40→21:00)
[2017-04-12] MEDS: MEGESTROL ACETATE SUSP 400 MG/10 ML CUP PO SCH ×2 (07:40→22:39)
[2017-04-12] MEDS: PANTOPRAZOLE SODIUM 40 MG VIAL IV PUSH SCH (07:42)
[2017-04-12] MEDS: methylPREDNISolone SOD SUCC 40 MG/1 ML VIAL IV PUSH SCH ×2 (07:43→21:33)
[2017-04-12] MEDS ORDERED: HEPARIN-NS/PF INJ 1,000 ML ONE ×2 (08:36→10:59)
[2017-04-12] MEDS ORDERED: MIDAZOLAM HCL 2 MG/2 ML VIAL ONE ×2 (08:54→11:19)
[2017-04-12] MEDS: RESP: ALBUTEROL 2.5 MG/IPRATROPIUM 0.5 MG NEB (SCH) INH (08:56)
[2017-04-12] MEDS ORDERED: LIDOCAINE HCL 1% PF 30 ML VIAL ONE (09:07)
--- NOTE | 2017-04-12 09:33 | MA ---
cc: JUAN DAVID GONZALEZ MD DATE 04/12/2017 PROCEDURE NOTE The patient was prepped and draped in the usual sterile fashion. Both femoral arteries were attempted to be accessed but both were severely calcified. The wires were unable to negotiate and it was felt that both arteries were totally occluded. The attempt was abandoned from the femoral arteries. PLAN It has been discussed with Dr. Mejia who will attempt a radial approach later this afternoon. MD JOSE RAMON SalmeronW/SSB /9:19 AM /9:24 AM
[2017-04-12] MEDS ORDERED: BIVALIRUDIN 250 MG VIAL ONE (11:43)
[2017-04-12] MEDS ORDERED: CLOPIDOGREL 300 MG TAB ONE (12:36)
[2017-04-12] MEDS ORDERED: SODIUM CHLOR 0.9% 1000 ML INJ 1,000 ML IV SCH (12:37)
[2017-04-12] MEDS ORDERED: LIDOCAINE 2% JELLY 30 ML TUBE TOP PRN (12:45)
--- NOTE | 2017-04-12 13:02 | CATHPROC ---
[facility] HIS Report Study Information Study Number Admission Scheduled Start Study Start [id number] Apr 05 2017 1:59PM 04/12/2017 Apr 12 2017 10:53AM [place] [facility] Catheter[facility] Admit Source Facility Department Emergency department [facility] - Electrician Supervisor Substation Physician and Clinical Staff Initial Wild Becker Litigation Paralegal Carlos Mcfarland RN Litigation Paralegal Jonnathan DACOSTA, Dario Litigation ParalegalFelicity Vazquez BSRN Recorder Kassandra Black RCIS TECH2 Recorder oTny Josue,RT(R) ScrVikki KaplanRT(R) (BS) Procedures Performed Procedure Location (Site) Vessel Name Coronary Angiograms LCA Left Coronary Coronary Angiograms RCA Right Coronary PTCA CIRC Prox CIRC PTCA RCA Mid Right Coronary PTCA RCA Prox Right Coronary Stent CIRC Prox CIRC Wire insertion Radial (right) Radial Art. Equipment Time Heel Seat Pounder Description Size Mfg Part Number Used/Scraped [id number] 12:14 [employer] STENT, 2.0 12 MINI-VISION RX 2.0 12 Used *[id number] TRANSDUCER, TRUWAVE [id number] 10:57 BYRNE MARTIN * Used W/STOCKCOCK *[id number] 12:01 [employer] SCIENTIFIC BALLOON, 1.5 12MM EMERGE MR 1.5 12MM Used *[id number] *[id number] *[id number] [phone] *[id number] 10:57 [employer] INDUSTRIES PACK, CCL CUSTOM * Used *[id number] 10:57 Cyt[employer]n SUPPORT, ARTERIAL ADULT [id number] *[id number] Used [id number] 10:57 [employer] PACER PEN, SKIN DUAL W/ RULER * Used *[id number] 12:06 MEDTRONIC BALLOON, 2.0 X 12MM EUPHORA 12MM Used *[id number] 11:49 MEDTRONIC BALLOON, 2.0 X 15MM EUPHORA 15MM Used *[id number] 11:34 MEDTRONIC JL 3.5 DXTERITY CATHETER FR 5 [id number] Used [id number] 11:58 Veoh 30 CELSO INDEFLATOR Used *[id number] BAND, RADIAL COMPRESSION TR [id number] 12:38 [employer] MEDICAL 24CM Used SHORT 24 *[id number] SHEATH, FR6 RADIAL PRELUDE 10:57 Veoh FR 6 [id number] Used EASE 11CM [id number] 10:57 Veoh WIRE, EXCHANGE 260CM 3MMJ 260CM Used *[id number] 10:57 [employer] OMNIPAQUE, 350 MG, 150ML 150ML [id number] Used [id number] 10:57 [employer] MEDICAL BLANKET,WARM AIR CCL * Used *[id number] WIRE, RUNTHROUGH NS FLOPPY -1011 11:47 [employer] 180CM Used .014 180CM *[id number] WIRE, RUNTHROUGH NS FLOPPY 1011 12:19 [employer] 180CM Used .014 180CM *[id number] Equipment Model, Serial, Lot Number and Expiration Data Description Model Number Serial Number Lot Number Expiration Date STENT, 2.0 12 MINI-VISION RX [id number] 12-01-2019 History: Current Medications Medication Dosage/Unit Route Frequency Last Date/Time Taken Glucophage PRADAXA LEXAPRO History: Allergies Allergy Reaction *MDRO Multi-Drug Resistant VRE, MRSA Organism HMG-CoA Reductase Inhibitors MUSCLE PAIN pravastatin MUSCLE PAIN simvastatin MUSCLE PAIN amlodipine MUSCLE PAIN atorvastatin MUSCLE PAIN History: Risk Factors Family History of Hypertension Dyslipidemia Previous [facility] Previous Heart Failure Premature CAD Yes Yes Yes Yes No Prior Valve Prior PCI Prior PCIDate Prior CABG Surgery No Yes 05/03/2002 No Cerebrovascular Peripheral Artery Chronic Lung On Dialysis Diabetes Diabetes Therapy Disease Disease Disease No No No Yes Yes Oral History: Symptoms/Diagnosis Selection Items Chest pain SOB History: CV Disease Selection Items Known CAD History: Stress Tests Stress or Imaging Studies Performed Yes Standard Exercise Stress Test No Stress Echo No Stress Test SPECT Stress Test SPECT Result Stress Test SPECT Ischemia Risk/Extent Yes Positive High Stress Test CMR No Cardiac CTA Coronary Calcium Score No No History: Other Disease Selection Items CAD Cancer HTN Renal Failure/Insufficiency History: Other Current Smoker Quit Packs a Day Years Used Pack Years No 25 Years Ago 2 30 60 Labs Hgb (g/dl) Hct (%) RBC (MIL/MM3) WBC (l/cumm) Platelets (thousands) 11.60-17.00 35.00-51.00 4.00-5.90 4.00-11.00 150.00-450.00 9.2 27.5 2.6 19.6 212 Glucose (mg/dl) BUN (mg/dl) Creatinine (mg/dl) BUN:Creatinine (1:x) 74.00-106.00 7.00-18.00 0.50-1.30 10.00-20.00 163 24 1.8 13.3 Na (meq/l) K (meq/l) Cl (meq/l) CO2 (mmol/L) Ca (mg/dl) 136.00-145.00 3.50-5.10 98.00-107.00 21.00-32.00 8.50-10.10 142 4.1 111 19.3 9.2 PT (sec) PTT (sec) INR (PTT:PT) 9.80-11.60 24.30-30.10 0.90-1.10 13.9 54.8 1.4 Troponin I (ng/ml) Troponin T (ng/ml) CPK-MB (ng/ML) 0.02-0.05 0.40-2.10 0.50-3.60 0.55 10.5 Not Drawn Medication Medication Total Dose (Bolus/Oral) Medication Total Dosage/Unit 1% XYLOCAINE 5 mL ANGIOMAX BOLUS 12.9 mL FENTANYL 25 mcg HEPARIN 3000 units NTG (IC) 200 mcg PLAVIX 600 mg Medications (Bolus/Oral) Medication Time Given Dosage/Unit Administered By Reason 04/12/2017 11:23:54 1% XYLOCAINE 5 mL Wild Mejia AM 5 mL 1% XYLOCAINE given in lab by Wild Mejia in Right Radial via Subcutaneous. 04/12/2017 11:25:43 NTG (IC) 200 mcg Wild Mejia AM 200 mcg NTG (IC) given in lab by Wild Mejia via Radial. 04/12/2017 11:33:12 HEPARIN 3000 units Carlos Mcfarland AM 3000 units HEPARIN given in lab by Carlos Mcfarland, PRANEETH via Peripheral IV. 04/12/2017 11:46:15 ANGIOMAX BOLUS 12.9 mL Carlos Mcfarland AM 12.9 mL ANGIOMAX BOLUS given in lab by Carlos Mcfarland RN in Left shoulder via Peripheral IV. 04/12/2017 11:53:12 FENTANYL 25 mcg Carlos Mcfarland AM 25 mcg FENTANYL given in lab by Carlos Mcfarland, PRANEETH in Left Antecubital via Peripheral IV. Ordered by Wild Mejia. 04/12/2017 12:48:00 PLAVIX 600 mg Felicity Sanchez PM 600 mg PLAVIX given in lab by Felicity Sanchez BSRN via Oral. Ordered by Wild Mejia. Medication (Drip) Medication Time Given Dosage/Unit Concentration/Unit Diluent (ml) Solution 04/12/2017 11:49:04 ANGIOMAX DRIP 1.75 mg/kg/hr 250 mg 50 NaCl .9 AM 1.75 mg/kg/hr ANGIOMAX DRIP given in lab by Carlos Mcfarland RN via Peripheral IV. Pump/Drip Flow = 30 .1 ml/hr using NaCl .9 with a concentration of 250 mg in 50 ml. 04/12/2017 10:55:13 IV Solutions 0 mL (IV) 1000 NaCl .45 AM Patient arrived on IV Solutions in Left shoulder via Central IV. Pump/Drip Flow = 20 ml/hr using NaCl .45. Initial Case Assessment Cardiovascular HR Rhythm NIBP Chest Pain 86 Sinus 158/82 0 Edema Present Skin color Skin None Normal Warm Dry Circulatory - Right Pulses Dorsalis Pedis Femoral Radial 1 1 1 Scale (0,1,2,3,4,d) Scale (0,1,2,3,4,d) Neurological State Oriented to time-place- Alert Moves all extremities person Respiration - General Respiration Rate SpO2 (%) (B/min) 18 97 Final Case Assessment Cardiovascular HR Rhythm NIBP Chest Pain 81 sr 141/83 0 Circulatory - Right Pulses Dorsalis Pedis Femoral Radial 1 1 1 Scale (0,1,2,3,4,d) Scale (0,1,2,3,4,d) Neurological State Oriented to time-place- Alert Moves all extremities person Respiration - General Respiration Rate SpO2 (%) O2 (lpm) (B/min) 17 89 6 Chronological Log Time Study Chronological Log 10:52:04 Patient arrived via Bed. 10:52:09 Patient Name, D.O.B, / Armband Verified By R.N. 10:54:13 Consent signed by the physician and the patient and verified by the Electrician Supervisor Substation staff. 10:54:16 Pre-op and post- op instructions given; patient acknowledges understanding of instructions. 10:54:17 Verbal Stimulation=2 Physical Stimulation=2 Airway=2 Respiration=2 TOTAL=8. (0=absent, 1=li mited, 2=present) 10:54:54 Presedation assessment performed by Electrician Supervisor Substation RN. 10:55:01 Allens test performed on the right radial and ulnar artery. 10:55:04 Patient has been NPO for More than 6Hrs. 10:55:05 Skin Breakdown- none per patient. 10:55:06 Jose G Prominences Protected 10:55:11 An Infusaport central IV was noted in the Subclav. Vein (Lft. Grade = patent 10:55:13 Patient arrived on IV Solutions in Left shoulder via Central IV. Pump/Drip Flow = 20 ml/hr using NaCl .45. 10:55:15 History and physical on the chart or being dictated. 11:00:46 Reference ECG taken Vitals capture started with the following parameters, Patient=Adult, Interval=5 min, Initial Pr ocbdoi=512 mmHg, 11:03:31 Deflation Rate=5 mmHg, Cuff placed on Left Arm 11:04:51 HR=69 bpm, OCYI=765/82 mmhg, SpO2=94.0 %, Resp=15 B/min, Pain=0, Neeraj=10, Alston=2 11:09:52 HR=60 bpm, QOYV=504/80 mmhg, SpO2=92.0 %, Resp=12 B/min, Pain=0, Neeraj=10, Alston=2 11:14:15 HR=64 bpm, BDAL=982/85 mmhg, SpO2=91.0 %, Resp=15 B/min, Pain=0, Neeraj=10, Alston=2 11:16:07 Pressure channel 1 zeroed. Assessment: Initial Case, HR=86 BPM, Rhythm=Sinus, IUKJ=639/82 mmhg, Chest Pain=0, Edema=None, Color=Normal, Skin = Warm, Dry 11:16:40 Right Pulses: Contreras Ped=1, Femoral=1, Radial=1 Neurological: State=Alert, Ox3, FRAUSTO Respiration: Resp=18 B/min, SpO2=97 % 11:16:42 MD arrived. 11:16:54 Right Radial and groin(s) prepped with 2% chlorhexidine, and draped after a 3 min. waiting time. 11:19:14 HR=65 bpm, HPAZ=913/76 mmhg, SpO2=94.0 %, Resp=12 B/min, Pain=0, Neeraj=10, Alston=2 Time Out. Correct patient, correct procedure, correct physician, power injector not loaded with contrast with surgical 11:23:40 team present. Time Out Concurred by MD and individual staff in procedure. 11:23:53 Case Start 11::54 5 mL 1% XYLOCAINE given in lab by Wild Mejia in Right Radial via Subcutaneous. 11:24:17 HR=74 bpm, ABNE=171/77 mmhg, SpO2=92.0 %, Resp=19 B/min, Pain=0, Neeraj=10, Alston=2 11:25:21 Access site was Radial Artery. A SHEATH, FR6 RADIAL PRELUDE EASE 11CM FR 6 was advanced into the Radial (right) using the Perc utaneous :: technique. 11::43 200 mcg NTG (IC) given in lab by Wild Mejia via Radial. A JR 5.0 INFINITI CATHETER FR 5 was advanced over a wire. OMNIPAQUE, 350 MG, 150ML 150ML was us ed for :27 injections. Recorded Pressure: LV, HR=63, Condition=Condition 1 11:28:30 (Left Ventricle) LV 148/-7/3 11:29:08 HR=76 bpm, JFVL=261/79 mmhg, SpO2=90.0 %, Resp=15 B/min, Pain=0, Neeraj=10, Alston=2 Recorded Pressure: Ao, HR=84, Condition=Condition 1 11:29:39 (Aorta) Ao 148/90/115 11:29:48 The RCA was injected and visualized at various angles. OMNIPAQUE, 350 MG, 150ML 150ML used . After removing the current catheter a JR 5.0 INFINITI CATHETER FR 5 was advanced over a WIRE, E XCHANGE 260CM 11:31:35 3MMJ 260CM. 11:32:52 The LCA was injected and visualized at various angles. OMNIPAQUE, 350 MG, 150ML 150ML used . 11:33:12 3000 units HEPARIN given in lab by Carlos Mcfarland, PRANEETH via Peripheral IV. 11:34:13 HR=85 bpm, PZAZ=247/76 mmhg, SpO2=91.0 %, Resp=14 B/min, Pain=0, Neeraj=10, Alston=2 11:39:16 HR=71 bpm, QYHP=470/87 mmhg, SpO2=93.0 %, Resp=17 B/min, Pain=0, Neeraj=10, Alston=2 After removing the current catheter a JR 4.0 GUIDE CATHETER FR 6 was advanced over a WIRE, EXCH MATIAS 260CM 11:40:57 3MMJ 260CM. 11:44:52 HR=83 bpm, VHZJ=642/89 mmhg, SpO2=93.0 %, Resp=15 B/min, Pain=0, Neeraj=10, Alston=2 11:46:07 A WIRE, EXCHANGE 260CM 3MMJ 260CM was inserted via Radial (right). 11:46:15 12.9 mL ANGIOMAX BOLUS given in lab by Carlos Mcfarland, PRANEETH in Left shoulder via Peripheral I V. 11:46:52 A WIRE, RUNTHROUGH NS FLOPPY .014 180CM 180CM was inserted via Radial (right). 11:47:35 Interventional wire has crossed the lesion 11:47:37 Wire removed A BALLOON, 2.0 X 15MM EUPHORA 15MM was inserted over WIRE, RUNTHROUGH NS FLOPPY .014 180CM 180C M via 11:47:52 the RCA Mid. 1.75 mg/kg/hr ANGIOMAX DRIP given in lab by Carlos Mcfarland, PRANEETH via Peripheral IV. Pump/Drip Isaac w = 30.1 ml/hr using 11:49:04 NaCl .9 with a concentration of 250 mg in 50 ml. 11:49:53 HR=86 bpm, BIII=111/89 mmhg, SpO2=91.0 %, Resp=15 B/min 11:53:12 25 mcg FENTANYL given in lab by Carlos Mcfarland, RN in Left Antecubital via Peripheral IV. O rdered by Wild Mejia. 11:54:19 HR=71 bpm, BUJA=225/85 mmhg, SpO2=91.0 %, Resp=14 B/min A BALLOON, 2.0 X 15MM EUPHORA 15MM over a WIRE, RUNTHROUGH NS FLOPPY .014 180CM 180CM in the RC A Mid 11:57:43 was inflated using a 30 CELSO INDEFLATOR at 10 celso for 25 sec. 11:58:29 Balloon Removed. 11:59:20 HR=85 bpm, NXJM=687/79 mmhg, SpO2=91.0 %, Resp=21 B/min A BALLOON, 1.5 12MM EMERGE MR 1.5 12MM was inserted over WIRE, RUNTHROUGH NS FLOPPY .014 180CM 180CM 11:59:25 via the RCA Mid. A BALLOON, 1.5 12MM EMERGE MR 1.5 12MM over a WIRE, RUNTHROUGH NS FLOPPY .014 180CM 180CM in th e RCA 12:01:51 Mid was inflated using a 30 CELSO INDEFLATOR at 10 celso for 25 sec. 12:02:42 Balloon Removed. 12:04:19 HR=80 bpm, IQVL=306/91 mmhg, SpO2=90.0 %, Resp=20 B/min A BALLOON, 2.0 X 12MM EUPHORA 12MM was inserted over WIRE, RUNTHROUGH NS FLOPPY .014 180CM 180C M via 12:04:25 the RCA Prox. A BALLOON, 2.0 X 12MM EUPHORA 12MM over a WIRE, RUNTHROUGH NS FLOPPY .014 180CM 180CM in the RC A 12:06:18 Prox was inflated using a 30 CELSO INDEFLATOR at 12 celso for 15 sec. A BALLOON, 2.0 X 12MM EUPHORA 12MM over a WIRE, RUNTHROUGH NS FLOPPY .014 180CM 180CM in the RC A Mid 12:09:12 was inflated using a 30 CELSO INDEFLATOR at 12 celso for 15 sec. 12:09:20 HR=82 bpm, QUMT=128/79 mmhg, SpO2=91.0 %, Resp=13 B/min A BALLOON, 2.0 X 12MM EUPHORA 12MM over a WIRE, RUNTHROUGH NS FLOPPY .014 180CM 180CM in the RC A Mid 12:09:58 was inflated using a 30 CELSO INDEFLATOR at 12 celso for 25 sec. A BALLOON, 2.0 X 12MM EUPHORA 12MM over a WIRE, RUNTHROUGH NS FLOPPY .014 180CM 180CM in the RC A Mid 12:10:40 was inflated using a 30 CELSO INDEFLATOR at 12 celso for 30 sec. A BALLOON, 2.0 X 12MM EUPHORA 12MM over a WIRE, RUNTHROUGH NS FLOPPY .014 180CM 180CM in the RC A Mid 12:11:23 was inflated using a 30 CELSO INDEFLATOR at 12 celso for 15 sec. A BALLOON, 2.0 X 12MM EUPHORA 12MM over a WIRE, RUNTHROUGH NS FLOPPY .014 180CM 180CM in the RC A 12:11:50 Prox was inflated using a 30 CELSO INDEFLATOR at 12 celso for 5 sec. 12:12:18 Balloon Removed. 12:14:19 HR=82 bpm, SJRO=536/84 mmhg, SpO2=93 %, Resp=11 B/min An STENT, 2.0 12 MINI-VISION RX 2.0 12 Bare Metal Stent was inserted through a JR 4.0 GUIDE CAT HETER FR 6 12:15:01 over a WIRE, RUNTHROUGH NS FLOPPY .014 180CM 180CM. 12:16:28 Unable to cross. Stent not deployed. Stent removed and intact. 12:16:54 Guide Catheter and wire removed 12:17:31 The RCA was injected and visualized at various angles. OMNIPAQUE, 350 MG, 150ML 150ML used . 12:18:24 A WIRE, EXCHANGE 260CM 3MMJ 260CM was inserted via Radial (right). After removing the current catheter a XB 3.5 GUIDE CATHETER FR 6 was advanced over a WIRE, EXCH MATIAS 260CM 12:18:45 3MMJ 260CM. 12:19:20 HR=83 bpm, OMQJ=645/81 mmhg, SpO2=90.0 %, Resp=16 B/min 12:20:47 A WIRE, RUNTHROUGH NS FLOPPY .014 180CM 180CM was inserted via Radial (right). 12:24:21 HR=79 bpm, CYGS=695/83 mmhg, SpO2=90.0 %, Resp=13 B/min An STENT, 2.0 12 MINI-VISION RX 2.0 12 Bare Metal Stent was inserted through a XB 3.5 GUIDE CAT HETER FR 6 12:24:25 over a WIRE, RUNTHROUGH NS FLOPPY .014 180CM 180CM. 12:25:25 Stent not deployed. Stent removed and intact. A BALLOON, 2.0 X 12MM EUPHORA 12MM was inserted over WIRE, RUNTHROUGH NS FLOPPY .014 180CM 180C M via 12:25:43 the CIRC Prox. A BALLOON, 2.0 X 12MM EUPHORA 12MM over a WIRE, RUNTHROUGH NS FLOPPY .014 180CM 180CM in the CI RC 12:26:44 Prox was inflated using a 30 CELSO INDEFLATOR at 14 celso for 10 sec. A BALLOON, 2.0 X 12MM EUPHORA 12MM over a WIRE, RUNTHROUGH NS FLOPPY .014 180CM 180CM in the CI RC 12:26:58 Prox was inflated using a 30 CELSO INDEFLATOR at 10 celso for 5 sec. 12:27:59 Balloon Removed. An STENT, 2.0 12 MINI-VISION RX 2.0 12 Bare Metal Stent was inserted through a XB 3.5 GUIDE CAT HETER FR 6 12:29:03 over a WIRE, RUNTHROUGH NS FLOPPY .014 180CM 180CM. 12:29:21 HR=78 bpm, IJUJ=439/78 mmhg, SpO2=91.0 %, Resp=13 B/min A STENT, 2.0 12 MINI-VISION RX 2.0 12 was deployed using a 30 CELSO INDEFLATOR at 16 atmospheres for 10 seconds 12:29:27 in the CIRC Prox. 12:30:04 Delivery device removed 12:30:12 Guide Catheter and wire removed 12:30:34 Case End 12:34:22 HR=81 bpm, FRQF=932/79 mmhg, SpO2=89.0 %, Resp=20 B/min Radial Compression Device Used. 14 mLs of air placed in BAND, RADIAL COMPRESSION TR SHORT 24 24 CM. Affected 12:36:32 hand 88 % O2 saturation. 12:39:45 HR=76 bpm, LUZE=808/83 mmhg, SpO2=87.0 %, Resp=15 B/min 12:41:26 No case complications noted. 12:41:28 Cine recording checked. 12:41:29 Bedside Report will be given. 12:48:00 600 mg PLAVIX given in lab by Felicity Sanchez BSRN via Oral. Ordered by Wild Mejia. 12:48:16 Patient moved to bed 12:48:24 Patient transported to DOCU Assessment: Final Case, HR=81 BPM, Rhythm=sr, UJED=664/83 mmhg, Chest Pain=0 Right Pulses: Contreras Ped=1, Femoral=1, Radial=1 12:48:58 Neurological: State=Alert, Ox3, FRAUSTO Respiration: Resp=17 B/min, SpO2=89 %, O2=6 lpm End Study - Contrast Media Used In Study Contrast Total Opened (mL) Total Used (mL) Total Wasted (mL) Omnipaque 110 110 0 End Study - Maximum Contrast Load Max Contrast Load (mL) 238.9 End Study - Radiation Exposure Fluoro Time (minutes) 26.1 End Study - Sheaths Sheaths Pulled By Sheath Hold Time (min) Vikki Blank End Study - Patient Disposition Complications Transferred To Interventional Outcome No Telemetry Bed successful
--- NOTE | 2017-04-12 13:27 | MA ---
cc: WILD MILLS DATE 04/12/2017 INDICATION Vyv-IL-[id number] [place]. PROCEDURE PERFORMED 1. Fluoroscopy with interpretation. 2. Left heart catheterization. 3. Coronary angiography. 4. Percutaneous intervention with bare metal stent to the left circumflex coronary artery. 5. Percutaneous transluminal coronary angioplasty of the right coronary artery. METHOD The risks, benefits and alternatives were discussed with the patient. The patient understood and consented to the procedure. PROCEDURE The patient was brought into the Catheterization Lab and placed on the catheterization table. The right wrist was prepped and draped in the usual sterile fashion. The right wrist was anesthetized with 2% lidocaine. The right radial artery was cannulated and a 6-Chilean, 7-cm sheath was placed without difficulty. LEFT HEART CATHETERIZATION Intraventricular hemodynamics measured at 148/3 mmHg. CORONARY ANGIOGRAPHY 1. The left main coronary artery is very short, almost separate os to the LAD and circumflex. The left main is angiographically normal. 2. The left anterior descending coronary artery has a stent present in the proximal segment. There is mild luminal irregularities throughout the LAD and diagonal branch. 3. The left circumflex gives rise to several obtuse marginal branches. The mid-left circumflex has a 90% calcific stenosis. 4. The right coronary artery has a 99% subtotal occlusion of the mid-segment. There are [id number] collaterals to the very distal left anterior descending coronary artery PDA branch which has a proximal occlusion. PERCUTANEOUS INTERVENTION Given the patient's ongoing symptoms, we elected to proceed with attempts at revascularization. The right coronary was selectively engaged with a 6-Chilean JR-4 catheter. A 0.014-cm, 80-cm Terumo Run-Through wire was navigated down to the distal right coronary artery. A 1.5 x 10 mm balloon was advanced to the mid-right coronary artery and deployed on two sequential inflations to 8 atmospheres. A 2.0 x 12-mm RX balloon was advanced down to the mid-right coronary and deployed on two sequential inflations to 14 atmospheres. Repeat angiography shows severe residual stenosis, BROOKS-3 flow. We attempted for a long period of time to see if we could navigate a 2.0 x 12-mm stent down to the lesion but, unfortunately given the heavy calcium and angulation of the right coronary artery we were unable to do so. At this point we elected not to pursue any further aggressive interventions for concerns of complication. Attention was then directed towards the left circumflex coronary artery. A 6-Chilean XB-3.5 guide catheter was advanced into the left circumflex and Terumo wire navigated down the distal obtuse marginal branch. A 2.0 x 12-mm balloon was then deployed in the circumflex coronary follow by the 2.0 x 12 mm Integrity bare metal stent. Repeat angiography showed no residual stenosis, BROOKS-3 flow. Angiomax was administered throughout the entire procedure to maintain appropriate anticoagulation. CONCLUSION 1. Severe two-vessel coronary artery disease. 2. Successful percutaneous intervention with bare metal stent to the left circumflex coronary artery and percutaneous transluminal angioplasty of the right coronary artery. 3. Normal to low left-sided filling pressures. PLAN Monitor the patient closely for any post-procedural complications. Initial on Plavix. Also, gently hydrate; although we tried to minimize contrast, we will have to monitor creatinine closely. We will also monitor blood counts. We will have to have a discussion with Dr. Barajas about anticoagulation and antiplatelet strategy going forward. HemoBand was applied. [place] MD SM/SSB /12:43 PM /1:05 PM
[2017-04-12] MEDS ORDERED: BACITRACIN OINT 0.9 GM PKT TOP ONE (14:00)
--- NOTE | 2017-04-12 14:40 | HHI.PR ---
Subjective Remarks doing ok. seen after [facility]. family present Objective Vitals heart reg lung course bs abd s/nt ext no edema Vital Signs Date Time Temp Pulse Resp B/P (MAP) Pulse Ox O2 Delivery O2 Flow Rate FiO2 04/12/17 12:55 92 Nasal Cannula 4.00 04/12/17 08:20 97.9 82 19 151/77 (101) 91 04/12/17 08:00 87 04/12/17 07:32 98.0 91 16 175/93 (120) 91 04/12/17 04:59 99.7 91 18 189/86 (120) 93 04/12/17 03:13 73 04/12/17 03:13 87 04/12/17 02:11 69 18 164/77 (106) 93 04/12/17 00:30 97.7 72 18 170/78 (108) 93 04/11/17 20:35 97.5 87 19 166/76 (106) 88 04/11/17 20:32 Nasal Cannula 5.00 Humidified 04/11/17 20:21 94 Nasal Cannula 4.00 04/11/17 16:57 80 04/11/17 15:58 97.6 78 20 127/61 (83) 87 Result Diagram: 04/11/17 0558 04/11/17 0558 Imaging Last Impressions Chest X-Ray 04/06/17 0600 Signed Impressions: Service Date/Time: Thursday, April 06, 2017 05:39 - CONCLUSION: 1. Stable bilateral lower lung zone interstitial opacities. Differential considerations include interstitial edema versus interstitial pneumonia. 2. No significant interval change. Parviz Keys MD Chest CT 04/06/17 0000 Signed Impressions: Service Date/Time: Thursday, April 06, 2017 09:25 - CONCLUSION: 1. Advanced pulmonary fibrosis. 2. Overlying interstitial prominence and peribronchial consolidation representing either pulmonary edema or acute pneumonitis. 3. No other significant change. Leonardo Vaca MD Last Impressions Chest X-Ray 04/05/17 1119 Signed Impressions: Service Date/Time: Wednesday, April 05, 2017 11:37 - CONCLUSION: Background emphysema with new bilateral lower lung zone interstitial opacities bilaterally. Zion Owusu MD CT Thorax with contrast (03/22/17) - Stable CT appearance of the chest. No definite evidence of local recurrence or metastatic disease. - Lungs with emphysema and patchy fibrotic parenchymal changes stable with mild consolidative fibrotic change in the right retrohilar region at site of previous mass. No evidence of significant residual mass density. 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 Pt then received XRT which he completed in January 2017. Pt follows with Dr. Osorio. - He was last seen by Dr. Osorio in 03/2017 and he had a CT Thorax prior to that visit which noted post treatment changes in the right lung with significant emphysematous changes, however, there is no mass or adenopathy noted. - Pt presented to the ED at [facility] [place] on 04/05/17 with complaints of weakness, dizziness, shortness of breath with exertion, hemoptysis and epistaxis that began around 4-5 days ago. He denies any fevers or chills at home. His dyspnea on exertion seemed to worsen over the last day or so and this prompted his evaluation in the ED. - Family reports that he is on 2L of supplemental O2 at home. - CXR in the ED noted emphysema with new bilateral lower lung zone interstitial opacities bilaterally. - Pt was given Duoneb treatments and Budesonide nebs in the ED. - He was given a dose of Solu-Medrol 125mg x one dose in the ED as well as Azithromycin and Rocephin 04/05 & 04/06 - Zosyn 04/07 stopped 04/09/17 - Cont. Duonebs Q4H WA - Blood cultures drawn with NGTD - CXR (04/06) --> Stable bilateral lower lung zone interstitial opacities. Differential considerations include interstitial edema versus interstitial pneumonia. No significant interval change. - Chest CT (04/06/17) --> Advanced pulmonary fibrosis. Overlying interstitial prominence and peribronchial consolidation representing either pulmonary edema or acute pneumonitis. No other significant change. 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 pci bms to left cx and angioplasty to rca . Pt had nstemi his pradaxa was on hold for the procedure discuss anticoag regimen with cardiology (2) Hemoptysis ICD Codes: R04.2 - Hemoptysis Status: Acute Plan: - resolved - See above (3) CHF (congestive heart failure) ICD Codes: I50.9 - Heart failure, unspecified Status: Chronic Plan: - 2D echo (09/03/16) - Mild LVH - Estimated EF 55-60% - Grade 1 diastolic dysfunction - PA pressure 39mmHg - Suspect the pt has some degree of volume overload initially - 04/06 Lasix 40mg IV x one with no clinical improvement - BNP 36 (4) Non-small cell cancer of right lung ICD Codes: C34.91 - Malignant neoplasm of unspecified part of right bronchus or lung Status: Chronic Plan: - See above (5) Weakness generalized ICD Codes: R53.1 - Weakness Status: Chronic Plan: - See above (6) COPD (chronic obstructive pulmonary disease) ICD Codes: J44.9 - Chronic obstructive pulmonary disease, unspecified Status: Chronic Plan: see above (7) Hypertension ICD Codes: I10 - Essential (primary) hypertension Status: Chronic Plan: - Clonidine PRN - Vasotec PRN (8) Diabetes mellitus type 2, noninsulin dependent ICD Codes: E11.9 - Type 2 diabetes mellitus without complications Status: Chronic Plan: - OHA on hold - NovoLog SSI (9) Acute kidney injury superimposed on chronic kidney disease ICD Codes: N17.9 - Acute kidney failure, unspecified; N18.9 - Chronic kidney disease, unspecified Status: Acute Plan: renal function worsening 04/10 BUN 57, creatine 1.78 and estimated GFR 37 patient' base line creatinine around 1.0, GFR baseline around 60 UA reveals large occult blood, Lovenox has been stopped renal function improving creatinine 1.25, Problem Qualifiers (1) CHF (congestive heart failure): Qualified Codes: I50.30 - Unspecified diastolic (congestive) heart failure Stanislaw Samuel MD Apr 12, 2017 14:40
[2017-04-12] MEDS ORDERED: IOHEXOL 350 MG/ML 50 ML BTL (for Cath Lab) OTHER ONE (16:25)
[2017-04-12] MEDS ORDERED: IOHEXOL 350 MG/ML 100 ML BTL (for Cath Lab) OTHER ONE (16:25)
--- NOTE | 2017-04-12 18:36 | HHI.PR ---
Subjective Remarks 76 YOWM with PF,COPD, worsening sob Had worsening hypoxia, was on VM, weaned to NC Has increased Troponin Had cardiac cath Has 2 vessels disease had RCA PTCA and Left Cirm stent Objective Vital Signs Vital Signs Date Time Temp Pulse Resp B/P (MAP) Pulse Ox O2 Delivery O2 Flow Rate FiO2 04/12/17 12:55 92 Nasal Cannula 4.00 04/12/17 08:20 97.9 82 19 151/77 (101) 91 04/12/17 08:00 87 04/12/17 07:32 98.0 91 16 175/93 (120) 91 04/12/17 04:59 99.7 91 18 189/86 (120) 93 04/12/17 03:13 73 04/12/17 03:13 87 04/12/17 02:11 69 18 164/77 (106) 93 04/12/17 00:30 97.7 72 18 170/78 (108) 93 04/11/17 20:35 97.5 87 19 166/76 (106) 88 04/11/17 20:32 Nasal Cannula 5.00 Humidified 04/11/17 20:21 94 Nasal Cannula 4.00 I/O 04/11/17 04/11/17 04/11/17 04/12/17 04/12/17 04/12/17 07:00 15:00 23:00 07:00 15:00 23:00 Intake Total 683 ml 1525 ml Output Total 850 ml 750 ml Balance -167 ml 1525 ml -750 ml Intake Oral 120 ml 660 ml IV Total 563 ml 865 ml Output Urine Total 850 ml 750 ml # Bowel Movements 1 1 1 Result Diagram: 04/11/17 0558 04/11/17 0558 Objective Remarks GENERAL: WBWN WM, mild sob SKIN: Warm and dry. HEAD: Normocephalic. EYES: No scleral icterus. No injection or drainage. NECK: Supple, trachea midline. No JVD or lymphadenopathy. CARDIOVASCULAR: Regular rate and rhythm without murmurs, gallops, or rubs. RESPIRATORY: Breath sounds equal bilaterally. No accessory muscle use. Insp rales GASTROINTESTINAL: Abdomen soft, non-tender, nondistended. MUSCULOSKELETAL: No cyanosis, or edema. BACK: Nontender without obvious deformity. No CVA tenderness. A/P Assessment and Plan Worsening dysnoea and infilt prob exac of PF NST-ID hypoxia COPD CAD JOHN: IV Solumedrol Cont Abx Supplement 02 Aerosol nebs DW pt and his and daughter Stable after stent and PTCA Marshall Davis MD Apr 12, 2017 18:36
[2017-04-12] MEDS: FERROUS SULFATE 325 MG (65 MG ELEMENTAL IRON) TAB PO SCH (18:37)
[2017-04-12] MEDS: LATANOPROST 0.005% OPHT SOLN 2.5 ML BTL EACH EYE SCH (21:33)
[2017-04-12] MEDS: ENALAPRILAT 1.25 MG/ML VIAL IV PUSH PRN (22:38)
[2017-04-13] VITALS (27 sets, daily range): BP systolic 95–181; BP diastolic 76–86; PULSE 55–80; RESP 16–20; TEMP 97.3–98.3; O2SAT 92–95
[2017-04-13] MEDS: ISOSORBIDE MONONITRATE 60 MG TAB PO SCH (05:22)
[2017-04-13 06:26] LABS: HEMATOCRIT 26.3 % (39.0-51.0); MEAN CELL VOLUME 103.6 FL (80.0-100.0); MEAN CORPUSCULAR HEMOGLOBIN 35.4 PG (27.0-34.0); MEAN CORPUSCULAR HGB CONC 34.2 % (32.0-36.0); PLATELET COUNT 191 TH/MM3 (150-450); RED BLOOD COUNT 2.54 MIL/MM3 (4.50-5.90); RED CELL DISTRIBUTION WIDTH 18.2 % (11.6-17.2); WHITE BLOOD COUNT 12.3 TH/MM3 (4.0-11.0)
[2017-04-13 06:39] LABS: HEMO FLAGS AUTO DIFF
[2017-04-13 06:51] LABS: BICARBONATE 22.2 MEQ/L (21.0-32.0); POTASSIUM 3.7 MEQ/L (3.5-5.1)
[2017-04-13 06:55] LABS: HDL CHOLESTEROL 46.1 MG/DL (40.0-60.0)
[2017-04-13] MEDS: RESP: ALBUTEROL 2.5 MG/IPRATROPIUM 0.5 MG NEB (SCH) INH ×3 (07:46→21:01)
[2017-04-13] MEDS: INSULIN ASPART SUPPLEMENTAL SCALE SQ SCH ×4 (08:00→22:21)
--- NOTE | 2017-04-13 08:05 | PD.CARD.PN ---
Subjective Subjective Remarks No chest pain. Shortness of breath is improved today. No palpitations. (Brandon Bonds) Objective Medications Current Medications Medications (Trade) Dose Ordered Sig/Ronaldo Route Start Time Stop Time Status Last Admin (NS Flush) 2 ml UNSCH PRN IV FLUSH 04/05/17 14:00 04/10/17 05:28 (NS Flush) 2 ml BID IV FLUSH 04/05/17 21:00 04/11/17 08:05 (Tylenol) 650 mg Q4H PRN PO 04/05/17 14:00 04/10/17 11:43 (Zofran Inj) 4 mg Q6H PRN IVP 04/05/17 14:00 (Narcan Inj) 0.4 mg UNSCH PRN IV PUSH 04/05/17 14:00 (Milk Of Magnesia Liq) 30 ml Q12H PRN PO 04/05/17 14:00 (Alphagan 0.2% Opth Soln) 1 drop BID EACH EYE 04/05/17 21:00 (Lexapro) 10 mg DAILY PO 04/06/17 09:00 04/11/17 08:03 (Xalatan 0.005% Opth Soln) 1 drop HS EACH EYE 04/05/17 21:00 04/12/17 21:33 (Megace Liq) 400 mg BID PO 04/05/17 21:00 04/12/17 22:39 (Restoril) 15 mg HS PRN PO 04/05/17 14:15 (Duoneb Neb) 1 ampule Q2HR NEB PRN NEB 04/05/17 17:45 04/06/17 04:57 (Catapres) 0.1 mg Q6H PRN PO 04/05/17 17:45 04/12/17 06:03 (Vasotec Inj) 1.25 mg Q6H PRN IV PUSH 04/05/17 17:45 04/12/17 22:38 (Protonix Inj) 40 mg DAILY IV PUSH 04/06/17 14:30 04/12/17 07:42 (Imdur) 60 mg DAILY@07 PO 04/08/17 07:00 04/13/17 05:22 (Lopressor) 25 mg Q12HR PO 04/08/17 09:00 04/12/17 21:32 (D50w (Vial) Inj) 50 ml UNSCH PRN IV PUSH 04/08/17 15:45 (Glucagon Inj) 1 mg UNSCH PRN OTHER 04/08/17 15:45 (NovoLOG SUPPLEMENTAL SCALE) 1 ACHS SLIDING SCALE SQ 04/08/17 17:00 04/12/17 21:35 (Levemir Inj) 10 units BID SQ 04/09/17 09:00 04/12/17 21:00 (Heparin Central Flush) 500 units UNSCH IV FLUSH 04/09/17 14:15 (NS Flush) 5 ml UNSCH PRN IVF 04/09/17 14:15 (Heparin Central Flush) 250 units UNSCH PRN IV FLUSH 04/09/17 14:15 04/09/17 15:23 (Catapres) 0.1 mg Q6H PRN PO 04/09/17 18:15 04/10/17 13:23 (Duoneb Neb) 1 ampule TID NEB INH 04/10/17 14:00 04/13/17 07:46 (SoluMEDROL INJ) 30 mg BID IV PUSH 04/11/17 21:00 04/12/17 21:33 (Plavix) 75 mg DAILY PO 04/13/17 09:00 (Xylocaine 2% Jelly) 1 applic UNSCH X1 PRN TOP 04/12/17 12:45 04/13/17 12:44 (Ecotrin Ec) 81 mg DAILY PO 04/13/17 09:00 (Ferrous Sulfate) 325 mg BID@ PO 04/12/17 17:00 04/12/17 18:37 Vital Signs / I&O Vital Signs Date Time Temp Pulse Resp B/P (MAP) Pulse Ox O2 Delivery O2 Flow Rate FiO2 04/13/17 07:49 93 Nasal Cannula 3.00 04/13/17 06:04 62 04/13/17 05:41 77 04/13/17 04:53 78 04/13/17 03:42 55 04/13/17 03:20 97.5 68 17 181/86 (117) 93 04/13/17 02:20 55 04/13/17 01:02 72 04/13/17 00:15 76 04/12/17 23:25 64 04/12/17 23:25 97.4 69 18 202/84 (123) 69 04/12/17 22:00 74 04/12/17 21:00 78 04/12/17 20:15 78 04/12/17 20:15 94 Nasal Cannula 4.00 04/12/17 20:15 97.6 80 17 162/93 (116) 94 04/12/17 19:20 67 04/12/17 12:55 92 Nasal Cannula 4.00 04/12/17 08:20 97.9 82 19 151/77 (101) 91 I/O 04/12/17 04/12/17 04/12/17 04/13/17 04/13/17 04/13/17 07:00 15:00 23:00 07:00 15:00 23:00 Intake Total 360 ml Output Total 750 ml 1225 ml Balance -750 ml -865 ml Intake Oral 360 ml Output Urine Total 750 ml 1225 ml # Bowel Movements 1 Physical Exam GENERAL: Well-developed well-nourished. In no acute distress. NECK: No carotid bruits. No JVD. CARDIOVASCULAR: Regular rate and rhythm. No murmur appreciated. RESPIRATORY: No accessory muscle use. Clear to auscultation. Breath sounds equal bilaterally. MUSCULOSKELETAL: No clubbing or cyanosis. No edema. NEUROLOGICAL: Awake and alert. Normal speech. Laboratory Laboratory Tests Test 04/13/17 05:10 White Blood Count 12.3 TH/MM3 Red Blood Count 2.54 MIL/MM3 Hemoglobin 9.0 GM/DL Hematocrit 26.3 % Mean Corpuscular Volume 103.6 FL Mean Corpuscular Hemoglobin 35.4 PG Mean Corpuscular Hemoglobin Concent 34.2 % Red Cell Distribution Width 18.2 % Platelet Count 191 TH/MM3 Mean Platelet Volume 9.1 FL CBC Comment AUTO DIFF Blood Urea Nitrogen 39 MG/DL Creatinine 0.88 MG/DL Random Glucose 148 MG/DL Calcium Level 7.8 MG/DL Sodium Level 143 MEQ/L Potassium Level 3.7 MEQ/L Chloride Level 111 MEQ/L Carbon Dioxide Level 22.2 MEQ/L Anion Gap 10 MEQ/L Estimat Glomerular Filtration Rate 84 ML/MIN Total Creatine Kinase 36 U/L Triglycerides Level 239 MG/DL Cholesterol Level 156 MG/DL LDL Cholesterol 62 MG/DL HDL Cholesterol 46.1 MG/DL Cholesterol/HDL Ratio 3.38 RATIO Imaging Last Impressions Chest X-Ray 04/11/17 0000 Signed Impressions: Service Date/Time: Tuesday, April 11, 2017 05:41 - CONCLUSION: Stable appearance of the chest. Colin Mcginnis MD Chest CT 04/06/17 0000 Signed Impressions: Service Date/Time: Thursday, April 06, 2017 09:25 - CONCLUSION: 1. Advanced pulmonary fibrosis. 2. Overlying interstitial prominence and peribronchial consolidation representing either pulmonary edema or acute pneumonitis. 3. No other significant change. Leonardo Vaca MD (Brandon Bonds) Assessment and Plan Assessment and Plan NSTEMI: Catheterization 04/12 with severe two-vessel coronary artery disease, bare-metal stent to left circumflex and angioplasty right coronary artery. On aspirin and Plavix. Hypertension: Continue Imdur. Metoprolol was added. Not currently controlled. (Brandon Bonds) Assessment and Plan Will restart pradaxa 150 mg bid. OK to D/C home. Will need to stay on ASA 81 mg daily plus clopisigrel 75 mg daily for at least 1 month. Will F/U in office next week. Diet and exercise discussed. Intolerant of statin therapy (Deondre Barajas MD) Brandon Bonds Apr 13, 2017 08:05 Deondre Barajas MD Apr 13, 2017 08:15
[2017-04-13 08:07] LABS: BANDS 1 % (0-6); CORRECTED NUCLEATED RBC 46 /100 WBC (0-0); HOWELL-JOLLY BODIES PRESENT (NONE SEEN); METAMYELOCYTES 2 % (0-1); MYELOCYTES 3 % (0-0); NEUTROPHIL # MANUAL DIFF 11.7 TH/MM3 (1.8-7.7); POLYS (SEG NEUTROPHILS) 89 % (16-70); WBC DIFF SAMPLE 100
[2017-04-13 08:09] LABS: ACANTHOCYTES OCC (NORMAL)
[2017-04-13 08:10] LABS: PLATELET ESTIMATE SMEAR NORMAL (NORMAL); PLATELET MORPHOLOGY NORMAL (NORMAL); SCAN/DIFF FINAL DIFF MANUAL
--- NOTE | 2017-04-13 08:20 | HHI.PR ---
Subjective Remarks eager to get oob. Objective Vitals heart reg lung course bs. good air entry abd s/nt ext no pitting. Vital Signs Date Time Temp Pulse Resp B/P (MAP) Pulse Ox O2 Delivery O2 Flow Rate FiO2 04/13/17 07:49 93 Nasal Cannula 3.00 04/13/17 06:04 62 04/13/17 05:41 77 04/13/17 04:53 78 04/13/17 03:42 55 04/13/17 03:20 97.5 68 17 181/86 (117) 93 04/13/17 02:20 55 04/13/17 01:02 72 04/13/17 00:15 76 04/12/17 23:25 64 04/12/17 23:25 97.4 69 18 202/84 (123) 69 04/12/17 22:00 74 04/12/17 21:00 78 04/12/17 20:15 78 04/12/17 20:15 94 Nasal Cannula 4.00 04/12/17 20:15 97.6 80 17 162/93 (116) 94 04/12/17 19:20 67 04/12/17 12:55 92 Nasal Cannula 4.00 04/12/17 08:20 97.9 82 19 151/77 (101) 91 Result Diagram: 04/13/17 0510 04/13/17 0510 Imaging Last Impressions Chest X-Ray 04/06/17 0600 Signed Impressions: Service Date/Time: Thursday, April 06, 2017 05:39 - CONCLUSION: 1. Stable bilateral lower lung zone interstitial opacities. Differential considerations include interstitial edema versus interstitial pneumonia. 2. No significant interval change. Parviz Keys MD Chest CT 04/06/17 0000 Signed Impressions: Service Date/Time: Thursday, April 06, 2017 09:25 - CONCLUSION: 1. Advanced pulmonary fibrosis. 2. Overlying interstitial prominence and peribronchial consolidation representing either pulmonary edema or acute pneumonitis. 3. No other significant change. Leonardo Vaca MD Last Impressions Chest X-Ray 04/05/17 1119 Signed Impressions: Service Date/Time: Wednesday, April 05, 2017 11:37 - CONCLUSION: Background emphysema with new bilateral lower lung zone interstitial opacities bilaterally. Zino Owusu MD CT Thorax with contrast (03/22/17) - Stable CT appearance of the chest. No definite evidence of local recurrence or metastatic disease. - Lungs with emphysema and patchy fibrotic parenchymal changes stable with mild consolidative fibrotic change in the right retrohilar region at site of previous mass. No evidence of significant residual mass density. 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 Pt then received XRT which he completed in January 2017. Pt follows with Dr. Osorio. - He was last seen by Dr. Osorio in 03/2017 and he had a CT Thorax prior to that visit which noted post treatment changes in the right lung with significant emphysematous changes, however, there is no mass or adenopathy noted. - Pt presented to the ED at [facility] [place] on 04/05/17 with complaints of weakness, dizziness, shortness of breath with exertion, hemoptysis and epistaxis that began around 4-5 days ago. He denies any fevers or chills at home. His dyspnea on exertion seemed to worsen over the last day or so and this prompted his evaluation in the ED. - Family reports that he is on 2L of supplemental O2 at home. - CXR in the ED noted emphysema with new bilateral lower lung zone interstitial opacities bilaterally. - Pt was given Duoneb treatments and Budesonide nebs in the ED. - He was given a dose of Solu-Medrol 125mg x one dose in the ED as well as Azithromycin and Rocephin 04/05 & 04/06 - Zosyn 04/07 stopped 04/09/17 - Cont. Duonebs Q4H WA - Blood cultures drawn with NGTD - CXR (04/06) --> Stable bilateral lower lung zone interstitial opacities. Differential considerations include interstitial edema versus interstitial pneumonia. No significant interval change. - Chest CT (04/06/17) --> Advanced pulmonary fibrosis. Overlying interstitial prominence and peribronchial consolidation representing either pulmonary edema or acute pneumonitis. No other significant change. 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 pci bms to left cx and angioplasty to rca . Pt had nstemi his pradaxa was on hold for the procedure asa/plavix/pradaxa x 1 month then stop one of the antiplt's per cardiology. ccb increased. PT reevaluation today then decide on disposition. (2) Hemoptysis ICD Codes: R04.2 - Hemoptysis Status: Acute Plan: - resolved - See above (3) CHF (congestive heart failure) ICD Codes: I50.9 - Heart failure, unspecified Status: Chronic Plan: - 2D echo (09/03/16) - Mild LVH - Estimated EF 55-60% - Grade 1 diastolic dysfunction - PA pressure 39mmHg - Suspect the pt has some degree of volume overload initially - 04/06 Lasix 40mg IV x one with no clinical improvement - BNP 36 (4) Non-small cell cancer of right lung ICD Codes: C34.91 - Malignant neoplasm of unspecified part of right bronchus or lung Status: Chronic Plan: - See above (5) Weakness generalized ICD Codes: R53.1 - Weakness Status: Chronic Plan: - See above (6) COPD (chronic obstructive pulmonary disease) ICD Codes: J44.9 - Chronic obstructive pulmonary disease, unspecified Status: Chronic Plan: see above (7) Hypertension ICD Codes: I10 - Essential (primary) hypertension Status: Chronic Plan: - Clonidine PRN - Vasotec PRN (8) Diabetes mellitus type 2, noninsulin dependent ICD Codes: E11.9 - Type 2 diabetes mellitus without complications Status: Chronic Plan: - OHA on hold - NovoLog SSI (9) Acute kidney injury superimposed on chronic kidney disease ICD Codes: N17.9 - Acute kidney failure, unspecified; N18.9 - Chronic kidney disease, unspecified Status: Acute Plan: renal function worsening 04/10 BUN 57, creatine 1.78 and estimated GFR 37 patient' base line creatinine around 1.0, GFR baseline around 60 UA reveals large occult blood, Lovenox has been stopped renal function improving creatinine 1.25, Problem Qualifiers (1) CHF (congestive heart failure): Qualified Codes: I50.30 - Unspecified diastolic (congestive) heart failure Stanislaw Samuel MD Apr 13, 2017 08:20
[2017-04-13] MEDS: PANTOPRAZOLE SODIUM 40 MG VIAL IV PUSH SCH (08:57)
[2017-04-13] MEDS: SODIUM CHLORIDE 0.9% FLUSH 10 ML FLUSH IV FLUSH SCH ×2 (08:57→21:00)
[2017-04-13] MEDS: MEGESTROL ACETATE SUSP 400 MG/10 ML CUP PO SCH ×2 (08:57→22:17)
[2017-04-13] MEDS: methylPREDNISolone SOD SUCC 40 MG/1 ML VIAL IV PUSH SCH ×2 (08:58→22:17)
[2017-04-13] MEDS: METOPROLOL TARTRATE 25 MG TAB PO SCH ×2 (08:58→22:17)
[2017-04-13] MEDS: ESCITALOPRAM OXALATE 10 MG TAB PO SCH (08:58)
[2017-04-13] MEDS: CLOPIDOGREL 75 MG TAB PO SCH (08:58)
[2017-04-13] MEDS: INSULIN DETEMIR 100 UNITS/ML VIAL SQ SCH ×2 (08:59→22:21)
[2017-04-13] MEDS: ASPIRIN EC 81 MG TABEC PO SCH (08:59)
[2017-04-13] MEDS: BRIMONIDINE TARTRATE 0.2% OPHT SOLN 5 ML BTL EACH EYE SCH ×2 (09:00→21:00)
[2017-04-13] MEDS: DABIGATRAN ETEXILATE 150 MG CAP PO SCH ×2 (10:29→22:17)
--- NOTE | 2017-04-13 11:47 | EKG ---
Date Performed: 04/12/2017 Time Performed: 15:18:46 PTAGE: 76 years EKG: Sinus arrhythmia. Possible left anterior fascicular block Inferior T wave changes are nonsp ecific Borderline ECG Compared to prior tracing no significant change PREVIOUS TRACING : 04/08/2017 04.12 DOCTOR: Blayne Hyman Interpretating Date/Time 04/13/2017 11:46:52
[2017-04-13] MEDS: DILTIAZEM-CD 300 MG CAP ER PO SCH (12:47)
[2017-04-13] MEDS: FERROUS SULFATE 325 MG (65 MG ELEMENTAL IRON) TAB PO SCH ×2 (12:47→17:18)
--- NOTE | 2017-04-13 18:27 | HHI.PR ---
Subjective Remarks 76 YOWM with PF,COPD, worsening sob Had worsening hypoxia, was on VM, weaned to NC Has increased Troponin Breathing better Weakness improving Objective Vital Signs Vital Signs Date Time Temp Pulse Resp B/P (MAP) Pulse Ox O2 Delivery O2 Flow Rate FiO2 04/13/17 18:00 79 04/13/17 17:00 77 04/13/17 16:00 71 04/13/17 15:00 75 04/13/17 14:00 74 04/13/17 13:00 76 04/13/17 12:00 67 04/13/17 11:00 68 04/13/17 10:00 70 04/13/17 09:00 73 04/13/17 08:00 71 04/13/17 07:49 93 Nasal Cannula 3.00 04/13/17 07:00 69 04/13/17 07:00 98.3 69 16 149/80 (103) 92 04/13/17 07:00 92 Nasal Cannula 4.00 04/13/17 06:04 62 04/13/17 05:41 77 04/13/17 04:53 78 04/13/17 03:42 55 04/13/17 03:20 97.5 68 17 181/86 (117) 93 04/13/17 02:20 55 04/13/17 01:02 72 04/13/17 00:15 76 04/12/17 23:25 64 04/12/17 23:25 97.4 69 18 202/84 (123) 69 04/12/17 22:00 74 04/12/17 21:00 78 04/12/17 20:15 78 04/12/17 20:15 94 Nasal Cannula 4.00 04/12/17 20:15 94 Nasal Cannula 4.00 04/12/17 20:15 97.6 80 17 162/93 (116) 94 04/12/17 19:20 67 I/O 04/12/17 04/12/17 04/12/17 04/13/17 04/13/17 04/13/17 07:00 15:00 23:00 07:00 15:00 23:00 Intake Total 360 ml Output Total 750 ml 1225 ml Balance -750 ml -865 ml Intake Oral 360 ml Output Urine Total 750 ml 1225 ml # Bowel Movements 1 Result Diagram: 04/13/17 0510 04/13/17 0510 Objective Remarks GENERAL: WBWN WM, mild sob SKIN: Warm and dry. HEAD: Normocephalic. EYES: No scleral icterus. No injection or drainage. NECK: Supple, trachea midline. No JVD or lymphadenopathy. CARDIOVASCULAR: Regular rate and rhythm without murmurs, gallops, or rubs. RESPIRATORY: Breath sounds equal bilaterally. No accessory muscle use. Insp rales GASTROINTESTINAL: Abdomen soft, non-tender, nondistended. MUSCULOSKELETAL: No cyanosis, or edema. BACK: Nontender without obvious deformity. No CVA tenderness. A/P Assessment and Plan Worsening dysnoea and infilt prob exac of PF NST-MN hypoxia COPD CAD JOHN: Cont Abx Supplement 02 Aerosol nebs DW pt and his and daughter Stable after stent and PTCA Marshall Davis MD Apr 13, 2017 18:27
--- NOTE | 2017-04-13 19:22 | EKG ---
Date Performed: 04/13/2017 Time Performed: 04:49:32 PTAGE: 76 years EKG: Sinus rhythm Prolonged QT interval Inferior T wave changes are nonspecific Poor R wave progression suspect to be due to lead placement. Borderline ECG NO PREVIOUS TRACING DOCTOR: Blayne Hyman Interpretating Date/Time 04/13/2017 19:21:55
[2017-04-13] MEDS: LATANOPROST 0.005% OPHT SOLN 2.5 ML BTL EACH EYE SCH (22:18)
[2017-04-14] VITALS (18 sets, daily range): BP systolic 125–165; BP diastolic 65–85; PULSE 56–72; RESP 18; TEMP 97.7–98.6; O2SAT 92–95
[2017-04-14] MEDS: ISOSORBIDE MONONITRATE 60 MG TAB PO SCH (06:18)
[2017-04-14] MEDS: RESP: ALBUTEROL 2.5 MG/IPRATROPIUM 0.5 MG NEB (SCH) INH ×2 (07:45→13:26)
[2017-04-14] MEDS: INSULIN ASPART SUPPLEMENTAL SCALE SQ SCH ×5 (08:00→22:48)
[2017-04-14] MEDS: BRIMONIDINE TARTRATE 0.2% OPHT SOLN 5 ML BTL EACH EYE SCH ×2 (09:00→21:00)
[2017-04-14] MEDS: CLOPIDOGREL 75 MG TAB PO SCH (09:05)
[2017-04-14] MEDS: MEGESTROL ACETATE SUSP 400 MG/10 ML CUP PO SCH ×2 (09:05→22:31)
[2017-04-14] MEDS: PANTOPRAZOLE SODIUM 40 MG VIAL IV PUSH SCH (09:06)
[2017-04-14] MEDS: methylPREDNISolone SOD SUCC 40 MG/1 ML VIAL IV PUSH SCH (09:06)
[2017-04-14] MEDS: ASPIRIN EC 81 MG TABEC PO SCH (09:06)
[2017-04-14] MEDS: DABIGATRAN ETEXILATE 150 MG CAP PO SCH ×2 (09:06→22:31)
[2017-04-14] MEDS: ESCITALOPRAM OXALATE 10 MG TAB PO SCH (09:06)
[2017-04-14] MEDS: DILTIAZEM-CD 300 MG CAP ER PO SCH (09:06)
[2017-04-14] MEDS: METOPROLOL TARTRATE 25 MG TAB PO SCH ×2 (09:06→22:31)
[2017-04-14] MEDS: SODIUM CHLORIDE 0.9% FLUSH 10 ML FLUSH IV FLUSH SCH ×2 (09:07→22:32)
[2017-04-14] MEDS: INSULIN DETEMIR 100 UNITS/ML VIAL SQ SCH ×2 (09:08→22:43)
[2017-04-14] MEDS ORDERED: FUROSEMIDE 20 MG TAB PO ONE (10:45)
--- NOTE | 2017-04-14 10:47 | HHI.PR ---
Subjective Remarks still sob. willing to try snf. present. Objective Vitals heart reg lung diminished bases abd s/nt ext no pitting Vital Signs Date Time Temp Pulse Resp B/P (MAP) Pulse Ox O2 Delivery O2 Flow Rate FiO2 04/14/17 10:29 Nasal Cannula 3.50 04/14/17 08:50 97.9 71 18 165/85 (111) 04/14/17 06:01 72 04/14/17 05:00 62 04/14/17 04:56 97.7 69 160/81 (107) 95 04/14/17 04:00 72 04/14/17 03:30 66 04/14/17 02:00 64 04/14/17 01:00 62 04/14/17 00:00 66 04/13/17 23:00 71 04/13/17 23:00 97.8 72 142/76 (98) 92 04/13/17 22:00 70 04/13/17 21:02 93 Nasal Cannula 3.00 04/13/17 21:00 64 04/13/17 20:00 68 04/13/17 20:00 97.7 66 95/ 95 04/13/17 20:00 Nasal Cannula 3.50 04/13/17 19:00 79 04/13/17 18:00 79 04/13/17 17:00 77 04/13/17 16:00 97.6 80 20 153/85 (107) 92 04/13/17 16:00 71 04/13/17 15:00 75 04/13/17 14:00 74 04/13/17 13:00 76 04/13/17 12:00 97.3 74 20 156/81 (106) 92 04/13/17 12:00 67 04/13/17 11:00 68 Result Diagram: 04/13/17 0510 04/13/17 0510 Imaging Last Impressions Chest X-Ray 04/06/17 0600 Signed Impressions: Service Date/Time: Thursday, April 06, 2017 05:39 - CONCLUSION: 1. Stable bilateral lower lung zone interstitial opacities. Differential considerations include interstitial edema versus interstitial pneumonia. 2. No significant interval change. Parviz Keys MD Chest CT 04/06/17 0000 Signed Impressions: Service Date/Time: Thursday, April 06, 2017 09:25 - CONCLUSION: 1. Advanced pulmonary fibrosis. 2. Overlying interstitial prominence and peribronchial consolidation representing either pulmonary edema or acute pneumonitis. 3. No other significant change. Leonardo Vaca MD Last Impressions Chest X-Ray 04/05/17 1119 Signed Impressions: Service Date/Time: Wednesday, April 05, 2017 11:37 - CONCLUSION: Background emphysema with new bilateral lower lung zone interstitial opacities bilaterally. Zion Owusu MD CT Thorax with contrast (03/22/17) - Stable CT appearance of the chest. No definite evidence of local recurrence or metastatic disease. - Lungs with emphysema and patchy fibrotic parenchymal changes stable with mild consolidative fibrotic change in the right retrohilar region at site of previous mass. No evidence of significant residual mass density. 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 Pt then received XRT which he completed in January 2017. Pt follows with Dr. Osorio. - He was last seen by Dr. Osorio in 03/2017 and he had a CT Thorax prior to that visit which noted post treatment changes in the right lung with significant emphysematous changes, however, there is no mass or adenopathy noted. - Pt presented to the ED at [facility] on 04/05/17 with complaints of weakness, dizziness, shortness of breath with exertion, hemoptysis and epistaxis that began around 4-5 days ago. He denies any fevers or chills at home. His dyspnea on exertion seemed to worsen over the last day or so and this prompted his evaluation in the ED. - Family reports that he is on 2L of supplemental O2 at home. - CXR in the ED noted emphysema with new bilateral lower lung zone interstitial opacities bilaterally. - Pt was given Duoneb treatments and Budesonide nebs in the ED. - He was given a dose of Solu-Medrol 125mg x one dose in the ED as well as Azithromycin and Rocephin 04/05 & 04/06 - Zosyn 04/07 stopped 04/09/17 - Cont. Duonebs Q4H WA - Blood cultures drawn with NGTD - CXR (04/06) --> Stable bilateral lower lung zone interstitial opacities. Differential considerations include interstitial edema versus interstitial pneumonia. No significant interval change. - Chest CT (04/06/17) --> Advanced pulmonary fibrosis. Overlying interstitial prominence and peribronchial consolidation representing either pulmonary edema or acute pneumonitis. No other significant change. Pt to the labor and delivery nurse 04/12 for LHC. pci bms to left cx and angioplasty to rca . Pt had nstemi his pradaxa was on hold for the procedure asa/plavix/pradaxa x 1 month then stop one of the antiplt's per cardiology. ccb increased. pt and agreeable to snf for deconditioning. I compared 04/18 ct chest with 07/17 ct....?pneumonitis vs edema..discussed with pulmonary who feels edema less likely. echo and bnp nml. But reviewing pt weight he has gained significantly. continue steroids and convert to po form. Will attempt dc to snf tomorrow. (2) Hemoptysis ICD Codes: R04.2 - Hemoptysis Status: Acute Plan: - resolved - See above (3) CHF (congestive heart failure) ICD Codes: I50.9 - Heart failure, unspecified Status: Chronic Plan: - 2D echo (09/03/16) - Mild LVH - Estimated EF 55-60% - Grade 1 diastolic dysfunction - PA pressure 39mmHg - Suspect the pt has some degree of volume overload initially - 04/06 Lasix 40mg IV x one with no clinical improvement - BNP 36 (4) Non-small cell cancer of right lung ICD Codes: C34.91 - Malignant neoplasm of unspecified part of right bronchus or lung Status: Chronic Plan: - See above (5) Weakness generalized ICD Codes: R53.1 - Weakness Status: Chronic Plan: - See above (6) COPD (chronic obstructive pulmonary disease) ICD Codes: J44.9 - Chronic obstructive pulmonary disease, unspecified Status: Chronic Plan: see above (7) Hypertension ICD Codes: I10 - Essential (primary) hypertension Status: Chronic Plan: - Clonidine PRN - Vasotec PRN (8) Diabetes mellitus type 2, noninsulin dependent ICD Codes: E11.9 - Type 2 diabetes mellitus without complications Status: Chronic Plan: - OHA on hold - NovoLog SSI (9) Acute kidney injury superimposed on chronic kidney disease ICD Codes: N17.9 - Acute kidney failure, unspecified; N18.9 - Chronic kidney disease, unspecified Status: Acute Plan: renal function worsening 04/10 BUN 57, creatine 1.78 and estimated GFR 37 patient' base line creatinine around 1.0, GFR baseline around 60 UA reveals large occult blood, Lovenox has been stopped renal function improving creatinine 1.25, Problem Qualifiers (1) CHF (congestive heart failure): Qualified Codes: I50.30 - Unspecified diastolic (congestive) heart failure Stanislaw Samuel MD Apr 14, 2017 10:47
[2017-04-14] MEDS: FERROUS SULFATE 325 MG (65 MG ELEMENTAL IRON) TAB PO SCH ×2 (12:35→17:31)
[2017-04-14] MEDS: predniSONE 10 MG TAB PO SCH ×2 (12:42→22:31)
[2017-04-14] MEDS: RESP: ALBUTEROL 2.5 MG/IPRATROPIUM 0.5 MG NEB (SCH) NEB ×2 (15:57→19:42)
--- NOTE | 2017-04-14 18:05 | HHI.PR ---
Subjective Remarks 76 YOWM with PF,COPD, worsening sob , weaned to NC Breathing better Works with PT Objective Vital Signs Vital Signs Date Time Temp Pulse Resp B/P (MAP) Pulse Ox O2 Delivery O2 Flow Rate FiO2 04/14/17 16:48 97.9 60 18 136/67 (90) 04/14/17 13:28 92 Nasal Cannula 3.00 04/14/17 12:15 98.3 61 18 125/66 (85) 04/14/17 10:29 Nasal Cannula 3.50 04/14/17 08:50 97.9 71 18 165/85 (111) 04/14/17 06:01 72 04/14/17 05:00 62 04/14/17 04:56 97.7 69 160/81 (107) 95 04/14/17 04:00 72 04/14/17 03:30 66 04/14/17 02:00 64 04/14/17 01:00 62 04/14/17 00:00 66 04/13/17 23:00 71 04/13/17 23:00 97.8 72 142/76 (98) 92 04/13/17 22:00 70 04/13/17 21:02 93 Nasal Cannula 3.00 04/13/17 21:00 64 04/13/17 20:00 68 04/13/17 20:00 97.7 66 95/ 95 04/13/17 20:00 Nasal Cannula 3.50 04/13/17 19:00 79 I/O 04/13/17 04/13/17 04/13/17 04/14/17 04/14/17 04/14/17 07:00 15:00 23:00 07:00 15:00 23:00 Intake Total 360 ml 360 ml 240 ml 480 ml Output Total 1225 ml 750 ml 300 ml 550 ml Balance -865 ml -390 ml -60 ml -70 ml Intake Oral 360 ml 360 ml 240 ml 480 ml Output Urine Total 1225 ml 750 ml 300 ml 550 ml # Bowel Movements 0 1 Result Diagram: 04/13/1750904/13/17 0510 Objective Remarks GENERAL: WBWN WM, mild sob SKIN: Warm and dry. HEAD: Normocephalic. EYES: No scleral icterus. No injection or drainage. NECK: Supple, trachea midline. No JVD or lymphadenopathy. CARDIOVASCULAR: Regular rate and rhythm without murmurs, gallops, or rubs. RESPIRATORY: Breath sounds equal bilaterally. No accessory muscle use. Insp rales GASTROINTESTINAL: Abdomen soft, non-tender, nondistended. MUSCULOSKELETAL: No cyanosis, or edema. BACK: Nontender without obvious deformity. No CVA tenderness. A/P Assessment and Plan Worsening dysnoea and infilt prob exac of PF NST-PA hypoxia COPD CAD JOHN: Cont Abx Supplement 02 Aerosol nebs DW pt and his and daughter Stable after stent and PTCA PO Steroids DC plans for SNF Will FU in office Marshall Davis MD Apr 14, 2017 18:05
[2017-04-14] MEDS: LATANOPROST 0.005% OPHT SOLN 2.5 ML BTL EACH EYE SCH (22:32)
[2017-04-15] VITALS (18 sets, daily range): BP systolic 115–148; BP diastolic 52–76; PULSE 58–94; RESP 18; TEMP 97.5–98.1; O2SAT 93–95
[2017-04-15] MEDS: ISOSORBIDE MONONITRATE 60 MG TAB PO SCH (05:09)
[2017-04-15 05:52] LABS: BICARBONATE 20.7 MEQ/L (21.0-32.0); POTASSIUM 3.7 MEQ/L (3.5-5.1)
[2017-04-15] MEDS: RESP: ALBUTEROL 2.5 MG/IPRATROPIUM 0.5 MG NEB (SCH) NEB ×2 (08:00→13:00)
[2017-04-15] MEDS: INSULIN ASPART SUPPLEMENTAL SCALE SQ SCH ×2 (08:00→12:00)
[2017-04-15] MEDS: ESCITALOPRAM OXALATE 10 MG TAB PO SCH (08:35)
[2017-04-15] MEDS: DILTIAZEM-CD 300 MG CAP ER PO SCH (08:35)
[2017-04-15] MEDS: METOPROLOL TARTRATE 25 MG TAB PO SCH (08:35)
[2017-04-15] MEDS: DABIGATRAN ETEXILATE 150 MG CAP PO SCH (08:36)
[2017-04-15] MEDS: PANTOPRAZOLE SODIUM 40 MG VIAL IV PUSH SCH (08:36)
[2017-04-15] MEDS: CLOPIDOGREL 75 MG TAB PO SCH (08:36)
[2017-04-15] MEDS: predniSONE 10 MG TAB PO SCH (08:37)
[2017-04-15] MEDS: BRIMONIDINE TARTRATE 0.2% OPHT SOLN 5 ML BTL EACH EYE SCH (08:37)
[2017-04-15] MEDS: MEGESTROL ACETATE SUSP 400 MG/10 ML CUP PO SCH (08:37)
[2017-04-15] MEDS: ASPIRIN EC 81 MG TABEC PO SCH (08:37)
[2017-04-15] MEDS: SODIUM CHLORIDE 0.9% FLUSH 10 ML FLUSH IV FLUSH SCH (08:37)
[2017-04-15] MEDS ORDERED: FUROSEMIDE 20 MG TAB PO SCH (09:00)
[2017-04-15] MEDS: INSULIN DETEMIR 100 UNITS/ML VIAL SQ SCH (09:00)
[2017-04-15] MEDS ORDERED: Albuterol-Ipratropium Neb NEB (09:09)
[2017-04-15] MEDS ORDERED: REST15CA PO (09:09)
[2017-04-15] MEDS ORDERED: PRED10 PO (09:09)
[2017-04-15] MEDS ORDERED: METO25TA3 PO (09:09)
[2017-04-15] MEDS ORDERED: ISOS60TA PO (09:09)
[2017-04-15] MEDS ORDERED: PLAV75TA29 PO (09:09)
[2017-04-15] MEDS ORDERED: FERR325T20 PO (09:09)
[2017-04-15] MEDS ORDERED: DILT300C3 PO (09:09)
[2017-04-15] MEDS ORDERED: PRAD150C PO (09:09)
[2017-04-15] MEDS ORDERED: ECASA81 PO (09:09)
--- NOTE | 2017-04-15 09:10 | HHI.DCPOC ---
Discharge Care Plan Diagnosis: (1) CAD (coronary artery disease) (2) NSTEMI (non-ST elevated myocardial infarction) (3) Pneumonitis Goals to Promote Your Health * To prevent worsening of your condition and complications * To maintain your health at the optimal level Directions to Meet Your Goals Take your medications as prescribed Follow your dietary instruction Follow activity as directed Keep your appointments as scheduled Take your immunizations and boosters as scheduled If your symptoms worsen call your PCP, if no PCP go to Urgent Care Center or Emergency Room Smoking is Dangerous to Your Health. Avoid second hand smoke Call the 24-hour hour crisis hotline for domestic abuse at Stanislaw Samuel MD Apr 15, 2017 09:10
--- NOTE | 2017-04-15 09:21 | HHI.DS ---
Discharge Summary Admission Date Apr 05, 2017 at 13:59 Discharge Date: Apr 15, 2017 Admitting Diagnosis PNA (1) CAD (coronary artery disease) Diagnosis: Principal ICD Codes: I25.10 - Atherosclerotic heart disease of [place] coronary artery without angina pectoris (2) Pulmonary fibrosis Diagnosis: Principal ICD Codes: J84.10 - Pulmonary fibrosis, unspecified (3) Pneumonitis Diagnosis: Principal ICD Codes: J18.9 - Pneumonia, unspecified organism (4) NSTEMI (non-ST elevated myocardial infarction) Diagnosis: Principal ICD Codes: I21.4 - Non-ST elevation (NSTEMI) myocardial infarction Status: Acute (5) CHF (congestive heart failure) Diagnosis: Secondary ICD Codes: I50.9 - Heart failure, unspecified Status: Chronic (6) Non-small cell cancer of right lung Diagnosis: Secondary ICD Codes: C34.91 - Malignant neoplasm of unspecified part of right bronchus or lung Status: Chronic (7) Weakness generalized Diagnosis: Principal ICD Codes: R53.1 - Weakness Status: Chronic (8) COPD (chronic obstructive pulmonary disease) ICD Codes: J44.9 - Chronic obstructive pulmonary disease, unspecified Status: Chronic (9) Hypertension Diagnosis: Secondary ICD Codes: I10 - Essential (primary) hypertension Status: Chronic (10) Diabetes mellitus type 2, noninsulin dependent Diagnosis: Secondary ICD Codes: E11.9 - Type 2 diabetes mellitus without complications Status: Chronic (11) Acute kidney injury superimposed on chronic kidney disease ICD Codes: N17.9 - Acute kidney failure, unspecified; N18.9 - Chronic kidney disease, unspecified Status: Acute Procedures none Brief History Mr. 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 Pt then received XRT which he completed in January 2017. Pt follows with Dr. Osorio. He was last seen by Dr. Osorio in 03/2017 and he had a CT Thorax prior to that visit which noted post treatment changes int he right lung with significant emphysematous changes, however, there is no mass or adenopathy noted. [place] [facility] [place] with complaints of weakness, dizziness, shortness of breath with exertion, hemoptysis and epistaxis. Patient reports that the symptoms started 4 -5 days ago. He denies any fevers or chills at home. He had been eating and drinking well up until a few days ago. His dyspnea on exertion seemed to worsen over the last day or so and this prompted his evaluation in the ED. Family reports that he is on 2L of supplemental O2 at home. In the ED his O2 sats were 94% on 4L of supplemental O2. CXR in the ED noted emphysema with new bilateral lower lung zone interstitial opacities bilaterally. Pt was given Duoneb treatments and Budesonide nebs in the ED. Pts labs noted WBC count 12.2 and Hgb 10.7/Hct 32.4. CBC/BMP: 04/13/17 0510 04/15/17 0445 Significant Findings Laboratory Tests Test 04/13/17 05:10 04/15/17 04:45 White Blood Count 12.3 TH/MM3 (4.0-11.0) Red Blood Count 2.54 MIL/MM3 (4.50-5.90) Hemoglobin 9.0 GM/DL (13.0-17.0) Hematocrit 26.3 % (39.0-51.0) Mean Corpuscular Volume 103.6 FL (80.0-100.0) Mean Corpuscular Hemoglobin 35.4 PG (27.0-34.0) Red Cell Distribution Width 18.2 % (11.6-17.2) Neutrophils % (Manual) 89 % (16-70) Lymphocytes % 4 % (9-44) Neutrophils # (Manual) 11.7 TH/MM3 (1.8-7.7) Metamyelocytes 2 % (0-1) Myelocytes 3 % (0-0) Nucleated Red Blood Cells 46 /100 WBC (0-0) Polychromasia 2.0 % (0.0-1.9) Basophilic Stippling FAINT (NORMAL) Blood Urea Nitrogen 39 MG/DL (7-18) 53 MG/DL (7-18) Random Glucose 148 MG/DL (74-106) 133 MG/DL (74-106) Calcium Level 7.8 MG/DL (8.5-10.1) 7.7 MG/DL (8.5-10.1) Chloride Level 111 MEQ/L (98-107) 112 MEQ/L (98-107) Estimat Glomerular Filtration Rate 84 ML/MIN (>89) 54 ML/MIN (>89) Total Creatine Kinase 36 U/L (39-308) Triglycerides Level 239 MG/DL (42-150) Carbon Dioxide Level 20.7 MEQ/L (21.0-32.0) Hospital Course (1) NSTEMI (non-ST elevated myocardial infarction) - Pt is a 76 y/o WM with CAD, hypertension,pulmonary fibrosis CKD, diverticulitis and 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 Pt then received XRT which he completed in January 2017. Pt follows with Dr. Osorio. - He was last seen by Dr. Osorio in 03/2017 and he had a CT Thorax prior to that visit which noted post treatment changes in the right lung with significant emphysematous changes, however, there is no mass or adenopathy noted. - [place] [facility] [place] with complaints of weakness, dizziness, shortness of breath with exertion, hemoptysis and epistaxis that began around 4-5 days ago. He denies any fevers or chills at home. His dyspnea on exertion seemed to worsen over the last day or so and this prompted his evaluation in the ED. - Family reports that he is on 2L of supplemental O2 at home. - CXR in the ED noted emphysema with new bilateral lower lung zone interstitial opacities bilaterally. - Pt was given Duoneb treatments and Budesonide nebs in the ED. - He was given a dose of Solu-Medrol 125mg x one dose in the ED as well as Azithromycin and Rocephin 04/05 & 04/06 - Zosyn 04/07 stopped 04/09/17 - Cont. Duonebs Q4H WA - Blood cultures drawn with NGTD - CXR (04/06) --> Stable bilateral lower lung zone interstitial opacities. Differential considerations include interstitial edema versus interstitial pneumonia. No significant interval change. - Chest CT (04/06/17) --> Advanced pulmonary fibrosis. Overlying interstitial prominence and peribronchial consolidation representing either pulmonary edema or acute pneumonitis. No other significant change. Pt to the director of cardiac cath lab 04/12 for LHC. pci bms to left cx and angioplasty to rca . Pt had nstemi his pradaxa was on hold for the procedure asa/plavix/pradaxa x 1 month then stop one of the antiplt's per cardiology. ccb increased. pt and agreeable to snf for deconditioning. I compared 04/18 ct chest with 07/17 ct....?radiation pneumonitis vs edema..discussed with pulmonary who feels edema less likely. echo and bnp nml. But reviewing pt weight he has gained significantly. continue steroids and convert to po form. discussed all labs and imaging results with pt and . discussed with pcp. Pt given opportunity for further inpt care here...he declined and is eager for d/c to snf to start PT. (2) Hemoptysis ICD Codes: R04.2 - Hemoptysis Status: Acute Plan: - resolved - See above (3) CHF (congestive heart failure) ICD Codes: I50.9 - Heart failure, unspecified Status: Chronic Plan: - 2D echo (09/03/16) - Mild LVH - Estimated EF 55-60% - Grade 1 diastolic dysfunction - PA pressure 39mmHg - Suspect the pt has some degree of volume overload initially - 04/06 Lasix 40mg IV x one with no clinical improvement - BNP 36 (4) Non-small cell cancer of right lung ICD Codes: C34.91 - Malignant neoplasm of unspecified part of right bronchus or lung Status: Chronic Plan: - See above (5) Weakness generalized ICD Codes: R53.1 - Weakness Status: Chronic Plan: - See above (6) COPD (chronic obstructive pulmonary disease) ICD Codes: J44.9 - Chronic obstructive pulmonary disease, unspecified Status: Chronic Plan: see above (7) Hypertension ICD Codes: I10 - Essential (primary) hypertension Status: Chronic Plan: - Clonidine PRN - Vasotec PRN (8) Diabetes mellitus type 2, noninsulin dependent ICD Codes: E11.9 - Type 2 diabetes mellitus without complications Status: Chronic Plan: - OHA on hold - NovoLog SSI (9) Acute kidney injury superimposed on chronic kidney disease ICD Codes: N17.9 - Acute kidney failure, unspecified; N18.9 - Chronic kidney disease, unspecified Status: Acute Plan: renal function worsening 04/10 BUN 57, creatine 1.78 and estimated GFR 37 patient' base line creatinine around 1.0, GFR baseline around 60 UA reveals large occult blood, Lovenox has been stopped renal function improving creatinine 1.25, Pt Condition on Discharge: Stable Discharge Disposition: Discharge to SNF Discharge Instructions DIET: Follow Instructions for: Diabetic Diet Activities you can perform: Regular-No Restrictions Stanislaw Samuel MD Apr 15, 2017 09:21
[2017-04-15] MEDS: FERROUS SULFATE 325 MG (65 MG ELEMENTAL IRON) TAB PO SCH (13:45)
--- NOTE | 2017-04-18 13:21 | PQ ---
Physician Query Response Document PATIENT: BASILIO AYERS : 1940 ADMIT DATE: 04/05/2017 1:59 PM DISCH DATE: 04/15/2017 3:40 PM RESPONDING PROVIDER #: Rbraithw QUERY TEXT: CHF Acuity and Type Congestive Heart Failure is documented in the Medical Record. Please document the type and acuity (in cludes probable or suspected) Such as: Type: -- Systolic -- Diastolic -- Combined -- Other, please specify Acuity: -- Acute -- Chronic -- Acute on chronic -- Other, please specify Also please document the underlying cause of the CHF (includes probable or suspected) If you have any additional questions/comments and/or concerns, please do not hesitate to reach out to the CDI/Coding Hotline, Ext. [phone]. The patient's Clinical Indicators include: H ICD Codes: I50.9 - Heart failure, unspecified Status: Chronic Plan: - 2D echo (09/03/16) - Mild LVH - Estimated EF 55-60% - Grade 1 diastolic dysfunction - PA pressure 39mmHg - Monitor for any evidence of volume overload Dr. Davis's consult 04/06/17 - PLAN : I discussed with the patient and his we will empirically t reat him with antibiotic, doubt he has any congestive heart failure. His BNP is only 36, supplement his oxygen. Con tinue aerosol treatment. Monitor his blood pressure. Progress Note of 04/14/17: (3) CHF (congestive heart failure) ICD Codes: I50.9 - Heart failure, unspecified Status: Chronic Plan: - 2D echo (09/03/16) - Mild LVH - Estimated EF 55-60% - Grade 1 diastolic dysfunction - PA pressure 39mmHg - Suspect the pt has some degree of volume overload initially - 04/06 Lasix 40mg IV x one with no clinical improvement - BNP 36 Not on diuretics at home. Lasix was given on 04/06/17 as noted above, not given again until 04/14/17 according to Medication records. Query created by: Leatha Rebollar on 04/16/2017 12:14 PM RESPONSE TEXT: Pt has chronic diastolic chf and was admitted w/out acute exacerbation. Electronically signed by: Stanislaw Samuel MD 04/18/2017 1:17 PM
== END 2017-04-15 15:40 | DRG 981 ==
LOC: NEPE 10:43 → NEDA 13:59 → N05B 16:35 → HCIS 04-12 12:47
PROVIDERS: ADMIT Hospitalist; ATTEND Hospitalist
PROC: 02703DZ Dilation of Coronary Artery, One Artery with Intraluminal Device, Percutaneous Approach (ICD-10-PCS; 2017-04-12)
PROC: 4A023N7 Measurement of Cardiac Sampling and Pressure, Left Heart, Percutaneous Approach (ICD-10-PCS; 2017-04-12)
PROC: 02703ZZ Dilation of Coronary Artery, One Artery, Percutaneous Approach (ICD-10-PCS; principal; 2017-04-12 08:30)
DX: J18.9 Pneumonia, unspecified organism (principal); I21.4 Non-ST elevation (NSTEMI) myocardial infarction; N17.9 Acute kidney failure, unspecified; I13.0 Hypertensive heart and chronic kidney disease with heart failure and stage 1 through stage 4 chronic kidney disease, or unspecified chronic kidney disease; C34.91 Malignant neoplasm of unspecified part of right bronchus or lung; E11.21 Type 2 diabetes mellitus with diabetic nephropathy; J84.10 Pulmonary fibrosis, unspecified; I50.32 Chronic diastolic (congestive) heart failure; R04.2 Hemoptysis; I25.119 Atherosclerotic heart disease of native coronary artery with unspecified angina pectoris; Z98.61 Coronary angioplasty status; J44.9 Chronic obstructive pulmonary disease, unspecified; N18.3 Chronic kidney disease, stage 3 (moderate); Z92.21 Personal history of antineoplastic chemotherapy; I25.2 Old myocardial infarction; Z79.02 Long term (current) use of antithrombotics/antiplatelets; Z99.81 Dependence on supplemental oxygen; H35.30 Unspecified macular degeneration; H40.9 Unspecified glaucoma; E66.3 Overweight; Z68.25 Body mass index [BMI] 25.0-25.9, adult; Z87.891 Personal history of nicotine dependence; K57.90 Diverticulosis of intestine, part unspecified, without perforation or abscess without bleeding
CPT/HCPCS: 71010; 71020; 71250; 80048; 80053; 80061; 81001; 82550; 82552; 82947; 82948; 83735; 83880; 84484; 85007; 85027; 85610; 85730; 86850; 86900; 86901; 87040; 87086; 92920; 92928; 93005; 93306; 93458; 94640; 94664; 96374; 99211; C1725; C1769; C1876; C1887; C1893; C9113; G0463; J0456; J0583; J0696; J1642; J1644; J1650; J1815; J1940; J2250; J2543; J2920; J2930; J3010; J7050; J7512; J7626; Q9967

== ENCOUNTER 2017-04-19 22:54 | Inpatient (IN) | payer MEDICARE ==
[~2017-04-19] VITALS: Ht 177.8 cm; Wt 80.3 kg
[~2017-04-19 22:54] MED LIST changes: +Albuterol-Ipratropium Neb NEB; +DILT300C3 PO; +ECASA81 PO; +FERR325T20 PO; +ISOS60TA PO; +METO25TA3 PO; -MISC-163; +PLAV75TA29 PO; +PRAD150C PO; +PRED10 PO; -WHEEMIS3
[2017-04-19 23:06] VITALS: BP 137/65; PULSE 77; RESP 24; TEMP 98.6; O2SAT 94
--- NOTE | 2017-04-19 23:33 | PD ---
HPI Chief Complaint: Abnormal Results Time Seen by Provider: 23:04 Travel History International Travel<30 days: No Contact w/Intl Traveler<30days: No Traveled to known affect area: No History of Present Illness HPI The patient is a 76 year old male who presents to the [facility] emergency department with a history of being sent over from the [facility] related to abnormal laboratory studies. The patient's white blood cell count was noted to be elevated at 18 earlier today. His primary care physician is Dr. Whitlock. The patient was just recently admitted to the hospital and is on steroids currently related to his COPD exacerbation. He is not currently on any antibiotic. His medical history is significant for earlier in the year having a pulmonary embolism. He is currently on low-dose aspirin, Protonix, and Plavix. He has a history of coronary artery disease, hypertension, chronic renal insufficiency, history of non-small cell carcinoma, and pulmonary fibrosis. The patient did undergo radiation therapy related to his carcinoma and has intermittently had swelling to his left upper extremity, originally in January, status post upper extremity ultrasound that was negative for DVT. At that time they did diagnose him with cellulitis. His daughter reports that over the last week he has again developed swelling and redness of the left arm. It began to weep a couple of days ago, however today it actually is looking improved. The patient's daughter also reports a concern that his Wciojl-r-Tglu became wet on 2 occasions during his last hospitalization. She denies him having any erythema or drainage from the site. He denies having any tenderness around the site. On review of systems otherwise, he denies having any recent fevers, worsening cough or congestion, neck pain, chest pain, worsening shortness of breath, abdominal pain, vomiting, diarrhea, urinary symptoms, or neurologic symptoms. [facility] Past Medical History Narrative Medical The patient's past medical history is significant for non-small cell carcinoma of the lung, hypertension, coronary artery disease, chronic renal insufficiency , history of diverticulitis, history of COPD, pulmonary fibrosis, history of PE , diabetes mellitus with diabetic nephropathy, hypertension, glaucoma, macular degeneration, history of myocardial infarction Hx Anticoagulant Therapy: Yes (pradaxa) Arthritis: Yes Asthma: No Autoimmune Disease: No Blood Disorders: No Anxiety: No Depression: No Heart Rhythm Problems: No Cancer: Yes (non-small cell lung CA, large cell neuroendocrine carcinoma) Cardiac Catheterization: Yes Cardiovascular Problems: Yes High Cholesterol: Yes Chemotherapy: No Chest Pain: No Congestive Heart Failure: No COPD: Yes (on O2) Cerebrovascular Accident: No Coronary Artery Disease: Yes Diabetes: Yes Diminished Hearing: No Endocrine: Yes (DIABETES) Gastrointestinal Disorders: Yes (DIVERTICULITIS) GERD: No Glaucoma: No Genitourinary: Yes (ENLARGED PROSTATE) Hepatitis: No Hiatal Hernia: Yes Hypertension: Yes Immune Disorder: No Implanted Vascular Access Dvce: Yes Kidney Stones: No Musculoskeletal: Yes Neurologic: Yes (years and years ago) Psychiatric: No Reproductive: No Respiratory: No Migraines: Yes Radiation Therapy: No Renal Failure: Yes Seizures: No Sickle Cell Disease: No Sleep Apnea: No Thyroid Disease: No Ulcer: No Past Surgical History Narrative Surgical The patient's past surgical history is significant for an exploratory laparotomy with proctosigmoidectomy, appendectomy, splenectomy, cataract surgery , hip surgery, PTCA in 1997 and 2002. The patient has had an Vqskag-o-Loct placed. Abdominal Surgery: Yes (HERNIA REPAIR,COLON resection 04/2016) AICD: No Arteriovenous Shunt: No Body Medical Devices: STENTS Cardiac Surgery: Yes (CARDIAC STENTS 2000) Coronary Stent: Yes Ear Surgery: No Endocrine Surgery: No Eye Surgery: No Genitourinary Surgery: No Gynecologic Surgery: No Insulin Pump: No Joint Replacement: Yes Neurologic Surgery: No Oral Surgery: No Pacemaker: No Thoracic Surgery: No Other Surgery: Yes Social History Alcohol Use: No Tobacco Use: No Substance Use: No Allergies-Medications (Allergen,Severity, Reaction): Coded Allergies: *MDRO Multi-Drug Resistant Organism (Verified Adverse Reaction, Unknown, VRE, MRSA, 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 amlodipine (Unverified Adverse Reaction, Unknown, MUSCLE PAIN, 04/19/17) atorvastatin (Unverified Adverse Reaction, Unknown, MUSCLE PAIN, 04/19/17) pravastatin (Unverified Adverse Reaction, Unknown, MUSCLE PAIN, 04/19/17) simvastatin (Unverified Adverse Reaction, Unknown, MUSCLE PAIN, 04/19/17) Reported Meds & Prescriptions Reported Meds & Active Scripts Active Prednisone 10 Mg Tab 10 Mg PO DIRECTED 30 Days 30mg po bid x 5 days, 20mg po bid x 5 days, 10mg po bid x 5 days, 10mg po daily Aspirin DR (Aspirin) 81 Mg Tabdr 81 Mg PO DAILY Diltiazem CD 24 HR 300 Mg Caper 300 Mg PO DAILY 30 Days Metoprolol Tartrate 25 Mg Tab 25 Mg PO Q12HR 30 Days Isosorbide Mononitrate ER (Isosorbide Mononitrate) 60 Mg Tab 60 Mg PO DAILY@07 30 Days Plavix (Clopidogrel Bisulfate) 75 Mg Tab 75 Mg PO DAILY 30 Days Pradaxa (Dabigatran) 150 Mg Cap 150 Mg PO BID 30 Days Ferosul (Ferrous Sulfate) 325 Mg (65 Mg Iron) Tablet 325 Mg PO BID@12,17 30 Days [Albuterol-Ipratropium Neb] 1 AMPULE Nebu 1 Ampule NEB Q4HR WHILE AWAKE NEB 30 Days Restoril (Temazepam) 15 Mg Cap 15 Mg PO HS PRN Megestrol Liq (Megestrol Acetate) 40 Mg/Ml Susp 400 Mg PO BID Reported Levemir Flextouch Pen Inj (Insulin Detemir) 300 unit/3 ML Pen 10 Units SQ BID Novolog Flexpen Inj (Insulin Aspart) 300 Unit/3 Ml Pen 1 Units SQ Clonidine (Clonidine HCl) 0.1 Mg Tab 0.1 Mg PO QID Brimonidine Opth Drops (Brimonidine Tartrate) 0.2% Soln 1 Drop EACH EYE BID Lexapro (Escitalopram Oxalate) 10 Mg Tab 10 Mg PO DAILY Latanoprost Opth Drops (Latanoprost) 0.005% Drops 1 Drop EACH EYE HS Refrigerate until opened. Review of Systems Except as stated in HPI: all other systems reviewed are Neg General / Constitutional: No: Fever Eyes: No: Visual changes HENT: No: Headaches, Rhinorrhea, Congestion Cardiovascular: No: Chest Pain or Discomfort Respiratory: Positive: Cough, No: Shortness of Breath Gastrointestinal: No: Nausea, Vomiting, Diarrhea, Abdominal Pain, Changes in Bowel Habits, Indigestion, Loss of Appetite Genitourinary: No: Dysuria Musculoskeletal: No: Pain Skin: No Rash Neurologic: No: Weakness, Change in Mentation, Slurred Speech, Sensory Disturbance Psychiatric: No: Depression Endocrine: No: Polydipsia Hematologic/Lymphatic: No: Easy Bruising Physical Exam Narrative General: The patient is a well-developed well-nourished male in no acute distress. Head and Neck exam: Head is normocephalic atraumatic. Eyes: EOMI, pupils are equal round and reactive to light. Nose: Midline septum with pink mucous membranes Mouth: Dentition unremarkable. Moist mucus membranes. Posterior oropharynx is not erythematous. No tonsillar hypertrophy. Uvula midline. Airway patent. Neck: No palpable lymphadenopathy. No nuchal rigidity. No thyromegaly. Cardiovascular: Regular rate and rhythm without murmurs, gallops, or rubs. Lungs: Clear to auscultation bilaterally. No wheezes, rhonchi, or rales. Abdomen: Soft, without tenderness to palpation in all 4 quadrants of the abdomen. No guarding, rebound, or rigidity. Normal bowel sounds are audible. No tenderness on palpation of McBurney's point. Extremities: No clubbing, cyanosis, or edema. 2+ pulses in all 4 extremities. No calf tenderness on palpation. Back: No costovertebral angle tenderness to palpation. Neurologic Exam: Grossly nonfocal. Skin Exam: The patient has scattered bruises noted, reportedly related to his anticoagulation. Intact skin that is warm and dry. The patient on examination of the left arm is noted to have mild erythema, edema, however no tenderness on palpation. The Hsgbjz-t-Vfig appears to be in good repair in the left side of his chest. Data Data Last Documented VS Vital Signs Date Time Temp Pulse Resp B/P (MAP) Pulse Ox O2 Delivery O2 Flow Rate FiO2 04/19/17 23:09 24 94 Nasal Cannula 2.00 04/19/17 23:06 98.6 77 137/65 (89) Orders Orders Electrocardiogram (04/19/17 23:26) Complete Blood Count With Diff (04/19/17 23:26) Comprehensive Metabolic Panel (04/19/17 23:26) Troponin I (04/19/17 23:26) B-Type Natriuretic Peptide (04/19/17 23:26) Prothrombin Time / Inr (Pt) (04/19/17 23:26) Act Partial Throm Time (Ptt) (04/19/17 23:26) Blood Culture (04/19/17 23:26) C-Reactive Protein (Crp) (04/19/17 23:26) Lipase (04/19/17 23:26) Urinalysis - C+S If Indicated (04/19/17 23:26) Magnesium (Mg) (04/19/17 23:26) Chest, Single Ap (04/19/17 23:26) Iv Access Insert/Monitor (04/19/17 23:26) Ecg Monitoring (04/19/17 23:26) Oximetry (04/19/17 23:26) Lactic Acid Sepsis Protocol (04/19/17 23:26) Sodium Chlorid 0.9% 500 Ml Inj (Ns 500 M (04/20/17 01:00) Piperacil-Tazo 3.375 Gm Premix (Zosyn 3. (04/20/17 01:00) Vancomycin Inj (Vancomycin Inj) (04/20/17 01:00) Admit Order (Ed Use Only) (04/20/17 02:09) Labs Laboratory Tests Test 04/19/17 23:54 04/19/17 23:59 White Blood Count 17.5 TH/MM3 Red Blood Count 2.58 MIL/MM3 Hemoglobin 8.8 GM/DL Hematocrit 27.0 % Mean Corpuscular Volume 104.5 FL Mean Corpuscular Hemoglobin 34.2 PG Mean Corpuscular Hemoglobin Concent 32.7 % Red Cell Distribution Width 19.4 % Platelet Count 226 TH/MM3 Mean Platelet Volume 8.6 FL Neutrophils (%) (Auto) 94.0 % Lymphocytes (%) (Auto) 1.2 % Monocytes (%) (Auto) 4.4 % Eosinophils (%) (Auto) 0.0 % Basophils (%) (Auto) 0.4 % Neutrophils # (Auto) 16.5 TH/MM3 Lymphocytes # (Auto) 0.2 TH/MM3 Monocytes # (Auto) 0.8 TH/MM3 Eosinophils # (Auto) 0.0 TH/MM3 Basophils # (Auto) 0.1 TH/MM3 CBC Comment AUTO DIFF Differential Total Cells Counted 100 Neutrophils % (Manual) 90 % Band Neutrophils % 4 % Monocytes % 3 % Neutrophils # (Manual) 17.0 TH/MM3 Metamyelocytes 1 % Promyelocytes 2 % Nucleated Red Blood Cells 1 /100 WBC Differential Comment FINAL DIFF MANUAL Platelet Estimate NORMAL Platelet Morphology Comment NORMAL Polychromasia 2.3 % Basophilic Stippling FAINT Ovalocytes 1+ [employer] Bodies PRESENT Acanthocytes 1+ Prothrombin Time 14.7 SEC Prothromb Time International Ratio 1.5 RATIO Activated Partial Thromboplast Time 33.4 SEC Blood Urea Nitrogen 39 MG/DL Creatinine 1.32 MG/DL Random Glucose 127 MG/DL Total Protein 4.7 GM/DL Albumin 2.2 GM/DL Calcium Level 7.6 MG/DL Magnesium Level 2.1 MG/DL Alkaline Phosphatase 60 U/L Aspartate Amino Transf (AST/SGOT) 19 U/L Alanine Aminotransferase (ALT/SGPT) 20 U/L Total Bilirubin 0.7 MG/DL Sodium Level 144 MEQ/L Potassium Level 3.8 MEQ/L Chloride Level 114 MEQ/L Carbon Dioxide Level 19.5 MEQ/L Anion Gap 11 MEQ/L Estimat Glomerular Filtration Rate 53 ML/MIN Troponin I 0.10 NG/ML C-Reactive Protein LESS THAN 0.29 MG/DL B-Type Natriuretic Peptide 119 PG/ML Lipase 119 U/L Lactic Acid Level 5.0 mmol/L [facility] Medical Decision Making Medical Screen Exam Complete: Yes Emergency Medical Condition: Yes Medical Record Reviewed: Yes Interpretation(s) Last Impressions Knee X-Ray 04/20/17 0000 Signed Impressions: Service Date/Time: Thursday, April 20, 2017 14:57 - CONCLUSION: 1. Probable trace suprapatellar joint effusion. 2. 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 3. Otherwise, unremarkable knee radiographs. Parviz Keys MD Hip and Pelvis X-Ray 04/20/17 0000 Signed Impressions: Service Date/Time: Thursday, April 20, 2017 14:57 - CONCLUSION: 1. Bilateral hip arthroplasties in place without evidence for significant loosening or fracture. Parviz Keys MD Chest X-Ray 04/19/17 2326 Signed Impressions: Service Date/Time: Wednesday, April 19, 2017 23:52 - CONCLUSION: Bibasilar areas of interstitial disease/mild consolidation which appear to be improving. Zion Goss MD Differential Diagnosis Elevated white blood cell count related to steroid use, versus pneumonia, versus urinary tract infection, versus bacteremia, versus port infection, versus cellulitis Narrative Course During the course of the patients emergency department visit, the patients history, examination, and differential diagnosis were reviewed with the patient. The patient was placed on a cardiac catheterization technician with oximetry and frequent blood pressure monitoring. The patient had IV access obtained and blood work sent for analysis. An ECG was done on arrival that shows a sinus rhythm with a heart rate of 69, borderline left axis deviation, moderate intraventricular conduction delay with a QRS duration 113 ms, QTC [address] segment elevation. The patient was initially provided coverage with broad-spectrum antibiotic to conclude include vancomycin and Zosyn. The patient was started on normal saline IV fluid bolus of 500 mL. The patient will be gently rehydrated due to his prior history of cardiac disease and concern for possible fluid overload. The patients laboratory studies were reviewed and remarkable for a white count of 17.5, hemoglobin 8.8 which is stable compared to previously, platelets 226 with 90 neutrophils, 4 bands, CMP is remarkable for a chloride of 114, CO2 19.5 , BUN 39, creatinine 1.32, glucose 127, calcium 7.6, troponin I is 0.10 which is compared to previously, peaked out at 5 earlier in the month, C-reactive protein less than 0.29, lipase 119, PT 14.7, PTT 33.4, urinalysis shows 30 protein glucose 70 moderate occult blood 79 RBCs rare bacteria culture not indicated. Lactic acid was noted be 5.0. Radiology studies were reviewed and remarkable for a chest x-ray that shows bibasilar areas of interstitial disease, mild consolidation which appear to be improving. The only obvious source of infection at this point is the patient's cellulitis of the left arm. The patient will be continued on antibiotic. Blood cultures are pending. The patients results were discussed with the patient, including the plan of care. I explained that further testing and/ or monitoring is indicated based on the patients history, examination, and/ or laboratory findings. Therefore, I recommended admission for additional evaluation. The patient expressed understanding and was agreeable with this plan. The patient was admitted to the hospital in stable condition and sent to a bed under the care of the [facility] and. Sepsis Criteria SIRS Criteria (2 or more): WBC > 83218, < 4000 or > 10% bands Sepsis Criteria (SIRS+source): Infect source susp/known Severe Sepsis (+one): Lactate >2 Physician Communication Physician Communication The patient's case including history, pertinent physical examination findings, and laboratory studies were discussed with Dr. Eriberto lewis. It was agreed that the patient would be admitted to the [facility] service. Diagnosis Primary Impression: Cellulitis Qualified Codes: L03.114 - Cellulitis of left upper limb Additional Impression: Leukocytosis Qualified Codes: D72.829 - Elevated white blood cell count, unspecified Admitting Information Admitting Physician Requests: Admit Yaimlet Hyman MD Apr 19, 2017 23:33
[2017-04-20] VITALS (10 sets, daily range): BP systolic 115–161; BP diastolic 56–70; PULSE 57–77; RESP 17–24; TEMP 97.5–98; O2SAT 91–98
[2017-04-20 00:11] LABS: AUTOMATED NEUTROPHIL # 16.5 TH/MM3 (1.8-7.7); BASOPHIL # 0.1 TH/MM3 (0-0.2); BASOPHIL % 0.4 % (0.0-2.0); LYMPH % 1.2 % (9.0-44.0); LYMPHOCYTE # 0.2 TH/MM3 (1.0-4.8); MEAN CELL VOLUME 104.5 FL (80.0-100.0); MEAN CORPUSCULAR HEMOGLOBIN 34.2 PG (27.0-34.0); MEAN CORPUSCULAR HGB CONC 32.7 % (32.0-36.0); MONO % 4.4 % (0.0-8.0); PLATELET COUNT 226 TH/MM3 (150-450); RED BLOOD COUNT 2.58 MIL/MM3 (4.50-5.90); RED CELL DISTRIBUTION WIDTH 19.4 % (11.6-17.2); WHITE BLOOD COUNT 17.5 TH/MM3 (4.0-11.0)
--- NOTE | 2017-04-20 00:11 | RADRPT ---
EXAM DATE/TIME: 04/19/2017 23:52 [facility] COMPARISON: CHEST SINGLE AP, April 11, 2017, 5:41. INDICATIONS : Cough. MEDICAL HISTORY : Chronic obstructive pulmonary disease. Carcinoma, lung. Cardiovascular disease. Coronary artery d isease. Hypertension. SURGICAL HISTORY : None. ENCOUNTER: Initial ACUITY: 1 day PAIN SCORE: 0/10 LOCATION: Bilateral chest FINDINGS: There is a CT compatible Sspoml-x-Wytv in place from the left internal jugular approach. The heart si ze is enlarged. There is increased interstitial disease/consolidation at the bases. The mid and upper lungs appear clear. When compared to the prior exam, the lungs appear better aerated. Significant ef fusions are not seen. CONCLUSION: Bibasilar areas of interstitial disease/mild consolidation which appear to be improving. Zion Goss MD on April 20, 2017 at 0:08 Board Certified Radiologist. This report was verified electronically.
[2017-04-20 00:17] LABS: HEMO FLAGS AUTO DIFF
[2017-04-20 00:25] LABS: APTT (PATIENT) 33.4 SEC (24.3-30.1); INTERNATIONAL NORMALIZED RATIO 1.5 RATIO; PROTHROMBIN TIME - PATIENT 14.7 SEC (9.8-11.6)
[2017-04-20 00:46] LABS: ALT (GPT) 20 U/L (12-78); ANION GAP 11 MEQ/L (5-15); AST (GOT) 19 U/L (15-37); BICARBONATE 19.5 MEQ/L (21.0-32.0); BLOOD UREA NITROGEN 39 MG/DL (7-18); CHLORIDE 114 MEQ/L (98-107); GLOMERULAR FILTRATION RATE 53 ML/MIN (>89); MAGNESIUM 2.1 MG/DL (1.5-2.5); POTASSIUM 3.8 MEQ/L (3.5-5.1); SODIUM (NA) 144 MEQ/L (136-145)
[2017-04-20 00:48] LABS: ALKALINE PHOSPHATASE 60 U/L (45-117); TOTAL BILIRUBIN ADULT 0.7 MG/DL (0.2-1.0)
[2017-04-20 00:56] LABS: BANDS 4 % (0-6); CORRECTED NUCLEATED RBC 1 /100 WBC (0-0); METAMYELOCYTES 1 % (0-1); POLYS (SEG NEUTROPHILS) 90 % (16-70); PROMYELOCYTES 2 % (0-0); WBC DIFF SAMPLE 100
[2017-04-20 00:59] LABS: ACANTHOCYTES 1+ (NORMAL); HOWELL-JOLLY BODIES PRESENT (NONE SEEN); PLATELET ESTIMATE SMEAR NORMAL (NORMAL); PLATELET MORPHOLOGY NORMAL (NORMAL); SCAN/DIFF FINAL DIFF MANUAL
[2017-04-20 01:00] LABS: OVALOCYTES 1+ (NORMAL)
[2017-04-20] MEDS ORDERED: SODIUM CHLORID 0.9% 500 ML INJ 500 ML IV ONE (01:00)
[2017-04-20] MEDS ORDERED: VANCOMYCIN INJ 1,000 MG in SODIUM CHLOR 0.9% 250 ML INJ 250 ML IV ONE (01:00)
[2017-04-20] MEDS ORDERED: PIPERACIL-TAZO 3.375 GM PREMIX 50 ML IV ONE (01:00)
[2017-04-20 01:02] LABS: POLYCHROMASIA 2.3 % (0.0-1.9)
[2017-04-20 02:06] LABS: LACTIC ACID GHOST NOT REPORTABLE
[2017-04-20] MEDS ORDERED: INSU1INJ5 SQ (02:28)
[2017-04-20] MEDS ORDERED: CLON0.1T PO (02:28)
[2017-04-20] MEDS ORDERED: NOVOINJ3 SQ (02:28)
[2017-04-20] MEDS ORDERED: TEMAZEPAM 15 MG CAP PO PRN (02:30)
[2017-04-20] MEDS ORDERED: Vancomycin Consult Pharmacy 1 EA OTHER SCH (02:30)
[2017-04-20] MEDS ORDERED: VANCOMYCIN 500 MG/NS 100 ML IV ONE ×2 (03:00)
[2017-04-20 03:44] LABS: BACTERIA, URINE RARE /hpf; BLOOD, URINE MOD (NEG); COMMENT (UR) CULT NOT INDICATED; CULTURE IF INDICATED CULT NOT INDICATED; GLUCOSE,URINE 70 mg/dL (NEG); KETONE, URINE NEG (NEG); NITRITE,URINE NEG (NEG); URINE COLOR YELLOW (YELLW/STRAW)
[2017-04-20 07:06] LABS: AUTOMATED NEUTROPHIL # 15.5 TH/MM3 (1.8-7.7); BASOPHIL # 0.1 TH/MM3 (0-0.2); BASOPHIL % 0.5 % (0.0-2.0); HEMATOCRIT 24.9 % (39.0-51.0); HEMO FLAGS DIFF FINAL; LYMPH % 1.2 % (9.0-44.0); LYMPHOCYTE # 0.2 TH/MM3 (1.0-4.8); MEAN CELL VOLUME 104.3 FL (80.0-100.0); MEAN CORPUSCULAR HGB CONC 33.5 % (32.0-36.0); MONO % 3.3 % (0.0-8.0); PLATELET COUNT 223 TH/MM3 (150-450); RED BLOOD COUNT 2.39 MIL/MM3 (4.50-5.90); RED CELL DISTRIBUTION WIDTH 19.2 % (11.6-17.2); WHITE BLOOD COUNT 16.3 TH/MM3 (4.0-11.0)
[2017-04-20 07:26] LABS: BICARBONATE 19.3 MEQ/L (21.0-32.0); POTASSIUM 3.8 MEQ/L (3.5-5.1)
[2017-04-20] MEDS ORDERED: SODIUM CHLOR 0.9% 1000 ML INJ 1,000 ML IV ONE (07:30)
[2017-04-20] MEDS: ISOSORBIDE MONONITRATE 60 MG TAB PO SCH (07:53)
[2017-04-20] MEDS: RESP: ALBUTEROL 2.5 MG/IPRATROPIUM 0.5 MG NEB (SCH) NEB ×3 (08:03→19:29)
[2017-04-20] MEDS ORDERED: MORPHINE SULFATE 2 MG/ML INJ IV PUSH ONE (08:45)
[2017-04-20] MEDS ORDERED: ACETAMINOPHEN/HYDROcodone 325 MG/5 MG TAB PO PRN ×3 (08:45→12:30)
[2017-04-20] MEDS ORDERED: cloNIDine HCL 0.1 MG TAB PO SCH (09:00)
[2017-04-20] MEDS: INSULIN DETEMIR 100 UNITS/ML VIAL SQ SCH ×2 (09:00→21:20)
[2017-04-20] MEDS: BRIMONIDINE TARTRATE 0.2% OPHT SOLN 5 ML BTL EACH EYE SCH ×2 (09:00→21:00)
[2017-04-20] MEDS: PIPERACIL-TAZO 3.375 GM PREMIX 50 ML IV SCH ×3 (10:08→23:56)
[2017-04-20] MEDS: DILTIAZEM-CD 300 MG CAP ER PO SCH (10:42)
[2017-04-20] MEDS: predniSONE 20 MG TAB PO SCH (10:43)
[2017-04-20] MEDS: ESCITALOPRAM OXALATE 10 MG TAB PO SCH (10:43)
[2017-04-20] MEDS: ASPIRIN EC 81 MG TABEC PO SCH (10:43)
[2017-04-20] MEDS: METOPROLOL TARTRATE 25 MG TAB PO SCH ×2 (10:44→21:00)
[2017-04-20] MEDS: DABIGATRAN ETEXILATE 150 MG CAP PO SCH ×2 (10:44→21:20)
[2017-04-20] MEDS: CLOPIDOGREL 75 MG TAB PO SCH (10:44)
[2017-04-20] MEDS: MEGESTROL ACETATE SUSP 400 MG/10 ML CUP PO SCH ×2 (10:44→21:20)
--- NOTE | 2017-04-20 11:21 | HHI.HP ---
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 Pt then received XRT which he completed in January 2017. Pt follows with Dr. Osorio. Pt most most recently hospitalized at [facility] April 05 through April 15, 2017. Patient was admitted due to shortness of breath, likely multifactorial. Patient underwent left heart catheterization 04/12/[address] Deondre Barajas. Patient had bare metal stent placed in the left circumflex artery and angioplasty to right coronary artery. Patient diagnosed with non-ST segment elevation [place]. Patient also received intravenous steroids due to pulmonary fibrosis. Patient also felt to have had volume overload. Patient was discharged to care home facility. Patient returned to the [facility] ER with complaint of worsening swelling and redness in his left arm. This started a few days prior to readmission. Patient 's daughter concerned that Fgwnfb-s-Himm became wet on 2 occasions during prior hospitalization. However, no redness or tenderness at Rfnwlh-e-Waad site. Patient's white count is elevated at 16.3 K. Patient has no fever, chills, or sweats. Patient started on intravenous vancomycin and Zosyn in the ER. Pt had leukocytosis and elevated lactic acid. ER c/o sepsis. Pt received broad spectrum antibiotics and IV fluids. Patient admitted to [facility] for further evaluation and treatment. Review of Systems Constitutional: DENIES: Diaphoretic episodes, Fatigue, Fever, Weight gain, Weight loss, Chills, Dizziness, Change in appetite, Night Sweats Endocrine: DENIES: Heat/cold intolerance, Polydipsia, Polyuria, Polyphagia Eyes: DENIES: Blurred vision, Diplopia, Eye inflammation, Eye pain, Vision loss , Photosensitivity, Double Vision Ears, nose, mouth, throat: DENIES: Tinnitus, Hearing loss, Vertigo, Nasal discharge, Oral lesions, Throat pain, Hoarseness, Ear Pain, Running Nose, Epistaxis, Sinus Pain, Toothache, Odynophagia Respiratory: DENIES: Apneas, Cough, Snoring, Wheezing, Hemoptysis, Sputum production, Shortness of breath Cardiovascular: DENIES: Chest pain, Palpitations, Syncope, Dyspnea on Exertion , PND, Lower Extremity Edema, Orthopnea, Claudication Gastrointestinal: DENIES: Abdominal pain, Black stools, Bloody stools, BRB per rectum, Constipation, Diarrhea, GERD, Nausea, Reflux, Vomiting, Difficulty Swallowing, Anorexia Genitourinary: DENIES: Urinary frequency, Urinary incontinence, Urgency, Hematuria, Dysuria, Nocturia Musculoskeletal: DENIES: Joint pain, Muscle aches, Stiffness, Joint Swelling, Back pain, Neck pain Integumentary: DENIES: Abnormal pigmentation, Nail changes, Pruritus, Rash Hematologic/lymphatic: DENIES: Bruising, Lymphadenopathy Immunologic/allergic: DENIES: Eczema, Urticaria Neurologic: DENIES: Abnormal gait, Headache, Localized weakness, Paresthesias, Seizures, Speech Problems, Tremor, Poor Balance Psychiatric: DENIES: Anxiety, Confusion, Mood changes, Depression, Hallucinations, Agitation, Suicidal Ideation, Homicidal Ideation, Delusions, History of Bipolar, History of Schizophrenia Past Family Social History Past Medical History Non-small cell carcinoma with neuroendocrine features stage IIIA s/p treatment with chemotherapy (Carboplatin, Etoposide) x 5 cycles, stopped due to declining performance status, then received XRT, diagnosed in 2016, follows with Dr. Osorio Diabetes with nephropathy CKD stage 3 Diastolic dysfunction Hypertension Sinus bradycardia CAD with hx of [place] Diverticulosis/Diverticulitis Macular degeneration Glaucoma 2D echo (09/03/16) - Mild LVH - Estimated EF 55-60% - Grade 1 diastolic dysfunction - PA pressure 39mmHg Past Surgical History Exploratory laparotomy with proctosigmoidectomy and low pelvic anastomosis, appendectomy, splenectomy on 04/08/[address] Becerril. Cataract Hip surgery PTCA in 1997 and 2002 - Patient underwent left heart catheterization 04/12/[address] Deondre Barajas. Patient had bare metal stent placed in the left circumflex artery and angioplasty to right coronary artery Reported Medications Reported Meds & Active Scripts Active Prednisone 10 Mg Tab 10 Mg PO DIRECTED 30 Days 30mg po bid x 5 days, 20mg po bid x 5 days, 10mg po bid x 5 days, 10mg po daily Aspirin (Aspirin) 81 Mg Tabdr 81 Mg PO DAILY Diltiazem CD 24 HR 300 Mg Caper 300 Mg PO DAILY 30 Days Metoprolol Tartrate 25 Mg Tab 25 Mg PO Q12HR 30 Days Isosorbide Mononitrate ER (Isosorbide Mononitrate) 60 Mg Tab 60 Mg PO DAILY@07 30 Days Plavix (Clopidogrel Bisulfate) 75 Mg Tab 75 Mg PO DAILY 30 Days Pradaxa (Dabigatran) 150 Mg Cap 150 Mg PO BID 30 Days Ferosul (Ferrous Sulfate) 325 Mg (65 Mg Iron) Tablet 325 Mg PO BID@,17 30 Days [Albuterol-Ipratropium Neb] 1 AMPULE Nebu 1 Ampule NEB Q4HR WHILE AWAKE NEB 30 Days Restoril (Temazepam) 15 Mg Cap 15 Mg PO HS PRN Megestrol Liq (Megestrol Acetate) 40 Mg/Ml Susp 400 Mg PO BID Reported Levemir Flextouch Pen Inj (Insulin Detemir) 300 unit/3 ML Pen 10 Units SQ BID Novolog Flexpen Inj (Insulin Aspart) 300 Unit/3 Ml Pen 1 Units SQ Clonidine (Clonidine HCl) 0.1 Mg Tab 0.1 Mg PO QID Brimonidine Opth Drops (Brimonidine Tartrate) 0.2% Soln 1 Drop EACH EYE BID Lexapro (Escitalopram Oxalate) 10 Mg Tab 10 Mg PO DAILY Latanoprost Opth Drops (Latanoprost) 0.005% Drops 1 Drop EACH EYE HS Allergies: Coded Allergies: amlodipine (Unverified Adverse Reaction, Unknown, MUSCLE PAIN, 04/19/17) atorvastatin (Unverified Adverse Reaction, Unknown, MUSCLE PAIN, 04/19/17) pravastatin (Unverified Adverse Reaction, Unknown, MUSCLE PAIN, 04/19/17) simvastatin (Unverified Adverse Reaction, Unknown, MUSCLE PAIN, 04/19/17) Family History non-contributory Social History Denies any alcohol, tobacco or illicit drug use Physical Exam Vital Signs Vital Signs Date Time Temp Pulse Resp B/P (MAP) Pulse Ox O2 Delivery O2 Flow Rate FiO2 04/20/17 08:32 77 154/70 (98) 04/20/17 08:05 95 Nasal Cannula 3.00 04/20/17 07:17 72 17 161/70 (100) 91 Nasal Cannula 2.00 04/20/17 06:00 68 20 135/63 (87) 95 Nasal Cannula 2.00 04/20/17 04:00 64 21 135/63 (87) 98 Nasal Cannula 2.00 04/20/17 02:59 94 Nasal Cannula 2.00 04/20/17 02:38 98.0 64 24 126/60 (82) 94 Nasal Cannula 2.00 04/19/17 23:09 24 94 Nasal Cannula 2.00 04/19/17 23:06 98.6 77 24 137/65 (89) 94 Physical Exam GENERAL: This is a well-nourished, well-developed patient, in no apparent distress. SKIN: No rashes, ecchymoses or lesions. Cool and dry. HEAD: Atraumatic. Normocephalic. No temporal or scalp tenderness. EYES: Pupils equal round and reactive. Extraocular motions intact. No scleral icterus. No injection or drainage. ENT: Nose without bleeding, purulent drainage or septal hematoma. Throat without erythema, tonsillar hypertrophy or exudate. Uvula midline. Airway patent. NECK: Trachea midline. No JVD or lymphadenopathy. Supple, nontender, no meningeal signs. CARDIOVASCULAR: Regular rate and rhythm without murmurs, gallops, or rubs. RESPIRATORY: Clear to auscultation. Breath sounds equal bilaterally. No wheezes , rales, or rhonchi. GASTROINTESTINAL: Abdomen soft, non-tender, nondistended. No hepato-splenomegaly , or palpable masses. No guarding. MUSCULOSKELETAL: Extremities without clubbing, cyanosis, or edema. No joint tenderness, effusion, or edema noted. No calf tenderness. Negative Homans sign bilaterally. NEUROLOGICAL: Awake and alert. Cranial nerves II through XII intact. Motor and sensory grossly within normal limits. Five out of 5 muscle strength in all muscle groups. Normal speech. Laboratory Laboratory Tests Test 04/19/17 23:54 04/19/17 23:59 04/20/17 03:10 04/20/17 04:00 White Blood Count 17.5 Red Blood Count 2.58 Hemoglobin 8.8 Hematocrit 27.0 Mean Corpuscular Volume 104.5 Mean Corpuscular Hemoglobin 34.2 Mean Corpuscular Hemoglobin Concent 32.7 Red Cell Distribution Width 19.4 Platelet Count 226 Mean Platelet Volume 8.6 Neutrophils (%) (Auto) 94.0 Lymphocytes (%) (Auto) 1.2 Monocytes (%) (Auto) 4.4 Eosinophils (%) (Auto) 0.0 Basophils (%) (Auto) 0.4 Neutrophils # (Auto) 16.5 Lymphocytes # (Auto) 0.2 Monocytes # (Auto) 0.8 Eosinophils # (Auto) 0.0 Basophils # (Auto) 0.1 CBC Comment AUTO DIFF Differential Total Cells Counted 100 Neutrophils % (Manual) 90 Band Neutrophils % 4 Monocytes % 3 Neutrophils # (Manual) 17.0 Metamyelocytes 1 Promyelocytes 2 Nucleated Red Blood Cells 1 Differential Comment FINAL DIFF MANUAL Platelet Estimate NORMAL Platelet Morphology Comment NORMAL Polychromasia 2.3 Basophilic Stippling FAINT Ovalocytes 1+ [place] Bodies PRESENT Acanthocytes 1+ Prothrombin Time 14.7 Prothromb Time International Ratio 1.5 Activated Partial Thromboplast Time 33.4 Blood Urea Nitrogen 39 Creatinine 1.32 Random Glucose 127 Total Protein 4.7 Albumin 2.2 Calcium Level 7.6 Magnesium Level 2.1 Alkaline Phosphatase 60 Aspartate Amino Transf (AST/SGOT) 19 Alanine Aminotransferase (ALT/SGPT) 20 Total Bilirubin 0.7 Sodium Level 144 Potassium Level 3.8 Chloride Level 114 Carbon Dioxide Level 19.5 Anion Gap 11 Estimat Glomerular Filtration Rate 53 Troponin I 0.10 C-Reactive Protein LESS THAN 0.29 B-Type Natriuretic Peptide 119 Lipase 119 Lactic Acid Level 5.0 3.6 Urine Color YELLOW Urine Turbidity CLEAR Urine pH 5.0 Urine Specific [place] 1.015 Urine Protein 30 Urine Glucose (UA) 70 Urine Ketones NEG Urine Occult Blood MOD Urine Nitrite NEG Urine Bilirubin NEG Urine Urobilinogen LESS THAN 2.0 Urine Leukocyte Esterase NEG Urine RBC 79 Urine WBC 1 Urine Bacteria RARE Microscopic Urinalysis Comment CULT NOT INDICATED Test 04/20/17 06:30 White Blood Count 16.3 Red Blood Count 2.39 Hemoglobin 8.3 Hematocrit 24.9 Mean Corpuscular Volume 104.3 Mean Corpuscular Hemoglobin 35.0 Mean Corpuscular Hemoglobin Concent 33.5 Red Cell Distribution Width 19.2 Platelet Count 223 Mean Platelet Volume 8.5 Neutrophils (%) (Auto) 95.0 Lymphocytes (%) (Auto) 1.2 Monocytes (%) (Auto) 3.3 Eosinophils (%) (Auto) 0.0 Basophils (%) (Auto) 0.5 Neutrophils # (Auto) 15.5 Lymphocytes # (Auto) 0.2 Monocytes # (Auto) 0.5 Eosinophils # (Auto) 0.0 Basophils # (Auto) 0.1 CBC Comment DIFF FINAL Differential Comment Blood Urea Nitrogen 41 Creatinine 1.41 Random Glucose 82 Calcium Level 7.7 Sodium Level 148 Potassium Level 3.8 Chloride Level 118 Carbon Dioxide Level 19.3 Anion Gap 11 Estimat Glomerular Filtration Rate 49 Lactic Acid Level 4.4 Date/Time Source Procedure Growth Status 04/19/17 23:55 Blood Peripheral Aerobic Blood Culture Pending Received 04/19/17 23:55 Blood Peripheral Anaerobic Blood Culture Pending Received Result Diagram: 04/20/17 0630 04/20/17 0630 Imaging Last Impressions Chest X-Ray 04/19/17 [id number] Signed Impressions: Service Date/Time: Wednesday, April 19, 2017 23:52 - CONCLUSION: Bibasilar areas of interstitial disease/mild consolidation which appear to be improving. Zion Goss MD Septic Shock Reassessment Septic shock perfusion: reassessment completed Caprini VTE Risk Assessment Caprini VTE Risk Assessment: Mod/High Risk (score >= 2) Caprini Risk Assessment Model Point Value = 1 Point Value = 2 Point Value = 3 Point Value = 5 Age 41-60 Minor surgery BMI > 25 kg/m2 Swollen legs Varicose veins or History of unexplained or recurrent spontaneous Oral contraceptives or hormone replacement Sepsis (< 1 month) Serious lung disease, including pneumonia (< 1 month) Abnormal pulmonary function Acute myocardial infarction Congestive heart failure (< 1 month) History of inflammatory bowel disease Medical patient at bed rest Age 61-74 Arthroscopic surgery Major open surgery (> 45 min) Laparoscopic surgery (> 45 min) Malignancy Confined to bed (> 72 hours) Immobilizing plaster cast Central venous access Age >= 75 History of VTE Family history of VTE Factor V Leiden Prothrombin [id number] Lupus anticoagulant Anticardiolipin antibodies Elevated serum homocysteine Heparin-induced thrombocytopenia Other congenital or acquired thrombophilia Stroke (< 1 month) Elective arthroplasty Hip, pelvis, or leg fracture Acute spinal cord injury (< 1 month) Prophylaxis Regimen Total Risk Factor Score Risk Level Prophylaxis Regimen 0-1 Low Early ambulation 2 Moderate Order ONE of the following: *Sequential Compression Device (SCD) *Heparin 5000 units SQ BID 3-4 Higher Order ONE of the following medications: *Heparin 5000 units SQ TID *Enoxaparin/Lovenox 40 mg SQ daily (WT < 150 kg, CrCl > 30 mL/min) *Enoxaparin/Lovenox 30 mg SQ daily (WT < 150 kg, CrCl > 10-29 mL/min) *Enoxaparin/Lovenox 30 mg SQ BID (WT < 150 kg, CrCl > 30 mL/min) AND/OR *Sequential Compression Device (SCD) 5 or more Highest Order ONE of the following medications: *Heparin 5000 units SQ TID (Preferred with Epidurals) *Enoxaparin/Lovenox 40 mg SQ daily (WT < 150 kg, CrCl > 30 mL/min) *Enoxaparin/Lovenox 30 mg SQ daily (WT < 150 kg, CrCl > 10-29 mL/min) *Enoxaparin/Lovenox 30 mg SQ BID (WT < 150 kg, CrCl > 30 mL/min) AND *Sequential Compression Device (SCD) Assessment and Plan Problem List: (1) Cellulitis of arm, right ICD Codes: L03.113 - Cellulitis of right upper limb Status: Acute Plan: - pt presented to ER with c/o erythema and warmth to right arm - WBC 16k (04/20) - pt started on vancomycin & zosyn in ER. continue current antibiotic regimen for now - ER c/o sepsis - I do NOT feel that pt has sepsis syndrome at this time - NO fever, hypotension, or tachycardia - repeat CBC in AM - follow cultures - DVT prophylaxis - anticipate discharge back to SNF in 1- 2 days - supportive care (2) Volume overload ICD Codes: E87.70 - Fluid overload, unspecified Status: Acute Plan: - Pt has h/o diastolic dysfunction - Pt received IVFs - pt with obvious edema at all extremities/anasarca - IV lasix - observe clinical response (3) Leg pain, left ICD Codes: M79.605 - Pain in left leg Status: Acute Plan: - pt c/o severe pain at left leg this AM requiring narcotics - Pt does NOT usually require narcotics - family feels that using bedpan may have contributed - on physical exam of pt's left leg, pt appears to have tight hamstring - family c/o injury at hip or knee. No acute injury - will obtain x-ray series of left knee and hip - lortab/dilaudid prn - observe (4) Non-small cell cancer of right lung ICD Codes: C34.91 - Malignant neoplasm of unspecified part of right bronchus or lung Status: Chronic Plan: stage IIIA c s/p treatment with chemotherapy (Carboplatin, Etoposide) x 5 cycles which were stopped due to declining performance status. Pt then received XRT which he completed in January 2017. Pt follows with Dr. Osorio. - He was last seen by Dr. Osorio in 03/2017 and he had a CT Thorax prior to that visit which noted post treatment changes in the right lung with significant emphysematous changes, however, there is no mass or adenopathy noted. (5) Diabetes ICD Codes: E11.9 - Type 2 diabetes mellitus without complications Status: Chronic Plan: - continue OHA - SSI (6) Hypertension ICD Codes: I10 - Essential (primary) hypertension Status: Chronic Plan: - Cardizem, metoprolol - observe (7) CKD (chronic kidney disease) stage 3, GFR 30-59 ml/min ICD Codes: N18.3 - Chronic kidney disease, stage 3 (moderate) Status: Chronic Plan: - observe (8) CAD (coronary artery disease) ICD Codes: I25.10 - Atherosclerotic heart disease of [place] coronary artery without angina pectoris Status: Chronic Plan: [facility] for LHC. pci bms to left cx and angioplasty to rca . Pt had nstemi asa/plavix/pradaxa x 1 month then stop one of the antiplt's per cardiology (9) Pulmonary fibrosis ICD Codes: J84.10 - Pulmonary fibrosis, unspecified Status: Chronic Plan: - Pt received course of IV steroids during last hospitalization (10) CHF (congestive heart failure) ICD Codes: I50.9 - Heart failure, unspecified Status: Chronic Plan: - 2D echo (09/03/16) - Mild LVH - Estimated EF 55-60% - Grade 1 diastolic dysfunction - PA pressure 39mmHg - continue PO lasix Problem Qualifiers (1) Volume overload: Qualified Codes: E87.70 - Fluid overload, unspecified (2) Diabetes: Qualified Codes: E11.8 - Type 2 diabetes mellitus with unspecified complications (3) Hypertension: Qualified Codes: I10 - Essential (primary) hypertension (4) CAD (coronary artery disease): Qualified Codes: I25.10 - Atherosclerotic heart disease of [place] coronary artery without angina pectoris (5) CHF (congestive heart failure): Qualified Codes: I50.32 - Chronic diastolic (congestive) heart failure Song Camarena DO Apr 20, 2017 11:21
[2017-04-20] MEDS ORDERED: HYDROmorphone HCL PF 2 MG/ML VIAL IV PUSH PRN (12:30)
[2017-04-20] MEDS: FERROUS SULFATE 325 MG (65 MG ELEMENTAL IRON) TAB PO SCH ×2 (13:48→18:18)
--- NOTE | 2017-04-20 15:24 | RADRPT ---
EXAM DATE/TIME: 04/20/2017 14:57 [facility] COMPARISON: No previous studies available for comparison. INDICATIONS : Left hip pain with no known injury. MEDICAL HISTORY : None. SURGICAL HISTORY : Bilateral hip replacements. ENCOUNTER: Initial ACUITY: 1 day PAIN SCORE: 7/10 LOCATION: Left lateral hip. FINDINGS: Bilateral hip arthroplasties in place. The arthroplasty components are intact without adjacent lucenc y. Components are in gross anatomic alignment. Osseous structures are intact without evidence for sig nificant acute bony fracture. SI joints and pubis symphysis are maintained. Sacral arches are grossly intact. Bilateral femoral artery calcifications. Soft tissues are otherwise unremarkable. CONCLUSION: 1. Bilateral hip arthroplasties in place without evidence for significant loosening or fracture. Parviz Keys MD on April 20, 2017 at 15:20 Board Certified Radiologist. This report was verified electronically.
--- NOTE | 2017-04-20 15:28 | RADRPT ---
EXAM DATE/TIME: 04/20/2017 14:57 [facility] COMPARISON: No previous studies available for comparison. INDICATIONS : Left knee pain with no known injury. MEDICAL HISTORY : None. SURGICAL HISTORY : None. ENCOUNTER: Initial ACUITY: 1 day PAIN SCORE: 2/10 LOCATION: Left knee. FINDINGS: Small calcified fragment adjacent to the medial femoral condyle consistent with Sruthi-Stieda les ion. I suspect is are intact without evidence for acute bony fracture. Joint spaces are maintained. T here is likely a trace suprapatellar joint effusion. Arterial atherosclerotic calcifications. Soft ti ssues are otherwise unremarkable. CONCLUSION: 1. Probable trace suprapatellar joint effusion. 2. 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 3. Otherwise, unremarkable knee radiographs. Parviz Keys MD on April 20, 2017 at 15:22 Board Certified Radiologist. This report was verified electronically.
--- NOTE | 2017-04-20 16:21 | EKG ---
Date Performed: 04/20/2017 Time Performed: 01:58:46 PTAGE: 76 years EKG: Sinus rhythm BORDERLINE LEFT AXIS DEVIATION MODERATE INTRAVENTRICULAR CONDUCTION DELAY VOLTAGE CRITERIA FOR LVH N ONSPECIFIC ST & T-WAVE ABNORMALITY When compared to previous tracing, the anterolateral ST-T wave Ch anges are more prominant. ABNORMAL ECG PREVIOUS TRACING : 04/13/2017 04.49 DOCTOR: Eriberto Pathak Interpretating Date/Time 04/20/2017 16:20:08
[2017-04-20] MEDS: FUROSEMIDE 40 MG/4 ML VIAL IV PUSH SCH (18:17)
[2017-04-20] MEDS: LATANOPROST 0.005% OPHT SOLN 2.5 ML BTL EACH EYE SCH (22:55)
[2017-04-20] MEDS ORDERED: GLUCAGON 1 MG/ML VIAL OTHER PRN (23:45)
[2017-04-20] MEDS ORDERED: DEXTROSE 50% IN WATER 50 ML VIAL(D50) IV PUSH PRN (23:45)
[2017-04-20] MEDS ORDERED: INSULIN DETEMIR 100 UNITS/ML VIAL SQ ONE (23:45)
[2017-04-21] VITALS (12 sets, daily range): BP systolic 115–137; BP diastolic 55–67; PULSE 65–80; RESP 16–22; TEMP 97.2–98.4; O2SAT 92–96
[2017-04-21] MEDS: LOW DOSE INSULIN NOVOLOG SUPPLEMENTAL SCALE SQ SCH ×4 (00:02→17:47)
[2017-04-21] MEDS: VANCOMYCIN INJ 1,250 MG in SODIUM CHLOR 0.9% 250 ML INJ 250 ML IV SCH (01:05)
[2017-04-21] MEDS: ISOSORBIDE MONONITRATE 60 MG TAB PO SCH (06:05)
[2017-04-21 06:48] LABS: BASOPHIL # 0.2 TH/MM3 (0-0.2); BASOPHIL % 1.2 % (0.0-2.0); HEMATOCRIT 21.3 % (39.0-51.0); LYMPH % 1.1 % (9.0-44.0); LYMPHOCYTE # 0.2 TH/MM3 (1.0-4.8); MEAN CELL VOLUME 105.4 FL (80.0-100.0); MEAN CORPUSCULAR HGB CONC 33.2 % (32.0-36.0); MONO % 3.7 % (0.0-8.0); PLATELET COUNT 183 TH/MM3 (150-450); RED BLOOD COUNT 2.02 MIL/MM3 (4.50-5.90); RED CELL DISTRIBUTION WIDTH 19.2 % (11.6-17.2)
[2017-04-21 06:56] LABS: HEMO FLAGS AUTO DIFF
[2017-04-21 07:11] LABS: BICARBONATE 19.6 MEQ/L (21.0-32.0); POTASSIUM 3.5 MEQ/L (3.5-5.1)
[2017-04-21 07:34] LABS: CALCIUM-PROTEIN CORRECTED 8.4 MG/DL (8.5-10.1)
[2017-04-21 07:55] LABS: BANDS 1 % (0-6); CORRECTED NUCLEATED RBC 1 /100 WBC (0-0); EOSINOPHILS 1 % (0-4); METAMYELOCYTES 1 % (0-1); NEUTROPHIL # MANUAL DIFF 15.2 TH/MM3 (1.8-7.7); PLATELET ESTIMATE SMEAR NORMAL (NORMAL); PLATELET MORPHOLOGY NORMAL (NORMAL); POLYS (SEG NEUTROPHILS) 93 % (16-70); SCAN/DIFF FINAL DIFF MANUAL; WBC DIFF SAMPLE 100
[2017-04-21] MEDS: RESP: ALBUTEROL 2.5 MG/IPRATROPIUM 0.5 MG NEB (SCH) NEB ×4 (08:40→19:32)
[2017-04-21] MEDS: BRIMONIDINE TARTRATE 0.2% OPHT SOLN 5 ML BTL EACH EYE SCH ×2 (09:00→21:00)
[2017-04-21] MEDS: INSULIN DETEMIR 100 UNITS/ML VIAL SQ SCH ×2 (09:00→21:26)
[2017-04-21] MEDS: PIPERACIL-TAZO 3.375 GM PREMIX 50 ML IV SCH ×2 (09:52→17:13)
[2017-04-21] MEDS: FUROSEMIDE 40 MG/4 ML VIAL IV PUSH SCH ×2 (09:53→17:15)
[2017-04-21] MEDS: DILTIAZEM-CD 300 MG CAP ER PO SCH (09:53)
[2017-04-21] MEDS: ESCITALOPRAM OXALATE 10 MG TAB PO SCH (09:54)
[2017-04-21] MEDS: CLOPIDOGREL 75 MG TAB PO SCH (09:54)
[2017-04-21] MEDS: ASPIRIN EC 81 MG TABEC PO SCH (09:54)
[2017-04-21] MEDS: predniSONE 20 MG TAB PO SCH (09:54)
[2017-04-21] MEDS: DABIGATRAN ETEXILATE 150 MG CAP PO SCH (09:55)
[2017-04-21] MEDS: METOPROLOL TARTRATE 25 MG TAB PO SCH ×2 (09:55→21:26)
[2017-04-21] MEDS: MEGESTROL ACETATE SUSP 400 MG/10 ML CUP PO SCH ×2 (09:55→21:26)
[2017-04-21] MEDS: FERROUS SULFATE 325 MG (65 MG ELEMENTAL IRON) TAB PO SCH ×2 (12:15→17:13)
[2017-04-21] MEDS ORDERED: SODIUM CHLOR 0.9% 250 ML INJ 250 ML IV ONE (13:00)
[2017-04-21] MEDS ORDERED: FUROSEMIDE 20 MG/2 ML VIAL IV PUSH ONE (14:00)
--- NOTE | 2017-04-21 15:35 | HHI.PR ---
Subjective Remarks Patient resting in bed appears to be fatigued Objective Vitals Vital Signs Date Time Temp Pulse Resp B/P (MAP) Pulse Ox O2 Delivery O2 Flow Rate FiO2 04/21/17 12:03 97.8 73 17 115/55 (75) 92 04/21/17 09:46 97.2 72 16 134/67 (89) 95 04/21/17 08:41 95 Nasal Cannula 3.00 04/21/17 08:05 97.2 72 16 134/67 (89) 95 04/21/17 04:00 98.4 68 20 129/60 (83) 94 04/21/17 00:00 98.3 65 20 116/55 (75) 95 04/20/17 20:00 97.5 71 20 121/56 (77) 94 04/20/17 15:58 92 Nasal Cannula 3.00 Result Diagram: 04/21/17 0615 04/21/17 0615 Other Results Laboratory Tests Test 04/19/17 23:54 04/19/17 23:59 04/20/17 03:10 04/20/17 04:00 White Blood Count 17.5 TH/MM3 Red Blood Count 2.58 MIL/MM3 Hemoglobin 8.8 GM/DL Hematocrit 27.0 % Mean Corpuscular Volume 104.5 FL Mean Corpuscular Hemoglobin 34.2 PG Mean Corpuscular Hemoglobin Concent 32.7 % Red Cell Distribution Width 19.4 % Platelet Count 226 TH/MM3 Mean Platelet Volume 8.6 FL Neutrophils (%) (Auto) 94.0 % Lymphocytes (%) (Auto) 1.2 % Monocytes (%) (Auto) 4.4 % Eosinophils (%) (Auto) 0.0 % Basophils (%) (Auto) 0.4 % Neutrophils # (Auto) 16.5 TH/MM3 Lymphocytes # (Auto) 0.2 TH/MM3 Monocytes # (Auto) 0.8 TH/MM3 Eosinophils # (Auto) 0.0 TH/MM3 Basophils # (Auto) 0.1 TH/MM3 CBC Comment AUTO DIFF Differential Total Cells Counted 100 Neutrophils % (Manual) 90 % Band Neutrophils % 4 % Monocytes % 3 % Neutrophils # (Manual) 17.0 TH/MM3 Metamyelocytes 1 % Promyelocytes 2 % Nucleated Red Blood Cells 1 /100 WBC Differential Comment FINAL DIFF MANUAL Platelet Estimate NORMAL Platelet Morphology Comment NORMAL Polychromasia 2.3 % Basophilic Stippling FAINT Ovalocytes 1+ [place] Bodies PRESENT Acanthocytes 1+ Prothrombin Time 14.7 SEC Prothromb Time International Ratio 1.5 RATIO Activated Partial Thromboplast Time 33.4 SEC Blood Urea Nitrogen 39 MG/DL Creatinine 1.32 MG/DL Random Glucose 127 MG/DL Total Protein 4.7 GM/DL Albumin 2.2 GM/DL Calcium Level 7.6 MG/DL Magnesium Level 2.1 MG/DL Alkaline Phosphatase 60 U/L Aspartate Amino Transf (AST/SGOT) 19 U/L Alanine Aminotransferase (ALT/SGPT) 20 U/L Total Bilirubin 0.7 MG/DL Sodium Level 144 MEQ/L Potassium Level 3.8 MEQ/L Chloride Level 114 MEQ/L Carbon Dioxide Level 19.5 MEQ/L Anion Gap 11 MEQ/L Estimat Glomerular Filtration Rate 53 ML/MIN Troponin I 0.10 NG/ML C-Reactive Protein LESS THAN 0.29 MG/DL B-Type Natriuretic Peptide 119 PG/ML Lipase 119 U/L Lactic Acid Level 5.0 mmol/L 3.6 mmol/L Urine Color YELLOW Urine Turbidity CLEAR Urine pH 5.0 Urine Specific [place] 1.015 Urine Protein 30 mg/dL Urine Glucose (UA) 70 mg/dL Urine Ketones NEG mg/dL Urine Occult Blood MOD Urine Nitrite NEG Urine Bilirubin NEG Urine Urobilinogen LESS THAN 2.0 MG/DL Urine Leukocyte Esterase NEG Urine RBC 79 /hpf Urine WBC 1 /hpf Urine Bacteria RARE /hpf Microscopic Urinalysis Comment CULT NOT INDICATED Test 04/20/17 06:30 04/21/17 06:15 White Blood Count 16.3 TH/MM3 16.0 TH/MM3 Red Blood Count 2.39 MIL/MM3 2.02 MIL/MM3 Hemoglobin 8.3 GM/DL 7.1 GM/DL Hematocrit 24.9 % 21.3 % Mean Corpuscular Volume 104.3 FL 105.4 FL Mean Corpuscular Hemoglobin 35.0 PG 35.0 PG Mean Corpuscular Hemoglobin Concent 33.5 % 33.2 % Red Cell Distribution Width 19.2 % 19.2 % Platelet Count 223 TH/MM3 183 TH/MM3 Mean Platelet Volume 8.5 FL 8.1 FL Neutrophils (%) (Auto) 95.0 % 94.0 % Lymphocytes (%) (Auto) 1.2 % 1.1 % Monocytes (%) (Auto) 3.3 % 3.7 % Eosinophils (%) (Auto) 0.0 % 0.0 % Basophils (%) (Auto) 0.5 % 1.2 % Neutrophils # (Auto) 15.5 TH/MM3 15.0 TH/MM3 Lymphocytes # (Auto) 0.2 TH/MM3 0.2 TH/MM3 Monocytes # (Auto) 0.5 TH/MM3 0.6 TH/MM3 Eosinophils # (Auto) 0.0 TH/MM3 0.0 TH/MM3 Basophils # (Auto) 0.1 TH/MM3 0.2 TH/MM3 CBC Comment DIFF FINAL AUTO DIFF Differential Comment FINAL DIFF MANUAL Blood Urea Nitrogen 41 MG/DL 46 MG/DL Creatinine 1.41 MG/DL 1.75 MG/DL Random Glucose 82 MG/DL 159 MG/DL Calcium Level 7.7 MG/DL 6.8 MG/DL Sodium Level 148 MEQ/L 143 MEQ/L Potassium Level 3.8 MEQ/L 3.5 MEQ/L Chloride Level 118 MEQ/L 113 MEQ/L Carbon Dioxide Level 19.3 MEQ/L 19.6 MEQ/L Anion Gap 11 MEQ/L 10 MEQ/L Estimat Glomerular Filtration Rate 49 ML/MIN 38 ML/MIN Lactic Acid Level 4.4 mmol/L Differential Total Cells Counted 100 Neutrophils % (Manual) 93 % Band Neutrophils % 1 % Lymphocytes % 2 % Monocytes % 2 % Eosinophils % 1 % Neutrophils # (Manual) 15.2 TH/MM3 Metamyelocytes 1 % Nucleated Red Blood Cells 1 /100 WBC Platelet Estimate NORMAL Platelet Morphology Comment NORMAL Total Protein 4.1 GM/DL Magnesium Level 2.0 MG/DL Protein Corrected Calcium 8.4 MG/DL Imaging Last Impressions Chest X-Ray 04/19/17 6540 Signed Impressions: Service Date/Time: Wednesday, April 19, 2017 23:52 - CONCLUSION: Bibasilar areas of interstitial disease/mild consolidation which appear to be improving. Zion Goss MD Objective Remarks GENERAL: This is an elderly 76 year old male patient, appears fatigued worse than yesterday CARDIOVASCULAR: Regular rate and rhythm RESPIRATORY: diminished GASTROINTESTINAL: Abdomen soft, non-tender, nondistended. No hepato-splenomegaly , or palpable masses. No guarding. MUSCULOSKELETAL: Extremities without clubbing, cyanosis, or edema. No joint tenderness, effusion, or edema noted. No calf tenderness. Negative Homans sign bilaterally. NEUROLOGICAL: resting able to awake to voice. No focal deficits noted. Motor and sensory grossly within normal limits. 4 out of 5 muscle strength in all muscle groups. Normal speech. A/P Problem List: (1) Cellulitis of arm, right ICD Codes: L03.113 - Cellulitis of right upper limb Status: Acute Plan: - pt presented to ER with c/o erythema and warmth to right arm - WBC 16k (04/20) - pt started on vancomycin & zosyn in ER. continue current antibiotic regimen for now - ER c/o sepsis - I do NOT feel that pt has sepsis syndrome at this time - NO fever, hypotension, or tachycardia - follow cultures - DVT prophylaxis - supportive care (2) Volume overload ICD Codes: E87.70 - Fluid overload, unspecified Status: Acute Plan: - Pt has h/o diastolic dysfunction - Pt received IVFs - pt with obvious edema at all extremities/anasarca - IV lasix - observe clinical response (3) Leg pain, left ICD Codes: M79.605 - Pain in left leg Status: Acute Plan: - pt c/o severe pain at left leg this AM requiring narcotics - Pt does NOT usually require narcotics - family feels that using bedpan may have contributed - on physical exam of pt's left leg, pt appears to have tight hamstring - family c/o injury at hip or knee. No acute injury - will obtain x-ray series of left knee and hip - lortab/dilaudid prn - observe (4) Non-small cell cancer of right lung ICD Codes: C34.91 - Malignant neoplasm of unspecified part of right bronchus or lung Status: Chronic Plan: stage IIIA c s/p treatment with chemotherapy (Carboplatin, Etoposide) x 5 cycles which were stopped due to declining performance status. Pt then received XRT which he completed in January 2017. Pt follows with Dr. Osorio. - He was last seen by Dr. Osorio in 03/2017 and he had a CT Thorax prior to that visit which noted post treatment changes in the right lung with significant emphysematous changes, however, there is no mass or adenopathy noted. (5) Diabetes ICD Codes: E11.9 - Type 2 diabetes mellitus without complications Status: Chronic Plan: - continue OHA - SSI (6) Hypertension ICD Codes: I10 - Essential (primary) hypertension Status: Chronic Plan: - Cardizem, metoprolol - observe (7) CKD (chronic kidney disease) stage 3, GFR 30-59 ml/min ICD Codes: N18.3 - Chronic kidney disease, stage 3 (moderate) Status: Chronic Plan: - observe (8) CAD (coronary artery disease) ICD Codes: I25.10 - Atherosclerotic heart disease of [place] coronary artery without angina pectoris Status: Chronic Plan: Pt to the blood [facility] laboratory technologist 04/12 for LHC. pci bms to left cx and angioplasty to rca . Pt had nstemi asa/plavix/pradaxa x 1 month then stop one of the antiplt's per cardiology (9) Pulmonary fibrosis ICD Codes: J84.10 - Pulmonary fibrosis, unspecified Status: Chronic Plan: - Pt received course of IV steroids during last hospitalization (10) CHF (congestive heart failure) ICD Codes: I50.9 - Heart failure, unspecified Status: Chronic Plan: - 2D echo (09/03/16) - Mild LVH - Estimated EF 55-60% - Grade 1 diastolic dysfunction - PA pressure 39mmHg - continue PO lasix (11) Anemia ICD Codes: D64.9 - Anemia, unspecified Plan: Patient with hgb of 7.1, MCV elevated 105.4 2 units PRBCs ordered recheck CBC in AM occult stool, B12 and folate ordered GI consult offered patient's daughter declined discussed case with cardiology ok to stop Pradaxa, continue Plavix and aspirin- patient with resent stent placement Patient appears to be declining, discussed with daughter at bedside plan for family meeting tomorrow at 11 AM to discuss goals of care and possible hospice Discharge planning patient in decline- not stable for DC at this point plan for family meeting tomorrow at 11 AM to discuss goals of care and possible hospice Assessment and Plan Patient examined. Assessment and plan formulated with Sumaya Barber PA-C. I agree with the above. Prognosis is poor. Case d/w daughter. Will meet with pt/family tomorrow to discuss hospice. Problem Qualifiers (1) Volume overload: Qualified Codes: E87.70 - Fluid overload, unspecified (2) Diabetes: Qualified Codes: E11.8 - Type 2 diabetes mellitus with unspecified complications (3) Hypertension: Qualified Codes: I10 - Essential (primary) hypertension (4) CAD (coronary artery disease): Qualified Codes: I25.10 - Atherosclerotic heart disease of [place] coronary artery without angina pectoris (5) CHF (congestive heart failure): Qualified Codes: I50.32 - Chronic diastolic (congestive) heart failure Sumaya Barber Apr 21, 2017 15:35 Song Camarena DO Apr 22, 2017 12:35
[2017-04-21] MEDS: LATANOPROST 0.005% OPHT SOLN 2.5 ML BTL EACH EYE SCH (21:26)
[2017-04-22] VITALS (11 sets, daily range): BP systolic 127–171; BP diastolic 62–75; PULSE 61–74; RESP 18–21; TEMP 97.4–99.7; O2SAT 91–95
[2017-04-22] MEDS: LOW DOSE INSULIN NOVOLOG SUPPLEMENTAL SCALE SQ SCH ×4 (00:16→18:00)
[2017-04-22] MEDS: VANCOMYCIN INJ 1,250 MG in SODIUM CHLOR 0.9% 250 ML INJ 250 ML IV SCH ×2 (00:39→00:45)
[2017-04-22 05:59] LABS: BASOPHIL # 0.1 TH/MM3 (0-0.2); BASOPHIL % 0.3 % (0.0-2.0); HEMATOCRIT 30.9 % (39.0-51.0); LYMPH % 2.1 % (9.0-44.0); LYMPHOCYTE # 0.4 TH/MM3 (1.0-4.8); MEAN CELL VOLUME 96.7 FL (80.0-100.0); MEAN CORPUSCULAR HEMOGLOBIN 32.8 PG (27.0-34.0); MEAN CORPUSCULAR HGB CONC 33.9 % (32.0-36.0); MONO % 3.1 % (0.0-8.0); NEUT % 94.5 % (16.0-70.0); PLATELET COUNT 185 TH/MM3 (150-450); RED CELL DISTRIBUTION WIDTH 22.3 % (11.6-17.2); WHITE BLOOD COUNT 16.9 TH/MM3 (4.0-11.0)
[2017-04-22 06:03] LABS: HEMO FLAGS AUTO DIFF
[2017-04-22] MEDS: ISOSORBIDE MONONITRATE 60 MG TAB PO SCH (06:24)
[2017-04-22 06:32] LABS: BICARBONATE 21.8 MEQ/L (21.0-32.0); MAGNESIUM 1.9 MG/DL (1.5-2.5); POTASSIUM 3.1 MEQ/L (3.5-5.1)
[2017-04-22 06:59] LABS: CALCIUM-PROTEIN CORRECTED 8.5 MG/DL (8.5-10.1)
[2017-04-22 07:23] LABS: BANDS 9 % (0-6); CORRECTED NUCLEATED RBC 2 /100 WBC (0-0); METAMYELOCYTES 1 % (0-1); NEUTROPHIL # MANUAL DIFF 15.5 TH/MM3 (1.8-7.7); POLYS (SEG NEUTROPHILS) 82 % (16-70); SCAN/DIFF FINAL DIFF MANUAL; WBC DIFF SAMPLE 100
[2017-04-22 07:25] LABS: HOWELL-JOLLY BODIES PRESENT (NONE SEEN); PLATELET ESTIMATE SMEAR NORMAL (NORMAL); PLATELET MORPHOLOGY NORMAL (NORMAL)
[2017-04-22] MEDS: RESP: ALBUTEROL 2.5 MG/IPRATROPIUM 0.5 MG NEB (SCH) NEB ×4 (07:56→20:21)
[2017-04-22] MEDS: MEGESTROL ACETATE SUSP 400 MG/10 ML CUP PO SCH (09:09)
[2017-04-22] MEDS: FUROSEMIDE 40 MG/4 ML VIAL IV PUSH SCH ×2 (09:13→18:00)
[2017-04-22] MEDS: predniSONE 20 MG TAB PO SCH (09:13)
[2017-04-22] MEDS: DILTIAZEM-CD 300 MG CAP ER PO SCH (09:13)
[2017-04-22] MEDS: CLOPIDOGREL 75 MG TAB PO SCH (09:13)
[2017-04-22] MEDS: ASPIRIN EC 81 MG TABEC PO SCH (09:13)
[2017-04-22] MEDS: ESCITALOPRAM OXALATE 10 MG TAB PO SCH (09:14)
[2017-04-22] MEDS: METOPROLOL TARTRATE 25 MG TAB PO SCH (09:14)
[2017-04-22] MEDS: BRIMONIDINE TARTRATE 0.2% OPHT SOLN 5 ML BTL EACH EYE SCH (09:14)
[2017-04-22] MEDS: PIPERACIL-TAZO 3.375 GM PREMIX 50 ML IV SCH ×2 (09:14)
--- NOTE | 2017-04-22 12:43 | HHI.PR ---
Subjective Remarks Pt with continued SOB. Pt on 4L and oxygen saturation is running in the low 90s. Pt is more SOB with any movement. Pt is very weak. Objective Vitals Vital Signs Date Time Temp Pulse Resp B/P (MAP) Pulse Ox O2 Delivery O2 Flow Rate FiO2 04/22/17 08:09 98.6 71 20 171/75 (107) 91 04/22/17 07:56 92 Nasal Cannula 3.00 04/22/17 05:30 98.5 61 20 140/65 93 04/22/17 05:29 98.8 62 18 168/70 (102) 92 04/22/17 03:10 98.5 67 20 149/69 95 04/22/17 02:55 98.4 65 21 154/69 95 04/22/17 02:40 98.6 65 20 147/66 94 04/22/17 02:20 98.5 69 21 145/65 95 04/22/17 00:36 99.0 74 18 127/62 (83) 95 04/21/17 21:22 98.4 80 18 129/62 (84) 94 04/21/17 20:10 98.4 80 20 129/62 94 04/21/17 17:57 98.0 70 22 137/62 96 04/21/17 17:19 97.8 66 22 128/61 94 04/21/17 16:18 97.9 69 17 119/57 (77) 92 04/21/17 15:31 92 Nasal Cannula 3.00 Result Diagram: 04/22/17 0550 04/22/17 0550 Imaging Last Impressions Knee X-Ray 04/20/17 0000 Signed Impressions: Service Date/Time: Thursday, April 20, 2017 14:57 - CONCLUSION: 1. Probable trace suprapatellar joint effusion. 2. 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 3. Otherwise, unremarkable knee radiographs. Parviz Keys MD Hip and Pelvis X-Ray 04/20/17 0000 Signed Impressions: Service Date/Time: Thursday, April 20, 2017 14:57 - CONCLUSION: 1. Bilateral hip arthroplasties in place without evidence for significant loosening or fracture. Parviz Keys MD Chest X-Ray 04/19/17 2326 Signed Impressions: Service Date/Time: Wednesday, April 19, 2017 23:52 - CONCLUSION: Bibasilar areas of interstitial disease/mild consolidation which appear to be improving. Zion Goss MD Objective Remarks GENERAL: This is an elderly 76 year old male patient, appears fatigued worse than yesterday CARDIOVASCULAR: Regular rate and rhythm RESPIRATORY: diminished GASTROINTESTINAL: Abdomen soft, non-tender, nondistended. No hepato-splenomegaly , or palpable masses. No guarding. MUSCULOSKELETAL: Extremities without clubbing, cyanosis, or edema. No joint tenderness, effusion, or edema noted. No calf tenderness. Negative Homans sign bilaterally. NEUROLOGICAL: resting able to awake to voice. No focal deficits noted. Motor and sensory grossly within normal limits. 4 out of 5 muscle strength in all muscle groups. Normal speech. A/P Problem List: (1) Non-small cell cancer of right lung ICD Codes: C34.91 - Malignant neoplasm of unspecified part of right bronchus or lung Status: Chronic Plan: stage IIIA c s/p treatment with chemotherapy (Carboplatin, Etoposide) x 5 cycles which were stopped due to declining performance status. Pt then received XRT which he completed in January 2017. Pt follows with Dr. Osorio. - He was last seen by Dr. Osorio in 03/2017 and he had a CT Thorax prior to that visit which noted post treatment changes in the right lung with significant emphysematous changes, however, there is no mass or adenopathy noted. - Pt continues to exhibit volume overload - aggressive IV diuresis, but now with worsening electrolyte abnormalities - Pt in obvious decline - continued aggressive treatment appears futile - pt/family requesting Hospice - pt's prognosis is poor. (2) Cellulitis of arm, right ICD Codes: L03.113 - Cellulitis of right upper limb Status: Acute Plan: - pt presented to ER with c/o erythema and warmth to right arm - WBC 16k (04/20), 16.9 (04/22) - pt started on vancomycin & zosyn in ER. continue current antibiotic regimen for now - ER c/o sepsis - I do NOT feel that pt has sepsis syndrome at this time - NO fever, hypotension, or tachycardia - follow cultures - DVT prophylaxis - supportive care (3) Volume overload ICD Codes: E87.70 - Fluid overload, unspecified Status: Acute Plan: - Pt has h/o diastolic dysfunction - Pt received IVFs - pt with obvious edema at all extremities/anasarca - IV lasix - see above (4) Leg pain, left ICD Codes: M79.605 - Pain in left leg Status: Acute Plan: - pt c/o severe pain at left leg this AM requiring narcotics - Pt does NOT usually require narcotics - family feels that using bedpan may have contributed - on physical exam of pt's left leg, pt appears to have tight hamstring - family c/o injury at hip or knee. No acute injury - x-ray series of left knee and hip --> NO acute findings - lortab/dilaudid prn - observe (5) Diabetes ICD Codes: E11.9 - Type 2 diabetes mellitus without complications Status: Chronic Plan: - pt was hypoglycemic this AM - stop scheduled DM medications - SSI (6) Hypertension ICD Codes: I10 - Essential (primary) hypertension Status: Chronic Plan: - Cardizem, metoprolol - observe (7) CKD (chronic kidney disease) stage 3, GFR 30-59 ml/min ICD Codes: N18.3 - Chronic kidney disease, stage 3 (moderate) Status: Chronic Plan: - observe (8) CAD (coronary artery disease) ICD Codes: I25.10 - Atherosclerotic heart disease of [place] coronary artery without angina pectoris Status: Chronic Plan: Pt to the quality lab technician 04/12 for C. pci bms to left cx and angioplasty to rca . Pt had nstemi asa/plavix/pradaxa x 1 month then stop one of the antiplt's per cardiology (9) Pulmonary fibrosis ICD Codes: J84.10 - Pulmonary fibrosis, unspecified Status: Chronic Plan: - Pt received course of IV steroids during last hospitalization (10) CHF (congestive heart failure) ICD Codes: I50.9 - Heart failure, unspecified Status: Chronic Plan: - 2D echo (09/03/16) - Mild LVH - Estimated EF 55-60% - Grade 1 diastolic dysfunction - PA pressure 39mmHg - continue PO lasix (11) Anemia ICD Codes: D64.9 - Anemia, unspecified Plan: Patient with hgb of 7.1, MCV elevated 105.4 2 units PRBCs ordered recheck CBC in AM occult stool, B12 and folate ordered GI consult offered patient's daughter declined discussed case with cardiology ok to stop Pradaxa, continue Plavix and aspirin- patient with resent stent placement Patient appears to be declining, discussed with daughter at bedside plan for family meeting tomorrow at 11 AM to discuss goals of care and possible hospice Discharge planning patient in decline- not stable for DC at this point plan for family meeting tomorrow at 11 AM to discuss goals of care and possible hospice Problem Qualifiers (1) Volume overload: Qualified Codes: E87.70 - Fluid overload, unspecified (2) Diabetes: Qualified Codes: E11.8 - Type 2 diabetes mellitus with unspecified complications (3) Hypertension: Qualified Codes: I10 - Essential (primary) hypertension (4) CAD (coronary artery disease): Qualified Codes: I25.10 - Atherosclerotic heart disease of [place] coronary artery without angina pectoris (5) CHF (congestive heart failure): Qualified Codes: I50.32 - Chronic diastolic (congestive) heart failure Song Camarena DO Apr 22, 2017 12:43
[2017-04-22] MEDS: FERROUS SULFATE 325 MG (65 MG ELEMENTAL IRON) TAB PO SCH ×2 (13:07→17:00)
[2017-04-22] MEDS ORDERED: IPRASOL INH (16:03)
--- NOTE | 2017-04-22 18:34 | HHI.DS ---
Discharge Summary Admission Date Apr 20, 2017 at 02:13 Discharge Date: Apr 22, 2017 Admitting Diagnosis left arm cellulitis, leukocytosis (1) Non-small cell cancer of right lung Diagnosis: Principal ICD Codes: C34.91 - Malignant neoplasm of unspecified part of right bronchus or lung Status: Chronic (2) Cellulitis of arm, right Diagnosis: Principal ICD Codes: L03.113 - Cellulitis of right upper limb Status: Acute (3) Volume overload Diagnosis: Principal ICD Codes: E87.70 - Fluid overload, unspecified Status: Acute (4) Leg pain, left Diagnosis: Principal ICD Codes: M79.605 - Pain in left leg Status: Acute (5) Diabetes Diagnosis: Secondary ICD Codes: E11.9 - Type 2 diabetes mellitus without complications Status: Chronic (6) Hypertension Diagnosis: Secondary ICD Codes: I10 - Essential (primary) hypertension Status: Chronic (7) CKD (chronic kidney disease) stage 3, GFR 30-59 ml/min Diagnosis: Secondary ICD Codes: N18.3 - Chronic kidney disease, stage 3 (moderate) Status: Chronic (8) CAD (coronary artery disease) Diagnosis: Secondary ICD Codes: I25.10 - Atherosclerotic heart disease of [place] coronary artery without angina pectoris Status: Chronic (9) Pulmonary fibrosis Diagnosis: Secondary ICD Codes: J84.10 - Pulmonary fibrosis, unspecified Status: Chronic (10) CHF (congestive heart failure) Diagnosis: Secondary ICD Codes: I50.9 - Heart failure, unspecified Status: Chronic (11) Anemia Diagnosis: Secondary ICD Codes: D64.9 - Anemia, unspecified Consultants none Procedures none Brief History Pt is a pleasant 76 y/o M admitted with CAD, hypertension, CKD, diverticulitis and 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 Pt then received XRT which he completed in January 2017. Pt follows with Dr. Osorio. Pt most most recently hospitalized at [facility] April 05 through April 15, 2017. Patient was admitted due to shortness of breath, likely multifactorial. Patient underwent left heart catheterization 04/12/[address] Deondre Barajas. Patient had bare metal stent placed in the left circumflex artery and angioplasty to right coronary artery. Patient diagnosed with non-ST segment elevation RI. Patient also received intravenous steroids due to pulmonary fibrosis. Patient also felt to have had volume overload. Patient was discharged to shelter facility. Patient returned to the [facility] ER with complaint of worsening swelling and redness in his left arm. This started a few days prior to readmission. Patient 's daughter concerned that [id number] became wet on 2 occasions during prior hospitalization. However, no redness or tenderness at [id number] site. Patient's white count is elevated at 16.3 K. Patient has no fever, chills, or sweats. Patient started on intravenous vancomycin and Zosyn in the ER. Pt had leukocytosis and elevated lactic acid. ER c/o sepsis. Pt received broad spectrum antibiotics and IV fluids. Patient admitted to [facility] for further evaluation and treatment. CBC/BMP: 04/22/17 0550 04/22/17 0550 Significant Findings Laboratory Tests Test 04/19/17 23:54 04/19/17 23:59 04/20/17 03:10 04/20/17 04:00 White Blood Count 17.5 TH/MM3 (4.0-11.0) Red Blood Count 2.58 MIL/MM3 (4.50-5.90) Hemoglobin 8.8 GM/DL (13.0-17.0) Hematocrit 27.0 % (39.0-51.0) Mean Corpuscular Volume 104.5 FL (80.0-100.0) Mean Corpuscular Hemoglobin 34.2 PG (27.0-34.0) Red Cell Distribution Width 19.4 % (11.6-17.2) Neutrophils (%) (Auto) 94.0 % (16.0-70.0) Lymphocytes (%) (Auto) 1.2 % (9.0-44.0) Neutrophils # (Auto) 16.5 TH/MM3 (1.8-7.7) Lymphocytes # (Auto) 0.2 TH/MM3 (1.0-4.8) Neutrophils % (Manual) 90 % (16-70) Neutrophils # (Manual) 17.0 TH/MM3 (1.8-7.7) Promyelocytes 2 % (0-0) Nucleated Red Blood Cells 1 /100 WBC (0-0) Polychromasia 2.3 % (0.0-1.9) Basophilic Stippling FAINT (NORMAL) Ovalocytes 1+ (NORMAL) Acanthocytes 1+ (NORMAL) Prothrombin Time 14.7 SEC (9.8-11.6) Activated Partial Thromboplast Time 33.4 SEC (24.3-30.1) Blood Urea Nitrogen 39 MG/DL (7-18) Creatinine 1.32 MG/DL (0.60-1.30) Random Glucose 127 MG/DL (74-106) Total Protein 4.7 GM/DL (6.4-8.2) Albumin 2.2 GM/DL (3.4-5.0) Calcium Level 7.6 MG/DL (8.5-10.1) Chloride Level 114 MEQ/L (98-107) Carbon Dioxide Level 19.5 MEQ/L (21.0-32.0) Estimat Glomerular Filtration Rate 53 ML/MIN (>89) Troponin I 0.10 NG/ML (0.02-0.05) B-Type Natriuretic Peptide 119 PG/ML (0-100) Lactic Acid Level 5.0 mmol/L (0.4-2.0) 3.6 mmol/L (0.4-2.0) Urine Protein 30 mg/dL (NEG-TRACE) Urine Glucose (UA) 70 mg/dL (NEG) Urine Occult Blood MOD (NEG) Urine RBC 79 /hpf (0-3) Urine Bacteria RARE /hpf (NONE) Test 04/20/17 06:30 04/21/17 06:15 04/22/17 05:50 White Blood Count 16.3 TH/MM3 (4.0-11.0) 16.0 TH/MM3 (4.0-11.0) 16.9 TH/MM3 (4.0-11.0) Red Blood Count 2.39 MIL/MM3 (4.50-5.90) 2.02 MIL/MM3 (4.50-5.90) 3.20 MIL/MM3 (4.50-5.90) Hemoglobin 8.3 GM/DL (13.0-17.0) 7.1 GM/DL (13.0-17.0) 10.5 GM/DL (13.0-17.0) Hematocrit 24.9 % (39.0-51.0) 21.3 % (39.0-51.0) 30.9 % (39.0-51.0) Mean Corpuscular Volume 104.3 FL (80.0-100.0) 105.4 FL (80.0-100.0) Mean Corpuscular Hemoglobin 35.0 PG (27.0-34.0) 35.0 PG (27.0-34.0) Red Cell Distribution Width 19.2 % (11.6-17.2) 19.2 % (11.6-17.2) 22.3 % (11.6-17.2) Neutrophils (%) (Auto) 95.0 % (16.0-70.0) 94.0 % (16.0-70.0) 94.5 % (16.0-70.0) Lymphocytes (%) (Auto) 1.2 % (9.0-44.0) 1.1 % (9.0-44.0) 2.1 % (9.0-44.0) Neutrophils # (Auto) 15.5 TH/MM3 (1.8-7.7) 15.0 TH/MM3 (1.8-7.7) 16.0 TH/MM3 (1.8-7.7) Lymphocytes # (Auto) 0.2 TH/MM3 (1.0-4.8) 0.2 TH/MM3 (1.0-4.8) 0.4 TH/MM3 (1.0-4.8) Blood Urea Nitrogen 41 MG/DL (7-18) 46 MG/DL (7-18) 40 MG/DL (7-18) Creatinine 1.41 MG/DL (0.60-1.30) 1.75 MG/DL (0.60-1.30) 1.50 MG/DL (0.60-1.30) Calcium Level 7.7 MG/DL (8.5-10.1) 6.8 MG/DL (8.5-10.1) 7.2 MG/DL (8.5-10.1) Sodium Level 148 MEQ/L (136-145) 147 MEQ/L (136-145) Chloride Level 118 MEQ/L (98-107) 113 MEQ/L (98-107) 114 MEQ/L (98-107) Carbon Dioxide Level 19.3 MEQ/L (21.0-32.0) 19.6 MEQ/L (21.0-32.0) Estimat Glomerular Filtration Rate 49 ML/MIN (>89) 38 ML/MIN (>89) 45 ML/MIN (>89) Lactic Acid Level 4.4 mmol/L (0.4-2.0) Neutrophils % (Manual) 93 % (16-70) 82 % (16-70) Lymphocytes % 2 % (9-44) 2 % (9-44) Neutrophils # (Manual) 15.2 TH/MM3 (1.8-7.7) 15.5 TH/MM3 (1.8-7.7) Nucleated Red Blood Cells 1 /100 WBC (0-0) 2 /100 WBC (0-0) Random Glucose 159 MG/DL (74-106) 51 MG/DL (74-106) Total Protein 4.1 GM/DL (6.4-8.2) 4.7 GM/DL (6.4-8.2) Protein Corrected Calcium 8.4 MG/DL (8.5-10.1) Band Neutrophils % 9 % (0-6) Potassium Level 3.1 MEQ/L (3.5-5.1) Imaging Last Impressions Knee X-Ray 04/20/17 0000 Signed Impressions: Service Date/Time: Thursday, April 20, 2017 14:57 - CONCLUSION: 1. Probable trace suprapatellar joint effusion. 2. 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 3. Otherwise, unremarkable knee radiographs. Parviz Keys MD Hip and Pelvis X-Ray 04/20/17 0000 Signed Impressions: Service Date/Time: Thursday, April 20, 2017 14:57 - CONCLUSION: 1. Bilateral hip arthroplasties in place without evidence for significant loosening or fracture. Parviz Keys MD Chest X-Ray 04/19/17 2326 Signed Impressions: Service Date/Time: Wednesday, April 19, 2017 23:52 - CONCLUSION: Bibasilar areas of interstitial disease/mild consolidation which appear to be improving. Zion Goss MD PE at Discharge GENERAL: This is an elderly 76 year old male patient, appears fatigued worse than yesterday CARDIOVASCULAR: Regular rate and rhythm RESPIRATORY: diminished GASTROINTESTINAL: Abdomen soft, non-tender, nondistended. No hepato-splenomegaly , or palpable masses. No guarding. MUSCULOSKELETAL: Extremities without clubbing, cyanosis, or edema. No joint tenderness, effusion, or edema noted. No calf tenderness. Negative Homans sign bilaterally. NEUROLOGICAL: resting able to awake to voice. No focal deficits noted. Motor and sensory grossly within normal limits. 4 out of 5 muscle strength in all muscle groups. Normal speech. Hospital Course Non-small cell cancer of right lung stage IIIA c s/p treatment with chemotherapy (Carboplatin, Etoposide) x 5 cycles which were stopped due to declining performance status. Pt then received XRT which he completed in January 2017. Pt follows with Dr. Osorio. - He was last seen by Dr. Osoroi in 03/2017 and he had a CT Thorax prior to that visit which noted post treatment changes in the right lung with significant emphysematous changes, however, there is no mass or adenopathy noted. - Pt continues to exhibit volume overload - aggressive IV diuresis, but now with worsening electrolyte abnormalities - Pt in obvious decline - continued aggressive treatment appears futile - pt/family requesting Hospice - pt's prognosis is poor. Cellulitis of arm, right - pt presented to ER with c/o erythema and warmth to right arm - WBC 16k (04/20), 16.9 (04/22) - pt started on vancomycin & zosyn in ER. continue current antibiotic regimen for now - ER c/o sepsis - I do NOT feel that pt has sepsis syndrome at this time - NO fever, hypotension, or tachycardia - follow cultures - DVT prophylaxis - supportive care Volume overload - Pt has h/o diastolic dysfunction - Pt received IVFs - pt with obvious edema at all extremities/anasarca - IV lasix - see above Leg pain, left - pt c/o severe pain at left leg this AM requiring narcotics - Pt does NOT usually require narcotics - family feels that using bedpan may have contributed - on physical exam of pt's left leg, pt appears to have tight hamstring - family c/o injury at hip or knee. No acute injury - x-ray series of left knee and hip --> NO acute findings - lortab/dilaudid prn - observe Diabetes - pt was hypoglycemic this AM - stop scheduled DM medications - SSI Hypertension - Cardizem, metoprolol - observe CKD (chronic kidney disease) stage 3, GFR 30-59 ml/min - observe CAD (coronary artery disease) Pt to the [facility] 04/12 for LHC. pci bms to left cx and angioplasty to rca . Pt had nstemi asa/plavix/pradaxa x 1 month then stop one of the antiplt's per cardiology Pulmonary fibrosis - Pt received course of IV steroids during last hospitalization CHF (congestive heart failure) - 2D echo (09/03/16) - Mild LVH - Estimated EF 55-60% - Grade 1 diastolic dysfunction - PA pressure 39mmHg - continue PO lasix Anemia Patient with hgb of 7.1, MCV elevated 105.4 2 units PRBCs ordered recheck CBC in AM occult stool, B12 and folate ordered GI consult offered patient's daughter declined discussed case with cardiology ok to stop Pradaxa, continue Plavix and aspirin- patient with resent stent placement Patient appears to be declining, discussed with daughter at bedside plan for family meeting elected DC home with hospice Pt Condition on Discharge: Deteriorating Discharge Disposition: Hospice/ Home Discharge Instructions DIET: Follow Instructions for: As Tolerated, No Restrictions Activities you can perform: Weight Bearing as Carmella New Medications: Ipratropium-Albuterol Neb (Duoneb) 0.5-2.5 Mg/3 Ml Neb 1 NEBULE INH Q6HR NEB for Breathing Treatment, #120 NEBULE 0 Refills Continued Medications: Aspirin DR (Aspirin DR) 81 Mg Tabdr 81 MG PO DAILY for cad, #180 TAB Brimonidine Opth Drops (Brimonidine Opth Drops) 0.2% Soln 1 DROP EACH EYE BID for Glaucoma, #1 BOTTLE 0 Refills Clopidogrel (Plavix) 75 Mg Tab 75 MG PO DAILY for cad for 30 Days, #30 TAB Diltiazem CD 24 HR (Diltiazem CD 24 HR) 300 Mg Caper 300 MG PO DAILY for htn for 30 Days, #30 CAP Escitalopram (Lexapro) 10 Mg Tab 10 MG PO DAILY, #30 TAB 0 Refills Isosorbide Mononitrate ER (Isosorbide Mononitrate ER) 60 Mg Tab 60 MG PO DAILY@07 for cad for 30 Days, TAB Latanoprost Opth Drops (Latanoprost Opth Drops) 0.005% Drops 1 DROP EACH EYE HS for Glaucoma, #2.5 ML 0 Refills Refrigerate until opened. Metoprolol Tartrate (Metoprolol Tartrate) 25 Mg Tab 25 MG PO Q12HR for cad for 30 Days, TAB Temazepam (Restoril) 15 Mg Cap 15 MG PO HS PRN for SLEEP, #30 CAP 0 Refills Discontinued Medications: Clonidine (Clonidine) 0.1 Mg Tab 0.1 MG PO QID for Blood Pressure Management, #60 TAB 0 Refills Dabigatran (Pradaxa) 150 Mg Cap 150 MG PO BID for prophylaxis for 30 Days, #60 CAP Ferrous Sulfate (Ferosul) 325 Mg (65 Mg Iron) Tablet 325 MG PO BID@12,17 for supplement for 30 Days, TAB Insulin Aspart Inj (Novolog Flexpen Inj) 300 Unit/3 Ml Pen 1 UNITS SQ for Blood Sugar Management, #1 PEN 0 Refills Insulin Detemir Inj (Levemir Flextouch Pen Inj) 300 unit/3 ML Pen 10 UNITS SQ BID for Blood Sugar Management, PEN 0 Refills Megestrol Liq (Megestrol Liq) 40 Mg/Ml Susp 400 MG PO BID for anorexia, #60 ML 0 Refills Prednisone (Prednisone) 10 Mg Tab 10 MG PO DIRECTED for pneumonitis for 30 Days, TAB 30mg po bid x 5 days, 20mg po bid x 5 days, 10mg po bid x 5 days, 10mg po daily [Albuterol-Ipratropium Neb] () 1 AMPULE NEBU 1 AMPULE NEB Q4HR WHILE AWAKE NEB for 30 Days Additional Information Patient examined. Assessment and plan formulated with Sumaya Barber PA-C. I agree with the above. Sumaya Barber Apr 22, 2017 18:34 Song Camarena DO Apr 26, 2017 01:54
[2017-04-22] MEDS ORDERED: SODIUM CHLORIDE 0.9% FLUSH 10 ML FLUSH IV FLUSH PRN (18:45)
[2017-04-23] MEDS ORDERED: PHARMACY ORDERED LAB ONE (01:45)
== END 2017-04-22 20:37 | disposition hospice, home (50) | DRG 603 ==
LOC: NEPC 22:54 → NEDA 04-20 02:13 → NEDH 04-20 06:35 → N05A 04-20 12:36
PROVIDERS: ADMIT Hospitalist; ATTEND Hospitalist
DX: L03.113 Cellulitis of right upper limb (principal); E11.21 Type 2 diabetes mellitus with diabetic nephropathy; C34.91 Malignant neoplasm of unspecified part of right bronchus or lung; J84.10 Pulmonary fibrosis, unspecified; E11.649 Type 2 diabetes mellitus with hypoglycemia without coma; I50.32 Chronic diastolic (congestive) heart failure; I13.0 Hypertensive heart and chronic kidney disease with heart failure and stage 1 through stage 4 chronic kidney disease, or unspecified chronic kidney disease; D64.9 Anemia, unspecified; N18.3 Chronic kidney disease, stage 3 (moderate); I25.10 Atherosclerotic heart disease of native coronary artery without angina pectoris; I25.2 Old myocardial infarction; E11.22 Type 2 diabetes mellitus with diabetic chronic kidney disease; N40.0 Benign prostatic hyperplasia without lower urinary tract symptoms; I45.9 Conduction disorder, unspecified; M79.605 Pain in left leg; J44.9 Chronic obstructive pulmonary disease, unspecified; M19.90 Unspecified osteoarthritis, unspecified site; H40.9 Unspecified glaucoma; H35.30 Unspecified macular degeneration; Z79.01 Long term (current) use of anticoagulants; Z79.4 Long term (current) use of insulin; Z85.118 Personal history of other malignant neoplasm of bronchus and lung; Z86.14 Personal history of Methicillin resistant Staphylococcus aureus infection; Z86.711 Personal history of pulmonary embolism; Z90.81 Acquired absence of spleen; Z92.21 Personal history of antineoplastic chemotherapy; Z92.3 Personal history of irradiation; Z95.5 Presence of coronary angioplasty implant and graft; Z99.81 Dependence on supplemental oxygen
CPT/HCPCS: 36430; 71010; 73502; 73564; 80048; 80053; 81001; 82272; 82607; 82746; 82948; 83605; 83690; 83735; 83880; 84155; 84484; 85007; 85025; 85027; 85610; 85730; 86140; 86850; 86900; 86901; 86920; 87040; 93005; 94640; 94664; 96365; 96368; J1642; J1815; J1940; J2270; J2543; J3370; J7030; J7040; J7050; J7512; P9016